=== PATIENT | female | born 1935 | race Caucasian/White ===

== ENCOUNTER 2016-05-27 18:17 | Emergency (ER) | payer MEDICARE, OTHER, MEDICAID ==
[~2016-05-27] VITALS: Ht 157.5 cm; Wt 59.0 kg
[~2016-05-27 18:17] MED LIST: CALC500T GTB; FERS GTB; FOLI0.4T2 GTB; GLIP5TAB13 GTB; LANS30CA GTB; LEVO500T72 GTB; MULT-761 GTB; MUPI22OI2 TOP; NOVO3I SC; UDREG GTB
[2016-05-27 18:37] VITALS: Ht 157.5 cm; Wt 59.0 kg
[2016-05-27] MEDS ORDERED: DIATR MEGLU/DIATRIZOATE SODIUM 120 ML BTL ONE (19:04)
--- NOTE | 2016-05-27 20:10 | RADRPT ---
PROCEDURE: XR Abdomen. CLINICAL INDICATION: Gastrostomy tube position. TECHNIQUE: AP supine abdomen x-ray. The image was obtained following injection of 30 ml of Gastrog rafin into the gastrostomy tube. COMPARISON: CT scan of the abdomen and pelvis dated 08/10/2014. FINDINGS: There is a gastrostomy tube in the stomach. Contrast is present in the gastrostomy tube, stomach, a nd distal esophagus. There is gastroesophageal reflux. Multiple surgical clips are present in the upper abdomen. The stomach is probably small related to prior surgery. There are no abnormal calcifications overlying the urinary tracts. There are degenerative changes of the spine. IMPRESSION: 1. Gastrostomy tube in the stomach. 2. Prior upper abdomen surgery. 3. Gastroesophageal reflux. RPTAT: QQ .Parvez Santana MD, Date Time Electronically viewed and signed by .Parvez Santana MD, on 05/27/2016 20:10 .R/
[2016-05-27] MEDS ORDERED: DOCU-159 GTB (20:44)
[2016-05-27] MEDS ORDERED: FLEETPED PR (20:45)
[2016-05-27] MEDS ORDERED: DULR PR (20:45)
[2016-05-27] MEDS ORDERED: LEVO5TAB10 GTB (20:47)
[2016-05-27] MEDS ORDERED: PANT40TA3 GTB (20:48)
[2016-05-27] MEDS ORDERED: MAGN400O4 GTB (20:48)
[2016-05-27] MEDS ORDERED: SODI1TAB2 GTB (20:49)
[2016-05-27] MEDS ORDERED: ACET325T33 GTB (20:51)
[2016-05-27] MEDS ORDERED: TYL500 GTB (20:51)
[2016-05-27] MEDS ORDERED: CRAN3875 GTB (20:53)
[2016-05-27 21:06] VITALS: BP 146/66; PULSE 72; RESP 18
--- NOTE | 2016-05-27 21:26 | ERD ---
ER Documentation Chief Complaint Date/Time DATE: 05/27/16 TIME: 21:24 Chief Complaint sent by SNF for Gtube replacement, needs 30F HPI Patient is a 81-year-old female with diabetes and hypertension who presents with a G-tube malfunction. The patient was brought in by ambulance. She came from [facility]. Please note the history and physical exam is limited secondary to the patient's mental status. She had a 30 Vietnamese G-tube which was not functioning. Upon review of old medical records this is the patient's third visit to the ER since 2013. Dr. Jennings is her primary doctor. ROS All systems reviewed and are negative except as per history of present illness. Medications Home Meds Active Scripts Metoclopramide* (Reglan*) 10 Mg/10 Ml Soln, 5 MG GTB Q8 Y for pushpa, #0 ML Prov:CIELO AMBROSIO [employer] MECH[employer]IC 08/13/14 Reported Medications Cran/Vitc/Mannose/Inulin/Brom (Uti-Stat Liquid) 3,875 Mg/30 Ml Liquid, 30 ML GTB BID 05/27/16 Acetaminophen* (Tylenol*) 500 Mg Tab, 1000 MG GTB Q4H Y for PAIN LEVEL 4-6/10, TAB 05/27/16 Acetaminophen* (Tylenol*) 325 Mg Tablet, 650 MG GTB Q4H Y for MILD PAIN LEVEL 1- 3, TAB 05/27/16 Sodium Chloride* (Sodium Chloride*) 1 Gm Tablet, 1 GM GTB DAILY, TAB 05/27/16 Pantoprazole* (Protonix*) 40 Mg Tablet.dr, 40 MG GTB DAILY, TAB 05/27/16 Magnesium Hydroxide* (Milk Of Magnesia*) 400 Mg/5 Ml Oral.susp, 30 ML GTB DAILY Y for PRN, ML 05/27/16 Levocetirizine Dihydrochloride (Xyzal) 5 Mg Tablet, 5 MG GTB 5PM, TAB 05/27/16 Sod Phosphate/Sod Biphosphate* (Fleet* Enema Pediatric) 66.6 Ml Soln, 66.6 ML MO Q2D Y for CONSTIPATION, ENEMA 05/27/16 Bisacodyl* (Bisacodyl*) 10 Mg Supp, 10 MG MO Q24H Y for PRN, SUPP 05/27/16 Docusate Sodium* (Docusate Sodium*) 100 Mg Capsule, 100 MG GTB QHS, #30 CAP 05/27/16 Glipizide* (Glipizide*) 5 Mg Tablet, 5 MG GTB AC BREAKFAST, TAB 08/10/14 Folic Acid* (Folic Acid*) 0.4 Mg Tablet, 0.4 MG GTB DAILY, TAB 08/10/14 Calcium Carbonate (Calcium 500) 1 Tab Tablet, 1 TAB GTB DAILY 09/04/13 Multivitamin (MULTI VITAMIN DAILY) 1 Each Tablet, 5 ML GTB DAILY 09/04/13 Discontinued Reported Medications Ferrous Sulfate* (Ferrous Sulfate*) 60 Mg/Ml Liq, 7.5 ML GTB DAILY, ML 08/31/14 Levofloxacin* (Levaquin*) 500 Mg Tablet, 500 MG GTB DAILY, TAB 08/31/14 Lansoprazole* (Lansoprazole*) 30 Mg Capsule.dr, 30 MG GTB Q12, CAP 08/31/14 Mupirocin* (Bactroban*) 2% -22 Gram Oint...g., 1 APPLIC TOP BID for 7 Days, TUB SITE OF APPLICATION: 08/31/14 Insulin Aspart* (Novolog Insulin Pen*) 100 Unit/Ml Soln, 0 SC .SLIDING SCALE AC , EA 08/10/14 Allergies Allergies: Coded Allergies: Penicillins (Verified Allergy, Severe, 05/27/16) PMhx/Soc History of Surgery: Yes (gtube placement) Anesthesia Reaction: No Hx Neurological Disorder: No Hx Respiratory Disorders: No Hx Cardiac Disorders: Yes (htn) Hx Psychiatric Problems: Yes (depression ) Hx Miscellaneous Medical Probl: No Hx Alcohol Use: No Hx Substance Use: No Hx Tobacco Use: No Smoking Status: Unknown if ever smoked FmHx Family History: diabetes Physical Exam Vitals Vital Signs Date Time Temp Pulse Resp B/P Pulse Ox O2 Delivery O2 Flow Rate FiO2 05/27/16 21:06 72 18 146/66 97 Room Air 05/27/16 18:37 98.3 80 18 192/82 97 Physical Exam Const: No acute distress Head: Atraumatic Eyes: Normal Conjunctiva ENT: Normal External Ears, Nose and Mouth. Neck: Full range of motion..~ No meningismus. Resp: Clear to auscultation bilaterally Cardio: Regular rate and rhythm, no murmurs Abd: Nonfunctioning G-tube in place Skin: No petechiae or rashes Back: No midline or flank tenderness Ext: No cyanosis, or edema Neur: Awake Results 24 hrs Current Medications Medications (Trade) Dose Ordered Sig/Pushap Route PRN Reason Start Time Stop Time Status Last Admin Dose Admin Diatrizoate Meglum/ Diatrizoate Sod (Gastrografin 66-10 Solution) 120 ml STK-MED ONCE .ROUTE 05/27/16 19:04 05/27/16 19:05 DC 05/27/16 20:15 Procedures/MDM G-tube Insertion by me: Sterile technique, local prep and lubrication, time out performed. Location: Epigastrum Device: 20 Vietnamese G-tube Technique: Amina pressure with twisting motion. Balloon inflation Results: Gastric contents expressed. Compl: none X-ray Abdomen 1V Interpreted by me: Free Air: None Bowel Gas: Nonspecific Contrast: Intraluminal Patient is a 81-year-old female who presents for G-tube replacement. She has a 30 Vietnamese G-tube. We called central supply as well as the operating room and they do not have a 30 Vietnamese G-tube size. The largest they have is a 20 Vietnamese G-tube. Even though this is not ideal I will place a 20 Vietnamese G-tube so the patient can receive feedings. I was able to secure the G-tube with the balloon to the wall of the abdomen and a dressing was applied. The patient tolerated the entire procedure. The patient will be transferred by ambulance back to the nursing facility. Departure Diagnosis: Primary Impression: Encounter for gastrojejunal (GJ) tube placement Condition: Fair Patient Instructions: Caring for Your Gastrostomy Tube (G-Tube) Additional Instructions: Call your primary care doctor TOMORROW for an appointment during the next 1 WEEK.Tell the executive secretary social welfare that you were referred from this facility.See the doctor sooner or return here if your condition worsens before your appointment time. LAKESHA BLANTON MD May 27, 2016 21:26
== END 2016-05-27 21:13 | disposition home or self-care (01) ==
LOC: E/R 18:17
DX: Z43.1 Encounter for attention to gastrostomy (principal); I10 Essential (primary) hypertension; E11.9 Type 2 diabetes mellitus without complications; Z79.4 Long term (current) use of insulin; Z79.84 Long term (current) use of oral hypoglycemic drugs
CPT/HCPCS: 74000

== ENCOUNTER 2017-08-21 21:55 | Emergency (ER) | END 2017-08-22 01:00 | disposition home or self-care (01) ==

== ENCOUNTER 2018-06-03 08:10 | Inpatient (IN) | payer MEDICARE, OTHER ==
[~2018-06-03] VITALS: Ht 165.1 cm; Wt 45.9 kg
[~2018-06-03 08:10] MED LIST changes: +ACET325T33 GTB; +BISA10SU75 PR; +CRAN3875 GTB; +DOCU-159 GTB; -FERS GTB; +FLEETPED PR; -LANS30CA GTB; -LEVO500T72 GTB; +LEVO5TAB28 GTB; +MAGN400O19 GTB; -MUPI22OI2 TOP; -NOVO3I SC; +PANT40TA3 GTB; +SODI1TAB2 GTB; +TYL500 GTB
[2018-06-03] MEDS ORDERED: PANTOPRAZOLE 40 MG INJ IV STA (08:13)
[2018-06-03] MEDS ORDERED: DOCU50LI23 GTB (08:50)
[2018-06-03] MEDS ORDERED: ACETAMINOPHEN 325 MG TAB PO PRN ×2 (10:00→12:00)
[2018-06-03] MEDS ORDERED: ONDANSETRON 4 MG INJ IV PRN ×2 (10:00→12:00)
--- NOTE | 2018-06-03 10:00 | ERD ---
ER Documentation Chief Complaint Chief Complaint SENT FROM [facility] FOR EVAL OF RB. HPI Patient is an 83-year-old female who presents for rectal bleed. Please note the history and physical exam is limited secondary to the patient's mental status. The patient has had a rectal bleed for 2-3 days. The blood has been dark red from the rectum. The patient came from [facility]. She has not on blood thinning medications. Upon review of old medical records this is the patient's sixth visit to the ER since 2013. The patient's primary doctor is Dr. Ashleigh Heard. She has seen Dr. Hagen while admitted in the past. ROS All systems reviewed and are negative except as per history of present illness. Medications Home Meds Reported Medications Docusate Sodium* (Docusate Sodium* Liq) 50 Mg/5 Ml Liquid, 100 MG GTB DAILY, ML 06/03/18 Cran/Vitc/Mannose/Inulin/Brom (Uti-Stat Liquid) 3,875 Mg/30 Ml Liquid, 30 ML GTB BID 05/27/16 Acetaminophen* (Tylenol*) 500 Mg Tab, 1000 MG GTB Q4H PRN for PAIN LEVEL 4-6/10, TAB 05/27/16 Acetaminophen* (Tylenol*) 325 Mg Tablet, 650 MG GTB Q4H PRN for MILD PAIN LEVEL 1-3, TAB 05/27/16 Pantoprazole* (Protonix*) 40 Mg Tablet.dr, 40 MG GTB DAILY, TAB 05/27/16 Glipizide* (Glipizide*) 5 Mg Tablet, 5 MG GTB AC BREAKFAST, TAB 08/10/14 Folic Acid* (Folic Acid*) 0.4 Mg Tablet, 0.4 MG GTB DAILY, TAB 08/10/14 Multivitamin (MULTI VITAMIN DAILY) 1 Each Tablet, 5 ML GTB DAILY 09/04/13 Discontinued Reported Medications Sodium Chloride* (Sodium Chloride*) 1 Gm Tablet, 1 GM GTB DAILY, TAB 05/27/16 Magnesium Hydroxide* (Milk Of Magnesia*) 400 Mg/5 Ml Oral.susp, 30 ML GTB DAILY PRN for PRN, ML 05/27/16 Levocetirizine Dihydrochloride (Xyzal) 5 Mg Tablet, 5 MG GTB 5PM, TAB 05/27/16 Sod Phosphate/Sod Biphosphate* (Fleet* Enema Pediatric) 66.6 Ml Soln, 66.6 ML CA Q2D PRN for CONSTIPATION, ENEMA 05/27/16 Bisacodyl* (Bisacodyl*) 10 Mg Supp, 10 MG CA Q24H PRN for PRN, SUPP 05/27/16 Docusate Sodium* (Docusate Sodium*) 100 Mg Capsule, 100 MG GTB QHS, #30 CAP 05/27/16 Calcium Carbonate (Calcium 500) 1 Tab Tablet, 1 TAB GTB DAILY 09/04/13 Discontinued Scripts Metoclopramide* (Reglan*) 10 Mg/10 Ml Soln, 5 MG GTB Q8 PRN for pushpa, #0 ML Prov:CIELO AMBROSIO [employer]IST 08/13/14 Allergies Allergies: Coded Allergies: Penicillins (Verified Allergy, Severe, 06/03/18) PMhx/Soc History of Surgery: Yes (gtube placement) Anesthesia Reaction: No Hx Neurological Disorder: No Hx Respiratory Disorders: No Hx Cardiac Disorders: Yes (htn) Hx Psychiatric Problems: Yes (depression ) Hx Miscellaneous Medical Probl: No (anemia , gastro-intestinal hemmorage , dm 2, diverticulosis) Hx Alcohol Use: No Hx Substance Use: No Hx Tobacco Use: No Smoking Status: Never smoker FmHx Unable to obtain Physical Exam Vitals Vital Signs Date Temp Pulse Resp B/P (MAP) Pulse Ox O2 O2 Flow FiO2 Time Delivery Rate 06/03/18 63 17 118/46 100 Room Air 09:09 (70) 06/03/18 98.2 70 17 135/80 99 08:14 (98) Physical Exam Const: No acute distress Head: Atraumatic Eyes: Normal Conjunctiva ENT: Normal External Ears, Nose and Mouth. Neck: Full range of motion. No meningismus. Resp: Clear to auscultation bilaterally Cardio: Regular rate and rhythm, no murmurs Abd: Soft, non tender, non distended. Normal bowel sounds Skin: Pale skin Back: No midline or flank tenderness Ext: No cyanosis, or edema Neur: Awake but confused at baseline Result Diagram: 06/03/18 0830 06/03/18 0830 Results 24 hrs Laboratory Tests Test 06/03/18 08:30 White Blood Count 5.5 10^3/ul Red Blood Count 2.76 10^6/ul Hemoglobin 8.7 g/dl Hematocrit 26.1 % Mean Corpuscular Volume 94.6 fl Mean Corpuscular Hemoglobin 31.5 pg Mean Corpuscular Hemoglobin Concent 33.3 g/dl Red Cell Distribution Width 11.6 % Platelet Count 285 10^3/UL Mean Platelet Volume 9.1 fl Immature Granulocytes % 0.400 % Neutrophils % 70.3 % Lymphocytes % 15.7 % Monocytes % 8.4 % Eosinophils % 4.7 % Basophils % 0.5 % Nucleated Red Blood Cells % 0.0 /100WBC Immature Granulocytes # 0.020 10^3/ul Neutrophils # 3.9 10^3/ul Lymphocytes # 0.9 10^3/ul Monocytes # 0.5 10^3/ul Eosinophils # 0.3 10^3/ul Basophils # 0.0 10^3/ul Nucleated Red Blood Cells # 0.0 10^3/ul Prothrombin Time 12.3 Sec Prothrombin Time Ratio 1.0 INR International Normalized Ratio 0.90 Activated Partial Thromboplast Time 33.5 Sec Sodium Level 130 mmol/L Potassium Level 5.1 mmol/L Chloride Level 95 mmol/L Carbon Dioxide Level 29 mmol/L Anion Gap 6 Blood Urea Nitrogen 31 mg/dl Creatinine 0.70 mg/dl Est Glomerular Filtrat Rate mL/min mL/min Glucose Level 123 mg/dl Calcium Level 9.2 mg/dl Total Bilirubin 0.1 mg/dl Direct Bilirubin 0.00 mg/dl Indirect Bilirubin 0.1 mg/dl Aspartate Amino Transf (AST/SGOT) 23 IU/L Alanine Aminotransferase (ALT/SGPT) 20 IU/L Alkaline Phosphatase 149 IU/L Troponin I < 0.012 ng/ml Total Protein 6.4 g/dl Albumin 3.5 g/dl Globulin 2.90 g/dl Albumin/Globulin Ratio 1.20 Current Medications Medications Dose Sig/Pushpa Start Time Status Last (Trade) Ordered Route PRN Stop Time Admin Dose Reason Admin 40 mg ONCE STAT 06/03/18 DC 06/03/18 Pantoprazole IV 08:13 08:37 (Protonix 06/03/18 08:14 Iv) Ondansetron 4 mg BRIDGE ORDER 06/03/18 HCl (Zofran PRN IV 10:00 Inj) NAUSEA/VOMITI 06/04/18 09:59 NG 650 mg ER BRIDGE 06/03/18 Acetaminophen PRN PO 10:00 (Tylenol .MILD PAIN 06/04/18 09:59 Tab) 1-3 OR TEMP Procedures/MDM EKG read by me: Rate/Rhythm: Regular rate and rhythm at a normal rate Intervals: Normal Impression: No evidence of ischemia or arrhythmia Patient is an 83-year-old female who presents with rectal bleeding. Hemoglobin was 8 and does not need transfusion at this time but if she drops further she may require transfusion. The patient was given Protonix empirically. Patient will need admission to the panel team to a medical surgical bed. The patient may need GI consultation for endoscopy versus colonoscopy versus both. The patient has not on blood thinning medicines at this time. Departure Diagnosis: Primary Impression: GI bleed GI bleed type/associated pathology: unspecified gastrointestinal hemorrhage type Qualified Codes: K92.2 - Gastrointestinal hemorrhage, unspecified Condition: LAKESHA Mendoza MD Jun 03, 2018 10:00
[2018-06-03] MEDS ORDERED: SOD CHLORIDE 0.9% 1,000 ML IV STA (10:19)
[2018-06-03] MEDS ORDERED: SOD CHLORIDE 0.45% 1,000 ML IV SCH (11:39)
[2018-06-03] MEDS ORDERED: LORAZEPAM 2 MG INJ IV PRN (12:00)
[2018-06-03] MEDS ORDERED: ALBUTEROL/IPRATROPIUM (NEB) 3 ML AMP HHN PRN (12:00)
[2018-06-03] MEDS ORDERED: hydrALAzine 20 MG INJ IV PRN (12:00)
[2018-06-03] MEDS ORDERED: morphine 2 MG INJ IV PRN (12:00)
[2018-06-03] MEDS ORDERED: DOCUSATE SODIUM 100 MG CAP PO PRN (12:00)
[2018-06-03] MEDS ORDERED: NACL 0.9% 3 ML SYG IV SCH (12:00)
[2018-06-03] MEDS ORDERED: NITROGLYCERIN (SL) 0.4 MG TAB SL PRN (12:00)
[2018-06-03] MEDS ORDERED: HYDROCODONE/APAP (5/325) TAB PO PRN (12:00)
[2018-06-03] MEDS ORDERED: MAGNESIUM HYDROXIDE 30ML CUP PO PRN (12:00)
[2018-06-03] MEDS ORDERED: SOD CHLORIDE 0.9% 500 ML IV ONE (12:30)
--- NOTE | 2018-06-03 12:35 | HP ---
Date/Time of Note Date/Time of Note DATE: 06/03/18 TIME: 12:27 Assessment/Plan VTE Prophylaxis SCD applied (from Nsg): Yes Pharmacological prophylaxis: NA/contraindicated Pharm contraindication: bleeding Lines/Catheters IV Catheter Type (from Nrsg): Saline Lock Assessment/Plan Hospital Course SUBJECTIVE: Lying in bed comfortably. Just had a bowel movement bloody. OBJECTIVE: Vital signs-see below PHYSICAL EXAM: Constitutional: Frail looking, elderly female, lying in bed comfortably. Psych: nl mood/affect, no complaints Head: atraumatic, normocephalic Eyes: nl conjunctiva, nl sclera ENMT: mucosa pink and moist, nl external ears & nose Neck: non-tender, supple Respiratory: clear to auscultation, normal air movement Cardiovascular: nl pulses, regular rate and rhythm Gastrointestinal: non-tender, soft, bowel sounds active in all 4 quadrants. Musculoskeletal/extremities: nl extremities to inspection, motor strength equal bilaterally, no focal deficit. Normal pulses,no cyanosis, no edema. Neurological: Forgetful/dementia. Alert to self and place. Nl speech, nl strength Skin: nl turgor ASSESSMENT/PLAN: 83-year-old female with a history of gastric cancer, status post PEG, gastritis, erosive esophagitis, dementia, was transferred from correction with rectal bleed. 1. Acute GI bleed, hematochezia -GI consult for EGD/colonoscopy evaluation -N.p.o. -IV fluids, empiric Protonix -Avoid NSAIDs, antiplatelets, anticoagulation 2. Acute on chronic anemia. Acute anemia secondary to GI bleed -Currently H&H stable. However, in the setting of hematochezia, I will transfuse 1 unit. -Monitor H&H closely. 3. Dehydration -IV fluids 4. Hyponatremia likely secondary to dehydration -Again, we will treat with IV fluids. -Monitor sodium level 5. History of gastric cancer, PEG placed. -Patient with very poor PEG care, ordered G-tube care/cleanse with normal saline/4 x 4 gauze/Bactroban. -G-tube site cultures. -We will have GI follow-up on this 2. 6. Osteoporosis -Supportive care, resume home medications -Continued PT evaluation 7. Dementia -Supportive care 8.DMII -We will give IV fluids in light of patient is being kept n.p.o. Insulin protocol, Lantus. Hold oral agents. -Follow-up A1c. DVT prophylaxis: SCDs, anticoagulation contraindicated secondary to bleeding PUD prophylaxis: Protonix CODE STATUS: Full code Diet: N.p.o. Rest of the management depend on hospital course. Approximately 60 m spent on this history and physical. Patient was seen in collaboration with Result Diagram: 06/03/18 1206 06/03/18 0830 Results 24hrs Laboratory Tests Test 06/03/18 08:30 06/03/18 12:06 White Blood Count 5.5 Red Blood Count 2.76 #L Hemoglobin 8.7 #L 8.3 L Hematocrit 26.1 #L 24.9 L Mean Corpuscular Volume 94.6 Mean Corpuscular Hemoglobin 31.5 Mean Corpuscular Hemoglobin Concent 33.3 Red Cell Distribution Width 11.6 Platelet Count 285 Mean Platelet Volume 9.1 # Immature Granulocytes % 0.400 Neutrophils % 70.3 Lymphocytes % 15.7 Monocytes % 8.4 Eosinophils % 4.7 Basophils % 0.5 Nucleated Red Blood Cells % 0.0 Immature Granulocytes # 0.020 Neutrophils # 3.9 Lymphocytes # 0.9 Monocytes # 0.5 Eosinophils # 0.3 Basophils # 0.0 Nucleated Red Blood Cells # 0.0 Prothrombin Time 12.3 Prothrombin Time Ratio 1.0 INR International Normalized Ratio 0.90 Activated Partial Thromboplast Time 33.5 Sodium Level 130 L Potassium Level 5.1 Chloride Level 95 L Carbon Dioxide Level 29 Anion Gap 6 Blood Urea Nitrogen 31 H Creatinine 0.70 Est Glomerular Filtrat Rate mL/min Glucose Level 123 Calcium Level 9.2 Total Bilirubin 0.1 L Direct Bilirubin 0.00 Indirect Bilirubin 0.1 Aspartate Amino Transf (AST/SGOT) 23 Alanine Aminotransferase (ALT/SGPT) 20 Alkaline Phosphatase 149 H Troponin I < 0.012 Total Protein 6.4 Albumin 3.5 Globulin 2.90 Albumin/Globulin Ratio 1.20 HPI/ROS Admit Date/Time Admit Date/Time Jun 03, 2018 at 09:39 Hx of Present Illness This is a 83-year-old female with a past medical history of gastric cancer, status post G-tube placed, osteoporosis, gastritis, erosive esophagitis, de mentia, , who was sent from a correction secondary to rectal bleed. Patient denied chest pain, palpitation, shortness of breath, nausea, vomiting, abdominal pain, loss of conscious, dizziness, hematochezia, hematemesis, dysuria, hematuria. Patient's last EGD evaluation in August 2014. No colonoscopy reports fine. In the emergency room, patient was noted with hemoglobin 8.7, hematocrit 26.1, sodium 130, chloride 95, BUN 34 1,Mildly elevated alkaline phosphatase 149.. Otherwise unremarkable. ROS 12 point review of system was assessed and is negative other than what is m entioned in the HPI. PMH/Family/Social Past Medical History See HPI Medications Current Medications IV Flush (NS 3 ml) 3 ml PER PROTOCOL IV ; Start 06/03/18 at 12:00 Ondansetron HCl (Zofran Inj) 4 mg Q6H PRN IV NAUSEA/VOMITING; Start 06/03/18 at 12:00 Acetaminophen (Tylenol Tab) 650 mg Q6H PRN PO .PAIN 1-3 OR TEMP; Start 06/03/18 at 12:00 Acetaminophen/ Hydrocodone Bitart ([place] (5/325)) 1 tab Q6H PRN PO .MOD PAIN 4- 6; Start 06/03/18 at 12:00 Morphine Sulfate (morphine) 2 mg Q4H PRN IV .SEVERE PAIN 7-10; Start 06/03/18 at 12:00 Docusate Sodium (Colace) 100 mg Q12H PRN PO .CONSTIPATION; Start 06/03/18 at 12:00 Magnesium Hydroxide (Milk Of Mag) 30 ml DAILY PRN PO .CONSTIPATION; Start 06/03/18 at 12:00 Pantoprazole (Protonix Iv) 40 mg BID@0600,1800 IV ; Start 06/03/18 at 18:00 Sodium Chloride 1,000 ml @ 75 mls/hr [id number] IV ; Start 06/03/18 at 11:39 Lorazepam (Ativan) 0.5 mg Q6H PRN IV ANXIETY; Start 06/03/18 at 12:00 Albuterol/ Ipratropium (Duoneb) 3 ml Q4H RESP THERAPY PRN HHN SHORTNESS OF BREATH; Start 06/03/18 at 12:00 Hydralazine HCl (Apresoline) 10 mg Q6H PRN IV ELEVATED BLOOD PRESSURE; Start 06/03/18 at 12:00 Nitroglycerin (Nitroglycerin (Sl Tab) 0.4 Mg) 1 tab Q5M PRN SL ANGINA; Start 06/03/18 at 12:00 Folic Acid (Folic Acid) 0.4 mg DAILY GTB ; Start 06/04/18 at 09:00 Multivitamins Therapeutic (Theragran) 1 tab DAILY GTB ; Start 06/04/18 at 09:00 Sodium Chloride 500 ml @ 500 mls/hr Q1H ONCE IV ; Start 06/03/18 at 12:30; Stop 06/03/18 at 13:29; Status UNV Mupirocin (Bactroban) 1 applic BID TOP ; Start 06/03/18 at 12:30; Status UNV Coded Allergies: Penicillins (Verified Allergy, Severe, 06/03/18) Family History Significant Family History: no pertinent family hx Social History Denied history of alcohol, smoking or illicit drug use per Smoking Status: Never smoker Exam/Review of Systems Vital Signs Vitals Vital Signs Date Temp Pulse Resp B/P (MAP) Pulse Ox O2 O2 Flow FiO2 Time Delivery Rate 06/03/18 68 17 143/77 100 Room Air 10:57 (99) 06/03/18 98.2 08:14 ALFREDO MENSAH NP Jun 03, 2018 12:35
[2018-06-03] MEDS: INSULIN ASPART [NOVOLOG] 3 ML PEN SC SCH ×3 (13:00→22:48)
[2018-06-03 13:28] VITALS: BP 147/69; PULSE 68; RESP 16
[2018-06-03] MEDS: DEXTROSE 5%-0.9% NACL 1,000 ML IV SCH (13:31)
--- NOTE | 2018-06-03 16:11 | CONS ---
Assessment/Plan Assessment/Plan Hospital Course (Demo Recall) Summary Assessment and Plan: Assessment: Normocytic anemia Melena/hematochezia Malfunctioning gastrostomy tube Hx of Gastric cancer s/p PEG placement (30 fr) Dementia Plan: Malfunctioning gastrostomy tube- therefore we are unable to prep for colonoscopy- given size of tube (30 vietnamese) we are not able to exchange without leakage We will plan for EGD and g-tube exchange tentatively tomorrow based on obtaining consent - with plan for colonoscopy in near future when able to prep I called the patient's sister Candace Hathaway [phone], left a message to call [facility] back. I also called [phone] without answer (busy tone) Continue PPI tx Keep NPO for now [facility] Pt seen in collaboration with Dr. Johnston/Xiao CC: CATERINA JOHNSTON ; Consultation Date/Type/Reason Admit Date/Time Jun 03, 2018 at 09:39 Date of Consultation: Jun 03, 2018 Type of Consult GI Reason for Consultation Anemia, rectal bleeding Date/Time of Note DATE: 06/03/18 TIME: 16:05 Hx of Present Illness This is an 83-year-old female with a history of dementia, therefore HPi is limited and information obtained from medical records. She also has a history of gastric cancer, status post PEG, gastritis, erosive esophagitis. Patient was transferred here for rectal bleeding. Labs revealed Labs this morning revealed a hemoglobin of 8.7, hematocrit 26.1 with normal insidious platelet count. INR is within normal limits at time evaluation patient is oriented only to name otherwise confused spoke with nursing staff who states they noted both melena and bright red blood per rectum. According to our records her last EGD was in 2014 there is no colonoscopy noted. Evaluation of PEG tube and appears PEG filling balloon is malfunctioning PEG tube was easily removed. Attempted to inflate the balloon without success. Currently PEG is in place to keep ostomy open. Able to prep patient for colonoscopy therefore we will move forward with the EGD with gastrostomy tube exchange tomorrow tentatively based on obtaining consent. Attempted to call patient's Sister Candace Hathaway multiple times on 2 different numbers without success. Further recommendations based on clinical course. Review of Systems: A 12 system, review was conducted and is negative except as noted in the HPI or here. Past Medical History Home Meds Reported Medications Docusate Sodium* (Docusate Sodium* Liq) 50 Mg/5 Ml Liquid, 100 MG GTB DAILY, ML 06/03/18 Cran/Vitc/Mannose/Inulin/Brom (Uti-Stat Liquid) 3,875 Mg/30 Ml Liquid, 30 ML GTB BID 05/27/16 Acetaminophen* (Tylenol*) 500 Mg Tab, 1000 MG GTB Q4H PRN for PAIN LEVEL 4-6/10, TAB 05/27/16 Acetaminophen* (Tylenol*) 325 Mg Tablet, 650 MG GTB Q4H PRN for MILD PAIN LEVEL 1-3, TAB 05/27/16 Pantoprazole* (Protonix*) 40 Mg Tablet.dr, 40 MG GTB DAILY, TAB 05/27/16 Glipizide* (Glipizide*) 5 Mg Tablet, 5 MG GTB AC BREAKFAST, TAB 08/10/14 Folic Acid* (Folic Acid*) 0.4 Mg Tablet, 0.4 MG GTB DAILY, TAB 08/10/14 Multivitamin (MULTI VITAMIN DAILY) 1 Each Tablet, 5 ML GTB DAILY 09/04/13 Discontinued Reported Medications Sodium Chloride* (Sodium Chloride*) 1 Gm Tablet, 1 GM GTB DAILY, TAB 05/27/16 Magnesium Hydroxide* (Milk Of Magnesia*) 400 Mg/5 Ml Oral.susp, 30 ML GTB DAILY PRN for PRN, ML 05/27/16 Levocetirizine Dihydrochloride (Xyzal) 5 Mg Tablet, 5 MG GTB 5PM, TAB 05/27/16 Sod Phosphate/Sod Biphosphate* (Fleet* Enema Pediatric) 66.6 Ml Soln, 66.6 ML [place] Q2D PRN for CONSTIPATION, ENEMA 05/27/16 Bisacodyl* (Bisacodyl*) 10 Mg Supp, 10 MG [place] Q24H PRN for PRN, SUPP 05/27/16 Docusate Sodium* (Docusate Sodium*) 100 Mg Capsule, 100 MG GTB QHS, #30 CAP 05/27/16 Calcium Carbonate (Calcium 500) 1 Tab Tablet, 1 TAB GTB DAILY 09/04/13 Discontinued Scripts Metoclopramide* (Reglan*) 10 Mg/10 Ml Soln, 5 MG GTB Q8 PRN for olayinka, #0 ML Prov:CIELO AMBROSIO [employer] ENGINEER 08/13/14 Medications Current Medications IV Flush (NS 3 ml) 3 ml PER PROTOCOL IV ; Start 06/03/18 at 12:00 Ondansetron HCl (Zofran Inj) 4 mg Q6H PRN IV NAUSEA/VOMITING; Start 06/03/18 at 12:00 Acetaminophen (Tylenol Tab) 650 mg Q6H PRN PO .PAIN 1-3 OR TEMP; Start 06/03/18 at 12:00 Acetaminophen/ Hydrocodone Bitart ([place] (5/325)) 1 tab Q6H PRN PO .MOD PAIN 4- 6; Start 06/03/18 at 12:00 Morphine Sulfate (morphine) 2 mg Q4H PRN IV .SEVERE PAIN 7-10; Start 06/03/18 at 12:00 Docusate Sodium (Colace) 100 mg Q12H PRN PO .CONSTIPATION; Start 06/03/18 at 12:00 Magnesium Hydroxide (Milk Of Mag) 30 ml DAILY PRN PO .CONSTIPATION; Start 06/03/18 at 12:00 Pantoprazole (Protonix Iv) 40 mg BID@0600,1800 IV ; Start 06/03/18 at 18:00 Lorazepam (Ativan) 0.5 mg Q6H PRN IV ANXIETY; Start 06/03/18 at 12:00 Albuterol/ Ipratropium (Duoneb) 3 ml Q4H RESP THERAPY PRN HHN SHORTNESS OF BREATH; Start 06/03/18 at 12:00 Nitroglycerin (Nitroglycerin (Sl Tab) 0.4 Mg) 1 tab Q5M PRN SL ANGINA; Start 06/03/18 at 12:00 Folic Acid (Folic Acid) 0.4 mg DAILY GTB ; Start 06/04/18 at 09:00 Multivitamins Therapeutic (Theragran) 1 tab DAILY GTB ; Start 06/04/18 at 09:00 Mupirocin (Bactroban) 1 applic BID TOP ; Start 06/03/18 at 13:30 Docusate Sodium (Colace Liquid Cup) 100 mg DAILY GTB ; Start 06/04/18 at 09:00 Diagnostic Test (Pha) (Accu-Chek) 1 ea 02 XX ; Start 06/04/18 at 02:00 Insulin Glargine (Lantus) 12 units DAILY@2000 SC ; Start 06/03/18 at 20:00 Insulin Aspart (Novolog Insulin Pen) NOVOLOG *MILD* ALGORI... Q4 SC ; Start 06/03/18 at 13:00 Dextrose/Sodium Chloride 1,000 ml @ 100 mls/hr Q10H IV Last administered on 06/03/18at 13:31; Admin Dose 100 MLS/HR; Start 06/03/18 at 13:00 Allergies: Coded Allergies: Penicillins (Verified Allergy, Severe, 06/03/18) Social History Smoking Status: Unknown if ever smoked Exam/Review of Systems Exam Vitals Vital Signs Date Temp Pulse Resp B/P (MAP) Pulse Ox O2 O2 Flow FiO2 Time Delivery Rate 06/03/18 98.3 68 16 147/69 100 Room Air 13:28 (95) Constitutional: alert, oriented (to name) Head: normocephalic, atraumatic Eyes: nl conjunctiva ENMT: nl external ears & nose Neck: supple Respiratory: clear to auscultation Cardiovascular: regular rate and rhythm Gastrointestinal: soft, bowel sounds, other (g-tube) Genitourinary - Female: nl adnexae Musculoskeletal: nl extremities to inspection Results Result Diagram: 06/03/18 1206 06/03/18 0830 Results 24hrs Laboratory Tests Test 06/03/18 08:30 06/03/18 12:06 06/03/18 13:26 White Blood Count 5.5 Red Blood Count 2.76 #L Hemoglobin 8.7 #L 8.3 L Hematocrit 26.1 #L 24.9 L Mean Corpuscular Volume 94.6 Mean Corpuscular Hemoglobin 31.5 Mean Corpuscular Hemoglobin Concent 33.3 Red Cell Distribution Width 11.6 Platelet Count 285 Mean Platelet Volume 9.1 # Immature Granulocytes % 0.400 Neutrophils % 70.3 Lymphocytes % 15.7 Monocytes % 8.4 Eosinophils % 4.7 Basophils % 0.5 Nucleated Red Blood Cells % 0.0 Immature Granulocytes # 0.020 Neutrophils # 3.9 Lymphocytes # 0.9 Monocytes # 0.5 Eosinophils # 0.3 Basophils # 0.0 Nucleated Red Blood Cells # 0.0 Prothrombin Time 12.3 12.9 Prothrombin Time Ratio 1.0 1.0 INR International Normalized Ratio 0.90 0.96 Activated Partial Thromboplast Time 33.5 34.7 Sodium Level 130 L Potassium Level 5.1 Chloride Level 95 L Carbon Dioxide Level 29 Anion Gap 6 Blood Urea Nitrogen 31 H Creatinine 0.70 Est Glomerular Filtrat Rate mL/min Glucose Level 123 Calcium Level 9.2 Total Bilirubin 0.1 L Direct Bilirubin 0.00 Indirect Bilirubin 0.1 Aspartate Amino Transf (AST/SGOT) 23 Alanine Aminotransferase (ALT/SGPT) 20 Alkaline Phosphatase 149 H Troponin I < 0.012 Total Protein 6.4 Albumin 3.5 Globulin 2.90 Albumin/Globulin Ratio 1.20 Free Thyroxine 1.16 Bedside Glucose 95 Medications Medication Current Medications IV Flush (NS 3 ml) 3 ml PER PROTOCOL IV ; Start 06/03/18 at 12:00 Ondansetron HCl (Zofran Inj) 4 mg Q6H PRN IV NAUSEA/VOMITING; Start 06/03/18 at 12:00 Acetaminophen (Tylenol Tab) 650 mg Q6H PRN PO .PAIN 1-3 OR TEMP; Start 06/03/18 at 12:00 Acetaminophen/ Hydrocodone Bitart ([place] (5/325)) 1 tab Q6H PRN PO .MOD PAIN 4- 6; Start 06/03/18 at 12:00 Morphine Sulfate (morphine) 2 mg Q4H PRN IV .SEVERE PAIN 7-10; Start 06/03/18 at 12:00 Docusate Sodium (Colace) 100 mg Q12H PRN PO .CONSTIPATION; Start 06/03/18 at 12:00 Magnesium Hydroxide (Milk Of Mag) 30 ml DAILY PRN PO .CONSTIPATION; Start 06/03/18 at 12:00 Pantoprazole (Protonix Iv) 40 mg BID@0600,1800 IV ; Start 06/03/18 at 18:00 Lorazepam (Ativan) 0.5 mg Q6H PRN IV ANXIETY; Start 06/03/18 at 12:00 Albuterol/ Ipratropium (Duoneb) 3 ml Q4H RESP THERAPY PRN HHN SHORTNESS OF BREATH; Start 06/03/18 at 12:00 Nitroglycerin (Nitroglycerin (Sl Tab) 0.4 Mg) 1 tab Q5M PRN SL ANGINA; Start 06/03/18 at 12:00 Folic Acid (Folic Acid) 0.4 mg DAILY GTB ; Start 06/04/18 at 09:00 Multivitamins Therapeutic (Theragran) 1 tab DAILY GTB ; Start 06/04/18 at 09:00 Mupirocin (Bactroban) 1 applic BID TOP ; Start 06/03/18 at 13:30 Docusate Sodium (Colace Liquid Cup) 100 mg DAILY GTB ; Start 06/04/18 at 09:00 Diagnostic Test (Pha) (Accu-Chek) 1 ea 02 XX ; Start 06/04/18 at 02:00 Insulin Glargine (Lantus) 12 units DAILY@2000 SC ; Start 06/03/18 at 20:00 Insulin Aspart (Novolog Insulin Pen) NOVOLOG *MILD* ALGORI... Q4 SC ; Start 06/03/18 at 13:00 Dextrose/Sodium Chloride 1,000 ml @ 100 mls/hr Q10H IV Last administered on 06/03/18at 13:31; Admin Dose 100 MLS/HR; Start 06/03/18 at 13:00 DORIS BAUMANN Jun 03, 2018 16:11
--- NOTE | 2018-06-03 16:55 | QN ---
Documentation Comment I spoke to patient's niece Tamra [phone]. discussed procedure of EGD/g- tube replacement. She verbalized understanding and is agreeable to procedure DORIS BAUMANN Jun 03, 2018 16:55
[2018-06-03] MEDS: MUPIROCIN 2% 22 GM OINT TOP SCH ×2 (17:20→22:49)
[2018-06-03] MEDS: PANTOPRAZOLE 40 MG INJ IV SCH (17:20)
--- NOTE | 2018-06-03 17:21 | PREAC ---
Date/Time of Note Date/Time of Note DATE: 06/03/18 TIME: 17:19 Anesthesia Eval and Record Evaluation Time Pre-Procedure Interview DATE: 06/03/18 TIME: 17:19 Age 83 Sex female NPO: 8 hrs Preoperative diagnosis GI bleed Planned procedure EGD Past Medical History Past Medical History: Includes Endo: Diabetes GI: Obesity, Other (Gastric cancer) Heme: Anemia Psych: Other (dementia) Surgery & Anesthesia Issues No known issue Meds Anticoagulation: No Beta Jsoep within 24 hr: No Reason Beta Josep not given: Pt. not on B-Josep Reported Medications Docusate Sodium* (Docusate Sodium* Liq) 50 Mg/5 Ml Liquid, 100 MG GTB DAILY, ML 06/03/18 Cran/Vitc/Mannose/Inulin/Brom (Uti-Stat Liquid) 3,875 Mg/30 Ml Liquid, 30 ML GTB BID 05/27/16 Acetaminophen* (Tylenol*) 500 Mg Tab, 1000 MG GTB Q4H PRN for PAIN LEVEL 4-6/10, TAB 05/27/16 Acetaminophen* (Tylenol*) 325 Mg Tablet, 650 MG GTB Q4H PRN for MILD PAIN LEVEL 1-3, TAB 05/27/16 Pantoprazole* (Protonix*) 40 Mg Tablet.dr, 40 MG GTB DAILY, TAB 05/27/16 Glipizide* (Glipizide*) 5 Mg Tablet, 5 MG GTB AC BREAKFAST, TAB 08/10/14 Folic Acid* (Folic Acid*) 0.4 Mg Tablet, 0.4 MG GTB DAILY, TAB 08/10/14 Multivitamin (MULTI VITAMIN DAILY) 1 Each Tablet, 5 ML GTB DAILY 09/04/13 Discontinued Reported Medications Sodium Chloride* (Sodium Chloride*) 1 Gm Tablet, 1 GM GTB DAILY, TAB 05/27/16 Magnesium Hydroxide* (Milk Of Magnesia*) 400 Mg/5 Ml Oral.susp, 30 ML GTB DAILY PRN for PRN, ML 05/27/16 Levocetirizine Dihydrochloride (Xyzal) 5 Mg Tablet, 5 MG GTB 5PM, TAB 05/27/16 Sod Phosphate/Sod Biphosphate* (Fleet* Enema Pediatric) 66.6 Ml Soln, 66.6 ML [place] Q2D PRN for CONSTIPATION, ENEMA 05/27/16 Bisacodyl* (Bisacodyl*) 10 Mg Supp, 10 MG GA Q24H PRN for PRN, SUPP 05/27/16 Docusate Sodium* (Docusate Sodium*) 100 Mg Capsule, 100 MG GTB QHS, #30 CAP 05/27/16 Calcium Carbonate (Calcium 500) 1 Tab Tablet, 1 TAB GTB DAILY 09/04/13 Discontinued Scripts Metoclopramide* (Reglan*) 10 Mg/10 Ml Soln, 5 MG GTB Q8 PRN for olayinka, #0 ML Prov:CIELO AMBROSIO PNEUMATIC HOIST OPERATOR 08/13/14 Current Medications IV Flush (NS 3 ml) 3 ml PER PROTOCOL IV ; Start 06/03/18 at 12:00 Ondansetron HCl (Zofran Inj) 4 mg Q6H PRN IV NAUSEA/VOMITING; Start 06/03/18 at 12:00 Acetaminophen (Tylenol Tab) 650 mg Q6H PRN PO .PAIN 1-3 OR TEMP; Start 06/03/18 at 12:00 Acetaminophen/ Hydrocodone Bitart ([place] (5/325)) 1 tab Q6H PRN PO .MOD PAIN 4- 6; Start 06/03/18 at 12:00 Morphine Sulfate (morphine) 2 mg Q4H PRN IV .SEVERE PAIN 7-10; Start 06/03/18 at 12:00 Docusate Sodium (Colace) 100 mg Q12H PRN PO .CONSTIPATION; Start 06/03/18 at 1 2:00 Magnesium Hydroxide (Milk Of Mag) 30 ml DAILY PRN PO .CONSTIPATION; Start 06/03/18 at 12:00 Pantoprazole (Protonix Iv) 40 mg BID@0600,1800 IV ; Start 06/03/18 at 18:00 Lorazepam (Ativan) 0.5 mg Q6H PRN IV ANXIETY; Start 06/03/18 at 12:00 Albuterol/ Ipratropium (Duoneb) 3 ml Q4H RESP THERAPY PRN HHN SHORTNESS OF BREATH; Start 06/03/18 at 12:00 Nitroglycerin (Nitroglycerin (Sl Tab) 0.4 Mg) 1 tab Q5M PRN SL ANGINA; Start 06/03/18 at 12:00 Folic Acid (Folic Acid) 0.4 mg DAILY GTB ; Start 06/04/18 at 09:00 Multivitamins Therapeutic (Theragran) 1 tab DAILY GTB ; Start 06/04/18 at 09:00 Mupirocin (Bactroban) 1 applic BID TOP ; Start 06/03/18 at 13:30 Docusate Sodium (Colace Liquid Cup) 100 mg DAILY GTB ; Start 06/04/18 at 09:00 Diagnostic Test (Pha) (Accu-Chek) 1 ea 02 XX ; Start 06/04/18 at 02:00 Insulin Glargine (Lantus) 12 units DAILY@2000 SC ; Start 06/03/18 at 20:00 Insulin Aspart (Novolog Insulin Pen) NOVOLOG *MILD* ALGORI... Q4 SC ; Start 06/03/18 at 13:00 Dextrose/Sodium Chloride 1,000 ml @ 100 mls/hr Q10H IV Last administered on 06/03/18at 13:31; Admin Dose 100 MLS/HR; Start 06/03/18 at 13:00 Meds reviewed: Yes Allergies Coded Allergies: Penicillins (Verified Allergy, Severe, 06/03/18) Allergies Reviewed: Yes Labs/Studies Labs Reviewed: Reviewed by anesthesiologist Result Diagram: 06/03/18 1206 06/03/18 0830 Laboratory Tests 06/03/18 08:30 06/03/18 12:06 Blood Bank Test 06/03/18 08:30 Antibody Screen NEGATIVE Blood Type O POSITIVE test: N/A Studies: ECG (SR) Pre-procedure Exam Last vitals Vital Signs Date Temp Pulse Resp B/P (MAP) Pulse Ox O2 O2 Flow FiO2 Time Delivery Rate 06/03/18 98.3 68 16 147/69 100 Room Air 13:28 (95) Airway: Adequate mouth opening Mallampati: Mallampati II Teeth: Normal Lung: Normal Heart: Normal ASA Physical Status ASA physical status: 2 Emergency: None Planned Anesthetic General/MAC: MAC Pre-operative Attestations Prior to commencing anesthesia and surgery, the patient was re-evaluated, there was verification of: *The patient's identity *The results of appropriate recent lab work and preoperative vital signs *The above evaluation not changing prior to induction *Anesthetic plan, risk benefits, alternative and complications discussed with patient/family; questions answered; patient/family understands, accepts and wishes to proceed. DOMINGO PAYNE Jun 03, 2018 17:21
[2018-06-03] MEDS: PEG/ELECTROLYTES 4L BTL NGT ONE (20:00)
[2018-06-03 20:11] VITALS: BP 153/59; PULSE 87; RESP 18
[2018-06-03] MEDS ORDERED: NON-FORMULARY/PATIENT OWN MED (Cran/Vitc/Mannose/Inulin/Brom (Uti-Stat Liquid) 30 ML) GTB SCH (21:00)
[2018-06-03] MEDS ORDERED: PEG/ELECTROLYTES 4L BTL NGT ONE (22:00)
[2018-06-03] MEDS: INSULIN GLARGINE [LANTus] (100 UNITS/ML) SYG SC SCH (22:48)
[2018-06-04] VITALS (13 sets, daily range): BP systolic 84–152; BP diastolic 47–89; PULSE 68–119; RESP 16–24
[2018-06-04] MEDS: PEG/ELECTROLYTES 4L BTL NGT ONE (00:47)
[2018-06-04] MEDS: DEXTROSE 5%-0.9% NACL 1,000 ML IV SCH ×3 (00:49→19:00)
[2018-06-04] MEDS: INSULIN ASPART [NOVOLOG] 3 ML PEN SC SCH ×6 (00:49→21:00)
[2018-06-04] MEDS: ACCU-CHEK XX SCH (01:25)
[2018-06-04] MEDS: PANTOPRAZOLE 40 MG INJ IV SCH ×2 (05:35→17:59)
[2018-06-04] MEDS ORDERED: LIDOCAINE 2% (SDV) 5 ML INJ ONE (07:00)
[2018-06-04] MEDS ORDERED: PROPOFOL 200 MG INJ ONE (07:00)
[2018-06-04] MEDS: DOCUSATE SODIUM 10 MG/ML (10ML CUP) GTB SCH (10:14)
[2018-06-04] MEDS: MULTIVITAMINS THERAPEUTIC TAB GTB SCH (10:15)
[2018-06-04] MEDS: FOLIC ACID 0.4 MG TAB GTB SCH (10:15)
[2018-06-04] MEDS: MUPIROCIN 2% 22 GM OINT TOP SCH ×2 (10:18→21:00)
[2018-06-04] MEDS ORDERED: SOD CHLORIDE 0.9% 250 ML IV* ONE (14:25)
--- NOTE | 2018-06-04 14:29 | PN ---
Date/Time of Note Date/Time of Note DATE: 06/04/18 TIME: 14:20 Assessment/Plan VTE Prophylaxis Risk score (from [facility])>0 risk: 6 SCD applied (from [facility]): No SCD contraindicated: patient refusal Pharmacological prophylaxis: NA/contraindicated Pharm contraindication: bleeding Lines/Catheters IV Catheter Type (from [facility]): Peripheral IV Assessment/Plan Hospital Course SUBJECTIVE: She continued to have hematochezia. Patient also with G-tube fell off yesterday. She is getting an EGD evaluation and a new replacement G-tube. OBJECTIVE: Vital signs-see below PHYSICAL EXAM: Constitutional: Frail looking, elderly female, lying in bed comfortably. Psych: nl mood/affect, no complaints Head: atraumatic, normocephalic Eyes: nl conjunctiva, nl sclera ENMT: mucosa pink and moist, nl external ears & nose Neck: non-tender, supple Respiratory: clear to auscultation, normal air movement Cardiovascular: nl pulses, regular rate and rhythm Gastrointestinal:G tube non-tender, soft, bowel sounds active in all 4 quadrants. Musculoskeletal/extremities: nl extremities to inspection, motor strength equal bilaterally, no focal deficit. Normal pulses,no cyanosis, no edema. Neurological: Forgetful/dementia. Alert to self and place. Nl speech, nl strength Skin: nl turgor ASSESSMENT/PLAN: 83-year-old female with a history of gastric cancer, status post PEG, gastritis, erosive esophagitis, dementia, was transferred from retirement with rectal bleed. 1. Acute GI bleed, hematochezia -She is getting EGD today. Unfortunately anoscopy can be done only later secondary to no G-tube access for colon prep. -Continue n.p.o. status, IV fluids and Protonix. -Avoid NSAIDs, antiplatelets, anticoagulation 2. Acute on chronic anemia. Acute anemia secondary to GI bleed -Transfuse 2 units PRBC today. -Monitor H&H closely. 3. Dehydration -Stable. -Continue IV fluids 4. Hyponatremia likely secondary to dehydration -Resolved with IV fluids. 5. Malfunctioning G-tube. -Yesterday G-tube fell off and plan is to put a new replacement tube. -G-tube site grew [place], will apply nystatin ointment. 6. History of gastric cancer 7. Osteoporosis -Supportive care, resume home medications -Continued PT evaluation 8. Dementia -Supportive care 9. Hyperglycemia, likely stress induced. -We will treat with insulin. DVT prophylaxis: SCDs, anticoagulation contraindicated secondary to bleeding PUD prophylaxis: Protonix CODE STATUS: Full code Diet: N.p.o. Disposition: Follow-up GI recommendations. Patient was seen in collaboration with Result Diagram: 06/04/1852506/04/18525 Results 24hrs Laboratory Tests Test 06/03/18 17:15 06/03/18 22:43 06/04/18 00:43 06/04/18 05:26 Bedside Glucose 142 194 167 White Blood Count 7.9 # Red Blood Count 2.29 L Hemoglobin 7.2 L Hematocrit 21.7 L Mean Corpuscular 94.8 Volume Mean Corpuscular 31.4 Hemoglobin Mean Corpuscular 33.2 Hemoglobin Concent Red Cell 11.7 Distribution Width Platelet Count 274 Mean Platelet Volume 9.6 Immature 0.300 Granulocytes % Neutrophils % 87.9 H Lymphocytes % 6.7 L Monocytes % 4.3 Eosinophils % 0.4 Basophils % 0.4 Nucleated Red Blood 0.0 Cells % Immature 0.020 Granulocytes # Neutrophils # 6.9 Lymphocytes # 0.5 L Monocytes # 0.3 Eosinophils # 0.0 Basophils # 0.0 Nucleated Red Blood 0.0 Cells # Sodium Level 136 Potassium Level 4.3 Chloride Level 109 # Carbon Dioxide Level 20 L Anion Gap 7 Blood Urea Nitrogen 16 # Creatinine 0.53 Est Glomerular Filtrat Rate mL/min Glucose Level 204 Hemoglobin A1c 5.6 Calcium Level 8.5 Phosphorus Level 3.0 Magnesium Level 1.7 Triglycerides Level 92 Cholesterol Level 97 L LDL Cholesterol, 33 Calculated HDL Cholesterol 46 Cholesterol/HDL 2.1 Ratio Thyroid Stimulating 1.470 Hormone (TSH) Test 06/04/18 05:33 06/04/18 05:50 06/04/18 10:09 06/04/18 12:37 Bedside Glucose 232 H 205 220 Stool Occult Blood POSITIVE Exam/Review of Systems Exam Vitals Vital Signs Date Temp Pulse Resp B/P (MAP) Pulse Ox O2 O2 Flow FiO2 Time Delivery Rate 06/04/18 97.9 115 18 135/65 96 Room Air 08:45 (88) Intake and Output 06/03/18 06/03/18 06/04/18 1515:00 23:00 07:00 IntakeIntake Total 500 ml 1400 ml BalanceBalance 500 ml 1400 ml Results Results 24hrs Laboratory Tests Test 06/03/18 17:15 06/03/18 22:43 06/04/18 00:43 06/04/18 05:26 Bedside Glucose 142 194 167 White Blood Count 7.9 # Red Blood Count 2.29 L Hemoglobin 7.2 L Hematocrit 21.7 L Mean Corpuscular 94.8 Volume Mean Corpuscular 31.4 Hemoglobin Mean Corpuscular 33.2 Hemoglobin Concent Red Cell 11.7 Distribution Width Platelet Count 274 Mean Platelet Volume 9.6 Immature 0.300 Granulocytes % Neutrophils % 87.9 H Lymphocytes % 6.7 L Monocytes % 4.3 Eosinophils % 0.4 Basophils % 0.4 Nucleated Red Blood 0.0 Cells % Immature 0.020 Granulocytes # Neutrophils # 6.9 Lymphocytes # 0.5 L Monocytes # 0.3 Eosinophils # 0.0 Basophils # 0.0 Nucleated Red Blood 0.0 Cells # Sodium Level 136 Potassium Level 4.3 Chloride Level 109 # Carbon Dioxide Level 20 L Anion Gap 7 Blood Urea Nitrogen 16 # Creatinine 0.53 Est Glomerular Filtrat Rate mL/min Glucose Level 204 Hemoglobin A1c 5.6 Calcium Level 8.5 Phosphorus Level 3.0 Magnesium Level 1.7 Triglycerides Level 92 Cholesterol Level 97 L LDL Cholesterol, 33 Calculated HDL Cholesterol 46 Cholesterol/HDL 2.1 Ratio Thyroid Stimulating 1.470 Hormone (TSH) Test 06/04/18 05:33 06/04/18 05:50 06/04/18 10:09 06/04/18 12:37 Bedside Glucose 232 H 205 220 Stool Occult Blood POSITIVE Medications Medication Current Medications IV Flush (NS 3 ml) 3 ml PER PROTOCOL IV ; Start 06/03/18 at 12:00 Ondansetron HCl (Zofran Inj) 4 mg Q6H PRN IV NAUSEA/VOMITING; Start 06/03/18 at 12:00 Acetaminophen (Tylenol Tab) 650 mg Q6H PRN PO .PAIN 1-3 OR TEMP; Start 06/03/18 at 12:00 Acetaminophen/ Hydrocodone Bitart ([place] (5/325)) 1 tab Q6H PRN PO .MOD PAIN 4- 6; Start 06/03/18 at 12:00 Morphine Sulfate (morphine) 2 mg Q4H PRN IV .SEVERE PAIN 7-10; Start 06/03/18 at 12:00 Docusate Sodium (Colace) 100 mg Q12H PRN PO .CONSTIPATION; Start 06/03/18 at 12:00 Magnesium Hydroxide (Milk Of Mag) 30 ml DAILY PRN PO .CONSTIPATION; Start 06/03/18 at 12:00 Pantoprazole (Protonix Iv) 40 mg BID@0600,1800 IV Last administered on 06/04/18at 05:35; Admin Dose 40 MG; Start 06/03/18 at 18:00 Lorazepam (Ativan) 0.5 mg Q6H PRN IV ANXIETY; Start 06/03/18 at 12:00 Albuterol/ Ipratropium (Duoneb) 3 ml Q4H RESP THERAPY PRN HHN SHORTNESS OF BREATH; Start 06/03/18 at 12:00 Nitroglycerin (Nitroglycerin (Sl Tab) 0.4 Mg) 1 tab Q5M PRN SL ANGINA; Start 06/03/18 at 12:00 Folic Acid (Folic Acid) 0.4 mg DAILY GTB ; Start 06/04/18 at 09:00 Multivitamins Therapeutic (Theragran) 1 tab DAILY GTB ; Start 06/04/18 at 09:00 Mupirocin (Bactroban) 1 applic BID TOP Last administered on 06/04/18at 10:18; Admin Dose 1 APPLIC; Start 06/03/18 at 13:30 Docusate Sodium (Colace Liquid Cup) 100 mg DAILY GTB ; Start 06/04/18 at 09:00 Diagnostic Test (Pha) (Accu-Chek) 1 ea 02 XX ; Start 06/04/18 at 02:00 Insulin Glargine (Lantus) 12 units DAILY@2000 SC Last administered on 06/03/18at 22:48; Admin Dose 12 UNITS; Start 06/03/18 at 20:00 Insulin Aspart (Novolog Insulin Pen) NOVOLOG *MILD* ALGORI... Q4 SC Last administered on 06/04/18at 12:59; Admin Dose 2 UNIT; Start 06/03/18 at 13:00 Dextrose/Sodium Chloride 1,000 ml @ 100 mls/hr Q10H IV Last administered on 06/04/18at 00:49; Admin Dose 100 MLS/HR; Start 06/03/18 at 13:00 ALFREDO MENSAH NPb 26, 2019 14:29
[2018-06-04] MEDS: NYSTATIN 30 GM POWDER BTL TOP SCH ×2 (15:30→22:08)
[2018-06-04] MEDS: NYSTATIN 15 GM CR TOP SCH (15:30)
--- NOTE | 2018-06-04 16:21 | HPN ---
Date/Time of Note Date/Time of Note DATE: 06/04/18 TIME: 16:21 Interval H&P Admission Note Pt. seen H&P reviewed: No system changes ROBERT DAMIAN MD Jun 04, 2018 16:21
--- NOTE | 2018-06-04 16:53 | PAC ---
Date/Time of Note Date/Time of Note DATE: 06/04/18 TIME: 16:52 Post-Anesthesia Notes Post-Anesthesia Note Last documented vital signs Vital Signs Date Temp Pulse Resp B/P (MAP) Pulse Ox O2 O2 Flow FiO2 Time Delivery Rate 06/04/18 97.6 92 18 121/58 99 Room Air 1653 (79) Activity: WNL Respiratory function: WNL Cardiovascular function: WNL Mental status: Baseline Pain reasonably controlled: Yes Hydration appropriate: Yes Nausea/Vomiting absent: Yes NATALIO KAYE Jun 04, 2018 16:53
[2018-06-04] MEDS ORDERED: hydrALAzine 20 MG INJ IV PRN (17:00)
[2018-06-04] MEDS ORDERED: FENTAnyl 50 MCG/ML VIAL IV PRN (17:00)
[2018-06-04] MEDS ORDERED: LABETALOL HCL 20MG INJ IV PRN (17:00)
[2018-06-04] MEDS ORDERED: ALBUTEROL 0.083% (NEB) 2.5 MG/3 ML AMP HHN PRN (17:00)
[2018-06-04] MEDS ORDERED: EPHEDrine SULFATE 50 MG/5 ML SYG IV PRN (17:00)
[2018-06-04] MEDS ORDERED: ONDANSETRON 4 MG INJ IV PRN (17:00)
--- NOTE | 2018-06-04 17:10 | OPPN ---
Date/Time of Note Date/Time of Note DATE: 06/04/18 TIME: 17:00 Proc Note GI Procedure Date 06/04/18 Indication: diagnostic, treatment Pre-procedure Diagnosis Anemia Post-procedure Diagnosis Impression: 1.5 cm proximal gastric polyp. Post polypectomy plus Endo Clip placement. Post placement of Yi 24-20 cc replacement gastrostomy tube. Otherwise normal EGD. Plan: PPI therapy. Deferred colonoscopy given the therapeutic procedure and the need for Endo Clip. Procedure Performed: Endoscopy, Other (EGD plus polypectomy plus gastrostomy tube replacement) Surgeon ROBERT DAMIAN MD see signature line Gold Nib Grinder none Anesthesia Type: MAC Anesthesiologist: NATALIO KAYE Tourniquet Time none EBL none Transfusion required none Biopsy 1: none Polyp 1: Gastric polyp Grafts/Implants none Tubes/Drains none Complication(s) none Procedure Description After informed consent, with the patient/relatives understanding the procedure, its indications, potential risks and complications, including but not limited to: Allergic reaction, bleeding, perforation or infection, and all after all per tinent questions were answered to the patient's satisfaction, patient/relative signed witnessed informed consent. Following this, premedication was administered slowly IV push under care of cardiovascular respiratory monitoring with pulse oximetry, and automatic blood pressure, and secured entrance monitor. Once to sedative effect was achieved the patient was placed in the left lateral decubitus, the panendoscope was introduced and advanced under visual control. Careful examination of the upper gastrointestinal tract, both on insertion as well as withdrawal of the instrument disclosed following findings: ESOPHAGUS: The mucosa of the entire esophagus was carefully examined and showed the following findings: The mucosa appears within normal limits. There is no evidence of esophagitis, varices, neoplasm or stricture. No hiatal hernia identified. STOMACH: Upon entrance to the stomach air was insufflated, the gastric galaviz distended normally. The mucosa of the fundus, body and antrum of the stomach was carefully examined both head-on and on retroflexion, and showed the following findings: There is a 1.5 cm semi-pedunculated polyp in the proximal stomach. Upon completion of the examination it was removed with polypectomy snare and an Endo Clip was applied to the base to prevent the possibility of bleeding. We identified an gastrostomy site. We were able to advance a 24 [id number] cc balloon replacement gastrostomy tube without difficulty.Otherwise the mucosa appears within normal limits with no abnormalities. There is no evidence of gastritis, ulcers or neoplasm. PYLORUS: The pylorus was carefully examined and showed the following findings: The pylorus appears patent and within normal limits, with no evidence of gastric outlet obstruction. DUODENUM: The duodenal mucosa was carefully examined in the duodenal bulb as well as the second portion of the duodenum and showed the following findings:The mucosa appears unremarkable with no evidence of duodenitis, ulcer or neoplasm. The patient tolerated the procedure well and was transferred out of the endoscopy suite awake, and in good condition to continue recovery under observation, feedings will start in the next 12-24 hours and the discharge in the care will be instituted. Copies To: CC: ROBERT DAMIAN MD ; ROBERT DAMIAN MD Jun 04, 2018 17:10
--- NOTE | 2018-06-04 17:11 | HPN ---
Date/Time of Note Date/Time of Note DATE: 06/04/18 TIME: 17:11 Interval H&P Admission Note Pt. seen H&P reviewed: No system changes ROBERT DAMIAN MD Jun 04, 2018 17:11
[2018-06-04] MEDS: INSULIN GLARGINE [LANTus] (100 UNITS/ML) SYG SC SCH (22:07)
[2018-06-05] MEDS: INSULIN ASPART [NOVOLOG] 3 ML PEN SC SCH ×3 (00:58→08:46)
[2018-06-05] MEDS: ACCU-CHEK XX SCH (00:59)
[2018-06-05 01:35] VITALS: BP 129/57; PULSE 72; RESP 20
[2018-06-05] MEDS: NYSTATIN 15 GM CR TOP SCH ×2 (01:56→08:47)
[2018-06-05] MEDS ORDERED: ACCU-CHEK XX SCH (02:00)
[2018-06-05 04:03] VITALS: BP 143/67; PULSE 60; RESP 16
[2018-06-05] MEDS: DEXTROSE 5%-0.9% NACL 1,000 ML IV SCH (04:12)
[2018-06-05] MEDS: PANTOPRAZOLE 40 MG INJ IV SCH ×2 (05:29→17:34)
[2018-06-05 08:00] VITALS: BP 151/67; PULSE 69; RESP 18
[2018-06-05] MEDS: FOLIC ACID 0.4 MG TAB GTB SCH (08:44)
[2018-06-05] MEDS: DOCUSATE SODIUM 10 MG/ML (10ML CUP) GTB SCH (08:44)
[2018-06-05] MEDS: MULTIVITAMINS THERAPEUTIC TAB GTB SCH (08:44)
[2018-06-05] MEDS: MUPIROCIN 2% 22 GM OINT TOP SCH (08:47)
[2018-06-05] MEDS: NYSTATIN 30 GM POWDER BTL TOP SCH ×2 (08:47→21:50)
--- NOTE | 2018-06-05 11:37 | PN ---
Date/Time of Note Date/Time of Note DATE: 06/05/18 TIME: 11:32 Assessment/Plan VTE Pro[place]axis [place] [facility] risk: 5 [place]CD [place] [facility] No SCD contraindicated: patient refusal Pharmacological prophylaxis: NA/contraindicated Pharm contraindication: bleeding Lines/Catheters IV [facility] [place] Assessment/Plan Hospital Course SUBJECTIVE: No further melena/hematochezia. G-tube continues to leak, getting 30 mL's per hour feeding. OBJECTIVE: Vital signs-see below PHYSICAL EXAM: Constitutional: Frail looking, elderly female, lying in bed comfortably. Psych: nl mood/affect, no complaints Head: atraumatic, normocephalic Eyes: nl conjunctiva, nl sclera ENMT: mucosa pink and moist, nl external ears & nose Neck: non-tender, supple Respiratory: clear to auscultation, normal air movement Cardiovascular: nl pulses, regular rate and rhythm Gastrointestinal:G tube non-tender, soft, bowel sounds active in all 4 quadra nts. Musculoskeletal/extremities: nl extremities to inspection, motor strength equal bilaterally, no focal deficit. Normal pulses,no cyanosis, no edema. Neurological: Forgetful/dementia. Alert to self and place. Nl speech, nl strength Skin: nl turgor ASSESSMENT/PLAN: 83-year-old female with a history of gastric cancer, status post PEG, gastritis, erosive esophagitis, dementia, was transferred from retirement with rectal bleed. 1. Acute GI bleed, hematochezia -Status post EGD:1.5 cm proximal gastric polyp. Post polypectomy plus Endo Clip placement. Deferred colonoscopy given therapeutic procedure and need for Endo Clip. -Continue Protonix -Avoid NSAIDs, antiplatelets, anticoagulation 2. Acute on chronic anemia. Acute anemia secondary to GI bleed -Transfuse 2 units PRBC today. -Monitor H&H closely. 3. Dehydration -Stable. -Continue G-tube feeding as tolerated. 4. Malfunctioning G-tube. -Status post replacement gastrostomy tube 06/04/2018=> having some leaking around the tube, will have GI look it up.. -G-tube site grew Federica albicans, will treat with clotrimazole cream twice daily. -Daily G-tube care as instructed. 6. History of gastric cancer 7. Osteoporosis -Supportive care, resume home medications -Continued PT evaluation 8. Dementia -Supportive care 9. Hyperglycemia, likely stress induced. -Now stable. Stable A1c. DVT prophylaxis: SCDs, anticoagulation contraindicated secondary to bleeding PUD prophylaxis: Protonix CODE STATUS: Full code Diet: N.p.o. Disposition: Patient continued to have leaking around G-tube, requiring GI reevaluation. Once G-tube is deemed fully functional and patient able to tolerate diet, she can be discharged back to snf facility. Patient was seen in collaboration with Result Diagram: 06/05/18 0643 06/05/18 0617 Results 24hrs Laboratory Tests Test 06/04/18 12:37 06/04/18 17:58 06/04/18 22:04 06/05/18 00:57 Bedside Glucose 220 135 183 153 Test 06/05/18 04:06 06/05/18 06:17 06/05/18 06:43 06/05/18 07:02 Bedside Glucose 132 Sodium Level 140 Potassium Level 3.9 Chloride Level 113 H Carbon Dioxide 23 Level Anion Gap 4 L Blood Urea 14 Nitrogen Creatinine 0.61 Est Glomerular Filtrat Rate mL/min Glucose Level 96 # Calcium Level 9.2 White Blood Count 7.7 Red Blood Count 3.68 #L Hemoglobin 11.4 #L Hematocrit 33.5 #L Mean Corpuscular 91.0 Volume Mean Corpuscular 31.0 Hemoglobin Mean Corpuscular 34.0 Hemoglobin Concen t Red Cell 13.3 Distribution Width Platelet Count 207 # Mean Platelet 9.4 Volume Immature 0.500 H Granulocytes % Neutrophils % 74.1 Lymphocytes % 14.3 L Monocytes % 9.6 Eosinophils % 0.8 Basophils % 0.7 Nucleated Red 0.0 Blood Cells % Immature 0.040 H Granulocytes # Neutrophils # 5.7 Lymphocytes # 1.1 Monocytes # 0.7 Eosinophils # 0.1 Basophils # 0.1 Nucleated Red 0.0 Blood Cells # Lab Scanned BLOOD TRANSFUSIO Report N Test 06/05/18 08:46 Bedside Glucose 70 Exam/Review of Systems Exam Vitals Vital Signs Date Temp Pulse Resp B/P (MAP) Pulse Ox O2 O2 Flow FiO2 Time Delivery Rate 06/05/18 98.5 69 18 151/67 100 Room Air 08:00 (95) 06/04/18 2.0 17:10 Intake and Output 06/04/18 06/04/18 06/05/18 1515:00 23:00 07:00 IntakeIntake Total 400 ml 791 ml BalanceBalance 400 ml 791 ml Results Results 24hrs Laboratory Tests Test 06/04/18 12:37 06/04/18 17:58 06/04/18 22:04 06/05/18 00:57 Bedside Glucose 220 135 183 153 Test 06/05/18 04:06 06/05/18 06:17 06/05/18 06:43 06/05/18 07:02 Bedside Glucose 132 Sodium Level 140 Potassium Level 3.9 Chloride Level 113 H Carbon Dioxide 23 Level Anion Gap 4 L Blood Urea 14 Nitrogen Creatinine 0.61 Est Glomerular Filtrat Rate mL/min Glucose Level 96 # Calcium Level 9.2 White Blood Count 7.7 Red Blood Count 3.68 #L Hemoglobin 11.4 #L Hematocrit 33.5 #L Mean Corpuscular 91.0 Volume Mean Corpuscular 31.0 Hemoglobin Mean Corpuscular 34.0 Hemoglobin Concen t Red Cell 13.3 Distribution Width Platelet Count 207 # Mean Platelet 9.4 Volume Immature 0.500 H Granulocytes % Neutrophils % 74.1 Lymphocytes % 14.3 L Monocytes % 9.6 Eosinophils % 0.8 Basophils % 0.7 Nucleated Red 0.0 Blood Cells % Immature 0.040 H Granulocytes # Neutrophils # 5.7 Lymphocytes # 1.1 Monocytes # 0.7 Eosinophils # 0.1 Basophils # 0.1 Nucleated Red 0.0 Blood Cells # Lab Scanned BLOOD TRANSFUSIO Report N Test 06/05/18 08:46 Bedside Glucose 70 Medications Medication Current Medications IV Flush (NS 3 ml) 3 ml PER PROTOCOL IV ; Start 06/03/18 at 12:00 Ondansetron HCl (Zofran Inj) 4 mg Q6H PRN IV NAUSEA/VOMITING; Start 06/03/18 at 12:00 Acetaminophen (Tylenol Tab) 650 mg Q6H PRN PO .PAIN 1-3 OR TEMP; Start 06/03/18 at 12:00 Acetaminophen/ Hydrocodone Bitart (Bow (5/325)) 1 tab Q6H PRN PO .MOD PAIN 4- 6; Start 06/03/18 at 12:00 Morphine Sulfate (morphine) 2 mg Q4H PRN IV .SEVERE PAIN 7-10; Start 06/03/18 at 12:00 Docusate Sodium (Colace) 100 mg Q12H PRN PO .CONSTIPATION; Start 06/03/18 at 12:00 Magnesium Hydroxide (Milk Of Mag) 30 ml DAILY PRN PO .CONSTIPATION; Start 06/03/18 at 12:00 Pantoprazole (Protonix Iv) 40 mg BID@0600,1800 IV Last administered on 06/05/18 05:29; Admin Dose 40 MG; Start 06/03/18 at 18:00 Lorazepam (Ativan) 0.5 mg Q6H PRN IV ANXIETY; Start 06/03/18 at 12:00 Albuterol/ Ipratropium (Duoneb) 3 ml Q4H RESP THERAPY PRN HHN SHORTNESS OF BREATH; Start 06/03/18 at 12:00 Nitroglycerin (Nitroglycerin (Sl Tab) 0.4 Mg) 1 tab Q5M PRN SL ANGINA; Start 06/03/18 at 12:00 Folic Acid (Folic Acid) 0.4 mg DAILY GTB Last administered on 06/05/18 08:44; Admin Dose 0.4 MG; Start 06/04/18 at 09:00 Multivitamins Therapeutic (Theragran) 1 tab DAILY GTB Last administered on 06/05/18 08:44; Admin Dose 1 TAB; Start 06/04/18 at 09:00 Mupirocin (Bactroban) 1 applic BID TOP Last administered on 06/05/18 08:47; Admin Dose 1 APPLIC; Start 06/03/18 at 13:30 Docusate Sodium (Colace Liquid Cup) 100 mg DAILY GTB Last administered on 06/05/18 08:44; Admin Dose 100 MG; Start 06/04/18 at 09:00 Diagnostic Test (Pha) (Accu-Chek) 1 ea 02 XX ; Start 06/04/18 at 02:00 Insulin Glargine (Lantus) 12 units DAILY@2000 SC Last administered on 06/04/18 22:07; Admin Dose 12 UNITS; Start 06/03/18 at 20:00 Dextrose/Sodium Chloride 1,000 ml @ 100 mls/hr Q10H IV Last administered on 06/05/18 04:12; Admin Dose 100 MLS/HR; Start 06/03/18 at 13:00 Nystatin (Nystatin Cr) 1 applic BID TOP Last administered on 06/05/18at 08:47; Admin Dose 1 APPLIC; Start 06/04/18 at 15:30 Nystatin (Nystatin Powder) 1 applic BID TOP Last administered on 06/05/18at 08:47; Admin Dose 1 APPLIC; Start 06/04/18 at 15:30 Insulin Aspart (Novolog Insulin Pen) NOVOLOG *MILD* ALGORI... Q4 SC ; Start 06/04/18 at 17:00 ALFREDO MENSAH NP Jun 05, 2018 11:37
[2018-06-05] MEDS: CLOTRIMAZOLE 1% 30 GM CR TOP SCH (12:51)
[2018-06-05 14:00] VITALS: BP 135/61; PULSE 69; RESP 17
--- NOTE | 2018-06-05 17:23 | PN ---
Date/Time of Note Date/Time of Note DATE: 06/05/18 TIME: 17:17 Assessment/Plan VTE Prophylaxis Risk score (from [facility])>0 risk: 5 SCD applied (from [facility]): No SCD contraindicated: other (scds) Pharmacological prophylaxis: other (scds) Lines/Catheters IV [facility] (from [facility] Mid Line Assessment/Plan Hospital Course Summary Assessment and Plan: Assessment: Normocytic anemia EGD 06/04/18 Impression: 1.5 cm proximal gastric polyp. Post polypectomy plus Endo Clip placement. Post placement of Syriac 24-20 cc replacement gastrostomy tube. Otherwise normal EGD. Melena/hematochezia Malfunctioning gastrostomy tube Hx of Gastric cancer s/p PEG placement (30 fr) Dementia Plan: PPI therapy. Deferred colonoscopy given the therapeutic procedure and the need for Endo Clip. Large amount of leakage from G-tube with comprised skin noted around ostomy- will hold TF x 24 hours If feeding continues to leak, we will consider removal of g-tube allow area to heal, will supplement with TPN vs NGT TF until new gastrostomy tube can be placed Pending wound nurse consult Pt seen in collaboration with Dr. Lopez/Xiao Subjective: Course reviewed with nursing staff Patient interviewed and examined All labs, imaging and other results reviewed The patient resting in bed appears comfortable No overt signs of GI bleed, HGB has improved and is currently stable I attempted to call patient victorina Barboza to discuss updates and new plan, no answer, a message was left for her to call back. Maintain close observation. Constitutional: alert, oriented (to name) Head: normocephalic, atraumatic Eyes: nl conjunctiva ENMT: nl external ears & nose Neck: supple Respiratory: clear to auscultation Cardiovascular: regular rate and rhythm Gastrointestinal: soft, bowel sounds, other (g-tube) Genitourinary - Female: nl adnexae Musculoskeletal: nl extremities to inspection Result Diagram: 06/05/18 0643 06/05/18 0617 Results 24hrs Laboratory Tests Test 06/04/18 17:58 06/04/18 22:04 06/05/18 00:57 06/05/18 04:06 Bedside Glucose 135 183 153 132 Test 06/05/18 06:17 06/05/18 06:43 06/05/18 07:02 06/05/18 08:46 Sodium Level 140 Potassium Level 3.9 Chloride Level 113 H Carbon Dioxide 23 Level Anion Gap 4 L Blood Urea 14 Nitrogen Creatinine 0.61 Est Glomerular Filtrat Rate mL/min Glucose Level 96 # Calcium Level 9.2 White Blood Count 7.7 Red Blood Count 3.68 #L Hemoglobin 11.4 #L Hematocrit 33.5 #L Mean Corpuscular 91.0 Volume Mean Corpuscular 31.0 Hemoglobin Mean Corpuscular 34.0 Hemoglobin Concen t Red Cell 13.3 Distribution Width Platelet Count 207 # Mean Platelet 9.4 Volume Immature 0.500 H Granulocytes % Neutrophils % 74.1 Lymphocytes % 14.3 L Monocytes % 9.6 Eosinophils % 0.8 Basophils % 0.7 Nucleated Red 0.0 Blood Cells % Immature 0.040 H Granulocytes # Neutrophils # 5.7 Lymphocytes # 1.1 Monocytes # 0.7 Eosinophils # 0.1 Basophils # 0.1 Nucleated Red 0.0 Blood Cells # Lab Scanned BLOOD TRANSFUSIO Report N Bedside Glucose 70 Exam/Review of Systems Exam Vitals Vital Signs Date Temp Pulse Resp B/P (MAP) Pulse Ox O2 O2 Flow FiO2 Time Delivery Rate 06/05/18 98.2 69 17 135/61 96 Room Air 14:00 (85) 06/04/18 2.0 17:10 Intake and Output 06/04/18 06/04/18 06/05/18 1515:00 23:00 07:00 IntakeIntake Total 400 ml 791 ml BalanceBalance 400 ml 791 ml Results Results 24hrs Laboratory Tests Test 06/04/18 17:58 06/04/18 22:04 06/05/18 00:57 06/05/18 04:06 Bedside Glucose 135 183 153 132 Test 06/05/18 06:17 06/05/18 06:43 06/05/18 07:02 06/05/18 08:46 Sodium Level 140 Potassium Level 3.9 Chloride Level 113 H Carbon Dioxide 23 Level Anion Gap 4 L Blood Urea 14 Nitrogen Creatinine 0.61 Est Glomerular Filtrat Rate mL/min Glucose Level 96 # Calcium Level 9.2 White Blood Count 7.7 Red Blood Count 3.68 #L Hemoglobin 11.4 #L Hematocrit 33.5 #L Mean Corpuscular 91.0 Volume Mean Corpuscular 31.0 Hemoglobin Mean Corpuscular 34.0 Hemoglobin Concen t Red Cell 13.3 Distribution Width Platelet Count 207 # Mean Platelet 9.4 Volume Immature 0.500 H Granulocytes % Neutrophils % 74.1 Lymphocytes % 14.3 L Monocytes % 9.6 Eosinophils % 0.8 Basophils % 0.7 Nucleated Red 0.0 Blood Cells % Immature 0.040 H Granulocytes # Neutrophils # 5.7 Lymphocytes # 1.1 Monocytes # 0.7 Eosinophils # 0.1 Basophils # 0.1 Nucleated Red 0.0 Blood Cells # Lab Scanned BLOOD TRANSFUSIO Report N Bedside Glucose 70 Medications Medication Current Medications IV Flush (NS 3 ml) 3 ml PER PROTOCOL IV ; Start 06/03/18 at 12:00 Ondansetron HCl (Zofran Inj) 4 mg Q6H PRN IV NAUSEA/VOMITING; Start 06/03/18 at 12:00 Acetaminophen (Tylenol Tab) 650 mg Q6H PRN PO .PAIN 1-3 OR TEMP; Start 06/03/18 at 12:00 Acetaminophen/ Hydrocodone Bitart (Brea (5/325)) 1 tab Q6H PRN PO .MOD PAIN 4- 6; Start 06/03/18 at 12:00 Morphine Sulfate (morphine) 2 mg Q4H PRN IV .SEVERE PAIN 7-10; Start 06/03/18 at 12:00 Docusate Sodium (Colace) 100 mg Q12H PRN PO .CONSTIPATION; Start 06/03/18 at 12:00 Magnesium Hydroxide (Milk Of Mag) 30 ml DAILY PRN PO .CONSTIPATION; Start 06/03/18 at 12:00 Pantoprazole (Protonix Iv) 40 mg BID@0600,1800 IV Last administered on 06/05/18at 05:29; Admin Dose 40 MG; Start 06/03/18 at 18:00 Lorazepam (Ativan) 0.5 mg Q6H PRN IV ANXIETY; Start 06/03/18 at 12:00 Albuterol/ Ipratropium (Duoneb) 3 ml Q4H RESP THERAPY PRN HHN SHORTNESS OF BREATH; Start 06/03/18 at 12:00 Nitroglycerin (Nitroglycerin (Sl Tab) 0.4 Mg) 1 tab Q5M PRN SL ANGINA; Start 06/03/18 at 12:00 Folic Acid (Folic Acid) 0.4 mg DAILY GTB Last administered on 06/05/18 08:44; Admin Dose 0.4 MG; Start 06/04/18 at 09:00 Multivitamins Therapeutic (Theragran) 1 tab DAILY GTB Last administered on 06/05/18 08:44; Admin Dose 1 TAB; Start 06/04/18 at 09:00 Docusate Sodium (Colace Liquid Cup) 100 mg DAILY GTB Last administered on 06/05/18 08:44; Admin Dose 100 MG; Start 06/04/18 at 09:00 Nystatin (Nystatin Powder) 1 applic BID TOP Last administered on 06/05/18 08:47; Admin Dose 1 APPLIC; Start 06/04/18 at 15:30 Clotrimazole (Lotrimin Cr) 1 applic BID TOP Last administered on 06/05/18 12:51; Admin Dose 1 APPLIC; Start 06/05/18 at 12:00 DORIS BAUMANN Jun 05, 2018 17:23
[2018-06-05 20:00] VITALS: BP 150/64; PULSE 73; RESP 18
[2018-06-05] MEDS ORDERED: DEXTROSE 5%-0.45% NACL 1,000 ML IV SCH (20:00)
[2018-06-06] MEDS: CLOTRIMAZOLE 1% 30 GM CR TOP SCH ×3 (00:45→20:23)
[2018-06-06 01:30] VITALS: BP 185/73; PULSE 74; RESP 19
[2018-06-06 02:27] VITALS: BP 162/76; PULSE 70
[2018-06-06 02:42] VITALS: BP 141/62; PULSE 72
[2018-06-06] MEDS: PANTOPRAZOLE 40 MG INJ IV SCH ×2 (05:34→17:56)
[2018-06-06 08:00] VITALS: BP 150/68; PULSE 78; RESP 18
[2018-06-06] MEDS: MULTIVITAMINS THERAPEUTIC TAB GTB SCH (09:16)
[2018-06-06] MEDS: FOLIC ACID 0.4 MG TAB GTB SCH (09:16)
[2018-06-06] MEDS: DOCUSATE SODIUM 10 MG/ML (10ML CUP) GTB SCH (09:16)
[2018-06-06] MEDS: NYSTATIN 30 GM POWDER BTL TOP SCH ×2 (09:16→20:24)
[2018-06-06] MEDS ORDERED: FLUCONAZOLE 400 MG/NS (PMX) 200 ML IVPB ONE (09:30)
--- NOTE | 2018-06-06 12:44 | PN ---
Date/Time of Note Date/Time of Note DATE: 06/06/18 TIME: 12:32 Assessment/Plan VTE Prophylaxis Risk score (from Ns)>0 risk: 5 [place] [facility] [place] contraindicated: patient refusal Pharmacological prophylaxis: NA/contraindicated Pharm contraindication: bleeding Lines/Catheters IV Catheter Type (from [facility]): Mid Line Assessment/Plan Hospital Course SUBJECTIVE: G-tube continues to leak, with redness around site, unable to resume tube feeding. OBJECTIVE: Vital signs-see below PHYSICAL EXAM: Constitutional: Frail looking, elderly female, lying in bed comfortably. Psych: nl mood/affect, no complaints Head: atraumatic, normocephalic Eyes: nl conjunctiva, nl sclera ENMT: mucosa pink and moist, nl external ears & nose Neck: non-tender, supple Respiratory: clear to auscultation, normal air movement Cardiovascular: nl pulses, regular rate and rhythm Gastrointestinal:G tube site red/leaking/tender. soft, bowel sounds active in all 4 quadrants. Musculoskeletal/extremities: nl extremities to inspection, motor strength equal bilaterally, no focal deficit. Normal pulses,no cyanosis, no edema. Neurological: Forgetful/dementia. Alert to self and place. Nl speech, nl strength Skin: nl turgor ASSESSMENT/PLAN: 83-year-old female with a history of gastric cancer, status post PEG, gastritis, erosive esophagitis, dementia, was transferred from senior care with rectal bleed, also found to have leaking/infected/malfxn G-tube with localized infection around site. 1. Acute GI bleed, hematochezia -Resolved -Status post EGD:1.5 cm proximal gastric polyp. Post polypectomy plus Endo Clip placement. -Deferred colonoscopy given therapeutic procedure and need for Endo Clip. -Continue Protonix -Avoid NSAIDs, antiplatelets, anticoagulation 2. Infected G-tube/malfunctioning tube. G-tube site grew [place] albicans/GNR. -GI recommended removal of G-tube, NG tube decompression, and peripheral TPN until G-tube site is completely healed prior inserting a new tube -start IV Fluconazole, cont. local clotrimazole on Gtube area. -Continue G-tube site care per WC recs -F/u Blood cx. 3. Acute on chronic anemia. Acute anemia secondary to GI bleed -Now stable. Monitor 4. Dehydration -Needs to start peripheral TPN until G-tube is fixed. 5. History of gastric cancer 6. Osteoporosis -Supportive care, resume home medications -Continued PT evaluation 7. Dementia -Supportive care DVT prophylaxis: SCDs, anticoagulation contraindicated secondary to bleeding PUD prophylaxis: Protonix CODE STATUS: Full code Diet: N.p.o. Disposition: Patient continued to have leaking around G-tube, requiring GI reevaluation. Recommended removal of G-tube, NG-tube decompression, start peripheral TPN until G-tube site is completely healed prior to putting a new one. Patient was seen in collaboration with Result Diagram: 06/06/18 0759 06/06/18 0759 Results 24hrs Laboratory Tests Test 06/06/18 07:59 White Blood Count 7.8 Red Blood Count 3.93 L Hemoglobin 12.2 Hematocrit 35.3 L Mean Corpuscular Volume 89.8 Mean Corpuscular Hemoglobin 31.0 Mean Corpuscular Hemoglobin Concent 34.6 Red Cell Distribution Width 12.9 Platelet Count 224 Mean Platelet Volume 9.4 Immature Granulocytes % 0.400 Neutrophils % 81.7 H Lymphocytes % 9.5 L Monocytes % 7.4 Eosinophils % 0.6 Basophils % 0.4 Nucleated Red Blood Cells % 0.0 Immature Granulocytes # 0.030 Neutrophils # 6.4 Lymphocytes # 0.7 L Monocytes # 0.6 Eosinophils # 0.1 Basophils # 0.0 Nucleated Red Blood Cells # 0.0 Sodium Level 139 Potassium Level 3.5 Chloride Level 104 Carbon Dioxide Level 26 Anion Gap 9 # Blood Urea Nitrogen 10 Creatinine 0.62 Est Glomerular Filtrat Rate mL/min Glucose Level 81 Calcium Level 9.0 Exam/Review of Systems Exam Vitals Vital Signs Date Temp Pulse Resp B/P (MAP) Pulse Ox O2 O2 Flow FiO2 Time Delivery Rate 06/06/18 98.0 78 18 150/68 99 08:00 (95) 06/05/18 Room Air 14:00 06/04/18 2.0 17:10 Intake and Output 06/05/18 06/05/18 06/06/18 1515:00 23:00 07:00 IntakeIntake Total 600 ml 358 ml BalanceBalance 600 ml 358 ml Results Results 24hrs Laboratory Tests Test 06/06/18 07:59 White Blood Count 7.8 Red Blood Count 3.93 L Hemoglobin 12.2 Hematocrit 35.3 L Mean Corpuscular Volume 89.8 Mean Corpuscular Hemoglobin 31.0 Mean Corpuscular Hemoglobin Concent 34.6 Red Cell Distribution Width 12.9 Platelet Count 224 Mean Platelet Volume 9.4 Immature Granulocytes % 0.400 Neutrophils % 81.7 H Lymphocytes % 9.5 L Monocytes % 7.4 Eosinophils % 0.6 Basophils % 0.4 Nucleated Red Blood Cells % 0.0 Immature Granulocytes # 0.030 Neutrophils # 6.4 Lymphocytes # 0.7 L Monocytes # 0.6 Eosinophils # 0.1 Basophils # 0.0 Nucleated Red Blood Cells # 0.0 Sodium Level 139 Potassium Level 3.5 Chloride Level 104 Carbon Dioxide Level 26 Anion Gap 9 # Blood Urea Nitrogen 10 Creatinine 0.62 Est Glomerular Filtrat Rate mL/min Glucose Level 81 Calcium Level 9.0 Medications Medication Current Medications IV Flush (NS 3 ml) 3 ml PER PROTOCOL IV ; Start 06/03/18 at 12:00 Ondansetron HCl (Zofran Inj) 4 mg Q6H PRN IV NAUSEA/VOMITING Last administered on 06/06/18at 09:36; Admin Dose 4 MG; Start 06/03/18 at 12:00 Acetaminophen (Tylenol Tab) 650 mg Q6H PRN PO .PAIN 1-3 OR TEMP; Start 06/03/18 at 12:00 Acetaminophen/ Hydrocodone Bitart ([place] (5/325)) 1 tab Q6H PRN PO .MOD PAIN 4- 6; Start 06/03/18 at 12:00 Morphine Sulfate (morphine) 2 mg Q4H PRN IV .SEVERE PAIN 7-10; Start 06/03/18 at 12:00 Docusate Sodium (Colace) 100 mg Q12H PRN PO .CONSTIPATION; Start 06/03/18 at 12:00 Magnesium Hydroxide (Milk Of Mag) 30 ml DAILY PRN PO .CONSTIPATION; Start 06/03/18 at 12:00 Pantoprazole (Protonix Iv) 40 mg BID@0600,1800 IV Last administered on 06/06/18at 05:34; Admin Dose 40 MG; Start 06/03/18 at 18:00 Lorazepam (Ativan) 0.5 mg Q6H PRN IV ANXIETY; Start 06/03/18 at 12:00 Albuterol/ Ipratropium (Duoneb) 3 ml Q4H RESP THERAPY PRN HHN SHORTNESS OF BREATH; Start 06/03/18 at 12:00 Nitroglycerin (Nitroglycerin (Sl Tab) 0.4 Mg) 1 tab Q5M PRN SL ANGINA; Start 06/03/18 at 12:00 Folic Acid (Folic Acid) 0.4 mg DAILY GTB Last administered on 06/06/18 09:16; Admin Dose 0.4 MG; Start 06/04/18 at 09:00 Multivitamins Therapeutic (Theragran) 1 tab DAILY GTB Last administered on 06/06/18 09:16; Admin Dose 1 TAB; Start 06/04/18 at 09:00 Docusate Sodium (Colace Liquid Cup) 100 mg DAILY GTB Last administered on 06/06/18 09:16; Admin Dose 100 MG; Start 06/04/18 at 09:00 Nystatin (Nystatin Powder) 1 applic BID TOP Last administered on 06/06/18 09:16; Admin Dose 1 APPLIC; Start 06/04/18 at 15:30 Clotrimazole (Lotrimin Cr) 1 applic BID TOP Last administered on 06/06/18 09:16; Admin Dose 1 APPLIC; Start 06/05/18 at 12:00 Dextrose/Sodium Chloride 1,000 ml @ 50 mls/hr Q20H IV Last administered on 06/05/18at 21:38; Admin Dose 50 MLS/HR; Start 06/05/18 at 20:00 Fluconazole/ Sodium Chloride 50 ml @ 50 mls/hr Q24H IVPB ; Start 06/07/18 at 09:00 ALFREDO MENSAH NP Jun 06, 2018 12:44
--- NOTE | 2018-06-06 12:45 | PN ---
Date/Time of Note Date/Time of Note DATE: 06/06/18 TIME: 12:30 Assessment/Plan VTE Prophylaxis Risk score (from Ns)>0 risk: 5 SCD applied (from [facility] [place]): No SCD contraindicated: other (scds) Pharmacological prophylaxis: other (scds) Lines/Catheters [facility]ter Type (from [facility]): Mid Line Assessment/Plan Hospital Course Summary Assessment and Plan: Assessment: Normocytic anemia EGD 06/04/18 Impression: 1.5 cm proximal gastric polyp. Post polypectomy plus Endo Clip placement. Post placement of Indonesian 24-20 cc replacement gastrostomy tube. Otherwise normal EGD. Melena/hematochezia Malfunctioning gastrostomy tube Hx of Gastric cancer s/p PEG placement (30 fr) Dementia Plan: Deferred colonoscopy given the therapeutic procedure and the need for Endo Clip. Ostomy site grew [place]- plan to remove g-tube, start PPN given midline- allow area to heal and replace G-tube after ostomy site has healed Continue PPI BID to reduce acid, start Reglan for prokinetic effects, and insert NGT for decompression to allow optimal healing of ostomy site f/u with wound nurse consult- recommendations Pt seen in collaboration with Dr. Lopez/Xiao Subjective: Course reviewed with nursing staff Patient interviewed and examined All labs, imaging and other results reviewed The patient resting in bed appears comfortable I called the patient's niece Tamra to discussed update, no answer, I left a message to call the floor back Pt has been started on IV anti-fungal. Constitutional: alert, oriented (to name) Head: normocephalic, atraumatic Eyes: nl conjunctiva ENMT: nl external ears & nose Neck: supple Respiratory: clear to auscultation Cardiovascular: regular rate and rhythm Gastrointestinal: soft, bowel sounds, other (g-tube) Genitourinary - Female: nl adnexae Musculoskeletal: nl extremities to inspection Result Diagram: 06/06/18 0759 06/06/18 0759 Results 24hrs Laboratory Tests Test 06/06/18 07:59 White Blood Count 7.8 Red Blood Count 3.93 L Hemoglobin 12.2 Hematocrit 35.3 L Mean Corpuscular Volume 89.8 Mean Corpuscular Hemoglobin 31.0 Mean Corpuscular Hemoglobin Concent 34.6 Red Cell Distribution Width 12.9 Platelet Count 224 Mean Platelet Volume 9.4 Immature Granulocytes % 0.400 Neutrophils % 81.7 H Lymphocytes % 9.5 L Monocytes % 7.4 Eosinophils % 0.6 Basophils % 0.4 Nucleated Red Blood Cells % 0.0 Immature Granulocytes # 0.030 Neutrophils # 6.4 Lymphocytes # 0.7 L Monocytes # 0.6 Eosinophils # 0.1 Basophils # 0.0 Nucleated Red Blood Cells # 0.0 Sodium Level 139 Potassium Level 3.5 Chloride Level 104 Carbon Dioxide Level 26 Anion Gap 9 # Blood Urea Nitrogen 10 Creatinine 0.62 Est Glomerular Filtrat Rate mL/min Glucose Level 81 Calcium Level 9.0 Exam/Review of Systems Exam Vitals Vital Signs Date Temp Pulse Resp B/P (MAP) Pulse Ox O2 O2 Flow FiO2 Time Delivery Rate 06/06/18 98.0 78 18 150/68 99 08:00 (95) 06/05/18 Room Air 14:00 06/04/18 2.0 17:10 Intake and Output 06/05/18 06/05/18 06/06/18 1414:59 22:59 06:59 IntakeIntake Total 600 ml 358 ml BalanceBalance 600 ml 358 ml Results Results 24hrs Laboratory Tests Test 06/06/18 07:59 White Blood Count 7.8 Red Blood Count 3.93 L Hemoglobin 12.2 Hematocrit 35.3 L Mean Corpuscular Volume 89.8 Mean Corpuscular Hemoglobin 31.0 Mean Corpuscular Hemoglobin Concent 34.6 Red Cell Distribution Width 12.9 Platelet Count 224 Mean Platelet Volume 9.4 Immature Granulocytes % 0.400 Neutrophils % 81.7 H Lymphocytes % 9.5 L Monocytes % 7.4 Eosinophils % 0.6 Basophils % 0.4 Nucleated Red Blood Cells % 0.0 Immature Granulocytes # 0.030 Neutrophils # 6.4 Lymphocytes # 0.7 L Monocytes # 0.6 Eosinophils # 0.1 Basophils # 0.0 Nucleated Red Blood Cells # 0.0 Sodium Level 139 Potassium Level 3.5 Chloride Level 104 Carbon Dioxide Level 26 Anion Gap 9 # Blood Urea Nitrogen 10 Creatinine 0.62 Est Glomerular Filtrat Rate mL/min Glucose Level 81 Calcium Level 9.0 Medications Medication Current Medications IV Flush (NS 3 ml) 3 ml PER PROTOCOL IV ; Start 06/03/18 at 12:00 Ondansetron HCl (Zofran Inj) 4 mg Q6H PRN IV NAUSEA/VOMITING Last administered on 06/06/18 09:36; Admin Dose 4 MG; Start 06/03/18 at 12:00 Acetaminophen (Tylenol Tab) 650 mg Q6H PRN PO .PAIN 1-3 OR TEMP; Start 06/03/18 at 12:00 Acetaminophen/ Hydrocodone Bitart ([place] (5/325)) 1 tab Q6H PRN PO .MOD PAIN 4- 6; Start 06/03/18 at 12:00 Morphine Sulfate (morphine) 2 mg Q4H PRN IV .SEVERE PAIN 7-10; Start 06/03/18 at 12:00 Docusate Sodium (Colace) 100 mg Q12H PRN PO .CONSTIPATION; Start 06/03/18 at 12:00 Magnesium Hydroxide (Milk Of Mag) 30 ml DAILY PRN PO .CONSTIPATION; Start 06/03/18 at 12:00 Pantoprazole (Protonix Iv) 40 mg BID@0600,1800 IV Last administered on 9at 05:34; Admin Dose 40 MG; Start 06/03/18 at 18:00 Lorazepam (Ativan) 0.5 mg Q6H PRN IV ANXIETY; Start 06/03/18 at 12:00 Albuterol/ Ipratropium (Duoneb) 3 ml Q4H RESP THERAPY PRN HHN SHORTNESS OF BREATH; Start 06/03/18 at 12:00 Nitroglycerin (Nitroglycerin (Sl Tab) 0.4 Mg) 1 tab Q5M PRN SL ANGINA; Start 06/03/18 at 12:00 Folic Acid (Folic Acid) 0.4 mg DAILY GTB Last administered on 06/06/18 09:16; Admin Dose 0.4 MG; Start 06/04/18 at 09:00 Multivitamins Therapeutic (Theragran) 1 tab DAILY GTB Last administered on 06/06/18 09:16; Admin Dose 1 TAB; Start 06/04/18 at 09:00 Docusate Sodium (Colace Liquid Cup) 100 mg DAILY GTB Last administered on 06/06/18 09:16; Admin Dose 100 MG; Start 06/04/18 at 09:00 Nystatin (Nystatin Powder) 1 applic BID TOP Last administered on 06/06/18 09: 16; Admin Dose 1 APPLIC; Start 2/26/19 at 15:30 Clotrimazole (Lotrimin Cr) 1 applic BID TOP Last administered on 06/06/18at 09:16; Admin Dose 1 APPLIC; Start 06/05/18 at 12:00 Dextrose/Sodium Chloride 1,000 ml @ 50 mls/hr Q20H IV Last administered on 06/05/18at 21:38; Admin Dose 50 MLS/HR; Start 06/05/18 at 20:00 Fluconazole/ Sodium Chloride 50 ml @ 50 mls/hr Q24H IVPB ; Start 06/07/18 at 09:00 DORIS BAUMANN Jun 06, 2018 12:43
[2018-06-06] MEDS ORDERED: GLUCAGON 1 MG INJ IM PRN (13:00)
[2018-06-06] MEDS ORDERED: DEXTROSE 50% 50 ML SYRINGE IV PRN ×2 (13:00)
[2018-06-06] MEDS ORDERED: GLUCOSE GEL 15 GRAM TUBE BUCCAL PRN (13:00)
[2018-06-06] MEDS ORDERED: GLUCOSE GEL 15 GRAM TUBE PO PRN ×2 (13:00)
[2018-06-06] MEDS: INSULIN ASPART [NOVOLOG] 3 ML PEN SC SCH ×3 (13:30→20:22)
[2018-06-06 14:00] VITALS: BP 145/67; PULSE 77; RESP 18
[2018-06-06] MEDS: METOCLOPRAMIDE 10 MG INJ IV SCH (17:56)
[2018-06-06] MEDS ORDERED: DEXTROSE 10% 1,000 ML IV SCH (18:00)
[2018-06-06 19:43] VITALS: BP 115/54; PULSE 70; RESP 18
[2018-06-07] MEDS: INSULIN ASPART [NOVOLOG] 3 ML PEN SC SCH ×6 (01:00→21:08)
[2018-06-07] MEDS: METOCLOPRAMIDE 10 MG INJ IV SCH ×4 (01:49→18:21)
[2018-06-07] MEDS: ACCU-CHEK XX SCH ×5 (01:50→21:00)
[2018-06-07 02:00] VITALS: BP 133/63; PULSE 78; RESP 18
[2018-06-07] MEDS: PANTOPRAZOLE 40 MG INJ IV SCH ×2 (05:41→18:21)
[2018-06-07 07:40] VITALS: BP 127/61; PULSE 71; RESP 17
[2018-06-07] MEDS: CLOTRIMAZOLE 1% 30 GM CR TOP SCH ×2 (08:37→21:06)
[2018-06-07] MEDS: MULTIVITAMINS THERAPEUTIC TAB GTB SCH (08:38)
[2018-06-07] MEDS: FOLIC ACID 0.4 MG TAB GTB SCH (08:38)
[2018-06-07] MEDS: DOCUSATE SODIUM 10 MG/ML (10ML CUP) GTB SCH (08:38)
--- NOTE | 2018-06-07 08:43 | PN ---
Date/Time of Note Date/Time of Note DATE: 06/07/18 TIME: 08:37 Assessment/Plan VTE Prophylaxis Risk score (from Ns)>0 risk: 9 SCD applied (from [facility] [place]): Yes Pharmacological prophylaxis: NA/contraindicated Pharm contraindication: bleeding Lines/Catheters [facility] (from [facility] Mid Line Urinary Cath still in place: No Assessment/Plan Hospital Course SUBJECTIVE: unsuccessful NGtube attempt. pt pulled out midline today. OBJECTIVE: Vital signs-see below PHYSICAL EXAM: Constitutional: Frail looking, elderly female, lying in bed comfortably. Psych: nl mood/affect, no complaints Head: atraumatic, normocephalic Eyes: nl conjunctiva, nl sclera ENMT: mucosa pink and moist, nl external ears & nose Neck: non-tender, supple Respiratory: clear to auscultation, normal air movement Cardiovascular: nl pulses, regular rate and rhythm Gastrointestinal:G tube site red/leaking/tender. soft, bowel sounds active in all 4 quadrants. Musculoskeletal/extremities: nl extremities to inspection, motor strength equal bilaterally, no focal deficit. Normal pulses,no cyanosis, no edema. Neurological: Forgetful/dementia. Alert to self and place. Nl speech, nl str ength Skin: nl turgor ASSESSMENT/PLAN: 83-year-old female with a history of gastric cancer, status post PEG, gastritis, erosive esophagitis, dementia, was transferred from detention with rectal bleed, also found to have leaking/infected/malfxn G-tube with localized infection around site. 1. Acute GI bleed, hematochezia -Resolved -Status post EGD:1.5 cm proximal gastric polyp. Post polypectomy plus Endo Clip placement. -Deferred colonoscopy given therapeutic procedure and need for Endo Clip. -Continue Protonix -Avoid NSAIDs, antiplatelets, anticoagulation 2. Infected G-tube/malfunctioning tube. G-tube site grew [place] albicans/GNR. -GI on board=>s/p removal of Gtube 06/06. Plan is TPN until Gtube site and bacteremia resolves and then new Gtube placement. -cont.local Gt site care and azole therapy 3.Bacteremia, BC growing gram posx2 sets -Start vanco and await final CS. -ID consult 4. Acute on chronic anemia. Acute anemia secondary to GI bleed -Now stable. Monitor 5. Dehydration -cont.syst hydration. plan is to start TPN today after picc placed 6. History of gastric cancer 7. Osteoporosis -Supportive care, resume home medications -Continued PT evaluation 8. Dementia -Supportive care DVT prophylaxis: SCDs, anticoagulation contraindicated secondary to bleeding PUD prophylaxis: Protonix CODE STATUS: Full code Diet: N.p.o. Disposition: picc line. start TPN. Cont. abx and ID eval. cont.Gt care .once bacteremia resolves and Gtube site infection clears, pt need a new Gtube placement. Patient was seen in collaboration with Result Diagram: 06/[id number] Results 24hrs Laboratory Tests Test 06/06/18 15:11 06/06/18 20:22 06/07/18 01:48 06/07/18 04:21 Sodium Level 136 137 Potassium Level 3.3 L 3.0 L Chloride Level 105 104 Carbon Dioxide Level 27 26 Anion Gap 4 L 7 Blood Urea Nitrogen 10 10 Creatinine 0.64 0.76 Est Glomerular Filtrat Rate mL/min Glucose Level 89 139 # Calcium Level 8.6 8.6 Phosphorus Level 3.6 3.5 Magnesium Level 1.7 1.7 Total Bilirubin 1.0 Direct Bilirubin 0.00 Indirect Bilirubin 1.0 Aspartate Amino 28 Transf (AST/SGOT) Alanine 14 Aminotransferase (AL T/SGPT) Alkaline Phosphatase 77 Total Protein 5.7 L Albumin 3.0 L Globulin 2.70 Albumin/Globulin 1.11 Ratio Prealbumin 14.4 L Triglycerides Level 77 Bedside Glucose 126 134 White Blood Count 5.9 # Red Blood Count 3.45 L Hemoglobin 10.7 L Hematocrit 31.3 L Mean Corpuscular 90.7 Volume Mean Corpuscular 31.0 Hemoglobin Mean Corpuscular 34.2 Hemoglobin Concent Red Cell 12.7 Distribution Width Platelet Count 223 Mean Platelet Volume 9.4 Immature 0.500 H Granulocytes % Neutrophils % 70.6 Lymphocytes % 14.1 L Monocytes % 10.4 Eosinophils % 4.1 Basophils % 0.3 Nucleated Red Blood 0.0 Cells % Immature 0.030 Granulocytes # Neutrophils # 4.1 Lymphocytes # 0.8 Monocytes # 0.6 Eosinophils # 0.2 Basophils # 0.0 Nucleated Red Blood 0.0 Cells # Test 06/07/18 05:40 06/07/18 07:28 Bedside Glucose 138 Lab Scanned Report REFERENCE LAB Exam/Review of Systems Exam Vitals Vital Signs Date Temp Pulse Resp B/P (MAP) Pulse Ox O2 O2 Flow FiO2 Time Delivery Rate 06/07/18 98.5 71 17 127/61 98 07:40 (83) 06/05/18 Room Air 14:00 06/04/18 2.0 17:10 Intake and Output 06/06/18 06/06/18 06/07/18 1515:00 23:00 07:00 IntakeIntake Total 200 ml 642 ml 500 ml OutputOutput Total 100 ml BalanceBalance 200 ml 542 ml 500 ml Results Results 24hrs Laboratory Tests Test 06/06/18 15:11 06/06/18 20:22 06/07/18 01:48 06/07/18 04:21 Sodium Level 136 137 Potassium Level 3.3 L 3.0 L Chloride Level 105 104 Carbon Dioxide Level 27 26 Anion Gap 4 L 7 Blood Urea Nitrogen 10 10 Creatinine 0.64 0.76 Est Glomerular Filtrat Rate mL/min Glucose Level 89 139 # Calcium Level 8.6 8.6 Phosphorus Level 3.6 3.5 Magnesium Level 1.7 1.7 Total Bilirubin 1.0 Direct Bilirubin 0.00 Indirect Bilirubin 1.0 Aspartate Amino 28 Transf (AST/SGOT) Alanine 14 Aminotransferase (AL T/SGPT) Alkaline Phosphatase 77 Total Protein 5.7 L Albumin 3.0 L Globulin 2.70 Albumin/Globulin 1.11 Ratio Prealbumin 14.4 L Triglycerides Level 77 Bedside Glucose 126 134 White Blood Count 5.9 # Red Blood Count 3.45 L Hemoglobin 10.7 L Hematocrit 31.3 L Mean Corpuscular 90.7 Volume Mean Corpuscular 31.0 Hemoglobin Mean Corpuscular 34.2 Hemoglobin Concent Red Cell 12.7 Distribution Width Platelet Count 223 Mean Platelet Volume 9.4 Immature 0.500 H Granulocytes % Neutrophils % 70.6 Lymphocytes % 14.1 L Monocytes % 10.4 Eosinophils % 4.1 Basophils % 0.3 Nucleated Red Blood 0.0 Cells % Immature 0.030 Granulocytes # Neutrophils # 4.1 Lymphocytes # 0.8 Monocytes # 0.6 Eosinophils # 0.2 Basophils # 0.0 Nucleated Red Blood 0.0 Cells # Test 06/07/18 05:40 06/07/18 07:28 Bedside Glucose 138 Lab Scanned Report REFERENCE LAB Medications Medication Current Medications IV Flush (NS 3 ml) 3 ml PER PROTOCOL IV ; Start 06/03/18 at 12:00 Ondansetron HCl (Zofran Inj) 4 mg Q6H PRN IV NAUSEA/VOMITING Last administered on 06/06/18at 09:36; Admin Dose 4 MG; Start 06/03/18 at 12:00 Acetaminophen (Tylenol Tab) 650 mg Q6H PRN PO .PAIN 1-3 OR TEMP; Start 06/03/18 at 12:00 Acetaminophen/ Hydrocodone Bitart ([place] (5/325)) 1 tab Q6H PRN PO .MOD PAIN 4- 6; Start 06/03/18 at 12:00 Morphine Sulfate (morphine) 2 mg Q4H PRN IV .SEVERE PAIN 7-10; Start 06/03/18 at 12:00 Docusate Sodium (Colace) 100 mg Q12H PRN PO .CONSTIPATION; Start 06/03/18 at 12:00 Magnesium Hydroxide (Milk Of Mag) 30 ml DAILY PRN PO .CONSTIPATION; Start 06/03/18 at 12:00 Pantoprazole (Protonix Iv) 40 mg BID@0600,1800 IV Last administered on 06/07/18at 05:41; Admin Dose 40 MG; Start 06/03/18 at 18:00 Lorazepam (Ativan) 0.5 mg Q6H PRN IV ANXIETY; Start 06/03/18 at 12:00 Albuterol/ Ipratropium (Duoneb) 3 ml Q4H RESP THERAPY PRN HHN SHORTNESS OF BREATH; Start 06/03/18 at 12:00 Nitroglycerin (Nitroglycerin (Sl Tab) 0.4 Mg) 1 tab Q5M PRN SL ANGINA; Start 06/03/18 at 12:00 Folic Acid (Folic Acid) 0.4 mg DAILY GTB Last administered on 06/06/18 09:16; Admin Dose 0.4 MG; Start 06/04/18 at 09:00 Multivitamins Therapeutic (Theragran) 1 tab DAILY GTB Last administered on 06/06/18 09:16; Admin Dose 1 TAB; Start 06/04/18 at 09:00 Docusate Sodium (Colace Liquid Cup) 100 mg DAILY GTB Last administered on 06/06/18 09:16; Admin Dose 100 MG; Start 06/04/18 at 09:00 Nystatin (Nystatin Powder) 1 applic BID TOP Last administered on 06/06/18at 20:24; Admin Dose 1 APPLIC; Start 06/04/18 at 15:30 Clotrimazole (Lotrimin Cr) 1 applic BID TOP Last administered on 06/06/18at 20:23; Admin Dose 1 APPLIC; Start 06/05/18 at 12:00 Fluconazole/ Sodium Chloride 50 ml @ 50 mls/hr Q24H IVPB ; Start 06/07/18 at 09:00 Diagnostic Test (Pha) (Accu-Chek) 1 ea Q4 XX ; Start 06/07/18 at 12:00 Total Parenteral Nutrition 1,000 ml @ 0 mls/hr Q0M IV ; Start 06/06/18 at 12:33; Status UNV Metoclopramide HCl (Reglan) 10 mg Q6 IV Last administered on 06/07/18at 05:41; Admin Dose 10 MG; Start 06/06/18 at 18:00 Diagnostic Test (Pha) (Accu-Chek) 1 ea 02 XX ; Start 06/07/18 at 02:00 Insulin Aspart (Novolog Insulin Pen) NOVOLOG *MILD* ALGORI... Q4 SC ; Start 06/06/18 at 13:30 Miscellaneous Information 1 ea NOTE XX ; Start 06/06/18 at 13:00 Glucose (Glutose) 15 gm Q15M PRN PO DECREASED GLUCOSE; Start 06/06/18 at 13:00 Glucose (Glutose) 22.5 gm Q15M PRN PO DECREASED GLUCOSE; Start 06/06/18 at 13:00 Dextrose (D50w Syringe) 25 ml Q15M PRN IV DECREASED GLUCOSE; Start 06/06/18 at 13:00 Dextrose (D50w Syringe) 50 ml Q15M PRN IV DECREASED GLUCOSE; Start 06/06/18 at 13:00 Glucagon (Glucagen) 1 mg Q15M PRN IM DECREASED GLUCOSE; Start 06/06/18 at 13:00 Glucose (Glutose) 15 gm Q15M PRN BUCCAL DECREASED GLUCOSE; Start 06/06/18 at 13:00 Dextrose 1,000 ml @ 50 mls/hr Q20H IV Last administered on 06/06/18at 17:56; Admin Dose 50 MLS/HR; Start 06/06/18 at 18:00 ALFREDO MENSAH NP Jun 07, 2018 08:43
[2018-06-07] MEDS ORDERED: VANCOMYCIN IV PER PHARMACY XX SCH (09:00)
[2018-06-07] MEDS ORDERED: LIDOCAINE 1% (MPF) 5 ML VIAL SC ONE (09:00)
[2018-06-07] MEDS ORDERED: FLUCONAZOLE 100 MG/50 ML (PMX) 50 ML IVPB SCH (09:00)
[2018-06-07] MEDS: NYSTATIN 30 GM POWDER BTL TOP SCH ×2 (10:11→21:07)
[2018-06-07] MEDS ORDERED: VANCOMYCIN HCL 1.5 GM in SOD CHLORIDE 0.9% 250 ML IVPB SCH (10:30)
--- NOTE | 2018-06-07 11:07 | CONS ---
Assessment/Plan Assessment/Plan Hospital Course (Demo Recall) 1) GPC in blood cx, both sets continue with vanco will repeat blood cx tomorrow via picc line that is being placed right now the source is likely the g-tube site 2) infected g-tube site doubt the yeast is significant, to d/c diflucan but continue with topical lotrimin GNR is also likely not to be significant at this time just continue with IV vanco pt is NPO and TPN is planned till pt can get a new g-tube site 3) hx of gastric CA 4) gi bleed this has improved, upper endo showed gastric polyp lower endo is pending 5) DM sugars are not too bad and have improved 6) dementia Consultation Date/Type/Reason Admit Date/Time Jun 03, 2018 at 09:39 Date of Consultation: Jun 07, 2018 Type of Consult ID Date/Time of Note DATE: 06/07/18 TIME: 10:56 Hx of Present Illness pt comes in on 06/03 due to rectal bleeding and probable infection around the g- tube She denies F, C, NS no N, V no SOB, cough blood cx done on 06/06 are growing GPC in both sets and she was started on vanco this a.m. Her g-tube has been removed Past Medical History HTN, DM, gastric CA, dementia Home Meds Reported Medications Docusate Sodium* (Docusate Sodium* Liq) 50 Mg/5 Ml Liquid, 100 MG GTB DAILY, ML 06/03/18 Cran/Vitc/Mannose/Inulin/Brom (Uti-Stat Liquid) 3,875 Mg/30 Ml Liquid, 30 ML GTB BID 05/27/16 Acetaminophen* (Tylenol*) 500 Mg Tab, 1000 MG GTB Q4H PRN for PAIN LEVEL 4-6/10, TAB 05/27/16 Acetaminophen* (Tylenol*) 325 Mg Tablet, 650 MG GTB Q4H PRN for MILD PAIN LEVEL 1-3, TAB 05/27/16 Pantoprazole* (Protonix*) 40 Mg Tablet.dr, 40 MG GTB DAILY, TAB 05/27/16 Glipizide* (Glipizide*) 5 Mg Tablet, 5 MG GTB AC BREAKFAST, TAB 08/10/14 Folic Acid* (Folic Acid*) 0.4 Mg Tablet, 0.4 MG GTB DAILY, TAB 08/10/14 Multivitamin (MULTI VITAMIN DAILY) 1 Each Tablet, 5 ML GTB DAILY 09/04/13 Discontinued Reported Medications Sodium Chloride* (Sodium Chloride*) 1 Gm Tablet, 1 GM GTB DAILY, TAB 05/27/16 Magnesium Hydroxide* (Milk Of Magnesia*) 400 Mg/5 Ml Oral.susp, 30 ML GTB DAILY PRN for PRN, ML 05/27/16 Levocetirizine Dihydrochloride (Xyzal) 5 Mg Tablet, 5 MG GTB 5PM, TAB 05/27/16 Sod Phosphate/Sod Biphosphate* (Fleet* Enema Pediatric) 66.6 Ml Soln, 66.6 ML [place] Q2D PRN for CONSTIPATION, ENEMA 05/27/16 Bisacodyl* (Bisacodyl*) 10 Mg Supp, 10 MG OK Q24H PRN for PRN, SUPP 05/27/16 Docusate Sodium* (Docusate Sodium*) 100 Mg Capsule, 100 MG GTB QHS, #30 CAP 05/27/16 Calcium Carbonate (Calcium 500) 1 Tab Tablet, 1 TAB GTB DAILY 09/04/13 Discontinued Scripts Metoclopramide* (Reglan*) 10 Mg/10 Ml Soln, 5 MG GTB Q8 PRN for olayinka, #0 ML Prov:CIELO AMBROSIO [employer] 08/13/14 Medications Current Medications IV Flush (NS 3 ml) 3 ml PER PROTOCOL IV ; Start 06/03/18 at 12:00 Ondansetron HCl (Zofran Inj) 4 mg Q6H PRN IV NAUSEA/VOMITING Last administered on 06/06/18at 09:36; Admin Dose 4 MG; Start 06/03/18 at 12:00 Acetaminophen (Tylenol Tab) 650 mg Q6H PRN PO .PAIN 1-3 OR TEMP; Start 06/03/18 at 12:00 Acetaminophen/ Hydrocodone Bitart ([place] (5/325)) 1 tab Q6H PRN PO .MOD PAIN 4- 6; Start 06/03/18 at 12:00 Morphine Sulfate (morphine) 2 mg Q4H PRN IV .SEVERE PAIN 7-10; Start 06/03/18 at 12:00 Docusate Sodium (Colace) 100 mg Q12H PRN PO .CONSTIPATION; Start 06/03/18 at 12:00 Magnesium Hydroxide (Milk Of Mag) 30 ml DAILY PRN PO .CONSTIPATION; Start 06/03/18 at 12:00 Pantoprazole (Protonix Iv) 40 mg BID@0600,1800 IV Last administered on 06/07/18at 05:41; Admin Dose 40 MG; Start 06/03/18 at 18:00 Lorazepam (Ativan) 0.5 mg Q6H PRN IV ANXIETY; Start 06/03/18 at 12:00 Albuterol/ Ipratropium (Duoneb) 3 ml Q4H RESP THERAPY PRN HHN SHORTNESS OF BREATH; Start 06/03/18 at 12:00 Nitroglycerin (Nitroglycerin (Sl Tab) 0.4 Mg) 1 tab Q5M PRN SL ANGINA; Start 06/03/18 at 12:00 Folic Acid (Folic Acid) 0.4 mg DAILY GTB Last administered on 06/06/18 09:16; Admin Dose 0.4 MG; Start 06/04/18 at 09:00 Multivitamins Therapeutic (Theragran) 1 tab DAILY GTB Last administered on 06/06/18at 09:16; Admin Dose 1 TAB; Start 06/04/18 at 09:00 Docusate Sodium (Colace Liquid Cup) 100 mg DAILY GTB Last administered on 06/06/18 09:16; Admin Dose 100 MG; Start 06/04/18 at 09:00 Nystatin (Nystatin Powder) 1 applic BID TOP Last administered on 06/07/18at 10:11; Admin Dose 1 APPLIC; Start 06/04/18 at 15:30 Clotrimazole (Lotrimin Cr) 1 applic BID TOP Last administered on 06/06/18at 20:23; Admin Dose 1 APPLIC; Start 06/05/18 at 12:00 Fluconazole/ Sodium Chloride 50 ml @ 50 mls/hr Q24H IVPB Last administered on 06/07/18at 09:06; Admin Dose 50 MLS/HR; Start 06/07/18 at 09:00 Diagnostic Test (Pha) (Accu-Chek) 1 ea Q4 XX ; Start 06/07/18 at 11:00 Total Parenteral Nutrition 1,000 ml @ 50 mls/hr Q20H IV ; Start 06/07/18 at 11:00 Metoclopramide HCl (Reglan) 10 mg Q6 IV Last administered on 06/07/18at 05:41; Admin Dose 10 MG; Start 06/06/18 at 18:00 Diagnostic Test (Pha) (Accu-Chek) 1 ea 02 XX ; Start 06/07/18 at 02:00 Insulin Aspart (Novolog Insulin Pen) NOVOLOG *MILD* ALGORI... Q4 SC Last administered on 06/07/18at 09:05; Admin Dose 1 UNIT; Start 06/06/18 at 13:30 Miscellaneous Information 1 ea NOTE XX ; Start 06/06/18 at 13:00 Glucose (Glutose) 15 gm Q15M PRN PO DECREASED GLUCOSE; Start 06/06/18 at 13:00 Glucose (Glutose) 22.5 gm Q15M PRN PO DECREASED GLUCOSE; Start 06/06/18 at 13:00 Dextrose (D50w Syringe) 25 ml Q15M PRN IV DECREASED GLUCOSE; Start 06/06/18 at 13:00 Dextrose (D50w Syringe) 50 ml Q15M PRN IV DECREASED GLUCOSE; Start 06/06/18 at 13:00 Glucagon (Glucagen) 1 mg Q15M PRN IM DECREASED GLUCOSE; Start 06/06/18 at 13:00 Glucose (Glutose) 15 gm Q15M PRN BUCCAL DECREASED GLUCOSE; Start 06/06/18 at 13:00 Dextrose 1,000 ml @ 50 mls/hr Q20H IV Last administered on 06/06/18at 17:56; Admin Dose 50 MLS/HR; Start 06/06/18 at 18:00; Stop 06/07/18 at 10:59 Vancomycin HCl (Vanco Iv Per Pharmacy) VANCOMYCIN PER PHARMACY PER PROTOCOL XX ; Start 06/07/18 at 09:00 Vancomycin HCl 1.5 gm/Sodium Chloride 250 ml @ 83.333 mls/ hr 1030 IVPB Last administered on 06/07/18at 10:33; Admin Dose 83.333 MLS/HR; Start 06/07/18 at 10:30; Stop 06/07/18 at 19:00 Vancomycin HCl 250 ml @ 125 mls/hr Q24H IVPB ; Start 06/08/18 at 10:00 Miscellaneous Information (* Miscellaneous Pharmacy Order) TODAY PT IS GETTING PICC LI... ONCE XX ; Start 06/07/18 at 10:30 Allergies: Coded Allergies: Penicillins (Verified Allergy, Severe, 06/03/18) Past Surgical History PEG Social History Smoking Status: Unknown if ever smoked Exam/Review of Systems Exam Vitals Vital Signs Date Temp Pulse Resp B/P (MAP) Pulse Ox O2 O2 Flow FiO2 Time Delivery Rate 06/07/18 98.5 71 17 127/61 98 07:40 (83) 06/05/18 Room Air 14:00 06/04/18 2.0 17:10 Intake and Output 06/06/18 06/06/18 06/07/18 1414:59 22:59 06:59 IntakeIntake Total 200 ml 642 ml 500 ml OutputOutput Total 100 ml BalanceBalance 200 ml 542 ml 500 ml Exam cooperative, able to answer questions Constitutional: alert Head: normocephalic Eyes: nl sclera ENMT: mucosa pink and moist Respiratory: clear to auscultation Cardiovascular: regular rate and rhythm Gastrointestinal: soft, non-tender, other (g-tube site has ostomy bag with yellow-brown liquid drainage, but minimal surrounding redness) Extremities: other (no swelling) Results Result Diagram: 06/07/18 0421 06/07/18 0421 Results 24hrs Laboratory Tests Test 06/06/18 15:11 06/06/18 20:22 06/07/18 01:48 06/07/18 04:21 Sodium Level 136 137 Potassium Level 3.3 L 3.0 L Chloride Level 105 104 Carbon Dioxide Level 27 26 Anion Gap 4 L 7 Blood Urea Nitrogen 10 10 Creatinine 0.64 0.76 Est Glomerular Filtrat Rate mL/min Glucose Level 89 139 # Calcium Level 8.6 8.6 Phosphorus Level 3.6 3.5 Magnesium Level 1.7 1.7 Total Bilirubin 1.0 Direct Bilirubin 0.00 Indirect Bilirubin 1.0 Aspartate Amino 28 Transf (AST/SGOT) Alanine 14 Aminotransferase (AL T/SGPT) Alkaline Phosphatase 77 Total Protein 5.7 L Albumin 3.0 L Globulin 2.70 Albumin/Globulin 1.11 Ratio Prealbumin 14.4 L Triglycerides Level 77 Bedside Glucose 126 134 White Blood Count 5.9 # Red Blood Count 3.45 L Hemoglobin 10.7 L Hematocrit 31.3 L Mean Corpuscular 90.7 Volume Mean Corpuscular 31.0 Hemoglobin Mean Corpuscular 34.2 Hemoglobin Concent Red Cell 12.7 Distribution Width Platelet Count 223 Mean Platelet Volume 9.4 Immature 0.500 H Granulocytes % Neutrophils % 70.6 Lymphocytes % 14.1 L Monocytes % 10.4 Eosinophils % 4.1 Basophils % 0.3 Nucleated Red Blood 0.0 Cells % Immature 0.030 Granulocytes # Neutrophils # 4.1 Lymphocytes # 0.8 Monocytes # 0.6 Eosinophils # 0.2 Basophils # 0.0 Nucleated Red Blood 0.0 Cells # Test 06/07/18 05:40 06/07/18 07:28 06/07/18 09:02 Bedside Glucose 138 146 Lab Scanned Report REFERENCE LAB Medications Medication Current Medications IV Flush (NS 3 ml) 3 ml PER PROTOCOL IV ; Start 06/03/18 at 12:00 Ondansetron HCl (Zofran Inj) 4 mg Q6H PRN IV NAUSEA/VOMITING Last administered on 06/06/18at 09:36; Admin Dose 4 MG; Start 06/03/18 at 12:00 Acetaminophen (Tylenol Tab) 650 mg Q6H PRN PO .PAIN 1-3 OR TEMP; Start 06/03/18 at 12:00 Acetaminophen/ Hydrocodone Bitart ([place] (5/325)) 1 tab Q6H PRN PO .MOD PAIN 4- 6; Start 06/03/18 at 12:00 Morphine Sulfate (morphine) 2 mg Q4H PRN IV .SEVERE PAIN 7-10; Start 06/03/18 at 12:00 Docusate Sodium (Colace) 100 mg Q12H PRN PO .CONSTIPATION; Start 06/03/18 at 12:00 Magnesium Hydroxide (Milk Of Mag) 30 ml DAILY PRN PO .CONSTIPATION; Start 06/03/18 at 12:00 Pantoprazole (Protonix Iv) 40 mg BID@0600,1800 IV Last administered on 06/07/18at 05:41; Admin Dose 40 MG; Start 06/03/18 at 18:00 Lorazepam (Ativan) 0.5 mg Q6H PRN IV ANXIETY; Start 06/03/18 at 12:00 Albuterol/ Ipratropium (Duoneb) 3 ml Q4H RESP THERAPY PRN HHN SHORTNESS OF BREATH; Start 06/03/18 at 12:00 Nitroglycerin (Nitroglycerin (Sl Tab) 0.4 Mg) 1 tab Q5M PRN SL ANGINA; Start 06/03/18 at 12:00 Folic Acid (Folic Acid) 0.4 mg DAILY GTB Last administered on 06/06/18 09:16; Admin Dose 0.4 MG; Start 06/04/18 at 09:00 Multivitamins Therapeutic (Theragran) 1 tab DAILY GTB Last administered on 06/06/18 09:16; Admin Dose 1 TAB; Start 06/04/18 at 09:00 Docusate Sodium (Colace Liquid Cup) 100 mg DAILY GTB Last administered on 06/06/18 09:16; Admin Dose 100 MG; Start 06/04/18 at 09:00 Nystatin (Nystatin Powder) 1 applic BID TOP Last administered on 06/07/18 10:11; Admin Dose 1 APPLIC; Start 06/04/18 at 15:30 Clotrimazole (Lotrimin Cr) 1 applic BID TOP Last administered on 06/06/18 20:23; Admin Dose 1 APPLIC; Start 06/05/18 at 12:00 Fluconazole/ Sodium Chloride 50 ml @ 50 mls/hr Q24H IVPB Last administered on 06/07/18 09:06; Admin Dose 50 MLS/HR; Start 06/07/18 at 09:00 Diagnostic Test (Pha) (Accu-Chek) 1 ea Q4 XX ; Start 06/07/18 at 11:00 Total Parenteral Nutrition 1,000 ml @ 50 mls/hr Q20H IV ; Start 06/07/18 at 11:00 Metoclopramide HCl (Reglan) 10 mg Q6 IV Last administered on 06/07/18at 05:41; Admin Dose 10 MG; Start 06/06/18 at 18:00 Diagnostic Test (Pha) (Accu-Chek) 1 ea 02 XX ; Start 06/07/18 at 02:00 Insulin Aspart (Novolog Insulin Pen) NOVOLOG *MILD* ALGORI... Q4 SC Last administered on 06/07/18 09:05; Admin Dose 1 UNIT; Start 06/06/18 at 13:30 Miscellaneous Information 1 ea NOTE XX ; Start 06/06/18 at 13:00 Glucose (Glutose) 15 gm Q15M PRN PO DECREASED GLUCOSE; Start 06/06/18 at 13:00 Glucose (Glutose) 22.5 gm Q15M PRN PO DECREASED GLUCOSE; Start 06/06/18 at 13:00 Dextrose (D50w Syringe) 25 ml Q15M PRN IV DECREASED GLUCOSE; Start 06/06/18 at 13:00 Dextrose (D50w Syringe) 50 ml Q15M PRN IV DECREASED GLUCOSE; Start 06/06/18 at 13:00 Glucagon (Glucagen) 1 mg Q15M PRN IM DECREASED GLUCOSE; Start 06/06/18 at 13:00 Glucose (Glutose) 15 gm Q15M PRN BUCCAL DECREASED GLUCOSE; Start 06/06/18 at 13:00 Dextrose 1,000 ml @ 50 mls/hr Q20H IV Last administered on 06/06/18at 17:56; Admin Dose 50 MLS/HR; Start 06/06/18 at 18:00; Stop 06/07/18 at 10:59 Vancomycin HCl (Vanco Iv Per Pharmacy) VANCOMYCIN PER PHARMACY PER PROTOCOL XX ; Start 06/07/18 at 09:00 Vancomycin HCl 1.5 gm/Sodium Chloride 250 ml @ 83.333 mls/ hr 1030 IVPB Last administered on 06/07/18at 10:33; Admin Dose 83.333 MLS/HR; Start 06/07/18 at 10:30; Stop 06/07/18 at 19:00 Vancomycin HCl 250 ml @ 125 mls/hr Q24H IVPB ; Start 06/08/18 at 10:00 Miscellaneous Information (* Miscellaneous Pharmacy Order) TODAY PT IS GETTING PICC LI... ONCE XX ; Start 06/07/18 at 10:30 JOSE NORWOOD MD Jun 07, 2018 11:06
[2018-06-07] MEDS ORDERED: BISACODYL 10 MG SUPP PR PRN (11:30)
[2018-06-07] MEDS: TPN 1,000 ML IV SCH (12:09)
[2018-06-07 13:30] VITALS: BP 146/62; PULSE 65; RESP 17
[2018-06-07] MEDS: POTASSIUM CHLORIDE 100 ML IVPB SCH ×2 (16:41→18:21)
[2018-06-07 19:45] VITALS: BP 140/63; PULSE 66; RESP 16
[2018-06-08] MEDS: METOCLOPRAMIDE 10 MG INJ IV SCH ×4 (00:47→17:15)
[2018-06-08] MEDS: INSULIN ASPART [NOVOLOG] 3 ML PEN SC SCH ×6 (00:53→20:33)
[2018-06-08 01:38] VITALS: BP 142/63; PULSE 75; RESP 16
[2018-06-08] MEDS: ACCU-CHEK XX SCH ×7 (02:00→20:33)
[2018-06-08] MEDS: PANTOPRAZOLE 40 MG INJ IV SCH ×2 (05:32→17:15)
[2018-06-08] MEDS: TPN 1,000 ML IV SCH (06:49)
[2018-06-08 07:26] VITALS: BP 154/70; PULSE 74; RESP 16
--- NOTE | 2018-06-08 08:13 | CONS ---
Assessment/Plan Assessment/Plan Hospital Course (Demo Recall) 1) GPC in blood cx, both sets (staph species) continue with vanco will repeat blood cx tomorrow via picc line that is being placed right now the source is likely the g-tube site 3/ - blood cx grew staph species, likely staph aureus continue with vanco repeat blood cx via PICC line 2) infected g-tube site doubt the yeast is significant, to d/c diflucan but continue with topical lotrimin GNR is also likely not to be significant at this time just continue with IV vanco pt is NPO and TPN is planned till pt can get a new g-tube site 3/2 - stable, site still has drainage, yellow/brown in color e.coli is likely in urine also, start gentamicin 3) hx of gastric CA 4) gi bleed this has improved, upper endo showed gastric polyp lower endo is pending 5) DM sugars are not too bad and have improved 6) dementia 7) pyuria / urine cx has GNR (likely e.coli) no symptoms but to add gent to regimen Consultation Date/Type/Reason Admit Date/Time Jun 03, 2018 at 09:39 Initial Consult Date 06/07/18 Type of Consult ID Date/Time of Note DATE: 06/08/18 TIME: 08:05 24 HR Interval Summary Free Text/Dictation pt denies dysuria, N, V, D no SOB pt can't recall allergy to pcn nor if she ever took keflex Exam/Review of Systems Exam Vitals Vital Signs Date Temp Pulse Resp B/P (MAP) Pulse Ox O2 O2 Flow FiO2 Time Delivery Rate 06/08/18 98.4 74 16 154/70 100 Room Air 07:26 (98) 06/04/18 2.0 17:10 Intake and Output 06/07/18 06/07/18 06/08/18 1515:00 23:00 07:00 IntakeIntake Total 550 ml 450 ml 750 ml OutputOutput Total 200 ml BalanceBalance 550 ml 250 ml 750 ml Constitutional: alert Eyes: nl sclera ENMT: mucosa pink and moist Respiratory: clear to auscultation Cardiovascular: regular rate and rhythm Gastrointestinal: soft, non-tender Results Result Diagram: 06/08/1848 06/08/18 0648 Results 24hrs Laboratory Tests Test 06/07/18 09:02 06/07/18 09:47 06/07/18 12:02 06/07/18 16:36 Bedside Glucose 146 123 160 Urine Color YELLOW Urine Clarity CLOUDY A Urine pH 5.0 Urine Specific [place] 1.011 Urine Ketones NEGATIVE Urine Nitrite NEGATIVE Urine Bilirubin NEGATIVE Urine Urobilinogen NEGATIVE Urine Leukocyte Esterase 3+ H Urine Microscopic RBC 13 H Urine Microscopic WBC > 182 H Urine Squamous FEW Epithelial Cells Urine Bacteria MANY A Urine Hemoglobin NEGATIVE Urine Glucose NEGATIVE Urine Total Protein 2+ H Test 06/07/18 20:50 06/08/18 00:42 06/08/18 05:30 06/08/18 06:48 Bedside Glucose 182 164 169 White Blood Count 6.3 Red Blood Count 2.95 L Hemoglobin 9.1 L Hematocrit 27.1 L Mean Corpuscular Volume 91.9 Mean Corpuscular 30.8 Hemoglobin Mean Corpuscular 33.6 Hemoglobin Concent Red Cell Distribution 13.0 Width Platelet Count 190 Mean Platelet Volume 9.6 Immature Granulocytes % 0.500 H Neutrophils % 74.1 Lymphocytes % 11.5 L Monocytes % 9.8 Eosinophils % 3.6 Basophils % 0.5 Nucleated Red Blood 0.0 Cells % Immature Granulocytes # 0.030 Neutrophils # 4.7 Lymphocytes # 0.7 L Monocytes # 0.6 Eosinophils # 0.2 Basophils # 0.0 Nucleated Red Blood 0.0 Cells # Sodium Level 139 Potassium Level 3.7 Chloride Level 112 H Carbon Dioxide Level 21 Anion Gap 6 Blood Urea Nitrogen 20 Creatinine 0.75 Est Glomerular Filtrat Rate mL/min Glucose Level 150 Calcium Level 7.6 L Phosphorus Level 2.4 #L Magnesium Level 1.6 L Medications Medication Current Medications IV Flush (NS 3 ml) 3 ml PER PROTOCOL IV ; Start 06/03/18 at 12:00 Ondansetron HCl (Zofran Inj) 4 mg Q6H PRN IV NAUSEA/VOMITING Last administered on 06/06/18at 09:36; Admin Dose 4 MG; Start 06/03/18 at 12:00 Acetaminophen (Tylenol Tab) 650 mg Q6H PRN PO .PAIN 1-3 OR TEMP; Start 06/03/18 at 12:00 Acetaminophen/ Hydrocodone Bitart ([place] (5/325)) 1 tab Q6H PRN PO .MOD PAIN 4- 6; Start 06/03/18 at 12:00 Morphine Sulfate (morphine) 2 mg Q4H PRN IV .SEVERE PAIN 7-10; Start 06/03/18 at 12:00 Docusate Sodium (Colace) 100 mg Q12H PRN PO .CONSTIPATION; Start 06/03/18 at 12:00 Magnesium Hydroxide (Milk Of Mag) 30 ml DAILY PRN PO .CONSTIPATION; Start 06/03/18 at 12:00 Pantoprazole (Protonix Iv) 40 mg BID@0600,1800 IV Last administered on 06/08/18 05:32; Admin Dose 40 MG; Start 06/03/18 at 18:00 Lorazepam (Ativan) 0.5 mg Q6H PRN IV ANXIETY; Start 06/03/18 at 12:00 Albuterol/ Ipratropium (Duoneb) 3 ml Q4H RESP THERAPY PRN HHN SHORTNESS OF BREATH; Start 06/03/18 at 12:00 Nitroglycerin (Nitroglycerin (Sl Tab) 0.4 Mg) 1 tab Q5M PRN SL ANGINA; Start 06/03/18 at 12:00 Folic Acid (Folic Acid) 0.4 mg DAILY GTB Last administered on 06/06/18 09:16; Admin Dose 0.4 MG; Start 06/04/18 at 09:00 Multivitamins Therapeutic (Theragran) 1 tab DAILY GTB Last administered on 06/06/18 09:16; Admin Dose 1 TAB; Start 06/04/18 at 09:00 Docusate Sodium (Colace Liquid Cup) 100 mg DAILY GTB Last administered on 06/06/18 09:16; Admin Dose 100 MG; Start 06/04/18 at 09:00 Nystatin (Nystatin Powder) 1 applic BID TOP Last administered on 06/07/18 21:07; Admin Dose 1 APPLIC; Start 06/04/18 at 15:30 Clotrimazole (Lotrimin Cr) 1 applic BID TOP Last administered on 06/07/18 21:06; Admin Dose 1 APPLIC; Start 06/05/18 at 12:00 Diagnostic Test (Pha) (Accu-Chek) 1 ea Q4 XX Last administered on 06/07/18 16:36; Admin Dose 1 EA; Start 06/07/18 at 11:00 Total Parenteral Nutrition 1,000 ml @ 50 mls/hr Q20H IV Last administered on 06/08/18at 06:49; Admin Dose 50 MLS/HR; Start 06/07/18 at 11:00 Metoclopramide HCl (Reglan) 10 mg Q6 IV Last administered on 06/08/18at 05:32; Admin Dose 10 MG; Start 06/06/18 at 18:00 Diagnostic Test (Pha) (Accu-Chek) 1 ea 02 XX ; Start 06/07/18 at 02:00 Insulin Aspart (Novolog Insulin Pen) NOVOLOG *MILD* ALGORI... Q4 SC Last administered on 06/08/18at 05:32; Admin Dose 1 UNIT; Start 06/06/18 at 13:30 Miscellaneous Information 1 ea NOTE XX ; Start 06/06/18 at 13:00 Glucose (Glutose) 15 gm Q15M PRN PO DECREASED GLUCOSE; Start 06/06/18 at 13:00 Glucose (Glutose) 22.5 gm Q15M PRN PO DECREASED GLUCOSE; Start 06/06/18 at 13:00 Dextrose (D50w Syringe) 25 ml Q15M PRN IV DECREASED GLUCOSE; Start 06/06/18 at 13:00 Dextrose (D50w Syringe) 50 ml Q15M PRN IV DECREASED GLUCOSE; Start 06/06/18 at 13:00 Glucagon (Glucagen) 1 mg Q15M PRN IM DECREASED GLUCOSE; Start 06/06/18 at 13:00 Glucose (Glutose) 15 gm Q15M PRN BUCCAL DECREASED GLUCOSE; Start 06/06/18 at 13:00 Vancomycin HCl (Vanco Iv Per Pharmacy) VANCOMYCIN PER PHARMACY PER PROTOCOL XX ; Start 06/07/18 at 09:00 Vancomycin HCl 250 ml @ 125 mls/hr Q24H IVPB ; Start 06/08/18 at 10:00 Miscellaneous Information (* Miscellaneous Pharmacy Order) TODAY PT IS GETTING PICC LI... ONCE XX ; Start 06/07/18 at 10:30 Bisacodyl (Dulcolax Supp) 10 mg DAILY PRN [place] CONSTIPATION; Start 06/07/18 at 11:30 IV Flush (NS 10 ml) 10 ml PRN PRN IV IV PROTOCOL; Start 06/07/18 at 14:00 JOSE NORWOOD MD Jun 08, 2018 08:13
[2018-06-08] MEDS ORDERED: GENTAMICIN IV PER PHARMACY XX SCH (08:30)
[2018-06-08] MEDS: MULTIVITAMINS THERAPEUTIC TAB GTB SCH (09:00)
[2018-06-08] MEDS: DOCUSATE SODIUM 10 MG/ML (10ML CUP) GTB SCH (09:00)
[2018-06-08] MEDS: FOLIC ACID 0.4 MG TAB GTB SCH (09:00)
[2018-06-08] MEDS: CLOTRIMAZOLE 1% 30 GM CR TOP SCH ×2 (09:03→20:28)
[2018-06-08] MEDS: NYSTATIN 30 GM POWDER BTL TOP SCH ×2 (09:08→20:28)
[2018-06-08] MEDS: VANCOMYCIN 1 GM 250 ML IVPB SCH (09:33)
[2018-06-08] MEDS ORDERED: GENTAMICIN 160 MG in SOD CHLORIDE 0.9% 100 ML IVPB SCH (10:00)
--- NOTE | 2018-06-08 10:16 | PN ---
Date/Time of Note Date/Time of Note DATE: 06/08/18 TIME: 10:12 Assessment/Plan VTE Prophylaxis Risk score (from Nsg)>0 risk: 5 SCD applied (from Nsg): Yes Pharmacological prophylaxis: other (scds) Lines/Catheters IV Catheter Type (from Nrsg): PICC Line Central line still needed: Yes (tpn) Urinary Cath still in place: No Assessment/Plan Hospital Course Summary Assessment and Plan: Assessment: Normocytic anemia EGD 06/04/18 Impression: 1.5 cm proximal gastric polyp. Post polypectomy plus Endo Clip placement. Post placement of [place] 24-20 cc replacement gastrostomy tube. Otherwise normal EGD. Melena/hematochezia Malfunctioning gastrostomy tube Hx of Gastric cancer s/p PEG placement (30 fr) Dementia Bacteremia -Blood cultures x2 growing gram-positive cocci - Plan: ABX per ID Continue TPN- f/u with wound nurse consult- recommendations Continue PPI for acid reduction to allow faster healing of ostomy site Reglan for prokinetic effects allowing faster emptying and again to healing os ostomy site. Deferred colonoscopy given the therapeutic procedure and the need for Endo Clip. Pt seen in collaboration with Dr. Lopez/Xiao Subjective: Course reviewed with nursing staff Patient interviewed and examined All labs, imaging and other results reviewed Patient pulled out midline status post PICC placement with TPN Infectious disease has been consulted for bacteremia. Hemoglobin currently stable however slightly trending down. No overt signs of GI bleed Ostomy site with moderate output to be expected appears to be healing very slowly follow-up with wound nurse recommendations. Constitutional: alert, oriented (to name) Head: normocephalic, atraumatic Eyes: nl conjunctiva ENMT: nl external ears & nose Neck: supple Respiratory: clear to auscultation Cardiovascular: regular rate and rhythm Gastrointestinal: soft, bowel sounds, other (g-tube) Genitourinary - Female: nl adnexae Musculoskeletal: nl extremities to inspection Result Diagram: 06/08/18 0648 06/08/18 0648 Results 24hrs Laboratory Tests Test 06/07/18 12:02 06/07/18 16:36 06/07/18 20:50 06/08/18 00:42 Bedside Glucose 123 160 182 164 Test 06/08/18 05:30 06/08/18 06:48 06/08/18 09:02 Bedside Glucose 169 176 White Blood Count 6.3 Red Blood Count 2.95 L Hemoglobin 9.1 L Hematocrit 27.1 L Mean Corpuscular Volume 91.9 Mean Corpuscular 30.8 Hemoglobin Mean Corpuscular 33.6 Hemoglobin Concent Red Cell Distribution 13.0 Width Platelet Count 190 Mean Platelet Volume 9.6 Immature Granulocytes % 0.500 H Neutrophils % 74.1 Lymphocytes % 11.5 L Monocytes % 9.8 Eosinophils % 3.6 Basophils % 0.5 Nucleated Red Blood 0.0 Cells % Immature Granulocytes # 0.030 Neutrophils # 4.7 Lymphocytes # 0.7 L Monocytes # 0.6 Eosinophils # 0.2 Basophils # 0.0 Nucleated Red Blood 0.0 Cells # Sodium Level 139 Potassium Level 3.7 Chloride Level 112 H Carbon Dioxide Level 21 Anion Gap 6 Blood Urea Nitrogen 20 Creatinine 0.75 Est Glomerular Filtrat Rate mL/min Glucose Level 150 Calcium Level 7.6 L Phosphorus Level 2.4 #L Magnesium Level 1.6 L Exam/Review of Systems Exam Vitals Vital Signs Date Temp Pulse Resp B/P (MAP) Pulse Ox O2 O2 Flow FiO2 Time Delivery Rate 06/08/18 98.4 74 16 154/70 100 Room Air 07:26 (98) 06/04/18 2.0 17:10 Intake and Output 06/07/18 06/07/18 06/08/18 1515:00 23:00 07:00 IntakeIntake Total 550 ml 450 ml 750 ml OutputOutput Total 200 ml BalanceBalance 550 ml 250 ml 750 ml Results Results 24hrs Laboratory Tests Test 06/07/18 12:02 06/07/18 16:36 06/07/18 20:50 06/08/18 00:42 Bedside Glucose 123 160 182 164 Test 06/08/18 05:30 06/08/18 06:48 06/08/18 09:02 Bedside Glucose 169 176 White Blood Count 6.3 Red Blood Count 2.95 L Hemoglobin 9.1 L Hematocrit 27.1 L Mean Corpuscular Volume 91.9 Mean Corpuscular 30.8 Hemoglobin Mean Corpuscular 33.6 Hemoglobin Concent Red Cell Distribution 13.0 Width Platelet Count 190 Mean Platelet Volume 9.6 Immature Granulocytes % 0.500 H Neutrophils % 74.1 Lymphocytes % 11.5 L Monocytes % 9.8 Eosinophils % 3.6 Basophils % 0.5 Nucleated Red Blood 0.0 Cells % Immature Granulocytes # 0.030 Neutrophils # 4.7 Lymphocytes # 0.7 L Monocytes # 0.6 Eosinophils # 0.2 Basophils # 0.0 Nucleated Red Blood 0.0 Cells # Sodium Level 139 Potassium Level 3.7 Chloride Level 112 H Carbon Dioxide Level 21 Anion Gap 6 Blood Urea Nitrogen 20 Creatinine 0.75 Est Glomerular Filtrat Rate mL/min Glucose Level 150 Calcium Level 7.6 L Phosphorus Level 2.4 #L Magnesium Level 1.6 L Medications Medication Current Medications IV Flush (NS 3 ml) 3 ml PER PROTOCOL IV ; Start 06/03/18 at 12:00 Ondansetron HCl (Zofran Inj) 4 mg Q6H PRN IV NAUSEA/VOMITING Last administered on 06/06/18at 09:36; Admin Dose 4 MG; Start 06/03/18 at 12:00 Acetaminophen (Tylenol Tab) 650 mg Q6H PRN PO .PAIN 1-3 OR TEMP; Start 06/03/18 at 12:00 Acetaminophen/ Hydrocodone Bitart ([place] (5/325)) 1 tab Q6H PRN PO .MOD PAIN 4- 6; Start 06/03/18 at 12:00 Morphine Sulfate (morphine) 2 mg Q4H PRN IV .SEVERE PAIN 7-10; Start 06/03/18 at 12:00 Docusate Sodium (Colace) 100 mg Q12H PRN PO .CONSTIPATION; Start 06/03/18 at 12:00 Magnesium Hydroxide (Milk Of Mag) 30 ml DAILY PRN PO .CONSTIPATION; Start 06/03/18 at 12:00 Pantoprazole (Protonix Iv) 40 mg BID@0600,1800 IV Last administered on 06/08/18at 05:32; Admin Dose 40 MG; Start 06/03/18 at 18:00 Lorazepam (Ativan) 0.5 mg Q6H PRN IV ANXIETY; Start 06/03/18 at 12:00 Albuterol/ Ipratropium (Duoneb) 3 ml Q4H RESP THERAPY PRN HHN SHORTNESS OF BREATH; Start 06/03/18 at 12:00 Nitroglycerin (Nitroglycerin (Sl Tab) 0.4 Mg) 1 tab Q5M PRN SL ANGINA; Start 06/03/18 at 12:00 Folic Acid (Folic Acid) 0.4 mg DAILY GTB Last administered on 06/06/18 09:16; Admin Dose 0.4 MG; Start 06/04/18 at 09:00 Multivitamins Therapeutic (Theragran) 1 tab DAILY GTB Last administered on 06/06/18 09:16; Admin Dose 1 TAB; Start 06/04/18 at 09:00 Docusate Sodium (Colace Liquid Cup) 100 mg DAILY GTB Last administered on 06/06/18 09:16; Admin Dose 100 MG; Start 06/04/18 at 09:00 Nystatin (Nystatin Powder) 1 applic BID TOP Last administered on 06/08/18 09:08; Admin Dose 1 APPLIC; Start 06/04/18 at 15:30 Clotrimazole (Lotrimin Cr) 1 applic BID TOP Last administered on 06/08/18 09:03; Admin Dose 1 APPLIC; Start 06/05/18 at 12:00 Diagnostic Test (Pha) (Accu-Chek) 1 ea Q4 XX Last administered on 06/07/18at 16:36; Admin Dose 1 EA; Start 06/07/18 at 11:00 Total Parenteral Nutrition 1,000 ml @ 50 mls/hr Q20H IV Last administered on 06/08/18 06:49; Admin Dose 50 MLS/HR; Start 06/07/18 at 11:00 Metoclopramide HCl (Reglan) 10 mg Q6 IV Last administered on 06/08/18 05:32; Admin Dose 10 MG; Start 06/06/18 at 18:00 Diagnostic Test (Pha) (Accu-Chek) 1 ea 02 XX ; Start 06/07/18 at 02:00 Insulin Aspart (Novolog Insulin Pen) NOVOLOG *MILD* ALGORI... Q4 SC Last administered on 06/08/18 09:06; Admin Dose 1 UNIT; Start 06/06/18 at 13:30 Miscellaneous Information 1 ea NOTE XX ; Start 06/06/18 at 13:00 Glucose (Glutose) 15 gm Q15M PRN PO DECREASED GLUCOSE; Start 06/06/18 at 13:00 Glucose (Glutose) 22.5 gm Q15M PRN PO DECREASED GLUCOSE; Start 06/06/18 at 13:00 Dextrose (D50w Syringe) 25 ml Q15M PRN IV DECREASED GLUCOSE; Start 06/06/18 at 13:00 Dextrose (D50w Syringe) 50 ml Q15M PRN IV DECREASED GLUCOSE; Start 06/06/18 at 13:00 Glucagon (Glucagen) 1 mg Q15M PRN IM DECREASED GLUCOSE; Start 06/06/18 at 13:00 Glucose (Glutose) 15 gm Q15M PRN BUCCAL DECREASED GLUCOSE; Start 06/06/18 at 13:00 Vancomycin HCl (Vanco Iv Per Pharmacy) VANCOMYCIN PER PHARMACY PER PROTOCOL XX ; Start 06/07/18 at 09:00 Vancomycin HCl 250 ml @ 125 mls/hr Q24H IVPB Last administered on 06/08/18at 09:33; Admin Dose 125 MLS/HR; Start 06/08/18 at 10:00 Miscellaneous Information (* Miscellaneous Pharmacy Order) TODAY PT IS GETTING PICC LI... ONCE XX ; Start 06/07/18 at 10:30 Bisacodyl (Dulcolax Supp) 10 mg DAILY PRN [place] CONSTIPATION; Start 06/07/18 at 11:30 IV Flush (NS 10 ml) 10 ml PRN PRN IV IV PROTOCOL; Start 06/07/18 at 14:00 Gentamicin Sulfate (Gentamicin Iv Per Pharmacy) GENTAMICIN PER PHARMACY NOTE XX ; Start 06/08/18 at 08:30 Gentamicin Sulfate 160 mg/ Sodium Chloride 104 ml @ 104 mls/hr Q24H IVPB ; Start 06/08/18 at 10:00 DORIS BAUMANN Jun 08, 2018 10:16
[2018-06-08] MEDS ORDERED: MAGNESIUM SULFATE 2 GM/50 ML 50 ML IVPB ONE (12:00)
--- NOTE | 2018-06-08 12:08 | PN ---
Date/Time of Note Date/Time of Note DATE: 06/08/18 TIME: 12:08 Objective Vitals Vital Signs Date Temp Pulse Resp B/P (MAP) Pulse Ox O2 O2 Flow FiO2 Time Delivery Rate 06/08/18 98.4 74 16 154/70 100 Room Air 07:26 (98) 06/04/18 2.0 17:10 Intake and Output 06/07/18 06/07/18 06/08/18 1515:00 23:00 07:00 IntakeIntake Total 550 ml 450 ml 750 ml OutputOutput Total 200 ml BalanceBalance 550 ml 250 ml 750 ml Results Result Diagram: 06/08/18 0648 06/08/18 0648 Medications Medications Current Medications IV Flush (NS 3 ml) 3 ml PER PROTOCOL IV ; Start 06/03/18 at 12:00 Ondansetron HCl (Zofran Inj) 4 mg Q6H PRN IV NAUSEA/VOMITING Last administered on 06/06/18at 09:36; Admin Dose 4 MG; Start 06/03/18 at 12:00 Acetaminophen (Tylenol Tab) 650 mg Q6H PRN PO .PAIN 1-3 OR TEMP; Start 06/03/18 at 12:00 Acetaminophen/ Hydrocodone Bitart ([place] (5/325)) 1 tab Q6H PRN PO .MOD PAIN 4- 6; Start 06/03/18 at 12:00 Morphine Sulfate (morphine) 2 mg Q4H PRN IV .SEVERE PAIN 7-10; Start 06/03/18 at 12:00 Docusate Sodium (Colace) 100 mg Q12H PRN PO .CONSTIPATION; Start 06/03/18 at 12:00 Magnesium Hydroxide (Milk Of Mag) 30 ml DAILY PRN PO .CONSTIPATION; Start 06/03/18 at 12:00 Pantoprazole (Protonix Iv) 40 mg BID@0600,1800 IV Last administered on 06/08/18at 05:32; Admin Dose 40 MG; Start 06/03/18 at 18:00 Lorazepam (Ativan) 0.5 mg Q6H PRN IV ANXIETY; Start 06/03/18 at 12:00 Albuterol/ Ipratropium (Duoneb) 3 ml Q4H RESP THERAPY PRN HHN SHORTNESS OF BREATH; Start 06/03/18 at 12:00 Nitroglycerin (Nitroglycerin (Sl Tab) 0.4 Mg) 1 tab Q5M PRN SL ANGINA; Start 06/03/18 at 12:00 Folic Acid (Folic Acid) 0.4 mg DAILY GTB Last administered on 06/06/18 09:16; Admin Dose 0.4 MG; Start 06/04/18 at 09:00 Multivitamins Therapeutic (Theragran) 1 tab DAILY GTB Last administered on 06/06/18 09:16; Admin Dose 1 TAB; Start 06/04/18 at 09:00 Docusate Sodium (Colace Liquid Cup) 100 mg DAILY GTB Last administered on 06/06/18 09:16; Admin Dose 100 MG; Start 06/04/18 at 09:00 Nystatin (Nystatin Powder) 1 applic BID TOP Last administered on 06/08/18 09:08; Admin Dose 1 APPLIC; Start 06/04/18 at 15:30 Clotrimazole (Lotrimin Cr) 1 applic BID TOP Last administered on 06/08/18 09:03; Admin Dose 1 APPLIC; Start 06/05/18 at 12:00 Diagnostic Test (Pha) (Accu-Chek) 1 ea Q4 XX Last administered on 06/07/18 16:36; Admin Dose 1 EA; Start 06/07/18 at 11:00 Total Parenteral Nutrition 1,000 ml @ 50 mls/hr Q20H IV Last administered on 06/08/18 06:49; Admin Dose 50 MLS/HR; Start 06/07/18 at 11:00 Metoclopramide HCl (Reglan) 10 mg Q6 IV Last administered on 06/08/18 05:32; Admin Dose 10 MG; Start 06/06/18 at 18:00 Diagnostic Test (Pha) (Accu-Chek) 1 ea 02 XX ; Start 06/07/18 at 02:00 Insulin Aspart (Novolog Insulin Pen) NOVOLOG *MILD* ALGORI... Q4 SC Last administered on 06/08/18 09:06; Admin Dose 1 UNIT; Start 06/06/18 at 13:30 Miscellaneous Information 1 ea NOTE XX ; Start 06/06/18 at 13:00 Glucose (Glutose) 15 gm Q15M PRN PO DECREASED GLUCOSE; Start 06/06/18 at 13:00 Glucose (Glutose) 22.5 gm Q15M PRN PO DECREASED GLUCOSE; Start 06/06/18 at 13:00 Dextrose (D50w Syringe) 25 ml Q15M PRN IV DECREASED GLUCOSE; Start 06/06/18 at 13:00 Dextrose (D50w Syringe) 50 ml Q15M PRN IV DECREASED GLUCOSE; Start 06/06/18 at 13:00 Glucagon (Glucagen) 1 mg Q15M PRN IM DECREASED GLUCOSE; Start 06/06/18 at 13:00 Glucose (Glutose) 15 gm Q15M PRN BUCCAL DECREASED GLUCOSE; Start 06/06/18 at 13:00 Vancomycin HCl (Vanco Iv Per Pharmacy) VANCOMYCIN PER PHARMACY PER PROTOCOL XX ; Start 06/07/18 at 09:00 Vancomycin HCl 250 ml @ 125 mls/hr Q24H IVPB Last administered on 06/08/18at 09:33; Admin Dose 125 MLS/HR; Start 06/08/18 at 10:00 Miscellaneous Information (* Miscellaneous Pharmacy Order) TODAY PT IS GETTING PICC LI... ONCE XX ; Start 06/07/18 at 10:30 Bisacodyl (Dulcolax Supp) 10 mg DAILY PRN [place] CONSTIPATION; Start 06/07/18 at 11:30 IV Flush (NS 10 ml) 10 ml PRN PRN IV IV PROTOCOL; Start 06/07/18 at 14:00 Gentamicin Sulfate (Gentamicin Iv Per Pharmacy) GENTAMICIN PER PHARMACY NOTE XX ; Start 06/08/18 at 08:30 Gentamicin Sulfate 160 mg/ Sodium Chloride 104 ml @ 104 mls/hr Q24H IVPB ; Start 06/08/18 at 10:00; Stop 06/08/18 at 19:00 Gentamicin Sulfate 160 mg/ Sodium Chloride 104 ml @ 104 mls/hr Q24H IVPB ; S tart 06/09/18 at 09:00 Magnesium Sulfate 50 ml @ 25 mls/hr ONCE ONCE IVPB ; Start 06/08/18 at 12:00; Stop 06/08/18 at 13:59 Potassium Phosphate 15 mm/ Sodium Chloride 255 ml @ 63.75 mls/ hr ONCE ONCE I VPB ; Start 06/08/18 at 13:00; Stop 06/08/18 at 16:59 VTE Prophylaxis Risk score (from Ns)>0 risk: 5 SCD applied (from Ns): Yes Lines/Catheters IV Catheter Type: Maya in Place: No Assessment/Plan Hospital Course Subjective No acute overnight events Objective Physical exam General: Patient is laying in bed and answers questions appropriately Mentation: Patient is alert but not fully oriented Head: Normocephalic atraumatic Eyes: EOMI, pupils reactive to light Neck: Supple, nontender, midline Respiratory: Clear to auscultation bilaterally Cardiovascular: regular rate, no obvious murmurs Gastrointestinal: non-tender to palpation, bowel sounds heard. Neurological: Moves all extremities spontaneously Skin: No new skin lesions, colostomy bag present ASSESSMENT/PLAN: 83-year-old female with a history of gastric cancer, status post PEG, gastritis, erosive esophagitis, dementia, was transferred from [facility] with rectal bleed, also found to have leaking/infected/malfxn G-tube with localized infection around site. 1. Acute GI bleed, hematochezia -Resolved -Status post EGD:1.5 cm proximal gastric polyp. Post polypectomy plus Endo Clip placement. -Deferred colonoscopy given therapeutic procedure and need for Endo Clip. -Continue Protonix -Avoid NSAIDs, antiplatelets, anticoagulation 2. Infected G-tube/malfunctioning tube. G-tube site grew [place] albicans/GNR. -GI on board=>s/p removal of Gtube 06/06. Plan is TPN until Gtube site and bacteremia resolves and then new Gtube placement. -cont.local Gt site care and azole therapy 3.Bacteremia, BC growing gram posx2 sets -Start vanco/gent -ID recs appreciated 4. Acute on chronic anemia. Acute anemia secondary to GI bleed -Now stable. Monitor 5. Dehydration -cont.syst hydration. TPN now. 6. History of gastric cancer 7. Osteoporosis -Supportive care, resume home medications -Continued PT evaluation 8. Dementia -Supportive care DVT prophylaxis: SCDs, anticoagulation contraindicated secondary to bleeding PUD prophylaxis: Protonix CODE STATUS: Full code Diet: N.p.o. TPN Disposition: cont TPN. Cont. abx and ID eval. cont.Gt care .once bacteremia resolves and Gtube site infection clears, pt needs new Gtube placement. ISAIAS GÓMEZ Jun 08, 2018 12:08
[2018-06-08] MEDS ORDERED: POTASSIUM PHOSPHATE 15 MM in SOD CHLORIDE 0.9% 250 ML IVPB ONE (13:00)
[2018-06-08 13:56] VITALS: BP 142/65; PULSE 60; RESP 16
[2018-06-08] MEDS ORDERED: GENTAMICIN TROUGH & PEAK XX ONE (16:00)
[2018-06-08 20:13] VITALS: BP 144/60; PULSE 61; RESP 16
[2018-06-09] MEDS: METOCLOPRAMIDE 10 MG INJ IV SCH ×5 (00:45→23:24)
[2018-06-09] MEDS: INSULIN ASPART [NOVOLOG] 3 ML PEN SC SCH ×6 (00:46→21:34)
[2018-06-09] MEDS: ACCU-CHEK XX SCH ×7 (00:52→21:41)
[2018-06-09 01:52] VITALS: BP 146/65; PULSE 66; RESP 16
[2018-06-09] MEDS: TPN 1,000 ML IV SCH ×2 (02:07→23:22)
[2018-06-09] MEDS: PANTOPRAZOLE 40 MG INJ IV SCH ×2 (05:16→18:14)
--- NOTE | 2018-06-09 08:08 | CONS ---
Assessment/Plan Assessment/Plan Hospital Course (Demo Recall) 1) GPC in blood cx, both sets (staph species) continue with vanco will repeat blood cx tomorrow via picc line that is being placed right now the source is likely the g-tube site 06/08 - blood cx grew staph species, likely staph aureus continue with vanco repeat blood cx via PICC line 06/09 - pt has both sets of blood cx growing two different kinds of CoNS, not s .aureus pt will only need one week of IV vanco repeat blood cx are NGTD 2) infected g-tube site doubt the yeast is significant, to d/c diflucan but continue with topical lotrimin GNR is also likely not to be significant at this time just continue with IV vanco pt is NPO and TPN is planned till pt can get a new g-tube site / - stable, site still has drainage, yellow/brown in color e.coli is likely in urine also, start gentamicin 06/09 - no antonio cellulitis seen, but still has drainage 3) hx of gastric CA 4) gi bleed this has improved, upper endo showed gastric polyp lower endo is pending 5) DM sugars are not too bad and have improved 6) dementia 7) pyuria 06/08 urine cx has GNR (likely e.coli) no symptoms but to add gent to regimen 06/09 - e.coli in urine is sensitive to amkicain anticipate only 3-5 day course of it change gent to amikacin since sensi's to gent are not finalized Consultation Date/Type/Reason Admit Date/Time Jun 03, 2018 at 09:39 Initial Consult Date 06/07/18 Type of Consult ID Date/Time of Note DATE: 06/09/18 TIME: 07:55 24 HR Interval Summary Free Text/Dictation pt denies N, V, D, abd pain Exam/Review of Systems Exam Vitals Vital Signs Date Temp Pulse Resp B/P (MAP) Pulse Ox O2 O2 Flow FiO2 Time Delivery Rate 06/09/18 98.1 66 16 146/65 97 01:52 (92) 06/08/18 Room Air 13:56 Intake and Output 06/08/18 06/08/18 06/09/18 1515:00 23:00 07:00 IntakeIntake Total 354 ml 305 ml 1000 ml BalanceBalance 354 ml 305 ml 1000 ml Constitutional: alert Eyes: nl sclera Respiratory: clear to auscultation Cardiovascular: regular rate and rhythm Gastrointestinal: soft, non-tender, other (prior g-tube site still has some drainage but no redness) Results Result Diagram: 06/08/18 0648 06/08/18 0648 Results 24hrs Laboratory Tests Test 06/08/18 09:02 06/08/18 12:16 06/08/18 17:14 06/08/18 20:30 Bedside Glucose 176 189 165 180 Test 06/09/18 00:41 06/09/18 05:16 Bedside Glucose 147 156 Medications Medication Current Medications IV Flush (NS 3 ml) 3 ml PER PROTOCOL IV ; Start 06/03/18 at 12:00 Ondansetron HCl (Zofran Inj) 4 mg Q6H PRN IV NAUSEA/VOMITING Last administered on 06/06/18at 09:36; Admin Dose 4 MG; Start 06/03/18 at 12:00 Acetaminophen (Tylenol Tab) 650 mg Q6H PRN PO .PAIN 1-3 OR TEMP; Start 06/03/18 at 12:00 Acetaminophen/ Hydrocodone Bitart ([place] (5/325)) 1 tab Q6H PRN PO .MOD PAIN 4- 6; Start 06/03/18 at 12:00 Morphine Sulfate (morphine) 2 mg Q4H PRN IV .SEVERE PAIN 7-10; Start 06/03/18 at 12:00 Docusate Sodium (Colace) 100 mg Q12H PRN PO .CONSTIPATION; Start 06/03/18 at 12:00 Magnesium Hydroxide (Milk Of Mag) 30 ml DAILY PRN PO .CONSTIPATION; Start 06/03/18 at 12:00 Pantoprazole (Protonix Iv) 40 mg BID@0600,1800 IV Last administered on 06/09/18at 05:16; Admin Dose 40 MG; Start 06/03/18 at 18:00 Lorazepam (Ativan) 0.5 mg Q6H PRN IV ANXIETY; Start 06/03/18 at 12:00 Albuterol/ Ipratropium (Duoneb) 3 ml Q4H RESP THERAPY PRN HHN SHORTNESS OF BREATH; Start 06/03/18 at 12:00 Nitroglycerin (Nitroglycerin (Sl Tab) 0.4 Mg) 1 tab Q5M PRN SL ANGINA; Start 06/03/18 at 12:00 Folic Acid (Folic Acid) 0.4 mg DAILY GTB Last administered on 06/06/18 09:16; Admin Dose 0.4 MG; Start 06/04/18 at 09:00 Multivitamins Therapeutic (Theragran) 1 tab DAILY GTB Last administered on 06/06/18 09:16; Admin Dose 1 TAB; Start 06/04/18 at 09:00 Docusate Sodium (Colace Liquid Cup) 100 mg DAILY GTB Last administered on 06/06/18 09:16; Admin Dose 100 MG; Start 06/04/18 at 09:00 Nystatin (Nystatin Powder) 1 applic BID TOP Last administered on 06/08/18 20:28; Admin Dose 1 APPLIC; Start 06/04/18 at 15:30 Clotrimazole (Lotrimin Cr) 1 applic BID TOP Last administered on 06/08/18 20:28; Admin Dose 1 APPLIC; Start 06/05/18 at 12:00 Diagnostic Test (Pha) (Accu-Chek) 1 ea Q4 XX Last administered on 06/07/18 16:36; Admin Dose 1 EA; Start 06/07/18 at 11:00 Total Parenteral Nutrition 1,000 ml @ 50 mls/hr Q20H IV Last administered on 06/09/18 02:07; Admin Dose 50 MLS/HR; Start 06/07/18 at 11:00 Metoclopramide HCl (Reglan) 10 mg Q6 IV Last administered on 06/09/18 05:16; Admin Dose 10 MG; Start 06/06/18 at 18:00 Diagnostic Test (Pha) (Accu-Chek) 1 ea 02 XX ; Start 06/07/18 at 02:00 Insulin Aspart (Novolog Insulin Pen) NOVOLOG *MILD* ALGORI... Q4 SC Last administered on 06/09/18 05:24; Admin Dose 1 UNIT; Start 06/06/18 at 13:30 Miscellaneous Information 1 ea NOTE XX ; Start 06/06/18 at 13:00 Glucose (Glutose) 15 gm Q15M PRN PO DECREASED GLUCOSE; Start 06/06/18 at 13:00 Glucose (Glutose) 22.5 gm Q15M PRN PO DECREASED GLUCOSE; Start 06/06/18 at 13:00 Dextrose (D50w Syringe) 25 ml Q15M PRN IV DECREASED GLUCOSE; Start 06/06/18 at 13:00 Dextrose (D50w Syringe) 50 ml Q15M PRN IV DECREASED GLUCOSE; Start 06/06/18 at 13:00 Glucagon (Glucagen) 1 mg Q15M PRN IM DECREASED GLUCOSE; Start 06/06/18 at 13:00 Glucose (Glutose) 15 gm Q15M PRN BUCCAL DECREASED GLUCOSE; Start 06/06/18 at 13:00 Vancomycin HCl (Vanco Iv Per Pharmacy) VANCOMYCIN PER PHARMACY PER PROTOCOL XX ; Start 06/07/18 at 09:00 Vancomycin HCl 250 ml @ 125 mls/hr Q24H IVPB Last administered on 06/08/18at 09:33; Admin Dose 125 MLS/HR; Start 06/08/18 at 10:00 Miscellaneous Information (* Miscellaneous Pharmacy Order) TODAY PT IS GETTING PICC LI... ONCE XX ; Start 06/07/18 at 10:30 Bisacodyl (Dulcolax Supp) 10 mg DAILY PRN [place] CONSTIPATION; Start 06/07/18 at 11:30 IV Flush (NS 10 ml) 10 ml PRN PRN IV IV PROTOCOL; Start 06/07/18 at 14:00 Gentamicin Sulfate (Gentamicin Iv Per Pharmacy) GENTAMICIN PER PHARMACY NOTE XX ; Start 06/08/18 at 08:30 Gentamicin Sulfate 160 mg/ Sodium Chloride 104 ml @ 104 mls/hr Q24H IVPB ; Start 06/09/18 at 12:00 Miscellaneous Information (*Rx Drug Level Order Reminder*) GENTAMICIN TROUGH 06/09 AT 1... ONCE XX ; Start 06/09/18 at 11:00; Stop 06/09/18 at 13:31 JOSE NROWOOD MD Jun 09, 2018 08:05
[2018-06-09] MEDS: FOLIC ACID 0.4 MG TAB GTB SCH (08:12)
[2018-06-09] MEDS: MULTIVITAMINS THERAPEUTIC TAB GTB SCH (08:12)
[2018-06-09] MEDS: DOCUSATE SODIUM 10 MG/ML (10ML CUP) GTB SCH (08:12)
[2018-06-09] MEDS: CLOTRIMAZOLE 1% 30 GM CR TOP SCH ×2 (08:13→21:41)
[2018-06-09] MEDS: NYSTATIN 30 GM POWDER BTL TOP SCH ×2 (08:13→21:41)
[2018-06-09 08:15] VITALS: BP 144/65; PULSE 97; RESP 16
[2018-06-09] MEDS ORDERED: AMIKACIN IV PER PHARMACY XX SCH (08:30)
[2018-06-09] MEDS ORDERED: GENTAMICIN 160 MG in SOD CHLORIDE 0.9% 100 ML IVPB SCH ×2 (09:00→12:00)
[2018-06-09] MEDS: ALTEPLASE (CATHFLO) 2 MG INJ CATHETER PRN (10:58)
[2018-06-09] MEDS ORDERED: AMIKACIN 1,000 MG in SOD CHLORIDE 0.9% 100 ML IVPB SCH ×4 (11:00)
[2018-06-09] MEDS ORDERED: GENTAMICIN TROUGH & PEAK XX SCH (11:00)
[2018-06-09] MEDS: VANCOMYCIN 1 GM 250 ML IVPB SCH (11:29)
--- NOTE | 2018-06-09 12:59 | PN ---
Date/Time of Note Date/Time of Note DATE: 06/09/18 TIME: 12:57 Assessment/Plan VTE Prophylaxis Risk score (from Ns)>0 risk: 4 SCD applied (from Ns): Yes Pharmacological prophylaxis: other (scds) Lines/Catheters IV Catheter Type (from [facility]): Peripheral IV Urinary Cath still in place: No Assessment/Plan Hospital Course Summary Assessment and Plan: Assessment: Normocytic anemia EGD 06/04/18 Impression: 1.5 cm proximal gastric polyp. Post polypectomy plus Endo Clip placement. Post placement of Japanese 24-20 cc replacement gastrostomy tube. Otherwise normal EGD. Melena/hematochezia Malfunctioning gastrostomy tube Hx of Gastric cancer s/p PEG placement (30 fr) Dementia Bacteremia -Blood cultures x2 growing gram-positive cocci - Plan: ABX per ID Continue TPN- f/u with wound nurse consult- recommendations Continue PPI for acid reduction to allow faster healing of ostomy site Reglan for prokinetic effects allowing faster emptying and again to healing os ostomy site. Deferred colonoscopy given the therapeutic procedure and the need for Endo Clip. No new recommendations today Pt seen in collaboration with Dr. Lopez/Xiao Subjective: Course reviewed with nursing staff Patient interviewed and examined All labs, imaging and other results reviewed Ostomy site is healing well, less out-put noted. X2 lumens of PICC line clogged- s/p cathflow- to unclot one lumen No over night events, HGB stable, no over signs of GI bleed. Continue close observation Constitutional: alert, oriented (to name) Head: normocephalic, atraumatic Eyes: nl conjunctiva ENMT: nl external ears & nose Neck: supple Respiratory: clear to auscultation Cardiovascular: regular rate and rhythm Gastrointestinal: soft, bowel sounds, other (g-tube) Genitourinary - Female: nl adnexae Musculoskeletal: nl extremities to inspection Result Diagram: 06/09/1825 06/09/18 0925 Results 24hrs Laboratory Tests Test 06/08/18 17:14 06/08/18 20:30 06/09/18 00:41 06/09/18 05:16 Bedside Glucose 165 180 147 156 Test 06/09/18 08:08 06/09/18 09:25 06/09/18 12:42 Bedside Glucose 166 115 White Blood Count 6.8 Red Blood Count 3.24 L Hemoglobin 10.0 L Hematocrit 29.6 L Mean Corpuscular Volume 91.4 Mean Corpuscular 30.9 Hemoglobin Mean Corpuscular 33.8 Hemoglobin Concent Red Cell Distribution 12.8 Width Platelet Count 205 Mean Platelet Volume 9.5 Immature Granulocytes % 0.100 Neutrophils % 75.6 Lymphocytes % 10.3 L Monocytes % 8.1 Eosinophils % 5.6 Basophils % 0.3 Nucleated Red Blood 0.0 Cells % Immature Granulocytes # 0.010 Neutrophils # 5.1 Lymphocytes # 0.7 L Monocytes # 0.6 Eosinophils # 0.4 Basophils # 0.0 Nucleated Red Blood 0.0 Cells # Sodium Level 137 Potassium Level 4.1 Chloride Level 109 Carbon Dioxide Level 21 Anion Gap 7 Blood Urea Nitrogen 26 H Creatinine 0.86 Est Glomerular Filtrat Rate mL/min Glucose Level 139 Calcium Level 8.5 Phosphorus Level 3.1 Magnesium Level 2.0 Exam/Review of Systems Exam Vitals Vital Signs Date Temp Pulse Resp B/P (MAP) Pulse Ox O2 O2 Flow FiO2 Time Delivery Rate 06/09/18 98.7 97 16 144/65 96 Room Air 08:15 (91) Intake and Output 06/08/18 06/08/18 06/09/18 1414:59 22:59 06:59 IntakeIntake Total 354 ml 305 ml 1000 ml BalanceBalance 354 ml 305 ml 1000 ml Results Results 24hrs Laboratory Tests Test 06/08/18 17:14 06/08/18 20:30 06/09/18 00:41 06/09/18 05:16 Bedside Glucose 165 180 147 156 Test 06/09/18 08:08 06/09/18 09:25 06/09/18 12:42 Bedside Glucose 166 115 White Blood Count 6.8 Red Blood Count 3.24 L Hemoglobin 10.0 L Hematocrit 29.6 L Mean Corpuscular Volume 91.4 Mean Corpuscular 30.9 Hemoglobin Mean Corpuscular 33.8 Hemoglobin Concent Red Cell Distribution 12.8 Width Platelet Count 205 Mean Platelet Volume 9.5 Immature Granulocytes % 0.100 Neutrophils % 75.6 Lymphocytes % 10.3 L Monocytes % 8.1 Eosinophils % 5.6 Basophils % 0.3 Nucleated Red Blood 0.0 Cells % Immature Granulocytes # 0.010 Neutrophils # 5.1 Lymphocytes # 0.7 L Monocytes # 0.6 Eosinophils # 0.4 Basophils # 0.0 Nucleated Red Blood 0.0 Cells # Sodium Level 137 Potassium Level 4.1 Chloride Level 109 Carbon Dioxide Level 21 Anion Gap 7 Blood Urea Nitrogen 26 H Creatinine 0.86 Est Glomerular Filtrat Rate mL/min Glucose Level 139 Calcium Level 8.5 Phosphorus Level 3.1 Magnesium Level 2.0 Medications Medication Current Medications IV Flush (NS 3 ml) 3 ml PER PROTOCOL IV ; Start 06/03/18 at 12:00 Ondansetron HCl (Zofran Inj) 4 mg Q6H PRN IV NAUSEA/VOMITING Last administered on 06/06/18at 09:36; Admin Dose 4 MG; Start 06/03/18 at 12:00 Acetaminophen (Tylenol Tab) 650 mg Q6H PRN PO .PAIN 1-3 OR TEMP; Start 06/03/18 at 12:00 Acetaminophen/ Hydrocodone Bitart ([place] (5/325)) 1 tab Q6H PRN PO .MOD PAIN 4- 6; Start 06/03/18 at 12:00 Morphine Sulfate (morphine) 2 mg Q4H PRN IV .SEVERE PAIN 7-10; Start 06/03/18 at 12:00 Docusate Sodium (Colace) 100 mg Q12H PRN PO .CONSTIPATION; Start 06/03/18 at 12:00 Magnesium Hydroxide (Milk Of Mag) 30 ml DAILY PRN PO .CONSTIPATION; Start 06/03/18 at 12:00 Pantoprazole (Protonix Iv) 40 mg BID@0600,1800 IV Last administered on 06/09/18at 05:16; Admin Dose 40 MG; Start 06/03/18 at 18:00 Lorazepam (Ativan) 0.5 mg Q6H PRN IV ANXIETY; Start 06/03/18 at 12:00 Albuterol/ Ipratropium (Duoneb) 3 ml Q4H RESP THERAPY PRN HHN SHORTNESS OF BREATH; Start 06/03/18 at 12:00 Nitroglycerin (Nitroglycerin (Sl Tab) 0.4 Mg) 1 tab Q5M PRN SL ANGINA; Start 06/03/18 at 12:00 Folic Acid (Folic Acid) 0.4 mg DAILY GTB Last administered on 06/06/18at 09:16; Admin Dose 0.4 MG; Start 06/04/18 at 09:00 Multivitamins Therapeutic (Theragran) 1 tab DAILY GTB Last administered on 06/06/18 09:16; Admin Dose 1 TAB; Start 06/04/18 at 09:00 Docusate Sodium (Colace Liquid Cup) 100 mg DAILY GTB Last administered on 06/06/18 09:16; Admin Dose 100 MG; Start 06/04/18 at 09:00 Nystatin (Nystatin Powder) 1 applic BID TOP Last administered on 06/09/18 08:13; Admin Dose 1 APPLIC; Start 06/04/18 at 15:30 Clotrimazole (Lotrimin Cr) 1 applic BID TOP Last administered on 06/09/18 08:13; Admin Dose 1 APPLIC; Start 06/05/18 at 12:00 Diagnostic Test (Pha) (Accu-Chek) 1 ea Q4 XX Last administered on 06/07/18 16:36; Admin Dose 1 EA; Start 06/07/18 at 11:00 Total Parenteral Nutrition 1,000 ml @ 50 mls/hr Q20H IV Last administered on 06/09/18 02:07; Admin Dose 50 MLS/HR; Start 06/07/18 at 11:00 Metoclopramide HCl (Reglan) 10 mg Q6 IV Last administered on 06/09/18 12:43; Admin Dose 10 MG; Start 06/06/18 at 18:00 Diagnostic Test (Pha) (Accu-Chek) 1 ea 02 XX ; Start 06/07/18 at 02:00 Insulin Aspart (Novolog Insulin Pen) NOVOLOG *MILD* ALGORI... Q4 SC Last administered on 06/09/18 08:10; Admin Dose 1 UNIT; Start 06/06/18 at 13:30 Miscellaneous Information 1 ea NOTE XX ; Start 06/06/18 at 13:00 Glucose (Glutose) 15 gm Q15M PRN PO DECREASED GLUCOSE; Start 06/06/18 at 13:00 Glucose (Glutose) 22.5 gm Q15M PRN PO DECREASED GLUCOSE; Start 06/06/18 at 13:00 Dextrose (D50w Syringe) 25 ml Q15M PRN IV DECREASED GLUCOSE; Start 06/06/18 at 13:00 Dextrose (D50w Syringe) 50 ml Q15M PRN IV DECREASED GLUCOSE; Start 06/06/18 at 13:00 Glucagon (Glucagen) 1 mg Q15M PRN IM DECREASED GLUCOSE; Start 06/06/18 at 13:00 Glucose (Glutose) 15 gm Q15M PRN BUCCAL DECREASED GLUCOSE; Start 06/06/18 at 13:00 Vancomycin HCl (Vanco Iv Per Pharmacy) VANCOMYCIN PER PHARMACY PER PROTOCOL XX ; Start 06/07/18 at 09:00 Vancomycin HCl 250 ml @ 125 mls/hr Q24H IVPB Last administered on 06/09/18at 11:29; Admin Dose 125 MLS/HR; Start 06/08/18 at 10:00 Miscellaneous Information (* Miscellaneous Pharmacy Order) TODAY PT IS GETTING PICC LI... ONCE XX ; Start 06/07/18 at 10:30 Bisacodyl (Dulcolax Supp) 10 mg DAILY PRN [place] CONSTIPATION; Start 06/07/18 at 11:30 IV Flush (NS 10 ml) 10 ml PRN PRN IV IV PROTOCOL; Start 06/07/18 at 14:00 Amikacin Sulfate (Amikacin Iv Per Pharmacy) AMIKACIN PER PHARMACY NOTE XX ; Start 06/09/18 at 08:30 Amikacin Sulfate 1000 mg/Sodium Chloride 104 ml @ 102 mls/hr Q36H IVPB ; Start 06/09/18 at 11:00 Miscellaneous Information (*Rx Drug Level Order Reminder*) VANCO TR 06/10 AT 0900 ONCE ONCE XX ; Start 06/10/18 at 09:00; Stop 06/10/18 at 09:01 Alteplase, Recombinant (Cathflo (Activase)) 4 mg MAY REPEAT X1 PRN CATHETER IF CATHETER REMAINS OCCULUDED Last administered on 06/09/18at 10:58; Admin Dose 4 MG; Start 06/09/18 at 10:30 DORIS BAUMANN Jun 09, 2018 12:59
--- NOTE | 2018-06-09 13:04 | PN ---
Date/Time of Note Date/Time of Note DATE: 06/09/18 TIME: 13:03 Objective Vitals Vital Signs Date Temp Pulse Resp B/P (MAP) Pulse Ox O2 O2 Flow FiO2 Time Delivery Rate 06/09/18 98.7 97 16 144/65 96 Room Air 08:15 (91) Intake and Output 06/08/18 06/08/18 06/09/18 1515:00 23:00 07:00 IntakeIntake Total 354 ml 305 ml 1000 ml BalanceBalance 354 ml 305 ml 1000 ml Results Result Diagram: 06/09/1892406/09/18924 Medications Medications Current Medications IV Flush (NS 3 ml) 3 ml PER PROTOCOL IV ; Start 06/03/18 at 12:00 Ondansetron HCl (Zofran Inj) 4 mg Q6H PRN IV NAUSEA/VOMITING Last administered on 06/06/18at 09:36; Admin Dose 4 MG; Start 06/03/18 at 12:00 Acetaminophen (Tylenol Tab) 650 mg Q6H PRN PO .PAIN 1-3 OR TEMP; Start 06/03/18 at 12:00 Acetaminophen/ Hydrocodone Bitart ([place] (5/325)) 1 tab Q6H PRN PO .MOD PAIN 4- 6; Start 06/03/18 at 12:00 Morphine Sulfate (morphine) 2 mg Q4H PRN IV .SEVERE PAIN 7-10; Start 06/03/18 at 12:00 Docusate Sodium (Colace) 100 mg Q12H PRN PO .CONSTIPATION; Start 06/03/18 at 12:00 Magnesium Hydroxide (Milk Of Mag) 30 ml DAILY PRN PO .CONSTIPATION; Start 06/03 at 12:00 Pantoprazole (Protonix Iv) 40 mg BID@0600,1800 IV Last administered on 06/09/18at 05:16; Admin Dose 40 MG; Start 06/03/18 at 18:00 Lorazepam (Ativan) 0.5 mg Q6H PRN IV ANXIETY; Start 06/03/18 at 12:00 Albuterol/ Ipratropium (Duoneb) 3 ml Q4H RESP THERAPY PRN HHN SHORTNESS OF BREATH; Start 06/03/18 at 12:00 Nitroglycerin (Nitroglycerin (Sl Tab) 0.4 Mg) 1 tab Q5M PRN SL ANGINA; Start 06/03/18 at 12:00 Folic Acid (Folic Acid) 0.4 mg DAILY GTB Last administered on 06/06/18 09:16; Admin Dose 0.4 MG; Start 06/04/18 at 09:00 Multivitamins Therapeutic (Theragran) 1 tab DAILY GTB Last administered on 06/06/18 09:16; Admin Dose 1 TAB; Start 06/04/18 at 09:00 Docusate Sodium (Colace Liquid Cup) 100 mg DAILY GTB Last administered on 06/06/18 09:16; Admin Dose 100 MG; Start 06/04/18 at 09:00 Nystatin (Nystatin Powder) 1 applic BID TOP Last administered on 06/09/18 08:13; Admin Dose 1 APPLIC; Start 06/04/18 at 15:30 Clotrimazole (Lotrimin Cr) 1 applic BID TOP Last administered on 06/09/18 08:13; Admin Dose 1 APPLIC; Start 06/05/18 at 12:00 Diagnostic Test (Pha) (Accu-Chek) 1 ea Q4 XX Last administered on 06/07/18 16:36; Admin Dose 1 EA; Start 06/07/18 at 11:00 Total Parenteral Nutrition 1,000 ml @ 50 mls/hr Q20H IV Last administered on 06/09/18 02:07; Admin Dose 50 MLS/HR; Start 06/07/18 at 11:00 Metoclopramide HCl (Reglan) 10 mg Q6 IV Last administered on 06/09/18 12:43; Admin Dose 10 MG; Start 06/06/18 at 18:00 Diagnostic Test (Pha) (Accu-Chek) 1 ea 02 XX ; Start 06/07/18 at 02:00 Insulin Aspart (Novolog Insulin Pen) NOVOLOG *MILD* ALGORI... Q4 SC Last administered on 06/09/18 08:10; Admin Dose 1 UNIT; Start 06/06/18 at 13:30 Miscellaneous Information 1 ea NOTE XX ; Start 06/06/18 at 13:00 Glucose (Glutose) 15 gm Q15M PRN PO DECREASED GLUCOSE; Start 06/06/18 at 13:00 Glucose (Glutose) 22.5 gm Q15M PRN PO DECREASED GLUCOSE; Start 06/06/18 at 13:00 Dextrose (D50w Syringe) 25 ml Q15M PRN IV DECREASED GLUCOSE; Start 06/06/18 at 13:00 Dextrose (D50w Syringe) 50 ml Q15M PRN IV DECREASED GLUCOSE; Start 06/06/18 at 13:00 Glucagon (Glucagen) 1 mg Q15M PRN IM DECREASED GLUCOSE; Start 06/06/18 at 13:00 Glucose (Glutose) 15 gm Q15M PRN BUCCAL DECREASED GLUCOSE; Start 06/06/18 at 13:00 Vancomycin HCl (Vanco Iv Per Pharmacy) VANCOMYCIN PER PHARMACY PER PROTOCOL XX ; Start 06/07/18 at 09:00 Vancomycin HCl 250 ml @ 125 mls/hr Q24H IVPB Last administered on 06/09/18at 11:29; Admin Dose 125 MLS/HR; Start 06/08/18 at 10:00 Miscellaneous Information (* Miscellaneous Pharmacy Order) TODAY PT IS GETTING PICC LI... ONCE XX ; Start 06/07/18 at 10:30 Bisacodyl (Dulcolax Supp) 10 mg DAILY PRN [place] CONSTIPATION; Start 06/07/18 at 11:30 IV Flush (NS 10 ml) 10 ml PRN PRN IV IV PROTOCOL; Start 06/07/18 at 14:00 Amikacin Sulfate (Amikacin Iv Per Pharmacy) AMIKACIN PER PHARMACY NOTE XX ; Start 06/09/18 at 08:30 Amikacin Sulfate 1000 mg/Sodium Chloride 104 ml @ 102 mls/hr Q36H IVPB ; Start 06/09/18 at 11:00 Miscellaneous Information (*Rx Drug Level Order Reminder*) VANCO TR 3/ AT 0900 ONCE ONCE XX ; Start 06/10/18 at 09:00; Stop 06/10/18 at 09:01 Alteplase, Recombinant (Cathflo (Activase)) 4 mg MAY REPEAT X1 PRN CATHETER IF CATHETER REMAINS OCCULUDED Last administered on 06/09/18at 10:58; Admin Dose 4 MG; Start 06/09/18 at 10:30 VTE Prophylaxis Risk score (from Ns)>0 risk: 4 SCD applied (from Ns): Yes Lines/Catheters IV Catheter Type: Intraosseous Central line still needed: Yes Maya in Place: No Assessment/Plan Hospital Course Subjective No acute overnight events, PICC line clogged, got the okay from GI to use Cathflo Objective Physical exam General: Patient is laying in bed and answers questions appropriately Mentation: Patient is alert but not fully oriented Head: Normocephalic atraumatic Eyes: EOMI, pupils reactive to light Neck: Supple, nontender, midline Respiratory: Clear to auscultation bilaterally Cardiovascular: regular rate, no obvious murmurs Gastrointestinal: non-tender to palpation, bowel sounds heard. Neurological: Moves all extremities spontaneously Skin: No new skin lesions, colostomy bag present ASSESSMENT/PLAN: 83-year-old female with a history of gastric cancer, status post PEG, gastritis, erosive esophagitis, dementia, [facility], also found to have leaking/infected/malfxn G-tube with localized infection around site. 1. Acute GI bleed, hematochezia -Resolved -Status post EGD:1.5 cm proximal gastric polyp. Post polypectomy plus Endo Clip placement. -Deferred colonoscopy given therapeutic procedure and need for Endo Clip. -Continue Protonix -Avoid NSAIDs, antiplatelets, anticoagulation - 2. Infected G-tube/malfunctioning tube. G-tube site grew [place] albicans/GNR. -GI on board=>s/p removal of Gtube 06/06. Plan is TPN until Gtube site and bacteremia resolves and then new Gtube placement. -cont.local Gt site care and azole therapy 3.Bacteremia, BC growing gram posx2 sets -Start vanco/gent -ID recs appreciated 4. Acute on chronic anemia. Acute anemia secondary to GI bleed -Now stable. Monitor 5. Dehydration -cont.syst hydration. TPN now. 6. History of gastric cancer 7. Osteoporosis -Supportive care, resume home medications -Continued PT evaluation 8. Dementia -Supportive care DVT prophylaxis: SCDs, anticoagulation contraindicated secondary to bleeding PUD prophylaxis: Protonix CODE STATUS: Full code Diet: N.p.o. TPN Disposition: cont TPN. Cont. abx and ID eval. cont.Gt care .once bacteremia resolves and Gtube site infection clears, pt needs new Gtube placement. PICC line was clogged, GI okayed one-time use of cath flow to [facility] [place]. ISAIAS GÓMEZ Jun 09, 2018 13:04
[2018-06-09 14:49] VITALS: BP 169/70; PULSE 66; RESP 18
[2018-06-09 19:26] VITALS: BP 151/65; PULSE 61; RESP 16
[2018-06-10] MEDS: INSULIN ASPART [NOVOLOG] 3 ML PEN SC SCH ×6 (01:17→22:18)
[2018-06-10] MEDS: ACCU-CHEK XX SCH ×7 (01:19→21:00)
[2018-06-10 02:15] VITALS: BP 142/65; PULSE 63; RESP 16
[2018-06-10] MEDS: METOCLOPRAMIDE 10 MG INJ IV SCH ×3 (05:05→17:47)
[2018-06-10] MEDS: PANTOPRAZOLE 40 MG INJ IV SCH ×2 (05:05→17:47)
[2018-06-10 07:33] VITALS: BP 167/73; PULSE 91; RESP 17
--- NOTE | 2018-06-10 07:51 | CONS ---
Assessment/Plan Assessment/Plan Hospital Course (Demo Recall) 1) GPC in blood cx, both sets (CoNS) continue with vanco will repeat blood cx tomorrow via picc line that is being placed right now the source is likely the g-tube site 3/ - blood cx grew staph species, likely staph aureus continue with vanco repeat blood cx via PICC line 06/09 - pt has both sets of blood cx growing two different kinds of CoNS, not s.aureus pt will only need one week of IV vanco 06/10 - continue IV vanco thru a.m. of 06/13/18 get repeat blood cx via picc line 2) infected g-tube site doubt the yeast is significant, to d/c diflucan but continue with topical lotrimin GNR is also likely not to be significant at this time just continue with IV vanco pt is NPO and TPN is planned till pt can get a new g-tube site 3/ - stable, site still has drainage, yellow/brown in color e.coli is likely in urine also, start gentamicin 06/09 - no antonio cellulitis seen, but still has drainage 06/10 - redness around g-tube site likely due to acid content of continue gastric drainage 3) hx of gastric CA 4) gi bleed this has improved, upper endo showed gastric polyp lower endo is pending 5) DM sugars are not too bad and have improved 6) dementia 7) pyuria 3/2 urine cx has GNR (likely e.coli) no symptoms but to add gent to regimen 06/09 - e.coli in urine is sensitive to amikacin anticipate only 3-5 day course of it change gent to amikacin since sensi's to gent are not finalized 06/10 - e.coli is sensitive to gent and amikacin continue with amikacin thru a.m. of 06/12 Consultation Date/Type/Reason Admit Date/Time Jun 03, 2018 at 09:39 Initial Consult Date 06/07/18 Type of Consult ID Date/Time of Note DATE: 06/10/18 TIME: 07:43 24 HR Interval Summary Free Text/Dictation no change Exam/Review of Systems Exam Vitals Vital Signs Date Temp Pulse Resp B/P (MAP) Pulse Ox O2 O2 Flow FiO2 Time Delivery Rate 06/10/18 97.9 91 17 167/73 100 07:33 (104) 06/09/18 Room Air 14:49 Intake and Output 06/09/18 06/09/18 06/10/18 1414:59 22:59 06:59 IntakeIntake Total 250 ml 854 ml 550 ml BalanceBalance 250 ml 854 ml 550 ml Constitutional: alert Respiratory: clear to auscultation Cardiovascular: regular rate and rhythm Gastrointestinal: soft Results Result Diagram: 06/10/18 0659 06/09/18 0925 Results 24hrs Laboratory Tests Test 06/09/18 08:08 06/09/18 09:25 06/09/18 12:42 06/09/18 17:18 Bedside Glucose 166 115 175 White Blood Count 6.8 Red Blood Count 3.24 L Hemoglobin 10.0 L Hematocrit 29.6 L Mean Corpuscular Volume 91.4 Mean Corpuscular 30.9 Hemoglobin Mean Corpuscular 33.8 Hemoglobin Concent Red Cell Distribution 12.8 Width Platelet Count 205 Mean Platelet Volume 9.5 Immature Granulocytes % 0.100 Neutrophils % 75.6 Lymphocytes % 10.3 L Monocytes % 8.1 Eosinophils % 5.6 Basophils % 0.3 Nucleated Red Blood 0.0 Cells % Immature Granulocytes # 0.010 Neutrophils # 5.1 Lymphocytes # 0.7 L Monocytes # 0.6 Eosinophils # 0.4 Basophils # 0.0 Nucleated Red Blood 0.0 Cells # Sodium Level 137 Potassium Level 4.1 Chloride Level 109 Carbon Dioxide Level 21 Anion Gap 7 Blood Urea Nitrogen 26 H Creatinine 0.86 Est Glomerular Filtrat Rate mL/min Glucose Level 139 Calcium Level 8.5 Phosphorus Level 3.1 Magnesium Level 2.0 Test 06/09/18 21:28 06/10/18 01:12 06/10/18 05:00 06/10/18 06:59 Bedside Glucose 151 143 148 White Blood Count 6.0 Red Blood Count 3.02 L Hemoglobin 9.4 L Hematocrit 28.1 L Mean Corpuscular Volume 93.0 Mean Corpuscular 31.1 Hemoglobin Mean Corpuscular 33.5 Hemoglobin Concent Red Cell Distribution 12.8 Width Platelet Count 201 Mean Platelet Volume 9.6 Immature Granulocytes % 0.500 H Neutrophils % 70.0 Lymphocytes % 11.8 L Monocytes % 9.1 Eosinophils % 8.1 H Basophils % 0.5 Nucleated Red Blood 0.0 Cells % Immature Granulocytes # 0.030 Neutrophils # 4.2 Lymphocytes # 0.7 L Monocytes # 0.6 Eosinophils # 0.5 Basophils # 0.0 Nucleated Red Blood 0.0 Cells # Medications Medication Current Medications IV Flush (NS 3 ml) 3 ml PER PROTOCOL IV ; Start 06/03/18 at 12:00 Ondansetron HCl (Zofran Inj) 4 mg Q6H PRN IV NAUSEA/VOMITING Last administered on 06/06/18at 09:36; Admin Dose 4 MG; Start 06/03/18 at 12:00 Acetaminophen (Tylenol Tab) 650 mg Q6H PRN PO .PAIN 1-3 OR TEMP; Start 06/03/18 at 12:00 Acetaminophen/ Hydrocodone Bitart ([place] (5/325)) 1 tab Q6H PRN PO .MOD PAIN 4- 6; Start 06/03/18 at 12:00 Morphine Sulfate (morphine) 2 mg Q4H PRN IV .SEVERE PAIN 7-10; Start 06/03/18 at 12:00 Docusate Sodium (Colace) 100 mg Q12H PRN PO .CONSTIPATION; Start 06/03/18 at 12:00 Magnesium Hydroxide (Milk Of Mag) 30 ml DAILY PRN PO .CONSTIPATION; Start 06/03/18 at 12:00 Pantoprazole (Protonix Iv) 40 mg BID@0600,1800 IV Last administered on 06/10/18at 05:05; Admin Dose 40 MG; Start 06/03/18 at 18:00 Lorazepam (Ativan) 0.5 mg Q6H PRN IV ANXIETY; Start 06/03/18 at 12:00 Albuterol/ Ipratropium (Duoneb) 3 ml Q4H RESP THERAPY PRN HHN SHORTNESS OF BREATH; Start 06/03/18 at 12:00 Nitroglycerin (Nitroglycerin (Sl Tab) 0.4 Mg) 1 tab Q5M PRN SL ANGINA; Start 06/03/18 at 12:00 Folic Acid (Folic Acid) 0.4 mg DAILY GTB Last administered on 06/06/18at 09:16; Admin Dose 0.4 MG; Start 06/04/18 at 09:00 Multivitamins Therapeutic (Theragran) 1 tab DAILY GTB Last administered on 06/06/18at 09:16; Admin Dose 1 TAB; Start 06/04/18 at 09:00 Docusate Sodium (Colace Liquid Cup) 100 mg DAILY GTB Last administered on 06/06/18at 09:16; Admin Dose 100 MG; Start 06/04/18 at 09:00 Nystatin (Nystatin Powder) 1 applic BID TOP Last administered on 06/09/18at 21:41; Admin Dose 1 APPLIC; Start 06/04/18 at 15:30 Clotrimazole (Lotrimin Cr) 1 applic BID TOP Last administered on 06/09/18 21:41; Admin Dose 1 APPLIC; Start 06/05/18 at 12:00 Diagnostic Test (Pha) (Accu-Chek) 1 ea Q4 XX Last administered on 06/10/18 05:08; Admin Dose 1 EA; Start 06/07/18 at 11:00 Total Parenteral Nutrition 1,000 ml @ 50 mls/hr Q20H IV Last administered on 06/09/18 23:22; Admin Dose 50 MLS/HR; Start 06/07/18 at 11:00 Metoclopramide HCl (Reglan) 10 mg Q6 IV Last administered on 06/10/18at 05:05; Admin Dose 10 MG; Start 06/06/18 at 18:00 Diagnostic Test (Pha) (Accu-Chek) 1 ea 02 XX Last administered on 06/10/18at 01:20; Admin Dose 1 EA; Start 06/07/18 at 02:00 Insulin Aspart (Novolog Insulin Pen) NOVOLOG *MILD* ALGORI... Q4 SC Last administered on 06/10/18 05:03; Admin Dose 1 UNIT; Start 06/06/18 at 13:30 Miscellaneous Information 1 ea NOTE XX ; Start 06/06/18 at 13:00 Glucose (Glutose) 15 gm Q15M PRN PO DECREASED GLUCOSE; Start 06/06/18 at 13:00 Glucose (Glutose) 22.5 gm Q15M PRN PO DECREASED GLUCOSE; Start 06/06/18 at 13:00 Dextrose (D50w Syringe) 25 ml Q15M PRN IV DECREASED GLUCOSE; Start 06/06/18 at 13:00 Dextrose (D50w Syringe) 50 ml Q15M PRN IV DECREASED GLUCOSE; Start 06/06/18 at 13:00 Glucagon (Glucagen) 1 mg Q15M PRN IM DECREASED GLUCOSE; Start 06/06/18 at 13:00 Glucose (Glutose) 15 gm Q15M PRN BUCCAL DECREASED GLUCOSE; Start 06/06/18 at 13:00 Vancomycin HCl (Vanco Iv Per Pharmacy) VANCOMYCIN PER PHARMACY PER PROTOCOL XX ; Start 06/07/18 at 09:00 Vancomycin HCl 250 ml @ 125 mls/hr Q24H IVPB Last administered on 06/09/18at 11:29; Admin Dose 125 MLS/HR; Start 06/08/18 at 10:00 Miscellaneous Information (* Miscellaneous Pharmacy Order) TODAY PT IS GETTING PICC LI... ONCE XX ; Start 06/07/18 at 10:30 Bisacodyl (Dulcolax Supp) 10 mg DAILY PRN [place] CONSTIPATION; Start 06/07/18 at 11:30 IV Flush (NS 10 ml) 10 ml PRN PRN IV IV PROTOCOL; Start 06/07/18 at 14:00 Amikacin Sulfate (Amikacin Iv Per Pharmacy) AMIKACIN PER PHARMACY NOTE XX ; Start 06/09/18 at 08:30 Miscellaneous Information (*Rx Drug Level Order Reminder*) VANCO TR 3/ 4 AT 0900 ONCE ONCE XX ; Start 06/10/18 at 09:00; Stop 06/10/18 at 09:01 Alteplase, Recombinant (Cathflo (Activase)) 4 mg MAY REPEAT X1 PRN CATHETER IF CATHETER REMAINS OCCULUDED Last administered on 06/09/18at 10:58; Admin Dose 4 MG; Start 06/09/18 at 10:30 Amikacin Sulfate 1000 mg/Sodium Chloride 104 ml @ 102 mls/hr Q36H IVPB ; Start 06/11/18 at 02:00 JOSE NORWOOD MD Jun 10, 2018 07:51
[2018-06-10] MEDS: FOLIC ACID 0.4 MG TAB GTB SCH (09:00)
[2018-06-10] MEDS: DOCUSATE SODIUM 10 MG/ML (10ML CUP) GTB SCH (09:00)
[2018-06-10] MEDS: MULTIVITAMINS THERAPEUTIC TAB GTB SCH (09:00)
[2018-06-10 09:10] VITALS: BP 153/54; PULSE 68
--- NOTE | 2018-06-10 09:16 | PN ---
Date/Time of Note Date/Time of Note DATE: 06/10/18 TIME: 09:11 Assessment/Plan VTE Prophylaxis Risk score (from Ns)>0 risk: 9 SCD applied (from Ns): Yes Pharmacological prophylaxis: NA/contraindicated Pharm contraindication: bleeding Lines/Catheters IV Catheter Type (from Nrsg): PICC Line Central line still needed: Yes Urinary Cath still in place: No Assessment/Plan Hospital Course SUBJECTIVE:no fevers, g tube site still continues to collect drainage in the bag.no site pain. OBJECTIVE: Vital signs-see below PHYSICAL EXAM: Constitutional: Frail looking, elderly female, lying in bed comfortably. Psych: nl mood/affect, no complaints Head: atraumatic, normocephalic Eyes: nl conjunctiva, nl sclera ENMT: mucosa pink and moist, nl external ears & nose Neck: non-tender, supple Respiratory: clear to auscultation, normal air movement Cardiovascular: nl pulses, regular rate and rhythm Gastrointestinal:G tube site red. Draining brownish yellow in the collecting bag. soft, bowel sounds active in all 4 quadrants. Musculoskeletal/extremities: nl extremities to inspection, motor strength equal bilaterally, no focal deficit. Normal pulses,no cyanosis, no edema. Neurological: Forgetful/dementia. Alert to self and place. Nl speech, nl strength Skin: nl turgor ASSESSMENT/PLAN: 83-year-old female with a history of gastric cancer, status post PEG, gastritis, erosive esophagitis, dementia, was transferred from snf with rectal bleed, also found to have bacteremia with leaking/infected/malfxn G-tube requiring G-tube removal... 1. Acute GI bleed, hematochezia -Resolved -Status post EGD:1.5 cm proximal gastric polyp. Post polypectomy plus Endo Clip placement. -Deferred colonoscopy given therapeutic procedure and need for Endo Clip. -Continue iv Protonix -Avoid NSAIDs, antiplatelets, anticoagulation 2. Infected G-tube/malfunctioning tube. G-tube site grew [place] albicans/Ecoli/Yeast. -GI on board=>s/p removal of Gtube 06/06. Plan is TPN until Gtube site and bacteremia resolves and then new Gtube placement. -cont.local Gt site care and azole therapy 3. Coagulase-negative staph bacteremia, x2 sets. -Likely source G-tube. -Antibiotic management per ID. Currently on vancomycin. -Follow-up repeat cultures. 4. E. coli UTI -Continue antimicrobials per ID recommendations. 5. Acute on chronic anemia. Acute anemia secondary to GI bleed -Now stable. Monitor 6. History of gastric cancer 7. Osteoporosis -Supportive care, resume home medications -Continued PT evaluation 8. Dementia -Supportive care DVT prophylaxis: SCDs, anticoagulation contraindicated secondary to bleeding PUD prophylaxis: Protonix CODE STATUS: Full code Diet: TPN Disposition: cont.Gt care, antimicrobials and follow-up repeat cultures.once bacteremia resolves and Gtube site infection clears, pt need a new Gtube place ment. For now we will continue patient on TPN for nutrition purpose. Patient was seen in collaboration with Result Diagram: 06/10/1859 06/10/18 0659 Results 24hrs Laboratory Tests Test 06/09/18 09:25 06/09/18 12:42 06/09/18 17:18 06/09/18 21:28 White Blood Count 6.8 Red Blood Count 3.24 L Hemoglobin 10.0 L Hematocrit 29.6 L Mean Corpuscular Volume 91.4 Mean Corpuscular 30.9 Hemoglobin Mean Corpuscular 33.8 Hemoglobin Concent Red Cell Distribution 12.8 Width Platelet Count 205 Mean Platelet Volume 9.5 Immature Granulocytes % 0.100 Neutrophils % 75.6 Lymphocytes % 10.3 L Monocytes % 8.1 Eosinophils % 5.6 Basophils % 0.3 Nucleated Red Blood 0.0 Cells % Immature Granulocytes # 0.010 Neutrophils # 5.1 Lymphocytes # 0.7 L Monocytes # 0.6 Eosinophils # 0.4 Basophils # 0.0 Nucleated Red Blood 0.0 Cells # Sodium Level 137 Potassium Level 4.1 Chloride Level 109 Carbon Dioxide Level 21 Anion Gap 7 Blood Urea Nitrogen 26 H Creatinine 0.86 Est Glomerular Filtrat Rate mL/min Glucose Level 139 Calcium Level 8.5 Phosphorus Level 3.1 Magnesium Level 2.0 Bedside Glucose 115 175 151 Test 06/10/18 01:12 06/10/18 05:00 06/10/18 06:59 06/10/18 08:17 Bedside Glucose 143 148 White Blood Count 6.0 Red Blood Count 3.02 L Hemoglobin 9.4 L Hematocrit 28.1 L Mean Corpuscular Volume 93.0 Mean Corpuscular 31.1 Hemoglobin Mean Corpuscular 33.5 Hemoglobin Concent Red Cell Distribution 12.8 Width Platelet Count 201 Mean Platelet Volume 9.6 Immature Granulocytes % 0.500 H Neutrophils % 70.0 Lymphocytes % 11.8 L Monocytes % 9.1 Eosinophils % 8.1 H Basophils % 0.5 Nucleated Red Blood 0.0 Cells % Immature Granulocytes # 0.030 Neutrophils # 4.2 Lymphocytes # 0.7 L Monocytes # 0.6 Eosinophils # 0.5 Basophils # 0.0 Nucleated Red Blood 0.0 Cells # Sodium Level 137 Potassium Level 3.9 Chloride Level 111 H Carbon Dioxide Level 21 Anion Gap 5 Blood Urea Nitrogen 25 H Creatinine 0.74 Est Glomerular Filtrat Rate mL/min Glucose Level 144 Calcium Level 8.4 Phosphorus Level 3.0 Magnesium Level 2.0 Vancomycin Level Trough 16.1 Exam/Review of Systems Exam Vitals Vital Signs Date Temp Pulse Resp B/P (MAP) Pulse Ox O2 O2 Flow FiO2 Time Delivery Rate 06/10/18 97.9 91 17 167/73 100 07:33 (104) 06/09/18 Room Air 14:49 Intake and Output 06/09/18 06/09/18 06/10/18 1515:00 23:00 07:00 IntakeIntake Total 250 ml 854 ml 550 ml BalanceBalance 250 ml 854 ml 550 ml Results Results 24hrs Laboratory Tests Test 06/09/18 09:25 06/09/18 12:42 06/09/18 17:18 06/09/18 21:28 White Blood Count 6.8 Red Blood Count 3.24 L Hemoglobin 10.0 L Hematocrit 29.6 L Mean Corpuscular Volume 91.4 Mean Corpuscular 30.9 Hemoglobin Mean Corpuscular 33.8 Hemoglobin Concent Red Cell Distribution 12.8 Width Platelet Count 205 Mean Platelet Volume 9.5 Immature Granulocytes % 0.100 Neutrophils % 75.6 Lymphocytes % 10.3 L Monocytes % 8.1 Eosinophils % 5.6 Basophils % 0.3 Nucleated Red Blood 0.0 Cells % Immature Granulocytes # 0.010 Neutrophils # 5.1 Lymphocytes # 0.7 L Monocytes # 0.6 Eosinophils # 0.4 Basophils # 0.0 Nucleated Red Blood 0.0 Cells # Sodium Level 137 Potassium Level 4.1 Chloride Level 109 Carbon Dioxide Level 21 Anion Gap 7 Blood Urea Nitrogen 26 H Creatinine 0.86 Est Glomerular Filtrat Rate mL/min Glucose Level 139 Calcium Level 8.5 Phosphorus Level 3.1 Magnesium Level 2.0 Bedside Glucose 115 175 151 Test 06/10/18 01:12 06/10/18 05:00 06/10/18 06:59 06/10/18 08:17 Bedside Glucose 143 148 White Blood Count 6.0 Red Blood Count 3.02 L Hemoglobin 9.4 L Hematocrit 28.1 L Mean Corpuscular Volume 93.0 Mean Corpuscular 31.1 Hemoglobin Mean Corpuscular 33.5 Hemoglobin Concent Red Cell Distribution 12.8 Width Platelet Count 201 Mean Platelet Volume 9.6 Immature Granulocytes % 0.500 H Neutrophils % 70.0 Lymphocytes % 11.8 L Monocytes % 9.1 Eosinophils % 8.1 H Basophils % 0.5 Nucleated Red Blood 0.0 Cells % Immature Granulocytes # 0.030 Neutrophils # 4.2 Lymphocytes # 0.7 L Monocytes # 0.6 Eosinophils # 0.5 Basophils # 0.0 Nucleated Red Blood 0.0 Cells # Sodium Level 137 Potassium Level 3.9 Chloride Level 111 H Carbon Dioxide Level 21 Anion Gap 5 Blood Urea Nitrogen 25 H Creatinine 0.74 Est Glomerular Filtrat Rate mL/min Glucose Level 144 Calcium Level 8.4 Phosphorus Level 3.0 Magnesium Level 2.0 Vancomycin Level Trough 16.1 Medications Medication Current Medications IV Flush (NS 3 ml) 3 ml PER PROTOCOL IV ; Start 06/03/18 at 12:00 Ondansetron HCl (Zofran Inj) 4 mg Q6H PRN IV NAUSEA/VOMITING Last administered on 06/06/18at 09:36; Admin Dose 4 MG; Start 06/03/18 at 12:00 Acetaminophen (Tylenol Tab) 650 mg Q6H PRN PO .PAIN 1-3 OR TEMP; Start 06/03/18 at 12:00 Acetaminophen/ Hydrocodone Bitart ([place] (5/325)) 1 tab Q6H PRN PO .MOD PAIN 4- 6; Start 06/03/18 at 12:00 Morphine Sulfate (morphine) 2 mg Q4H PRN IV .SEVERE PAIN 7-10; Start 06/03/18 at 12:00 Docusate Sodium (Colace) 100 mg Q12H PRN PO .CONSTIPATION; Start 06/03/18 at 12:00 Magnesium Hydroxide (Milk Of Mag) 30 ml DAILY PRN PO .CONSTIPATION; Start 06/03/18 at 12:00 Pantoprazole (Protonix Iv) 40 mg BID@0600,1800 IV Last administered on 06/10/18 05:05; Admin Dose 40 MG; Start 06/03/18 at 18:00 Lorazepam (Ativan) 0.5 mg Q6H PRN IV ANXIETY; Start 06/03/18 at 12:00 Albuterol/ Ipratropium (Duoneb) 3 ml Q4H RESP THERAPY PRN HHN SHORTNESS OF BREATH; Start 06/03/18 at 12:00 Nitroglycerin (Nitroglycerin (Sl Tab) 0.4 Mg) 1 tab Q5M PRN SL ANGINA; Start 06/03/18 at 12:00 Folic Acid (Folic Acid) 0.4 mg DAILY GTB Last administered on 06/06/18 09:16; Admin Dose 0.4 MG; Start 06/04/18 at 09:00 Multivitamins Therapeutic (Theragran) 1 tab DAILY GTB Last administered on 06/06/18 09:16; Admin Dose 1 TAB; Start 06/04/18 at 09:00 Docusate Sodium (Colace Liquid Cup) 100 mg DAILY GTB Last administered on 06/06/18 09:16; Admin Dose 100 MG; Start 06/04/18 at 09:00 Nystatin (Nystatin Powder) 1 applic BID TOP Last administered on 06/09/18 21:41; Admin Dose 1 APPLIC; Start 06/04/18 at 15:30 Clotrimazole (Lotrimin Cr) 1 applic BID TOP Last administered on 06/09/18 21:41; Admin Dose 1 APPLIC; Start 06/05/18 at 12:00 Diagnostic Test (Pha) (Accu-Chek) 1 ea Q4 XX Last administered on 06/10/18 05:08; Admin Dose 1 EA; Start 06/07/18 at 11:00 Total Parenteral Nutrition 1,000 ml @ 50 mls/hr Q20H IV Last administered on 06/09/18 23:22; Admin Dose 50 MLS/HR; Start 06/07/18 at 11:00 Metoclopramide HCl (Reglan) 10 mg Q6 IV Last administered on 06/10/18 05:05; Admin Dose 10 MG; Start 06/06/18 at 18:00 Diagnostic Test (Pha) (Accu-Chek) 1 ea 02 XX Last administered on 06/10/18at 01:20; Admin Dose 1 EA; Start 06/07/18 at 02:00 Insulin Aspart (Novolog Insulin Pen) NOVOLOG *MILD* ALGORI... Q4 SC Last administered on 06/10/18at 05:03; Admin Dose 1 UNIT; Start 06/06/18 at 13:30 Miscellaneous Information 1 ea NOTE XX ; Start 06/06/18 at 13:00 Glucose (Glutose) 15 gm Q15M PRN PO DECREASED GLUCOSE; Start 06/06/18 at 13:00 Glucose (Glutose) 22.5 gm Q15M PRN PO DECREASED GLUCOSE; Start 06/06/18 at 13:00 Dextrose (D50w Syringe) 25 ml Q15M PRN IV DECREASED GLUCOSE; Start 06/06/18 at 13:00 Dextrose (D50w Syringe) 50 ml Q15M PRN IV DECREASED GLUCOSE; Start 06/06/18 at 13:00 Glucagon (Glucagen) 1 mg Q15M PRN IM DECREASED GLUCOSE; Start 06/06/18 at 13:00 Glucose (Glutose) 15 gm Q15M PRN BUCCAL DECREASED GLUCOSE; Start 06/06/18 at 13:00 Vancomycin HCl (Vanco Iv Per Pharmacy) VANCOMYCIN PER PHARMACY PER PROTOCOL XX ; Start 06/07/18 at 09:00 Vancomycin HCl 250 ml @ 125 mls/hr Q24H IVPB Last administered on 06/09/18at 11:29; Admin Dose 125 MLS/HR; Start 06/08/18 at 10:00 Miscellaneous Information (* Miscellaneous Pharmacy Order) TODAY PT IS GETTING PICC LI... ONCE XX ; Start 06/07/18 at 10:30 Bisacodyl (Dulcolax Supp) 10 mg DAILY PRN [place] CONSTIPATION; Start 06/07/18 at 11:30 IV Flush (NS 10 ml) 10 ml PRN PRN IV IV PROTOCOL; Start 06/07/18 at 14:00 Amikacin Sulfate (Amikacin Iv Per Pharmacy) AMIKACIN PER PHARMACY NOTE XX ; Start 06/09/18 at 08:30 Alteplase, Recombinant (Cathflo (Activase)) 4 mg MAY REPEAT X1 PRN CATHETER IF CATHETER REMAINS OCCULUDED Last administered on 06/09/18at 10:58; Admin Dose 4 MG; Start 06/09/18 at 10:30 Amikacin Sulfate 1000 mg/Sodium Chloride 104 ml @ 102 mls/hr Q36H IVPB ; Start 06/11/18 at 02:00 ALFREDO MENSAH NP Jun 10, 2018 09:16
[2018-06-10] MEDS: CLOTRIMAZOLE 1% 30 GM CR TOP SCH ×2 (09:20→22:19)
[2018-06-10] MEDS: NYSTATIN 30 GM POWDER BTL TOP SCH ×2 (09:20→22:19)
[2018-06-10] MEDS ORDERED: hydrALAzine 20 MG INJ IV PRN (09:30)
[2018-06-10] MEDS: VANCOMYCIN 1 GM 250 ML IVPB SCH (11:56)
--- NOTE | 2018-06-10 13:35 | PN ---
Date/Time of Note Date/Time of Note DATE: 06/10/18 TIME: 13:33 Assessment/Plan VTE Prophylaxis Risk score (from [facility])>0 risk: 9 SCD applied (from [facility]): Yes Pharmacological prophylaxis: other (scds) Lines/Catheters IV Catheter Type (from [facility]): Peripheral IV Urinary Cath still in place: No Assessment/Plan Hospital Course Summary Assessment and Plan: Assessment: Normocytic anemia EGD 06/04/18 Impression: 1.5 cm proximal gastric polyp. Post polypectomy plus Endo Clip placement. Post placement of [place] 24-20 cc replacement gastrostomy tube. Otherwise normal EGD. Melena/hematochezia Malfunctioning gastrostomy tube/infected site Hx of Gastric cancer s/p PEG placement (30 fr) Dementia Bacteremia -Blood cultures x2 growing gram-positive cocci - Plan: ABX per ID Continue TPN- f/u with wound nurse consult- recommendations Continue PPI for acid reduction to allow faster healing of ostomy site Reglan for prokinetic effects allowing faster emptying and again to healing os ostomy site. Deferred colonoscopy given the therapeutic procedure and the need for Endo Clip. Pt seen in collaboration with Dr. Lopez/Xiao Subjective: Course reviewed with nursing staff Patient interviewed and examined All labs, imaging and other results reviewed Ostomy slowly healing, no over night events Continue current regimen, plan for new PEG placement after previous ostomy site has closed and bacteremia resolves. Constitutional: alert, oriented (to name) Head: normocephalic, atraumatic Eyes: nl conjunctiva ENMT: nl external ears & nose Neck: supple Respiratory: clear to auscultation Cardiovascular: regular rate and rhythm Gastrointestinal: soft, bowel sounds, ostomy site healing well Musculoskeletal: nl extremities to inspection Result Diagram: 06/10/18 0659 06/10/18 0659 Results 24hrs Laboratory Tests Test 06/09/18 17:18 06/09/18 21:28 06/10/18 01:12 06/10/18 02:04 Bedside Glucose 175 151 143 Random Amikacin Level Test 06/10/18 05:00 06/10/18 06:59 06/10/18 08:17 06/10/18 09:14 Bedside Glucose 148 156 White Blood Count 6.0 Red Blood Count 3.02 L Hemoglobin 9.4 L Hematocrit 28.1 L Mean Corpuscular 93.0 Volume Mean Corpuscular 31.1 Hemoglobin Mean Corpuscular 33.5 Hemoglobin Concent Red Cell Distribution 12.8 Width Platelet Count 201 Mean Platelet Volume 9.6 Immature Granulocytes 0.500 H % Neutrophils % 70.0 Lymphocytes % 11.8 L Monocytes % 9.1 Eosinophils % 8.1 H Basophils % 0.5 Nucleated Red Blood 0.0 Cells % Immature Granulocytes 0.030 # Neutrophils # 4.2 Lymphocytes # 0.7 L Monocytes # 0.6 Eosinophils # 0.5 Basophils # 0.0 Nucleated Red Blood 0.0 Cells # Sodium Level 137 Potassium Level 3.9 Chloride Level 111 H Carbon Dioxide Level 21 Anion Gap 5 Blood Urea Nitrogen 25 H Creatinine 0.74 Est Glomerular Filtrat Rate mL/min Glucose Level 144 Calcium Level 8.4 Phosphorus Level 3.0 Magnesium Level 2.0 Vancomycin Level 16.1 Trough Test 06/10/18 11:46 06/10/18 12:35 Lab Scanned Report REFERENCE LAB Bedside Glucose 150 Exam/Review of Systems Exam Vitals Vital Signs Date Temp Pulse Resp B/P (MAP) Pulse Ox O2 O2 Flow FiO2 Time Delivery Rate 06/10/18 68 153/54 09:10 (87) 06/10/18 97.9 17 100 07:33 06/09/18 Room Air 14:49 Intake and Output 06/09/18 06/09/18 06/10/18 1515:00 23:00 07:00 IntakeIntake Total 250 ml 854 ml 550 ml BalanceBalance 250 ml 854 ml 550 ml Results Results 24hrs Laboratory Tests Test 06/09/18 17:18 06/09/18 21:28 06/10/18 01:12 06/10/18 02:04 Bedside Glucose 175 151 143 Random Amikacin Level Test 06/10/18 05:00 06/10/18 06:59 06/10/18 08:17 06/10/18 09:14 Bedside Glucose 148 156 White Blood Count 6.0 Red Blood Count 3.02 L Hemoglobin 9.4 L Hematocrit 28.1 L Mean Corpuscular 93.0 Volume Mean Corpuscular 31.1 Hemoglobin Mean Corpuscular 33.5 Hemoglobin Concent Red Cell Distribution 12.8 Width Platelet Count 201 Mean Platelet Volume 9.6 Immature Granulocytes 0.500 H % Neutrophils % 70.0 Lymphocytes % 11.8 L Monocytes % 9.1 Eosinophils % 8.1 H Basophils % 0.5 Nucleated Red Blood 0.0 Cells % Immature Granulocytes 0.030 # Neutrophils # 4.2 Lymphocytes # 0.7 L Monocytes # 0.6 Eosinophils # 0.5 Basophils # 0.0 Nucleated Red Blood 0.0 Cells # Sodium Level 137 Potassium Level 3.9 Chloride Level 111 H Carbon Dioxide Level 21 Anion Gap 5 Blood Urea Nitrogen 25 H Creatinine 0.74 Est Glomerular Filtrat Rate mL/min Glucose Level 144 Calcium Level 8.4 Phosphorus Level 3.0 Magnesium Level 2.0 Vancomycin Level 16.1 Trough Test 06/10/18 11:46 06/10/18 12:35 Lab Scanned Report REFERENCE LAB Bedside Glucose 150 Medications Medication Current Medications IV Flush (NS 3 ml) 3 ml PER PROTOCOL IV ; Start 06/03/18 at 12:00 Ondansetron HCl (Zofran Inj) 4 mg Q6H PRN IV NAUSEA/VOMITING Last administered on 06/06/18at 09:36; Admin Dose 4 MG; Start 06/03/18 at 12:00 Acetaminophen (Tylenol Tab) 650 mg Q6H PRN PO .PAIN 1-3 OR TEMP; Start 06/03/18 at 12:00 Acetaminophen/ Hydrocodone Bitart ([place] (5/325)) 1 tab Q6H PRN PO .MOD PAIN 4- 6; Start 06/03/18 at 12:00 Morphine Sulfate (morphine) 2 mg Q4H PRN IV .SEVERE PAIN 7-10; Start 06/03/18 at 12:00 Docusate Sodium (Colace) 100 mg Q12H PRN PO .CONSTIPATION; Start 06/03/18 at 12:00 Magnesium Hydroxide (Milk Of Mag) 30 ml DAILY PRN PO .CONSTIPATION; Start 06/03/18 at 12:00 Pantoprazole (Protonix Iv) 40 mg BID@0600,1800 IV Last administered on 06/10/18at 05:05; Admin Dose 40 MG; Start 06/03/18 at 18:00 Lorazepam (Ativan) 0.5 mg Q6H PRN IV ANXIETY; Start 06/03/18 at 12:00 Albuterol/ Ipratropium (Duoneb) 3 ml Q4H RESP THERAPY PRN HHN SHORTNESS OF BREATH; Start 06/03/18 at 12:00 Nitroglycerin (Nitroglycerin (Sl Tab) 0.4 Mg) 1 tab Q5M PRN SL ANGINA; Start 06/03/18 at 12:00 Folic Acid (Folic Acid) 0.4 mg DAILY GTB Last administered on 06/06/18 09:16; Admin Dose 0.4 MG; Start 06/04/18 at 09:00 Multivitamins Therapeutic (Theragran) 1 tab DAILY GTB Last administered on 06/06/18 09:16; Admin Dose 1 TAB; Start 06/04/18 at 09:00 Docusate Sodium (Colace Liquid Cup) 100 mg DAILY GTB Last administered on 06/06/18 09:16; Admin Dose 100 MG; Start 06/04/18 at 09:00 Nystatin (Nystatin Powder) 1 applic BID TOP Last administered on 06/10/18 09:20; Admin Dose 1 APPLIC; Start 06/04/18 at 15:30 Clotrimazole (Lotrimin Cr) 1 applic BID TOP Last administered on 06/10/18 09:20; Admin Dose 1 APPLIC; Start 06/05/18 at 12:00 Diagnostic Test (Pha) (Accu-Chek) 1 ea Q4 XX Last administered on 06/10/18 09:21; Admin Dose 1 EA; Start 06/07/18 at 11:00 Total Parenteral Nutrition 1,000 ml @ 60 mls/hr [id number] IV Last administered on 06/09/18 23:22; Admin Dose 50 MLS/HR; Start 06/07/18 at 11:00 Metoclopramide HCl (Reglan) 10 mg Q6 IV Last administered on 06/10/18 12:29; Admin Dose 10 MG; Start 06/06/18 at 18:00 Diagnostic Test (Pha) (Accu-Chek) 1 ea 02 XX Last administered on 06/10/18 01:20; Admin Dose 1 EA; Start 06/07/18 at 02:00 Insulin Aspart (Novolog Insulin Pen) NOVOLOG *MILD* ALGORI... Q4 SC Last administered on 06/10/18 12:37; Admin Dose 1 UNIT; Start 06/06/18 at 13:30 Miscellaneous Information 1 ea NOTE XX ; Start 06/06/18 at 13:00 Glucose (Glutose) 15 gm Q15M PRN PO DECREASED GLUCOSE; Start 06/06/18 at 13:00 Glucose (Glutose) 22.5 gm Q15M PRN PO DECREASED GLUCOSE; Start 06/06/18 at 13:00 Dextrose (D50w Syringe) 25 ml Q15M PRN IV DECREASED GLUCOSE; Start 06/06/18 at 13:00 Dextrose (D50w Syringe) 50 ml Q15M PRN IV DECREASED GLUCOSE; Start 06/06/18 at 13:00 Glucagon (Glucagen) 1 mg Q15M PRN IM DECREASED GLUCOSE; Start 06/06/18 at 13:00 Glucose (Glutose) 15 gm Q15M PRN BUCCAL DECREASED GLUCOSE; Start 06/06/18 at 13:00 Vancomycin HCl (Vanco Iv Per Pharmacy) VANCOMYCIN PER PHARMACY PER PROTOCOL XX ; Start 06/07/18 at 09:00 Vancomycin HCl 250 ml @ 125 mls/hr Q24H IVPB Last administered on 06/10/18at 11:56; Admin Dose 125 MLS/HR; Start 06/08/18 at 10:00 Miscellaneous Information (* Miscellaneous Pharmacy Order) TODAY PT IS GETTING PICC LI... ONCE XX ; Start 06/07/18 at 10:30 Bisacodyl (Dulcolax Supp) 10 mg DAILY PRN [place] CONSTIPATION; Start 06/07/18 at 11:30 IV Flush (NS 10 ml) 10 ml PRN PRN IV IV PROTOCOL; Start 06/07/18 at 14:00 Amikacin Sulfate (Amikacin Iv Per Pharmacy) AMIKACIN PER PHARMACY NOTE XX ; Start 06/09/18 at 08:30 Alteplase, Recombinant (Cathflo (Activase)) 4 mg MAY REPEAT X1 PRN CATHETER IF CATHETER REMAINS OCCULUDED Last administered on 06/09/18at 10:58; Admin Dose 4 MG; Start 06/09/18 at 10:30 Amikacin Sulfate 1000 mg/Sodium Chloride 104 ml @ 102 mls/hr Q36H IVPB ; Start 06/11/18 at 02:00 Hydralazine HCl (Apresoline) 5 mg Q6H PRN IV sbp>160; Start 06/10/18 at 09:30 DORIS BAUMANN Jun 10, 2018 13:35
[2018-06-10 14:40] VITALS: BP 134/63; PULSE 65; RESP 16
[2018-06-10] MEDS: TPN 1,000 ML IV SCH (18:17)
[2018-06-10 19:36] VITALS: BP 154/66; PULSE 60; RESP 18
[2018-06-11] MEDS: INSULIN ASPART [NOVOLOG] 3 ML PEN SC SCH ×6 (00:56→20:53)
[2018-06-11] MEDS: METOCLOPRAMIDE 10 MG INJ IV SCH ×5 (00:57→23:52)
[2018-06-11] MEDS: ACCU-CHEK XX SCH ×7 (00:57→20:56)
[2018-06-11 01:59] VITALS: BP 150/67; PULSE 65; RESP 18
[2018-06-11] MEDS ORDERED: AMIKACIN 1,000 MG in SOD CHLORIDE 0.9% 100 ML IVPB SCH (02:00)
[2018-06-11] MEDS: PANTOPRAZOLE 40 MG INJ IV SCH ×2 (05:08→17:29)
--- NOTE | 2018-06-11 07:54 | CONS ---
Assessment/Plan Assessment/Plan Hospital Course (Demo Recall) 1) GPC in blood cx, both sets (CoNS) continue with vanco will repeat blood cx tomorrow via picc line that is being placed right now the source is likely the g-tube site / - blood cx grew staph species, likely staph aureus continue with vanco repeat blood cx via PICC line 06/09 - pt has both sets of blood cx growing two different kinds of CoNS, not s.aureus pt will only need one week of IV vanco 06/10 - continue IV vanco thru a.m. of 06/13/18 get repeat blood cx via picc line 2) infected g-tube site doubt the yeast is significant, to d/c diflucan but continue with topical lotrimin GNR is also likely not to be significant at this time just continue with IV vanco pt is NPO and TPN is planned till pt can get a new g-tube site 3/ - stable, site still has drainage, yellow/brown in color e.coli is likely in urine also, start gentamicin 06/09 - no antonio cellulitis seen, but still has drainage / - redness around g-tube site likely due to acid content of continue gastric drainage 06/11 - on amikacin/vanco and topical lotrimin but most of macerated skin is likely from gastric acid rather than infection 3) hx of gastric CA 4) gi bleed this has improved, upper endo showed gastric polyp lower endo is pending 5) DM sugars are not too bad and have improved 6) dementia 7) pyuria 3/2 urine cx has GNR (likely e.coli) no symptoms but to add gent to regimen 06/09 - e.coli in urine is sensitive to amikacin anticipate only 3-5 day course of it change gent to amikacin since sensi's to gent are not finalized 06/10 - e.coli is sensitive to gent and amikacin continue with amikacin thru a.m. of 06/12 Consultation Date/Type/Reason Admit Date/Time Jun 03, 2018 at 09:39 Initial Consult Date 06/07/18 Type of Consult ID Date/Time of Note DATE: 06/11/18 TIME: 07:52 24 HR Interval Summary Free Text/Dictation no new problems no stools still has drainage from prior g-tube site Exam/Review of Systems Exam Vitals Vital Signs Date Temp Pulse Resp B/P (MAP) Pulse Ox O2 O2 Flow FiO2 Time Delivery Rate 06/11/18 99.1 65 18 150/67 97 01:59 (94) 06/10/18 Room Air 14:40 Intake and Output 06/10/18 06/10/18 06/11/18 1515:00 23:00 07:00 IntakeIntake Total 250 ml 700 ml 764 ml OutputOutput Total 50 ml BalanceBalance 200 ml 700 ml 764 ml Results Result Diagram: 06/11/18 0516 06/10/18 0659 Results 24hrs Laboratory Tests Test 06/10/18 08:17 06/10/18 09:14 06/10/18 11:46 06/10/18 12:35 Vancomycin Level 16.1 Trough Bedside Glucose 156 150 Lab Scanned Report REFERENCE LAB Test 06/10/18 17:44 06/10/18 22:09 06/11/18 00:56 06/11/18 05:08 Bedside Glucose 150 152 134 167 Test 06/11/18 05:16 White Blood Count 6.1 Red Blood Count 3.16 L Hemoglobin 9.7 L Hematocrit 28.6 L Mean Corpuscular 90.5 Volume Mean Corpuscular 30.7 Hemoglobin Mean Corpuscular 33.9 Hemoglobin Concent Red Cell Distribution 12.7 Width Platelet Count 235 Mean Platelet Volume 9.9 Immature Granulocytes 0.300 % Neutrophils % 65.6 Lymphocytes % 14.8 L Monocytes % 9.1 Eosinophils % 9.7 H Basophils % 0.5 Nucleated Red Blood 0.0 Cells % Immature Granulocytes 0.020 # Neutrophils # 4.0 Lymphocytes # 0.9 Monocytes # 0.6 Eosinophils # 0.6 H Basophils # 0.0 Nucleated Red Blood 0.0 Cells # Phosphorus Level 3.3 Medications Medication Current Medications IV Flush (NS 3 ml) 3 ml PER PROTOCOL IV ; Start 06/03/18 at 12:00 Ondansetron HCl (Zofran Inj) 4 mg Q6H PRN IV NAUSEA/VOMITING Last administered on 06/06/18at 09:36; Admin Dose 4 MG; Start 06/03/18 at 12:00 Acetaminophen (Tylenol Tab) 650 mg Q6H PRN PO .PAIN 1-3 OR TEMP; Start 06/03/18 at 12:00 Acetaminophen/ Hydrocodone Bitart ([place] (5/325)) 1 tab Q6H PRN PO .MOD PAIN 4- 6; Start 06/03/18 at 12:00 Morphine Sulfate (morphine) 2 mg Q4H PRN IV .SEVERE PAIN 7-10; Start 06/03/18 at 12:00 Docusate Sodium (Colace) 100 mg Q12H PRN PO .CONSTIPATION; Start 06/03/18 at 12:00 Magnesium Hydroxide (Milk Of Mag) 30 ml DAILY PRN PO .CONSTIPATION; Start 06/03/18 at 12:00 Pantoprazole (Protonix Iv) 40 mg BID@0600,1800 IV Last administered on 06/11/18at 05:08; Admin Dose 40 MG; Start 06/03/18 at 18:00 Lorazepam (Ativan) 0.5 mg Q6H PRN IV ANXIETY; Start 06/03/18 at 12:00 Albuterol/ Ipratropium (Duoneb) 3 ml Q4H RESP THERAPY PRN HHN SHORTNESS OF BREATH; Start 06/03/18 at 12:00 Nitroglycerin (Nitroglycerin (Sl Tab) 0.4 Mg) 1 tab Q5M PRN SL ANGINA; Start 06/03/18 at 12:00 Folic Acid (Folic Acid) 0.4 mg DAILY GTB Last administered on 06/06/18 09:16; Admin Dose 0.4 MG; Start 06/04/18 at 09:00 Multivitamins Therapeutic (Theragran) 1 tab DAILY GTB Last administered on 06/06/18 09:16; Admin Dose 1 TAB; Start 06/04/18 at 09:00 Docusate Sodium (Colace Liquid Cup) 100 mg DAILY GTB Last administered on 06/06/18 09:16; Admin Dose 100 MG; Start 06/04/18 at 09:00 Nystatin (Nystatin Powder) 1 applic BID TOP Last administered on 06/10/18 22:19; Admin Dose 1 APPLIC; Start 06/04/18 at 15:30 Clotrimazole (Lotrimin Cr) 1 applic BID TOP Last administered on 06/10/18 22:19; Admin Dose 1 APPLIC; Start 06/05/18 at 12:00 Diagnostic Test (Pha) (Accu-Chek) 1 ea Q4 XX Last administered on 06/10/18at 09:21; Admin Dose 1 EA; Start 06/07/18 at 11:00 Total Parenteral Nutrition 1,000 ml @ 60 mls/hr [id number] IV Last administered on 06/10/18at 18:17; Admin Dose 60 MLS/HR; Start 06/07/18 at 11:00 Metoclopramide HCl (Reglan) 10 mg Q6 IV Last administered on 06/11/18at 05:08; Admin Dose 10 MG; Start 06/06/18 at 18:00 Diagnostic Test (Pha) (Accu-Chek) 1 ea 02 XX Last administered on 06/10/18at 01:20; Admin Dose 1 EA; Start 06/07/18 at 02:00 Insulin Aspart (Novolog Insulin Pen) NOVOLOG *MILD* [place]... Q4 SC Last administered on 06/11/18at 05:11; Admin Dose 1 UNIT; Start 06/06/18 at 13:30 Miscellaneous Information 1 ea NOTE XX ; Start 06/06/18 at 13:00 Glucose (Glutose) 15 gm Q15M PRN PO DECREASED GLUCOSE; Start 06/06/18 at 13:00 Glucose (Glutose) 22.5 gm Q15M PRN PO DECREASED GLUCOSE; Start 06/06/18 at 13:00 Dextrose (D50w Syringe) 25 ml Q15M PRN IV DECREASED GLUCOSE; Start 06/06/18 at 13:00 Dextrose (D50w Syringe) 50 ml Q15M PRN IV DECREASED GLUCOSE; Start 06/06/18 at 13:00 Glucagon (Glucagen) 1 mg Q15M PRN IM DECREASED GLUCOSE; Start 06/06/18 at 13:00 Glucose (Glutose) 15 gm Q15M PRN BUCCAL DECREASED GLUCOSE; Start 06/06/18 at 13:00 Vancomycin HCl (Vanco Iv Per Pharmacy) VANCOMYCIN PER PHARMACY PER PROTOCOL XX ; Start 06/07/18 at 09:00 Vancomycin HCl 250 ml @ 125 mls/hr Q24H IVPB Last administered on 06/10/18at 11:56; Admin Dose 125 MLS/HR; Start 06/08/18 at 10:00 Miscellaneous Information (* Miscellaneous Pharmacy Order) TODAY PT IS GETTING PICC LI... ONCE XX ; Start 06/07/18 at 10:30 Bisacodyl (Dulcolax Supp) 10 mg DAILY PRN [place] CONSTIPATION; Start 06/07/18 at 11:30 IV Flush (NS 10 ml) 10 ml PRN PRN IV IV PROTOCOL; Start 06/07/18 at 14:00 Amikacin Sulfate (Amikacin Iv Per Pharmacy) AMIKACIN PER PHARMACY NOTE XX ; Start 06/09/18 at 08:30 Alteplase, Recombinant (Cathflo (Activase)) 4 mg MAY REPEAT X1 PRN CATHETER IF CATHETER REMAINS OCCULUDED Last administered on 06/09/18at 10:58; Admin Dose 4 MG; Start 06/09/18 at 10:30 Amikacin Sulfate 1000 mg/Sodium Chloride 104 ml @ 102 mls/hr Q36H IVPB Last administered on 06/11/18at 02:10; Admin Dose 102 MLS/HR; Start 06/11/18 at 02:00 Hydralazine HCl (Apresoline) 5 mg Q6H PRN IV sbp>160; Start 06/10/18 at 09:30 JOSE NORWOOD MD Jun 11, 2018 07:54
[2018-06-11 08:00] VITALS: BP 156/69; PULSE 61; RESP 18
[2018-06-11] MEDS: FOLIC ACID 0.4 MG TAB GTB SCH (08:31)
[2018-06-11] MEDS: MULTIVITAMINS THERAPEUTIC TAB GTB SCH (08:31)
[2018-06-11] MEDS: DOCUSATE SODIUM 10 MG/ML (10ML CUP) GTB SCH (08:31)
[2018-06-11] MEDS: NYSTATIN 30 GM POWDER BTL TOP SCH ×2 (08:33→20:55)
[2018-06-11] MEDS: CLOTRIMAZOLE 1% 30 GM CR TOP SCH ×2 (08:33→20:55)
--- NOTE | 2018-06-11 09:51 | PN ---
Date/Time of Note Date/Time of Note DATE: 06/11/18 TIME: 09:41 Assessment/Plan VTE Prophylaxis Risk score (from Ns)>0 risk: 10 SCD applied (from Ns): Yes Pharmacological prophylaxis: other (scds) Lines/Catheters IV Catheter Type (from [facility]): Peripheral IV Central line still needed: Yes (TPN) Urinary Cath still in place: No Assessment/Plan Hospital Course Summary Assessment and Plan: Assessment: Normocytic anemia EGD 06/04/18 Impression: 1.5 cm proximal gastric polyp. Post polypectomy plus Endo Clip placement. Post placement of [place] 24-20 cc replacement gastrostomy tube. Otherwise normal EGD. Melena/hematochezia Malfunctioning gastrostomy tube/infected site Hx of Gastric cancer s/p PEG placement (30 fr) Dementia Bacteremia -Blood cultures x2 growing gram-positive cocci UTI- with E.coli - Plan: Apply barrier cream to opening of ostomy- to protect skin from gastric drainage ABX per ID Continue TPN- f/u with wound nurse consult- recommendations Continue PPI/Reglan to promote ostomy healing Deferred colonoscopy given the therapeutic procedure and the need for Endo Clip. Pt seen in collaboration with Dr. Lopez/Xiao Subjective: Course reviewed with nursing staff Patient interviewed and examined All labs, imaging and other results reviewed No over night events, discussed with nurse to apply barrier cream to open of ostomy site No c/o n/v or abd pain. Hgb stable, no overt signs of GI bleed. PHYSICAL EXAMINATION: GENERAL: Alert & confused SKIN: No lesions, no stigmata chronic liver disease, no evidence of bleeding d iathesis HEAD: Normocephalic, atraumatic, no tenderness. EYES: Pupils equal reactive to light and accommodation, full extraocular movements, sclera clear, non-icteric, no discharge. EARS/NOSE AND THROAT: Ears normal, nose normal, oropharynx normal, oral membranes well hydrated without lesions. NECK: Supple, no masses CARDIOVASCULAR: Heart: Regular rate and rhythm RESPIRATORY: Lungs clear to auscultation GASTROINTESTINAL AND LIVER: Abdomen: Soft, non tenderness, non-distended, osotmy site slowly healing, redness likely 2/2 to gastric drainage no rebound tenderness, normoactive bowel sounds. Rectal: Deferred. Result Diagram: 06/11/1851506/11/18515 Results 24hrs Laboratory Tests Test 06/10/18 11:46 06/10/18 12:35 06/10/18 17:44 06/10/18 22:09 Lab Scanned Report REFERENCE LAB Bedside Glucose 150 150 152 Test 06/11/18 00:56 06/11/18 05:08 06/11/18 05:16 06/11/18 08:37 Bedside Glucose 134 167 139 White Blood Count 6.1 Red Blood Count 3.16 L Hemoglobin 9.7 L Hematocrit 28.6 L Mean Corpuscular 90.5 Volume Mean Corpuscular 30.7 Hemoglobin Mean Corpuscular 33.9 Hemoglobin Concent Red Cell Distribution 12.7 Width Platelet Count 235 Mean Platelet Volume 9.9 Immature Granulocytes 0.300 % Neutrophils % 65.6 Lymphocytes % 14.8 L Monocytes % 9.1 Eosinophils % 9.7 H Basophils % 0.5 Nucleated Red Blood 0.0 Cells % Immature Granulocytes 0.020 # Neutrophils # 4.0 Lymphocytes # 0.9 Monocytes # 0.6 Eosinophils # 0.6 H Basophils # 0.0 Nucleated Red Blood 0.0 Cells # Sodium Level 137 Potassium Level 3.7 Chloride Level 112 H Carbon Dioxide Level 19 L Anion Gap 6 Blood Urea Nitrogen 27 H Creatinine 0.78 Est Glomerular Filtrat Rate mL/min Glucose Level 154 Calcium Level 8.6 Phosphorus Level 3.3 Magnesium Level 1.8 Total Bilirubin 0.3 Direct Bilirubin 0.00 Indirect Bilirubin 0.3 Aspartate Amino 19 Transf (AST/SGOT) Alanine 14 Aminotransferase (ALT /SGPT) Alkaline Phosphatase 67 Total Protein 5.3 L Albumin 2.7 L Globulin 2.60 Albumin/Globulin 1.03 Ratio Exam/Review of Systems Exam Vitals Vital Signs Date Temp Pulse Resp B/P (MAP) Pulse Ox O2 O2 Flow FiO2 Time Delivery Rate 06/11/18 98.1 61 18 156/69 99 08:00 (98) 06/10/18 Room Air 14:40 Intake and Output 06/10/18 06/10/18 06/11/18 1515:00 23:00 07:00 IntakeIntake Total 250 ml 700 ml 764 ml OutputOutput Total 50 ml BalanceBalance 200 ml 700 ml 764 ml Results Results 24hrs Laboratory Tests Test 06/10/18 11:46 06/10/18 12:35 06/10/18 17:44 06/10/18 22:09 Lab Scanned Report REFERENCE LAB Bedside Glucose 150 150 152 Test 06/11/18 00:56 06/11/18 05:08 06/11/18 05:16 06/11/18 08:37 Bedside Glucose 134 167 139 White Blood Count 6.1 Red Blood Count 3.16 L Hemoglobin 9.7 L Hematocrit 28.6 L Mean Corpuscular 90.5 Volume Mean Corpuscular 30.7 Hemoglobin Mean Corpuscular 33.9 Hemoglobin Concent Red Cell Distribution 12.7 Width Platelet Count 235 Mean Platelet Volume 9.9 Immature Granulocytes 0.300 % Neutrophils % 65.6 Lymphocytes % 14.8 L Monocytes % 9.1 Eosinophils % 9.7 H Basophils % 0.5 Nucleated Red Blood 0.0 Cells % Immature Granulocytes 0.020 # Neutrophils # 4.0 Lymphocytes # 0.9 Monocytes # 0.6 Eosinophils # 0.6 H Basophils # 0.0 Nucleated Red Blood 0.0 Cells # Sodium Level 137 Potassium Level 3.7 Chloride Level 112 H Carbon Dioxide Level 19 L Anion Gap 6 Blood Urea Nitrogen 27 H Creatinine 0.78 Est Glomerular Filtrat Rate mL/min Glucose Level 154 Calcium Level 8.6 Phosphorus Level 3.3 Magnesium Level 1.8 Total Bilirubin 0.3 Direct Bilirubin 0.00 Indirect Bilirubin 0.3 Aspartate Amino 19 Transf (AST/SGOT) Alanine 14 Aminotransferase (ALT /SGPT) Alkaline Phosphatase 67 Total Protein 5.3 L Albumin 2.7 L Globulin 2.60 Albumin/Globulin 1.03 Ratio Medications Medication Current Medications IV Flush (NS 3 ml) 3 ml PER PROTOCOL IV ; Start 06/03/18 at 12:00 Ondansetron HCl (Zofran Inj) 4 mg Q6H PRN IV NAUSEA/VOMITING Last administered on 06/06/18at 09:36; Admin Dose 4 MG; Start 06/03/18 at 12:00 Acetaminophen (Tylenol Tab) 650 mg Q6H PRN PO .PAIN 1-3 OR TEMP; Start 06/03/18 at 12:00 Acetaminophen/ Hydrocodone Bitart ([place] (5/325)) 1 tab Q6H PRN PO .MOD PAIN 4- 6; Start 06/03/18 at 12:00 Morphine Sulfate (morphine) 2 mg Q4H PRN IV .SEVERE PAIN 7-10; Start 06/03/18 at 12:00 Docusate Sodium (Colace) 100 mg Q12H PRN PO .CONSTIPATION; Start 06/03/18 at 12:00 Magnesium Hydroxide (Milk Of Mag) 30 ml DAILY PRN PO .CONSTIPATION; Start 06/03/18 at 12:00 Pantoprazole (Protonix Iv) 40 mg BID@0600,1800 IV Last administered on 06/11/18 05:08; Admin Dose 40 MG; Start 06/03/18 at 18:00 Lorazepam (Ativan) 0.5 mg Q6H PRN IV ANXIETY; Start 06/03/18 at 12:00 Albuterol/ Ipratropium (Duoneb) 3 ml Q4H RESP THERAPY PRN HHN SHORTNESS OF BREATH; Start 06/03/18 at 12:00 Nitroglycerin (Nitroglycerin (Sl Tab) 0.4 Mg) 1 tab Q5M PRN SL ANGINA; Start 06/03/18 at 12:00 Folic Acid (Folic Acid) 0.4 mg DAILY GTB Last administered on 06/06/18 09:16; Admin Dose 0.4 MG; Start 06/04/18 at 09:00 Multivitamins Therapeutic (Theragran) 1 tab DAILY GTB Last administered on 06/06/18 09:16; Admin Dose 1 TAB; Start 06/04/18 at 09:00 Docusate Sodium (Colace Liquid Cup) 100 mg DAILY GTB Last administered on 06/06/18 09:16; Admin Dose 100 MG; Start 06/04/18 at 09:00 Nystatin (Nystatin Powder) 1 applic BID TOP Last administered on 06/11/18 08:33; Admin Dose 1 APPLIC; Start 06/04/18 at 15:30 Clotrimazole (Lotrimin Cr) 1 applic BID TOP Last administered on 06/11/18 08:33; Admin Dose 1 APPLIC; Start 06/05/18 at 12:00 Diagnostic Test (Pha) (Accu-Chek) 1 ea Q4 XX Last administered on 06/10/18 09:21; Admin Dose 1 EA; Start 06/07/18 at 11:00 Total Parenteral Nutrition 1,000 ml @ 60 mls/hr [id number] IV Last administered on 06/10/18 18:17; Admin Dose 60 MLS/HR; Start 06/07/18 at 11:00 Metoclopramide HCl (Reglan) 10 mg Q6 IV Last administered on 06/11/18at 05:08; Admin Dose 10 MG; Start 06/06/18 at 18:00 Diagnostic Test (Pha) (Accu-Chek) 1 ea 02 XX Last administered on 06/10/18at 01:20; Admin Dose 1 EA; Start 06/07/18 at 02:00 Insulin Aspart (Novolog Insulin Pen) NOVOLOG *MILD* ALGORI... Q4 SC Last administered on 06/11/18at 05:11; Admin Dose 1 UNIT; Start 06/06/18 at 13:30 Miscellaneous Information 1 ea NOTE XX ; Start 06/06/18 at 13:00 Glucose (Glutose) 15 gm Q15M PRN PO DECREASED GLUCOSE; Start 06/06/18 at 13:00 Glucose (Glutose) 22.5 gm Q15M PRN PO DECREASED GLUCOSE; Start 06/06/18 at 13:00 Dextrose (D50w Syringe) 25 ml Q15M PRN IV DECREASED GLUCOSE; Start 06/06/18 at 13:00 Dextrose (D50w Syringe) 50 ml Q15M PRN IV DECREASED GLUCOSE; Start 06/06/18 at 13:00 Glucagon (Glucagen) 1 mg Q15M PRN IM DECREASED GLUCOSE; Start 06/06/18 at 13:00 Glucose (Glutose) 15 gm Q15M PRN BUCCAL DECREASED GLUCOSE; Start 06/06/18 at 13:00 Vancomycin HCl (Vanco Iv Per Pharmacy) VANCOMYCIN PER PHARMACY PER PROTOCOL XX ; Start 06/07/18 at 09:00 Vancomycin HCl 250 ml @ 125 mls/hr Q24H IVPB Last administered on 06/10/18at 11:56; Admin Dose 125 MLS/HR; Start 06/08/18 at 10:00 Miscellaneous Information (* Miscellaneous Pharmacy Order) TODAY PT IS GETTING PICC LI... ONCE XX ; Start 06/07/18 at 10:30 Bisacodyl (Dulcolax Supp) 10 mg DAILY PRN [place] CONSTIPATION; Start 06/07/18 at 11:30 IV Flush (NS 10 ml) 10 ml PRN PRN IV IV PROTOCOL; Start 06/07/18 at 14:00 Amikacin Sulfate (Amikacin Iv Per Pharmacy) AMIKACIN PER PHARMACY NOTE XX ; Start 06/09/18 at 08:30 Alteplase, Recombinant (Cathflo (Activase)) 4 mg MAY REPEAT X1 PRN CATHETER IF CATHETER REMAINS OCCULUDED Last administered on 06/09/18at 10:58; Admin Dose 4 MG; Start 06/09/18 at 10:30 Amikacin Sulfate 1000 mg/Sodium Chloride 104 ml @ 102 mls/hr Q36H IVPB Last administered on 06/11/18at 02:10; Admin Dose 102 MLS/HR; Start 06/11/18 at 02:00 Hydralazine HCl (Apresoline) 5 mg Q6H PRN IV sbp>160; Start 06/10/18 at 09:30 DORIS BAUMANN Jun 11, 2018 09:51
[2018-06-11] MEDS ORDERED: AMIKACIN 1,000 MG in SOD CHLORIDE 0.9% 250 ML IVPB SCH (09:56)
[2018-06-11] MEDS: TPN 1,000 ML IV SCH (10:48)
[2018-06-11] MEDS: VANCOMYCIN 1 GM 250 ML IVPB SCH (10:48)
[2018-06-11] MEDS ORDERED: MAGNESIUM SULFATE 1 GM/D5W 100 ML IVPB ONE (11:00)
[2018-06-11] MEDS ORDERED: POTASSIUM CHLORIDE 50 ML IVPB ONE (12:00)
[2018-06-11 14:00] VITALS: BP 166/99; PULSE 68; RESP 18
--- NOTE | 2018-06-11 15:00 | PN ---
Date/Time of Note Date/Time of Note DATE: 06/11/18 TIME: 14:59 Assessment/Plan VTE Prophylaxis Risk score (from Ns)>0 risk: 6 SCD applied (from Ns): Yes Pharmacological prophylaxis: NA/contraindicated Pharm contraindication: bleeding Lines/Catheters IV Catheter Type (from Nrsg): PICC Line Central line still needed: Yes Urinary Cath still in place: No Assessment/Plan Hospital Course SUBJECTIVE:no acute distress.. OBJECTIVE: Vital signs-see below PHYSICAL EXAM: Constitutional: Frail looking, elderly female, lying in bed comfortably. Psych: nl mood/affect, no complaints Head: atraumatic, normocephalic Eyes: nl conjunctiva, nl sclera ENMT: mucosa pink and moist, nl external ears & nose Neck: non-tender, supple Respiratory: clear to auscultation, normal air movement Cardiovascular: nl pulses, regular rate and rhythm Gastrointestinal:G tube site red. Draining brownish yellow in the collecting bag. soft, bowel sounds active in all 4 quadrants. Musculoskeletal/extremities: nl extremities to inspection, motor strength equal bilaterally, no focal deficit. Normal pulses,no cyanosis, no edema. Neurological: Forgetful/dementia. Alert to self and place. Nl speech, nl strength Skin: nl turgor ASSESSMENT/PLAN: 83-year-old female with a history of gastric cancer, status post PEG, gastritis, erosive esophagitis, dementia, was transferred from [facility] with rectal bleed, also found to have bacteremia with leaking/inf ected/malfxn G-tube requiring G-tube removal... 1. Acute GI bleed, hematochezia -Resolved -Status post EGD:1.5 cm proximal gastric polyp. Post polypectomy plus Endo Clip placement. -Deferred colonoscopy given therapeutic procedure and need for Endo Clip. -Continue iv Protonix -Avoid NSAIDs, antiplatelets, anticoagulation 2. Infected G-tube/malfunctioning tube. G-tube site grew [place] albica ns/Ecoli/Yeast. -GI on board=>s/p removal of Gtube 06/06. Plan is TPN until Gtube site and bacteremia resolves and then new Gtube placement. -cont.local Gt site care 3. Coagulase-negative staph bacteremia, x2 sets. -Likely source G-tube. -Antibiotic management per ID. Currently on vancomycin. -repeat cultures NGTD ~24 hrs 4. E. coli UTI -Continue antimicrobials per ID recommendations. 5. Acute on chronic anemia. Acute anemia secondary to GI bleed -Now stable. Monitor 6. History of gastric cancer 7. Osteoporosis -Supportive care, resume home medications -Continued PT evaluation 8. Dementia -Supportive care DVT prophylaxis: SCDs, anticoagulation contraindicated secondary to bleeding PUD prophylaxis: Protonix CODE STATUS: Full code Diet: TPN Disposition: cont.Gt care, antimicrobials and follow-up repeat cultures.once bacteremia resolves and Gtube site infection clears, pt need a new Gtube placement. For now we will continue patient on TPN for nutrition purpose. Patient was seen in collaboration with Result Diagram: 06/11/18 0516 06/11/18 0516 Results 24hrs Laboratory Tests Test 06/10/18 17:44 06/10/18 22:09 06/11/18 00:56 06/11/18 05:08 Bedside Glucose 150 152 134 167 Test 06/11/18 05:16 06/11/18 08:37 06/11/18 12:48 White Blood Count 6.1 Red Blood Count 3.16 L Hemoglobin 9.7 L Hematocrit 28.6 L Mean Corpuscular Volume 90.5 Mean Corpuscular 30.7 Hemoglobin Mean Corpuscular 33.9 Hemoglobin Concent Red Cell Distribution 12.7 Width Platelet Count 235 Mean Platelet Volume 9.9 Immature Granulocytes % 0.300 Neutrophils % 65.6 Lymphocytes % 14.8 L Monocytes % 9.1 Eosinophils % 9.7 H Basophils % 0.5 Nucleated Red Blood 0.0 Cells % Immature Granulocytes # 0.020 Neutrophils # 4.0 Lymphocytes # 0.9 Monocytes # 0.6 Eosinophils # 0.6 H Basophils # 0.0 Nucleated Red Blood 0.0 Cells # Sodium Level 137 Potassium Level 3.7 Chloride Level 112 H Carbon Dioxide Level 19 L Anion Gap 6 Blood Urea Nitrogen 27 H Creatinine 0.78 Est Glomerular Filtrat Rate mL/min Glucose Level 154 Calcium Level 8.6 Phosphorus Level 3.3 Magnesium Level 1.8 Total Bilirubin 0.3 Direct Bilirubin 0.00 Indirect Bilirubin 0.3 Aspartate Amino 19 Transf (AST/SGOT) Alanine 14 Aminotransferase (ALT/SG PT) Alkaline Phosphatase 67 Total Protein 5.3 L Albumin 2.7 L Globulin 2.60 Albumin/Globulin Ratio 1.03 Bedside Glucose 139 112 Exam/Review of Systems Exam Vitals Vital Signs Date Temp Pulse Resp B/P (MAP) Pulse Ox O2 O2 Flow FiO2 Time Delivery Rate 06/11/18 98.1 61 18 156/69 99 08:00 (98) 06/10/18 Room Air 14:40 Intake and Output 06/10/18 06/10/18 06/11/18 1515:00 23:00 07:00 IntakeIntake Total 250 ml 700 ml 764 ml OutputOutput Total 50 ml BalanceBalance 200 ml 700 ml 764 ml Results Results 24hrs Laboratory Tests Test 06/10/18 17:44 06/10/18 22:09 06/11/18 00:56 06/11/18 05:08 Bedside Glucose 150 152 134 167 Test 06/11/18 05:16 06/11/18 08:37 06/11/18 12:48 White Blood Count 6.1 Red Blood Count 3.16 L Hemoglobin 9.7 L Hematocrit 28.6 L Mean Corpuscular Volume 90.5 Mean Corpuscular 30.7 Hemoglobin Mean Corpuscular 33.9 Hemoglobin Concent Red Cell Distribution 12.7 Width Platelet Count 235 Mean Platelet Volume 9.9 Immature Granulocytes % 0.300 Neutrophils % 65.6 Lymphocytes % 14.8 L Monocytes % 9.1 Eosinophils % 9.7 H Basophils % 0.5 Nucleated Red Blood 0.0 Cells % Immature Granulocytes # 0.020 Neutrophils # 4.0 Lymphocytes # 0.9 Monocytes # 0.6 Eosinophils # 0.6 H Basophils # 0.0 Nucleated Red Blood 0.0 Cells # Sodium Level 137 Potassium Level 3.7 Chloride Level 112 H Carbon Dioxide Level 19 L Anion Gap 6 Blood Urea Nitrogen 27 H Creatinine 0.78 Est Glomerular Filtrat Rate mL/min Glucose Level 154 Calcium Level 8.6 Phosphorus Level 3.3 Magnesium Level 1.8 Total Bilirubin 0.3 Direct Bilirubin 0.00 Indirect Bilirubin 0.3 Aspartate Amino 19 Transf (AST/SGOT) Alanine 14 Aminotransferase (ALT/SG PT) Alkaline Phosphatase 67 Total Protein 5.3 L Albumin 2.7 L Globulin 2.60 Albumin/Globulin Ratio 1.03 Bedside Glucose 139 112 Medications Medication Current Medications IV Flush (NS 3 ml) 3 ml PER PROTOCOL IV ; Start 06/03/18 at 12:00 Ondansetron HCl (Zofran Inj) 4 mg Q6H PRN IV NAUSEA/VOMITING Last administered on 06/06/18 09:36; Admin Dose 4 MG; Start 06/03/18 at 12:00 Acetaminophen (Tylenol Tab) 650 mg Q6H PRN PO .PAIN 1-3 OR TEMP; Start 06/03/18 at 12:00 Acetaminophen/ Hydrocodone Bitart ([place] (5/325)) 1 tab Q6H PRN PO .MOD PAIN 4- 6; Start 06/03/18 at 12:00 Morphine Sulfate (morphine) 2 mg Q4H PRN IV .SEVERE PAIN 7-10; Start 06/03/18 at 12:00 Docusate Sodium (Colace) 100 mg Q12H PRN PO .CONSTIPATION; Start 06/03/18 at 12:00 Magnesium Hydroxide (Milk Of Mag) 30 ml DAILY PRN PO .CONSTIPATION; Start 06/03/18 at 12:00 Pantoprazole (Protonix Iv) 40 mg BID@0600,1800 IV Last administered on 06/11/18 05:08; Admin Dose 40 MG; Start 06/03/18 at 18:00 Lorazepam (Ativan) 0.5 mg Q6H PRN IV ANXIETY; Start 06/03/18 at 12:00 Albuterol/ Ipratropium (Duoneb) 3 ml Q4H RESP THERAPY PRN HHN SHORTNESS OF BREATH; Start 06/03/18 at 12:00 Nitroglycerin (Nitroglycerin (Sl Tab) 0.4 Mg) 1 tab Q5M PRN SL ANGINA; Start 06/03/18 at 12:00 Folic Acid (Folic Acid) 0.4 mg DAILY GTB Last administered on 06/06/18 09:16; Admin Dose 0.4 MG; Start 06/04/18 at 09:00 Multivitamins Therapeutic (Theragran) 1 tab DAILY GTB Last administered on 06/06/18 09:16; Admin Dose 1 TAB; Start 06/04/18 at 09:00 Docusate Sodium (Colace Liquid Cup) 100 mg DAILY GTB Last administered on 06/06/18 09:16; Admin Dose 100 MG; Start 06/04/18 at 09:00 Nystatin (Nystatin Powder) 1 applic BID TOP Last administered on 06/11/18 08:33; Admin Dose 1 APPLIC; Start 06/04/18 at 15:30 Clotrimazole (Lotrimin Cr) 1 applic BID TOP Last administered on 06/11/18at 08:33; Admin Dose 1 APPLIC; Start 06/05/18 at 12:00 Diagnostic Test (Pha) (Accu-Chek) 1 ea Q4 XX Last administered on 06/10/18at 09:21; Admin Dose 1 EA; Start 06/07/18 at 11:00 Total Parenteral Nutrition 1,000 ml @ 60 mls/hr [id number] IV Last administered on 06/11/18at 10:48; Admin Dose 60 MLS/HR; Start 06/07/18 at 11:00 Metoclopramide HCl (Reglan) 10 mg Q6 IV Last administered on 06/11/18at 12:49; Admin Dose 10 MG; Start 06/06/18 at 18:00 Diagnostic Test (Pha) (Accu-Chek) 1 ea 02 XX Last administered on 06/10/18at 01:20; Admin Dose 1 EA; Start 06/07/18 at 02:00 Insulin Aspart (Novolog Insulin Pen) NOVOLOG *MILD* ALGORI... Q4 SC Last administered on 06/11/18at 05:11; Admin Dose 1 UNIT; Start 06/06/18 at 13:30 Miscellaneous Information 1 ea NOTE XX ; Start 06/06/18 at 13:00 Glucose (Glutose) 15 gm Q15M PRN PO DECREASED GLUCOSE; Start 06/06/18 at 13:00 Glucose (Glutose) 22.5 gm Q15M PRN PO DECREASED GLUCOSE; Start 06/06/18 at 13:00 Dextrose (D50w Syringe) 25 ml Q15M PRN IV DECREASED GLUCOSE; Start 06/06/18 at 13:00 Dextrose (D50w Syringe) 50 ml Q15M PRN IV DECREASED GLUCOSE; Start 06/06/18 at 13:00 Glucagon (Glucagen) 1 mg Q15M PRN IM DECREASED GLUCOSE; Start 06/06/18 at 13:00 Glucose (Glutose) 15 gm Q15M PRN BUCCAL DECREASED GLUCOSE; Start 06/06/18 at 13:00 Vancomycin HCl (Vanco Iv Per Pharmacy) VANCOMYCIN PER PHARMACY PER PROTOCOL XX ; Start 06/07/18 at 09:00 Vancomycin HCl 250 ml @ 125 mls/hr Q24H IVPB Last administered on 06/11/18at 10:48; Admin Dose 125 MLS/HR; Start 06/08/18 at 10:00 Miscellaneous Information (* Miscellaneous Pharmacy Order) TODAY PT IS GETTING PICC LI... ONCE XX ; Start 06/07/18 at 10:30 Bisacodyl (Dulcolax Supp) 10 mg DAILY PRN [place] CONSTIPATION; Start 06/07/18 at 11:30 IV Flush (NS 10 ml) 10 ml PRN PRN IV IV PROTOCOL; Start 06/07/18 at 14:00 Amikacin Sulfate (Amikacin Iv Per Pharmacy) AMIKACIN PER PHARMACY NOTE XX ; Start 06/09/18 at 08:30 Alteplase, Recombinant (Cathflo (Activase)) 4 mg MAY REPEAT X1 PRN CATHETER IF CATHETER REMAINS OCCULUDED Last administered on 06/09/18at 10:58; Admin Dose 4 MG; Start 06/09/18 at 10:30 Hydralazine HCl (Apresoline) 5 mg Q6H PRN IV sbp>160 Last administered on 06/11/18at 14:08; Admin Dose 5 MG; Start 06/10/18 at 09:30 Amikacin Sulfate 1000 mg/Sodium Chloride 254 ml @ 254 mls/hr Q36H IVPB ; Start 06/12/18 at 14:00 ALFREDO MENSAH NP Jun 11, 2018 15:00
[2018-06-11 19:50] VITALS: BP 136/60; PULSE 71; RESP 20
[2018-06-12] MEDS: ACCU-CHEK XX SCH ×7 (01:00→21:06)
[2018-06-12] MEDS: INSULIN ASPART [NOVOLOG] 3 ML PEN SC SCH ×6 (01:09→20:58)
[2018-06-12 01:43] VITALS: BP 144/66; PULSE 56; RESP 18
[2018-06-12] MEDS: TPN 1,000 ML IV SCH ×2 (03:24→04:51)
[2018-06-12] MEDS: METOCLOPRAMIDE 10 MG INJ IV SCH ×3 (05:12→17:00)
[2018-06-12] MEDS: PANTOPRAZOLE 40 MG INJ IV SCH ×2 (05:14→17:00)
--- NOTE | 2018-06-12 07:35 | CONS ---
Assessment/Plan Assessment/Plan Hospital Course (Demo Recall) 1) GPC in blood cx, both sets (CoNS) continue with vanco will repeat blood cx tomorrow via picc line that is being placed right now the source is likely the g-tube site 06/08 - blood cx grew staph species, likely staph aureus continue with vanco repeat blood cx via PICC line 06/09 - pt has both sets of blood cx growing two different kinds of CoNS, not s.aureus pt will only need one week of IV vanco 06/10 - continue IV vanco thru a.m. of 06/13/18 get repeat blood cx via picc line 06/12 - repeat blood cx are NGTD continue IV vanco thru tomorrow a.m. 2) infected g-tube site doubt the yeast is significant, to d/c diflucan but continue with topical lotrimin GNR is also likely not to be significant at this time just continue with IV vanco pt is NPO and TPN is planned till pt can get a new g-tube site 06/08 - stable, site still has drainage, yellow/brown in color e.coli is likely in urine also, start gentamicin 06/09 - no antonio cellulitis seen, but still has drainage 06/10 - redness around g-tube site likely due to acid content of continue gastric drainage 06/11 - on amikacin/vanco and topical lotrimin but most of macerated skin is lik juanita from gastric acid rather than infection 06/12 - spoke to nurse regarding protective skin barrier around the g-tube site doubt she has cellulitis there amikacin is completed after today's dose drainage seems to be decreasing but nurses erratically record output 3) hx of gastric CA 4) gi bleed this has improved, upper endo showed gastric polyp lower endo is pending 5) DM sugars are not too bad and have improved 6) dementia 7) pyuria / urine cx has GNR (likely e.coli) no symptoms but to add gent to regimen 06/09 - e.coli in urine is sensitive to amikacin anticipate only 3-5 day course of it change gent to amikacin since sensi's to gent are not finalized 06/10 - e.coli is sensitive to gent and amikacin continue with amikacin thru a.m. of 06/12 06/12 - d/c amikacin after today's dose Consultation Date/Type/Reason Admit Date/Time Jun 03, 2018 at 09:39 Initial Consult Date 06/07/18 Type of Consult ID Date/Time of Note DATE: 06/12/18 TIME: 07:30 24 HR Interval Summary Free Text/Dictation spoke to nurse no new issues Exam/Review of Systems Exam Vitals Vital Signs Date Temp Pulse Resp B/P (MAP) Pulse Ox O2 O2 Flow FiO2 Time Delivery Rate 06/12/18 98.0 56 18 144/66 100 01:43 (92) 06/10/18 Room Air 14:40 Intake and Output 06/11/18 06/11/18 06/12/18 1414:59 22:59 06:59 IntakeIntake Total 690 ml 410 ml 640 ml BalanceBalance 690 ml 410 ml 640 ml Respiratory: clear to auscultation Cardiovascular: regular rate and rhythm Gastrointestinal: soft, non-tender, other (pic of prior g-tube site shows macerated skin, minimal redness) Results Result Diagram: 06/11/18 0516 06/11/18 0516 Results 24hrs Laboratory Tests Test 06/11/18 08:37 06/11/18 12:48 06/11/18 17:26 06/11/18 20:44 Bedside Glucose 139 112 149 142 Test 06/12/18 01:04 06/12/18 05:06 Bedside Glucose 164 134 Medications Medication Current Medications IV Flush (NS 3 ml) 3 ml PER PROTOCOL IV ; Start 06/03/18 at 12:00 Ondansetron HCl (Zofran Inj) 4 mg Q6H PRN IV NAUSEA/VOMITING Last administered on 06/06/18at 09:36; Admin Dose 4 MG; Start 06/03/18 at 12:00 Acetaminophen (Tylenol Tab) 650 mg Q6H PRN PO .PAIN 1-3 OR TEMP; Start 06/03/18 at 12:00 Acetaminophen/ Hydrocodone Bitart ([place] (5/325)) 1 tab Q6H PRN PO .MOD PAIN 4- 6; Start 06/03/18 at 12:00 Morphine Sulfate (morphine) 2 mg Q4H PRN IV .SEVERE PAIN 7-10; Start 06/03/18 at 12:00 Docusate Sodium (Colace) 100 mg Q12H PRN PO .CONSTIPATION; Start 06/03/18 at 12:00 Magnesium Hydroxide (Milk Of Mag) 30 ml DAILY PRN PO .CONSTIPATION; Start 06/03/18 at 12:00 Pantoprazole (Protonix Iv) 40 mg BID@0600,1800 IV Last administered on 06/12/18at 05:14; Admin Dose 40 MG; Start 06/03/18 at 18:00 Lorazepam (Ativan) 0.5 mg Q6H PRN IV ANXIETY; Start 06/03/18 at 12:00 Albuterol/ Ipratropium (Duoneb) 3 ml Q4H RESP THERAPY PRN HHN SHORTNESS OF BREATH; Start 06/03/18 at 12:00 Nitroglycerin (Nitroglycerin (Sl Tab) 0.4 Mg) 1 tab Q5M PRN SL ANGINA; Start 06/03/18 at 12:00 Folic Acid (Folic Acid) 0.4 mg DAILY GTB Last administered on 06/06/18 09:16; Admin Dose 0.4 MG; Start 06/04/18 at 09:00 Multivitamins Therapeutic (Theragran) 1 tab DAILY GTB Last administered on 06/06/18 09:16; Admin Dose 1 TAB; Start 06/04/18 at 09:00 Docusate Sodium (Colace Liquid Cup) 100 mg DAILY GTB Last administered on 06/06/18 09:16; Admin Dose 100 MG; Start 06/04/18 at 09:00 Nystatin (Nystatin Powder) 1 applic BID TOP Last administered on 06/11/18 20:55; Admin Dose 1 APPLIC; Start 06/04/18 at 15:30 Clotrimazole (Lotrimin Cr) 1 applic BID TOP Last administered on 06/11/18 20:55; Admin Dose 1 APPLIC; Start 06/05/18 at 12:00 Diagnostic Test (Pha) (Accu-Chek) 1 ea Q4 XX Last administered on 06/10/18 0 9:21; Admin Dose 1 EA; Start 06/07/18 at 11:00 Total Parenteral Nutrition 1,000 ml @ 60 mls/hr [id number] IV Last administered on 06/12/18 04:51; Admin Dose 60 MLS/HR; Start 06/07/18 at 11:00 Metoclopramide HCl (Reglan) 10 mg Q6 IV Last administered on 06/12/18at 05:12; Admin Dose 10 MG; Start 06/06/18 at 18:00 Diagnostic Test (Pha) (Accu-Chek) 1 ea 02 XX Last administered on 06/10/18at 01:20; Admin Dose 1 EA; Start 06/07/18 at 02:00 Insulin Aspart (Novolog Insulin Pen) NOVOLOG *MILD* ALGORI... Q4 SC Last administered on 06/12/18at 01:09; Admin Dose 1 UNIT; Start 06/06/18 at 13:30 Miscellaneous Information 1 ea NOTE XX ; Start 06/06/18 at 13:00 Glucose (Glutose) 15 gm Q15M PRN PO DECREASED GLUCOSE; Start 06/06/18 at 13:00 Glucose (Glutose) 22.5 gm Q15M PRN PO DECREASED GLUCOSE; Start 06/06/18 at 13:00 Dextrose (D50w Syringe) 25 ml Q15M PRN IV DECREASED GLUCOSE; Start 06/06/18 at 13:00 Dextrose (D50w Syringe) 50 ml Q15M PRN IV DECREASED GLUCOSE; Start 06/06/18 at 13:00 Glucagon (Glucagen) 1 mg Q15M PRN IM DECREASED GLUCOSE; Start 06/06/18 at 13:00 Glucose (Glutose) 15 gm Q15M PRN BUCCAL DECREASED GLUCOSE; Start 06/06/18 at 13:00 Vancomycin HCl (Vanco Iv Per Pharmacy) VANCOMYCIN PER PHARMACY PER PROTOCOL XX ; Start 06/07/18 at 09:00 Vancomycin HCl 250 ml @ 125 mls/hr Q24H IVPB Last administered on 06/11/18at 10:48; Admin Dose 125 MLS/HR; Start 06/08/18 at 10:00 Miscellaneous Information (* Miscellaneous Pharmacy Order) TODAY PT IS GETTING PICC LI... ONCE XX ; Start 06/07/18 at 10:30 Bisacodyl (Dulcolax Supp) 10 mg DAILY PRN [place] CONSTIPATION; Start 06/07/18 at 11:30 IV Flush (NS 10 ml) 10 ml PRN PRN IV IV PROTOCOL; Start 06/07/18 at 14:00 Amikacin Sulfate (Amikacin Iv Per Pharmacy) AMIKACIN PER PHARMACY NOTE XX ; Start 06/09/18 at 08:30 Alteplase, Recombinant (Cathflo (Activase)) 4 mg MAY REPEAT X1 PRN CATHETER IF CATHETER REMAINS OCCULUDED Last administered on 06/09/18at 10:58; Admin Dose 4 MG; Start 06/09/18 at 10:30 Hydralazine HCl (Apresoline) 5 mg Q6H PRN IV sbp>160 Last administered on 06/11/18at 14:08; Admin Dose 5 MG; Start 06/10/18 at 09:30 Amikacin Sulfate 1000 mg/Sodium Chloride 254 ml @ 254 mls/hr Q36H IVPB ; Start 06/12/18 at 14:00 JOSE NORWOOD MD Jun 12, 2018 07:35
[2018-06-12 07:36] VITALS: BP 141/50; PULSE 64; RESP 16
[2018-06-12] MEDS: DOCUSATE SODIUM 10 MG/ML (10ML CUP) GTB SCH (07:51)
[2018-06-12] MEDS: MULTIVITAMINS THERAPEUTIC TAB GTB SCH (07:52)
[2018-06-12] MEDS: FOLIC ACID 0.4 MG TAB GTB SCH (07:52)
[2018-06-12] MEDS: NYSTATIN 30 GM POWDER BTL TOP SCH ×2 (09:23→20:59)
[2018-06-12] MEDS: CLOTRIMAZOLE 1% 30 GM CR TOP SCH ×2 (09:23→20:58)
--- NOTE | 2018-06-12 10:20 | PN ---
Date/Time of Note Date/Time of Note DATE: 06/12/18 TIME: 10:03 Assessment/Plan VTE Prophylaxis Risk score (from Nsg)>0 risk: 3 SCD applied (from Ns): Yes Pharmacological prophylaxis: other (scds) Lines/Catheters IV Catheter Type (from Nrsg): Peripheral IV Central line still needed: Yes (tpn) Urinary Cath still in place: No Assessment/Plan Hospital Course Summary Assessment and Plan: Assessment: Normocytic anemia EGD 06/04/18 Impression: 1.5 cm proximal gastric polyp. Post polypectomy plus Endo Clip placement. Post placement of [place] 24-20 cc replacement gastrostomy tube. Otherwise normal EGD. Melena/hematochezia Malfunctioning gastrostomy tube/infected site Hx of Gastric cancer s/p PEG placement (30 fr) Dementia Bacteremia -Blood cultures x2 growing gram-positive cocci UTI- with E.coli - Plan: Osotmy site healing well, plan for new gastrostomy placement possible Sunday or Sunday, when previous site completely heals Apply barrier cream to opening of ostomy- to protect skin from gastric drainage Continue current regimen Pt seen in collaboration with Dr. Lopez/Xiao Subjective: Course reviewed with nursing staff Patient interviewed and examined All labs, imaging and other results reviewed Pt working with PT, overall improving, Currently no c/o abd pain, nausea or vomiting Will continue to follow, PHYSICAL EXAMINATION: GENERAL: Alert & confused SKIN: No lesions, no stigmata chronic liver disease, no evidence of bleeding diathesis HEAD: Normocephalic, atraumatic, no tenderness. EYES: Pupils equal reactive to light and accommodation, full extraocular movements, sclera clear, non-icteric, no discharge. EARS/NOSE AND THROAT: Ears normal, nose normal, oropharynx normal, oral membranes well hydrated without lesions. NECK: Supple, no masses CARDIOVASCULAR: Heart: Regular rate and rhythm RESPIRATORY: Lungs clear to auscultation GASTROINTESTINAL AND LIVER: Abdomen: Soft, non tenderness, non-distended, ostomy site slowly healing, redness likely 2/2 to gastric drainage- improved, no rebound tenderness, normoactive bowel sounds. Rectal: Deferred. Result Diagram: 06/12/18 0826 06/12/18 0826 Results 24hrs Laboratory Tests Test 06/11/18 12:48 06/11/18 17:26 06/11/18 20:44 06/12/18 01:04 Bedside Glucose 112 149 142 164 Test 06/12/18 05:06 06/12/18 08:26 06/12/18 09:15 Bedside Glucose 134 199 White Blood Count 6.9 Red Blood Count 3.30 L Hemoglobin 10.2 L Hematocrit 30.6 L Mean Corpuscular Volume 92.7 Mean Corpuscular 30.9 Hemoglobin Mean Corpuscular 33.3 Hemoglobin Concent Red Cell Distribution 12.8 Width Platelet Count 254 Mean Platelet Volume 10.0 Immature Granulocytes % 0.400 Neutrophils % 75.6 Lymphocytes % 8.4 L Monocytes % 9.1 Eosinophils % 6.1 Basophils % 0.4 Nucleated Red Blood 0.0 Cells % Immature Granulocytes # 0.030 Neutrophils # 5.3 Lymphocytes # 0.6 L Monocytes # 0.6 Eosinophils # 0.4 Basophils # 0.0 Nucleated Red Blood 0.0 Cells # Sodium Level 137 Potassium Level 3.8 Chloride Level 110 Carbon Dioxide Level 20 L Anion Gap 7 Blood Urea Nitrogen 30 H Creatinine 0.77 Est Glomerular Filtrat Rate mL/min Glucose Level 172 Calcium Level 8.9 Phosphorus Level 3.2 Magnesium Level 1.9 Exam/Review of Systems Exam Vitals Vital Signs Date Temp Pulse Resp B/P (MAP) Pulse Ox O2 O2 Flow FiO2 Time Delivery Rate 06/12/18 98.0 64 16 141/50 100 Room Air 07:36 (80) Intake and Output 06/11/18 06/11/18 06/12/18 1515:00 23:00 07:00 IntakeIntake Total 690 ml 410 ml 640 ml BalanceBalance 690 ml 410 ml 640 ml Results Results 24hrs Laboratory Tests Test 06/11/18 12:48 06/11/18 17:26 06/11/18 20:44 06/12/18 01:04 Bedside Glucose 112 149 142 164 Test 06/12/18 05:06 06/12/18 08:26 06/12/18 09:15 Bedside Glucose 134 199 White Blood Count 6.9 Red Blood Count 3.30 L Hemoglobin 10.2 L Hematocrit 30.6 L Mean Corpuscular Volume 92.7 Mean Corpuscular 30.9 Hemoglobin Mean Corpuscular 33.3 Hemoglobin Concent Red Cell Distribution 12.8 Width Platelet Count 254 Mean Platelet Volume 10.0 Immature Granulocytes % 0.400 Neutrophils % 75.6 Lymphocytes % 8.4 L Monocytes % 9.1 Eosinophils % 6.1 Basophils % 0.4 Nucleated Red Blood 0.0 Cells % Immature Granulocytes # 0.030 Neutrophils # 5.3 Lymphocytes # 0.6 L Monocytes # 0.6 Eosinophils # 0.4 Basophils # 0.0 Nucleated Red Blood 0.0 Cells # Sodium Level 137 Potassium Level 3.8 Chloride Level 110 Carbon Dioxide Level 20 L Anion Gap 7 Blood Urea Nitrogen 30 H Creatinine 0.77 Est Glomerular Filtrat Rate mL/min Glucose Level 172 Calcium Level 8.9 Phosphorus Level 3.2 Magnesium Level 1.9 Medications Medication Current Medications IV Flush (NS 3 ml) 3 ml PER PROTOCOL IV ; Start 06/03/18 at 12:00 Ondansetron HCl (Zofran Inj) 4 mg Q6H PRN IV NAUSEA/VOMITING Last administered on 06/06/18at 09:36; Admin Dose 4 MG; Start 06/03/18 at 12:00 Acetaminophen (Tylenol Tab) 650 mg Q6H PRN PO .PAIN 1-3 OR TEMP; Start 06/03/18 at 12:00 Acetaminophen/ Hydrocodone Bitart ([place] (5/325)) 1 tab Q6H PRN PO .MOD PAIN 4- 6; Start 06/03/18 at 12:00 Morphine Sulfate (morphine) 2 mg Q4H PRN IV .SEVERE PAIN 7-10; Start 06/03/18 at 12:00 Docusate Sodium (Colace) 100 mg Q12H PRN PO .CONSTIPATION; Start 06/03/18 at 12:00 Magnesium Hydroxide (Milk Of Mag) 30 ml DAILY PRN PO .CONSTIPATION; Start 06/03/18 at 12:00 Pantoprazole (Protonix Iv) 40 mg BID@0600,1800 IV Last administered on 06/12/18at 05:14; Admin Dose 40 MG; Start 06/03/18 at 18:00 Lorazepam (Ativan) 0.5 mg Q6H PRN IV ANXIETY; Start 06/03/18 at 12:00 Albuterol/ Ipratropium (Duoneb) 3 ml Q4H RESP THERAPY PRN HHN SHORTNESS OF BREATH; Start 06/03/18 at 12:00 Nitroglycerin (Nitroglycerin (Sl Tab) 0.4 Mg) 1 tab Q5M PRN SL ANGINA; Start 06/03/18 at 12:00 Folic Acid (Folic Acid) 0.4 mg DAILY GTB Last administered on 06/06/18 09:16; Admin Dose 0.4 MG; Start 06/04/18 at 09:00 Multivitamins Therapeutic (Theragran) 1 tab DAILY GTB Last administered on 06/06/18 09:16; Admin Dose 1 TAB; Start 06/04/18 at 09:00 Docusate Sodium (Colace Liquid Cup) 100 mg DAILY GTB Last administered on 06/06/18 09:16; Admin Dose 100 MG; Start 06/04/18 at 09:00 Nystatin (Nystatin Powder) 1 applic BID TOP Last administered on 06/12/18 09:23; Admin Dose 1 APPLIC; Start 06/04/18 at 15:30 Clotrimazole (Lotrimin Cr) 1 applic BID TOP Last administered on 06/12/18 09:23; Admin Dose 1 APPLIC; Start 06/05/18 at 12:00 Diagnostic Test (Pha) (Accu-Chek) 1 ea Q4 XX Last administered on 06/12/18 09:24; Admin Dose 1 EA; Start 06/07/18 at 11:00 Total Parenteral Nutrition 1,000 ml @ 60 mls/hr [id number] IV Last administered on 06/12/18 04:51; Admin Dose 60 MLS/HR; Start 06/07/18 at 11:00 Metoclopramide HCl (Reglan) 10 mg Q6 IV Last administered on 06/12/18 05:12; Admin Dose 10 MG; Start 06/06/18 at 18:00 Diagnostic Test (Pha) (Accu-Chek) 1 ea 02 XX Last administered on 06/10/18 01:20; Admin Dose 1 EA; Start 06/07/18 at 02:00 Insulin Aspart (Novolog Insulin Pen) NOVOLOG *MILD* ALGORI... Q4 SC Last administered on 06/12/18 09:21; Admin Dose 2 UNIT; Start 06/06/18 at 13:30 Miscellaneous Information 1 ea NOTE XX ; Start 06/06/18 at 13:00 Glucose (Glutose) 15 gm Q15M PRN PO DECREASED GLUCOSE; Start 06/06/18 at 13:00 Glucose (Glutose) 22.5 gm Q15M PRN PO DECREASED GLUCOSE; Start 06/06/18 at 13:00 Dextrose (D50w Syringe) 25 ml Q15M PRN IV DECREASED GLUCOSE; Start 06/06/18 at 13:00 Dextrose (D50w Syringe) 50 ml Q15M PRN IV DECREASED GLUCOSE; Start 06/06/18 at 13:00 Glucagon (Glucagen) 1 mg Q15M PRN IM DECREASED GLUCOSE; Start 06/06/18 at 13:00 Glucose (Glutose) 15 gm Q15M PRN BUCCAL DECREASED GLUCOSE; Start 06/06/18 at 13:00 Vancomycin HCl (Vanco Iv Per Pharmacy) VANCOMYCIN PER PHARMACY PER PROTOCOL XX ; Start 06/07/18 at 09:00 Vancomycin HCl 250 ml @ 125 mls/hr Q24H IVPB Last administered on 06/11/18at 10:48; Admin Dose 125 MLS/HR; Start 06/08/18 at 10:00 Miscellaneous Information (* Miscellaneous Pharmacy Order) TODAY PT IS GETTING PICC LI... ONCE XX ; Start 06/07/18 at 10:30 Bisacodyl (Dulcolax Supp) 10 mg DAILY PRN [place] CONSTIPATION; Start 06/07/18 at 11:30 IV Flush (NS 10 ml) 10 ml PRN PRN IV IV PROTOCOL; Start 06/07/18 at 14:00 Alteplase, Recombinant (Cathflo (Activase)) 4 mg MAY REPEAT X1 PRN CATHETER IF CATHETER REMAINS OCCULUDED Last administered on 06/09/18at 10:58; Admin Dose 4 MG; Start 06/09/18 at 10:30 Hydralazine HCl (Apresoline) 5 mg Q6H PRN IV sbp>160 Last administered on 06/11/18at 14:08; Admin Dose 5 MG; Start 06/10/18 at 09:30 Amikacin Sulfate 1000 mg/Sodium Chloride 254 ml @ 254 mls/hr Q36H IVPB ; Start 06/12/18 at 14:00; Stop 06/12/18 at 18:00 DORIS BAUMANN Jun 12, 2018 10:20
[2018-06-12] MEDS: VANCOMYCIN 1 GM 250 ML IVPB SCH (10:29)
[2018-06-12] MEDS ORDERED: AMIKACIN 1,000 MG in SOD CHLORIDE 0.9% 250 ML IVPB SCH (14:00)
--- NOTE | 2018-06-12 14:20 | PN ---
Date/Time of Note Date/Time of Note DATE: 06/12/18 TIME: 14:17 Assessment/Plan VTE Prophylaxis Risk score (from Ns)>0 risk: 3 SCD applied (from [facility] [place]): Yes Pharmacological prophylaxis: NA/contraindicated Pharm contraindication: bleeding Lines/Catheters IV Catheter Type (from [facility]): Peripheral IV Urinary Cath still in place: No Assessment/Plan Hospital Course SUBJECTIVE:no acute distress.. OBJECTIVE: Vital signs-see below PHYSICAL EXAM: Constitutional: Frail looking, elderly female, lying in bed comfortably. Psych: nl mood/affect, no complaints Head: atraumatic, normocephalic Eyes: nl conjunctiva, nl sclera ENMT: mucosa pink and moist, nl external ears & nose Neck: non-tender, supple Respiratory: clear to auscultation, normal air movement Cardiovascular: nl pulses, regular rate and rhythm Gastrointestinal:G tube site red. not much output-site looks significantly improved.... soft, bowel sounds active in all 4 quadrants. Musculoskeletal/extremities: nl extremities to inspection, motor strength equal bilaterally, no focal deficit. Normal pulses,no cyanosis, no edema. Neurological: Forgetful/dementia. Alert to self and place. Nl speech, nl strength Skin: nl turgor ASSESSMENT/PLAN: 83-year-old female with a history of gastric cancer, status post PEG, gastritis, erosive esophagitis, dementia, was transferred from group home with rectal bleed, also found to have bacteremia with leaking/infected/malfxn G-tube requiring G-tube removal... 1. Acute GI bleed, hematochezia -Resolved -Status post EGD:1.5 cm proximal gastric polyp. Post polypectomy plus Endo Clip placement. -Deferred colonoscopy given therapeutic procedure and need for Endo Clip. -Continue iv Protonix -Avoid NSAIDs, antiplatelets, anticoagulation 2. Infected G-tube/malfunctioning tube. G-tube site grew [place] albicans/Ecoli/Yeast. -GI on board=>s/p removal of Gtube 06/06. Plan is TPN until Gtube site and bacteremia resolves and then new Gtube placement. -cont.local Gt site care=> with improved site appearance. 3. Coagulase-negative staph bacteremia, x2 sets. -Likely source G-tube. -Antibiotic management per ID. Currently on vancomycin=> approaching course completion -repeat cultures NGTD 4. E. coli UTI -Treated appropriately. 5. Acute on chronic anemia. Acute anemia secondary to GI bleed -Now stable. Monitor 6. History of gastric cancer 7. Osteoporosis -Supportive care, resume home medications -Continued PT evaluation 8. Dementia -Supportive care DVT prophylaxis: SCDs, anticoagulation contraindicated secondary to bleeding PUD prophylaxis: Protonix CODE STATUS: Full code Diet: TPN Disposition: Overall, G-tube site looks better, healing nicely. GI recommends PEG placement likely on Sunday. Continue TPN until a new PEG is placed. Patient was seen in collaboration with Result Diagram: 06/12/18 0826 06/12/18 0826 Results 24hrs Laboratory Tests Test 06/11/18 17:26 06/11/18 20:44 06/12/18 01:04 06/12/18 05:06 Bedside Glucose 149 142 164 134 Test 06/12/18 08:26 06/12/18 09:15 06/12/18 12:32 White Blood Count 6.9 Red Blood Count 3.30 L Hemoglobin 10.2 L Hematocrit 30.6 L Mean Corpuscular Volume 92.7 Mean Corpuscular 30.9 Hemoglobin Mean Corpuscular 33.3 Hemoglobin Concent Red Cell Distribution 12.8 Width Platelet Count 254 Mean Platelet Volume 10.0 Immature Granulocytes % 0.400 Neutrophils % 75.6 Lymphocytes % 8.4 L Monocytes % 9.1 Eosinophils % 6.1 Basophils % 0.4 Nucleated Red Blood 0.0 Cells % Immature Granulocytes # 0.030 Neutrophils # 5.3 Lymphocytes # 0.6 L Monocytes # 0.6 Eosinophils # 0.4 Basophils # 0.0 Nucleated Red Blood 0.0 Cells # Sodium Level 137 Potassium Level 3.8 Chloride Level 110 Carbon Dioxide Level 20 L Anion Gap 7 Blood Urea Nitrogen 30 H Creatinine 0.77 Est Glomerular Filtrat Rate mL/min Glucose Level 172 Calcium Level 8.9 Phosphorus Level 3.2 Magnesium Level 1.9 Bedside Glucose 199 162 Exam/Review of Systems Exam Vitals Vital Signs Date Temp Pulse Resp B/P (MAP) Pulse Ox O2 O2 Flow FiO2 Time Delivery Rate 06/12/18 98.0 64 16 141/50 100 Room Air 07:36 (80) Intake and Output 06/11/18 06/11/18 06/12/18 1515:00 23:00 07:00 IntakeIntake Total 690 ml 410 ml 640 ml BalanceBalance 690 ml 410 ml 640 ml Results Results 24hrs Laboratory Tests Test 06/11/18 17:26 06/11/18 20:44 06/12/18 01:04 06/12/18 05:06 Bedside Glucose 149 142 164 134 Test 06/12/18 08:26 06/12/18 09:15 06/12/18 12:32 White Blood Count 6.9 Red Blood Count 3.30 L Hemoglobin 10.2 L Hematocrit 30.6 L Mean Corpuscular Volume 92.7 Mean Corpuscular 30.9 Hemoglobin Mean Corpuscular 33.3 Hemoglobin Concent Red Cell Distribution 12.8 Width Platelet Count 254 Mean Platelet Volume 10.0 Immature Granulocytes % 0.400 Neutrophils % 75.6 Lymphocytes % 8.4 L Monocytes % 9.1 Eosinophils % 6.1 Basophils % 0.4 Nucleated Red Blood 0.0 Cells % Immature Granulocytes # 0.030 Neutrophils # 5.3 Lymphocytes # 0.6 L Monocytes # 0.6 Eosinophils # 0.4 Basophils # 0.0 Nucleated Red Blood 0.0 Cells # Sodium Level 137 Potassium Level 3.8 Chloride Level 110 Carbon Dioxide Level 20 L Anion Gap 7 Blood Urea Nitrogen 30 H Creatinine 0.77 Est Glomerular Filtrat Rate mL/min Glucose Level 172 Calcium Level 8.9 Phosphorus Level 3.2 Magnesium Level 1.9 Bedside Glucose 199 162 Medications Medication Current Medications IV Flush (NS 3 ml) 3 ml PER PROTOCOL IV ; Start 06/03/18 at 12:00 Ondansetron HCl (Zofran Inj) 4 mg Q6H PRN IV NAUSEA/VOMITING Last administered on 06/06/18at 09:36; Admin Dose 4 MG; Start 06/03/18 at 12:00 Acetaminophen (Tylenol Tab) 650 mg Q6H PRN PO .PAIN 1-3 OR TEMP; Start 06/03/18 at 12:00 Acetaminophen/ Hydrocodone Bitart ([place] (5/325)) 1 tab Q6H PRN PO .MOD PAIN 4- 6; Start 06/03/18 at 12:00 Morphine Sulfate (morphine) 2 mg Q4H PRN IV .SEVERE PAIN 7-10; Start 06/03/18 at 12:00 Docusate Sodium (Colace) 100 mg Q12H PRN PO .CONSTIPATION; Start 06/03/18 at 12:00 Magnesium Hydroxide (Milk Of Mag) 30 ml DAILY PRN PO .CONSTIPATION; Start 06/03/18 at 12:00 Pantoprazole (Protonix Iv) 40 mg BID@0600,1800 IV Last administered on 06/12/18 05:14; Admin Dose 40 MG; Start 06/03/18 at 18:00 Lorazepam (Ativan) 0.5 mg Q6H PRN IV ANXIETY; Start 06/03/18 at 12:00 Albuterol/ Ipratropium (Duoneb) 3 ml Q4H RESP THERAPY PRN HHN SHORTNESS OF BREATH; Start 06/03/18 at 12:00 Nitroglycerin (Nitroglycerin (Sl Tab) 0.4 Mg) 1 tab Q5M PRN SL ANGINA; Start 06/03/18 at 12:00 Folic Acid (Folic Acid) 0.4 mg DAILY GTB Last administered on 06/06/18 09:16; Admin Dose 0.4 MG; Start 06/04/18 at 09:00 Multivitamins Therapeutic (Theragran) 1 tab DAILY GTB Last administered on 06/06/18 09:16; Admin Dose 1 TAB; Start 06/04/18 at 09:00 Docusate Sodium (Colace Liquid Cup) 100 mg DAILY GTB Last administered on 06/06/18 09:16; Admin Dose 100 MG; Start 06/04/18 at 09:00 Nystatin (Nystatin Powder) 1 applic BID TOP Last administered on 06/12/18 09:23; Admin Dose 1 APPLIC; Start 06/04/18 at 15:30 Clotrimazole (Lotrimin Cr) 1 applic BID TOP Last administered on 06/12/18 09:23; Admin Dose 1 APPLIC; Start 06/05/18 at 12:00 Diagnostic Test (Pha) (Accu-Chek) 1 ea Q4 XX Last administered on 06/12/18 12:31; Admin Dose 1 EA; Start 06/07/18 at 11:00 Total Parenteral Nutrition 1,000 ml @ 60 mls/hr [id number] IV Last administered on 06/12/18 04:51; Admin Dose 60 MLS/HR; Start 06/07/18 at 11:00 Metoclopramide HCl (Reglan) 10 mg Q6 IV Last administered on 06/12/18at 12:05; Admin Dose 10 MG; Start 06/06/18 at 18:00 Diagnostic Test (Pha) (Accu-Chek) 1 ea 02 XX Last administered on 06/10/18at 01:20; Admin Dose 1 EA; Start 06/07/18 at 02:00 Insulin Aspart (Novolog Insulin Pen) NOVOLOG *MILD* ALGORI... Q4 SC Last administered on 06/12/18at 12:35; Admin Dose 1 UNIT; Start 06/06/18 at 13:30 Miscellaneous Information 1 ea NOTE XX ; Start 06/06/18 at 13:00 Glucose (Glutose) 15 gm Q15M PRN PO DECREASED GLUCOSE; Start 06/06/18 at 13:00 Glucose (Glutose) 22.5 gm Q15M PRN PO DECREASED GLUCOSE; Start 06/06/18 at 13:00 Dextrose (D50w Syringe) 25 ml Q15M PRN IV DECREASED GLUCOSE; Start 06/06/18 at 13:00 Dextrose (D50w Syringe) 50 ml Q15M PRN IV DECREASED GLUCOSE; Start 06/06/18 at 13:00 Glucagon (Glucagen) 1 mg Q15M PRN IM DECREASED GLUCOSE; Start 06/06/18 at 13:00 Glucose (Glutose) 15 gm Q15M PRN BUCCAL DECREASED GLUCOSE; Start 06/06/18 at 13:00 Vancomycin HCl (Vanco Iv Per Pharmacy) VANCOMYCIN PER PHARMACY PER PROTOCOL XX ; Start 06/07/18 at 09:00 Vancomycin HCl 250 ml @ 125 mls/hr Q24H IVPB Last administered on 06/12/18at 1 0:29; Admin Dose 125 MLS/HR; Start 06/08/18 at 10:00 Miscellaneous Information (* Miscellaneous Pharmacy Order) TODAY PT IS GETTING PICC LI... ONCE XX ; Start 06/07/18 at 10:30 Bisacodyl (Dulcolax Supp) 10 mg DAILY PRN [place] CONSTIPATION; Start 06/07/18 at 11:30 IV Flush (NS 10 ml) 10 ml PRN PRN IV IV PROTOCOL; Start 06/07/18 at 14:00 Alteplase, Recombinant (Cathflo (Activase)) 4 mg MAY REPEAT X1 PRN CATHETER IF CATHETER REMAINS OCCULUDED Last administered on 06/09/18at 10:58; Admin Dose 4 MG; Start 06/09/18 at 10:30 Hydralazine HCl (Apresoline) 5 mg Q6H PRN IV sbp>160 Last administered on 06/11/18at 14:08; Admin Dose 5 MG; Start 06/10/18 at 09:30 Amikacin Sulfate 1000 mg/Sodium Chloride 254 ml @ 254 mls/hr Q36H IVPB Last administered on 06/12/18at 13:01; Admin Dose 254 MLS/HR; Start 06/12/18 at 14:00; Stop 06/12/18 at 18:00 Potassium Chloride 50 ml @ 50 mls/hr ONCE IVPB ; Start 06/12/18 at 15:00; Stop 06/12/18 at 15:59 Magnesium Sulfate/ Dextrose 100 ml @ 100 mls/hr ONCE IVPB ; Start 06/12/18 at 15 :00; Stop 06/12/18 at 15:59 ALFREDO MENSAH NP Jun 12, 2018 14:19
[2018-06-12 14:37] VITALS: BP 148/51; PULSE 66; RESP 16
[2018-06-12] MEDS ORDERED: MAGNESIUM SULFATE 1 GM/D5W 100 ML IVPB SCH (15:00)
[2018-06-12] MEDS ORDERED: POTASSIUM CHLORIDE 50 ML IVPB SCH (15:00)
[2018-06-12 20:00] VITALS: BP 163/66; PULSE 63; RESP 18
[2018-06-12] MEDS: ALTEPLASE (CATHFLO) 2 MG INJ CATHETER PRN (23:10)
[2018-06-13] MEDS: TPN 1,000 ML IV SCH ×2 (00:03→12:07)
[2018-06-13] MEDS: INSULIN ASPART [NOVOLOG] 3 ML PEN SC SCH ×6 (00:41→21:00)
[2018-06-13] MEDS: ACCU-CHEK XX SCH ×7 (00:41→21:04)
[2018-06-13] MEDS: METOCLOPRAMIDE 10 MG INJ IV SCH ×5 (00:42→23:54)
[2018-06-13 02:00] VITALS: BP 152/67; PULSE 90; RESP 19
[2018-06-13] MEDS: PANTOPRAZOLE 40 MG INJ IV SCH ×2 (05:01→18:12)
[2018-06-13 07:53] VITALS: BP 153/59; PULSE 70; RESP 17
[2018-06-13] MEDS: FOLIC ACID 0.4 MG TAB GTB SCH (08:45)
[2018-06-13] MEDS: DOCUSATE SODIUM 10 MG/ML (10ML CUP) GTB SCH (08:45)
[2018-06-13] MEDS: MULTIVITAMINS THERAPEUTIC TAB GTB SCH (08:45)
[2018-06-13] MEDS: CLOTRIMAZOLE 1% 30 GM CR TOP SCH ×2 (08:46→21:03)
[2018-06-13] MEDS: NYSTATIN 30 GM POWDER BTL TOP SCH ×2 (08:46→21:03)
[2018-06-13] MEDS: VANCOMYCIN 1 GM 250 ML IVPB SCH (08:49)
--- NOTE | 2018-06-13 12:13 | PN ---
Date/Time of Note Date/Time of Note DATE: 06/13/18 TIME: 12:11 Assessment/Plan VTE Prophylaxis Risk score (from Ns)>0 risk: 5 SCD applied (from Ns): Yes Pharmacological prophylaxis: NA/contraindicated Pharm contraindication: bleeding Lines/Catheters IV Catheter Type (from Nrsg): PICC Line Central line still needed: Yes Urinary Cath still in place: No Assessment/Plan Hospital Course SUBJECTIVE:no acute distress.. OBJECTIVE: Vital signs-see below PHYSICAL EXAM: Constitutional: Frail looking, elderly female, lying in bed comfortably. Psych: nl mood/affect, no complaints Head: atraumatic, normocephalic Eyes: nl conjunctiva, nl sclera ENMT: mucosa pink and moist, nl external ears & nose Neck: non-tender, supple Respiratory: clear to auscultation, normal air movement Cardiovascular: nl pulses, regular rate and rhythm Gastrointestinal:G tube site red. not much output-site looks significantly improved.... soft, bowel sounds active in all 4 quadrants. Musculoskeletal/extremities: nl extremities to inspection, motor strength equal bilaterally, no focal deficit. Normal pulses,no cyanosis, no edema. Neurological: Forgetful/dementia. Alert to self and place. Nl speech, nl strength Skin: nl turgor ASSESSMENT/PLAN: 83-year-old female with a history of gastric cancer, status post PEG, gastritis, erosive esophagitis, dementia, was transferred from half-way with rectal bleed, also found to have bacteremia with leaki ng/infected/malfxn G-tube requiring G-tube removal... 1. Acute GI bleed, hematochezia -Resolved -Status post EGD:1.5 cm proximal gastric polyp. Post polypectomy plus Endo Clip placement. -Deferred colonoscopy given therapeutic procedure and need for Endo Clip. -Continue iv Protonix -Avoid NSAIDs, antiplatelets, anticoagulation 2. Infected G-tube/malfunctioning tube. G-tube site grew [place] albicans/Ecoli/Yeast. -GI on board=>s/p removal of Gtube 06/06. -G-tube site healed and per GI recommendation, plan is a new PEG placement likely in a.m. -cont.local Gt site care 3. Coagulase-negative staph bacteremia, x2 sets. -Likely source G-tube. -Antibiotic management per ID. Currently on vancomycin=> approaching course completion -repeat cultures NGTD 4. E. coli UTI -Treated appropriately. 5. Acute on chronic anemia. Acute anemia secondary to GI bleed -Now stable. Monitor 6. History of gastric cancer 7. Osteoporosis -Supportive care, resume home medications -Continued PT evaluation 8. Dementia -Supportive care DVT prophylaxis: SCDs, anticoagulation contraindicated secondary to bleeding PUD prophylaxis: Protonix CODE STATUS: Full code Diet: TPN Disposition: Overall, G-tube site looks better, healing nicely. GI recommends PEG placement likely on Sunday. Continue TPN until a new PEG is placed. Patient was seen in collaboration with Result Diagram: 06/13/18 0606/13/18 06 Results 24hrs Laboratory Tests Test 06/12/18 12:32 06/12/18 16:44 06/12/18 20:55 06/13/18 00:40 Bedside Glucose 162 154 192 95 Test 06/13/18 04:56 06/13/18 06:01 06/13/18 08:45 06/13/18 12:06 Bedside Glucose 189 167 152 White Blood Count 6.4 Red Blood Count 3.11 L Hemoglobin 9.6 L Hematocrit 28.9 L Mean Corpuscular Volume 92.9 Mean Corpuscular 30.9 Hemoglobin Mean Corpuscular 33.2 Hemoglobin Concent Red Cell Distribution 12.9 Width Platelet Count 250 Mean Platelet Volume 10.2 Immature Granulocytes % 0.600 H Neutrophils % 74.7 Lymphocytes % 9.5 L Monocytes % 8.1 Eosinophils % 6.5 Basophils % 0.6 Nucleated Red Blood 0.0 Cells % Immature Granulocytes # 0.040 H Neutrophils # 4.8 Lymphocytes # 0.6 L Monocytes # 0.5 Eosinophils # 0.4 Basophils # 0.0 Nucleated Red Blood 0.0 Cells # Sodium Level 136 Potassium Level 3.6 Chloride Level 111 H Carbon Dioxide Level 19 L Anion Gap 6 Blood Urea Nitrogen 27 H Creatinine 0.77 Est Glomerular Filtrat Rate mL/min Glucose Level 167 Calcium Level 8.9 Phosphorus Level 2.9 Magnesium Level 1.8 Prealbumin 16.3 L Exam/Review of Systems Exam Vitals Vital Signs Date Temp Pulse Resp B/P (MAP) Pulse Ox O2 O2 Flow FiO2 Time Delivery Rate 06/13/18 97.9 70 17 153/59 99 Room Air 07:53 (90) Intake and Output 06/12/18 06/12/18 06/13/18 1515:00 23:00 07:00 IntakeIntake Total 250 ml 1064 ml 698 ml BalanceBalance 250 ml 1064 ml 698 ml Results Results 24hrs Laboratory Tests Test 06/12/18 12:32 06/12/18 16:44 06/12/18 20:55 06/13/18 00:40 Bedside Glucose 162 154 192 95 Test 06/13/18 04:56 06/13/18 06:01 06/13/18 08:45 06/13/18 12:06 Bedside Glucose 189 167 152 White Blood Count 6.4 Red Blood Count 3.11 L Hemoglobin 9.6 L Hematocrit 28.9 L Mean Corpuscular Volume 92.9 Mean Corpuscular 30.9 Hemoglobin Mean Corpuscular 33.2 Hemoglobin Concent Red Cell Distribution 12.9 Width Platelet Count 250 Mean Platelet Volume 10.2 Immature Granulocytes % 0.600 H Neutrophils % 74.7 Lymphocytes % 9.5 L Monocytes % 8.1 Eosinophils % 6.5 Basophils % 0.6 Nucleated Red Blood 0.0 Cells % Immature Granulocytes # 0.040 H Neutrophils # 4.8 Lymphocytes # 0.6 L Monocytes # 0.5 Eosinophils # 0.4 Basophils # 0.0 Nucleated Red Blood 0.0 Cells # Sodium Level 136 Potassium Level 3.6 Chloride Level 111 H Carbon Dioxide Level 19 L Anion Gap 6 Blood Urea Nitrogen 27 H Creatinine 0.77 Est Glomerular Filtrat Rate mL/min Glucose Level 167 Calcium Level 8.9 Phosphorus Level 2.9 Magnesium Level 1.8 Prealbumin 16.3 L Medications Medication Current Medications IV Flush (NS 3 ml) 3 ml PER PROTOCOL IV ; Start 06/03/18 at 12:00 Ondansetron HCl (Zofran Inj) 4 mg Q6H PRN IV NAUSEA/VOMITING Last administered on 06/06/18at 09:36; Admin Dose 4 MG; Start 06/03/18 at 12:00 Acetaminophen (Tylenol Tab) 650 mg Q6H PRN PO .PAIN 1-3 OR TEMP; Start 06/03/18 at 12:00 Acetaminophen/ Hydrocodone Bitart (Mobile (5/325)) 1 tab Q6H PRN PO .MOD PAIN 4- 6; Start 06/03/18 at 12:00 Morphine Sulfate (morphine) 2 mg Q4H PRN IV .SEVERE PAIN 7-10; Start 06/03/18 at 12:00 Docusate Sodium (Colace) 100 mg Q12H PRN PO .CONSTIPATION; Start 06/03/18 at 12:00 Magnesium Hydroxide (Milk Of Mag) 30 ml DAILY PRN PO .CONSTIPATION; Start 06/03/18 at 12:00 Pantoprazole (Protonix Iv) 40 mg BID@0600,1800 IV Last administered on 06/13/18 05:01; Admin Dose 40 MG; Start 06/03/18 at 18:00 Lorazepam (Ativan) 0.5 mg Q6H PRN IV ANXIETY; Start 06/03/18 at 12:00 Albuterol/ Ipratropium (Duoneb) 3 ml Q4H RESP THERAPY PRN HHN SHORTNESS OF BREATH; Start 06/03/18 at 12:00 Nitroglycerin (Nitroglycerin (Sl Tab) 0.4 Mg) 1 tab Q5M PRN SL ANGINA; Start 06/03/18 at 12:00 Folic Acid (Folic Acid) 0.4 mg DAILY GTB Last administered on 06/06/18 09:16; Admin Dose 0.4 MG; Start 06/04/18 at 09:00 Multivitamins Therapeutic (Theragran) 1 tab DAILY GTB Last administered on 06/06/18 09:16; Admin Dose 1 TAB; Start 06/04/18 at 09:00 Docusate Sodium (Colace Liquid Cup) 100 mg DAILY GTB Last administered on 06/06/18 09:16; Admin Dose 100 MG; Start 06/04/18 at 09:00 Nystatin (Nystatin Powder) 1 applic BID TOP Last administered on 06/13/18 08:46; Admin Dose 1 APPLIC; Start 06/04/18 at 15:30 Clotrimazole (Lotrimin Cr) 1 applic BID TOP Last administered on 06/13/18 08:46; Admin Dose 1 APPLIC; Start 06/05/18 at 12:00 Diagnostic Test (Pha) (Accu-Chek) 1 ea Q4 XX Last administered on 06/13/18 05:10; Admin Dose 1 EA; Start 06/07/18 at 11:00 Total Parenteral Nutrition 1,000 ml @ 60 mls/hr [id number] IV Last administered on 06/13/18at 00:03; Admin Dose 60 MLS/HR; Start 06/07/18 at 11:00 Metoclopramide HCl (Reglan) 10 mg Q6 IV Last administered on 06/13/18at 05:03; Admin Dose 10 MG; Start 06/06/18 at 18:00 Diagnostic Test (Pha) (Accu-Chek) 1 ea 02 XX Last administered on 06/10/18at 01:20; Admin Dose 1 EA; Start 06/07/18 at 02:00 Insulin Aspart (Novolog Insulin Pen) NOVOLOG *MILD* ALGORI... Q4 SC Last administered on 06/13/18at 08:48; Admin Dose 1 UNIT; Start 06/06/18 at 13:30 Miscellaneous Information 1 ea NOTE XX ; Start 06/06/18 at 13:00 Glucose (Glutose) 15 gm Q15M PRN PO DECREASED GLUCOSE; Start 06/06/18 at 13:00 Glucose (Glutose) 22.5 gm Q15M PRN PO DECREASED GLUCOSE; Start 06/06/18 at 13:00 Dextrose (D50w Syringe) 25 ml Q15M PRN IV DECREASED GLUCOSE; Start 06/06/18 at 13:00 Dextrose (D50w Syringe) 50 ml Q15M PRN IV DECREASED GLUCOSE; Start 06/06/18 at 13:00 Glucagon (Glucagen) 1 mg Q15M PRN IM DECREASED GLUCOSE; Start 06/06/18 at 13:00 Glucose (Glutose) 15 gm Q15M PRN BUCCAL DECREASED GLUCOSE; Start 06/06/18 at 13:00 Vancomycin HCl 250 ml @ 125 mls/hr Q24H IVPB Last administered on 06/13/18at 08:49; Admin Dose 125 MLS/HR; Start 06/08/18 at 10:00; Stop 06/13/18 at 20:00 Miscellaneous Information (* Miscellaneous Pharmacy Order) TODAY PT IS GETTING PICC LI... ONCE XX ; Start 06/07/18 at 10:30 Bisacodyl (Dulcolax Supp) 10 mg DAILY PRN [place] CONSTIPATION; Start 06/07/18 at 11:30 IV Flush (NS 10 ml) 10 ml PRN PRN IV IV PROTOCOL; Start 3/1/19 at 14:00 Alteplase, Recombinant (Cathflo (Activase)) 4 mg MAY REPEAT X1 PRN CATHETER IF CATHETER REMAINS OCCULUDED Last administered on 06/12/18at 23:10; Admin Dose 4 MG; Start 06/09/18 at 10:30 Hydralazine HCl (Apresoline) 5 mg Q6H PRN IV sbp>160 Last administered on 06/11/18at 14:08; Admin Dose 5 MG; Start 06/10/18 at 09:30 ALFREDO MENSAH NP Jun 13, 2018 12:13
--- NOTE | 2018-06-13 13:55 | PN ---
Date/Time of Note Date/Time of Note DATE: 06/13/18 TIME: 13:53 Assessment/Plan VTE Prophylaxis Risk score (from Ns)>0 risk: 5 SCD applied (from Ns): Yes Pharmacological prophylaxis: other (scds) Lines/Catheters IV Catheter Type (from Nrsg): PICC Line Central line still needed: Yes (tpn) Urinary Cath still in place: No Assessment/Plan Hospital Course Summary Assessment and Plan: Assessment: Normocytic anemia EGD 06/04/18 Impression: 1.5 cm proximal gastric polyp. Post polypectomy plus Endo Clip placement. Post placement of Lithuan[place] 24-20 cc replacement gastrostomy tube. Otherwise normal EGD. Melena/hematochezia Malfunctioning gastrostomy tube/infected site Hx of Gastric cancer s/p PEG placement (30 fr) Dementia Bacteremia -Blood cultures x2 growing gram-positive cocci UTI- with E.coli - Plan: Plan for PEG placement Sunday Apply barrier cream to opening of ostomy- to protect skin from gastric drainage Continue current regimen Pt seen in collaboration with Dr. Lopez/Xiao Subjective: Course reviewed with nursing staff Patient interviewed and examined All labs, imaging and other results reviewed No over night events, pt continues to have drainage from ostomy site Given leakage from old ostomy site we will proceed with with PEG Sunday PHYSICAL EXAMINATION: GENERAL: Alert & confused SKIN: No lesions, no stigmata chronic liver disease, no evidence of bleeding diathesis HEAD: Normocephalic, atraumatic, no tenderness. EYES: Pupils equal reactive to light and accommodation, full extraocular movements, sclera clear, non-icteric, no discharge. EARS/NOSE AND THROAT: Ears normal, nose normal, oropharynx normal, oral membr anes well hydrated without lesions. NECK: Supple, no masses CARDIOVASCULAR: Heart: Regular rate and rhythm RESPIRATORY: Lungs clear to auscultation GASTROINTESTINAL AND LIVER: Abdomen: Soft, non tenderness, non-distended, ostomy site slowly healing, redness likely 2/2 to gastric drainage- improved, no rebound tenderness, normoactive bowel sounds. Rectal: Deferred. Result Diagram: 06/13/18 0606/13/18 06 Results 24hrs Laboratory Tests Test 06/12/18 16:44 06/12/18 20:55 06/13/18 00:40 06/13/18 04:56 Bedside Glucose 154 192 95 189 Test 06/13/18 06:01 06/13/18 08:45 06/13/18 12:06 White Blood Count 6.4 Red Blood Count 3.11 L Hemoglobin 9.6 L Hematocrit 28.9 L Mean Corpuscular Volume 92.9 Mean Corpuscular 30.9 Hemoglobin Mean Corpuscular 33.2 Hemoglobin Concent Red Cell Distribution 12.9 Width Platelet Count 250 Mean Platelet Volume 10.2 Immature Granulocytes % 0.600 H Neutrophils % 74.7 Lymphocytes % 9.5 L Monocytes % 8.1 Eosinophils % 6.5 Basophils % 0.6 Nucleated Red Blood 0.0 Cells % Immature Granulocytes # 0.040 H Neutrophils # 4.8 Lymphocytes # 0.6 L Monocytes # 0.5 Eosinophils # 0.4 Basophils # 0.0 Nucleated Red Blood 0.0 Cells # Sodium Level 136 Potassium Level 3.6 Chloride Level 111 H Carbon Dioxide Level 19 L Anion Gap 6 Blood Urea Nitrogen 27 H Creatinine 0.77 Est Glomerular Filtrat Rate mL/min Glucose Level 167 Calcium Level 8.9 Phosphorus Level 2.9 Magnesium Level 1.8 Prealbumin 16.3 L Bedside Glucose 167 152 Exam/Review of Systems Exam Vitals Vital Signs Date Temp Pulse Resp B/P (MAP) Pulse Ox O2 O2 Flow FiO2 Time Delivery Rate 06/13/18 97.9 70 17 153/59 99 Room Air 07:53 (90) Intake and Output 06/12/18 06/12/18 06/13/18 1515:00 23:00 07:00 IntakeIntake Total 250 ml 1064 ml 698 ml BalanceBalance 250 ml 1064 ml 698 ml Results Results 24hrs Laboratory Tests Test 06/12/18 16:44 06/12/18 20:55 06/13/18 00:40 06/13/18 04:56 Bedside Glucose 154 192 95 189 Test 06/13/18 06:01 06/13/18 08:45 06/13/18 12:06 White Blood Count 6.4 Red Blood Count 3.11 L Hemoglobin 9.6 L Hematocrit 28.9 L Mean Corpuscular Volume 92.9 Mean Corpuscular 30.9 Hemoglobin Mean Corpuscular 33.2 Hemoglobin Concent Red Cell Distribution 12.9 Width Platelet Count 250 Mean Platelet Volume 10.2 Immature Granulocytes % 0.600 H Neutrophils % 74.7 Lymphocytes % 9.5 L Monocytes % 8.1 Eosinophils % 6.5 Basophils % 0.6 Nucleated Red Blood 0.0 Cells % Immature Granulocytes # 0.040 H Neutrophils # 4.8 Lymphocytes # 0.6 L Monocytes # 0.5 Eosinophils # 0.4 Basophils # 0.0 Nucleated Red Blood 0.0 Cells # Sodium Level 136 Potassium Level 3.6 Chloride Level 111 H Carbon Dioxide Level 19 L Anion Gap 6 Blood Urea Nitrogen 27 H Creatinine 0.77 Est Glomerular Filtrat Rate mL/min Glucose Level 167 Calcium Level 8.9 Phosphorus Level 2.9 Magnesium Level 1.8 Prealbumin 16.3 L Bedside Glucose 167 152 Medications Medication Current Medications IV Flush (NS 3 ml) 3 ml PER PROTOCOL IV ; Start 06/03/18 at 12:00 Ondansetron HCl (Zofran Inj) 4 mg Q6H PRN IV NAUSEA/VOMITING Last administered on 06/06/18at 09:36; Admin Dose 4 MG; Start 06/03/18 at 12:00 Acetaminophen (Tylenol Tab) 650 mg Q6H PRN PO .PAIN 1-3 OR TEMP; Start 06/03/18 at 12:00 Acetaminophen/ Hydrocodone Bitart (Gordon (5/325)) 1 tab Q6H PRN PO .MOD PAIN 4- 6; Start 06/03/18 at 12:00 Morphine Sulfate (morphine) 2 mg Q4H PRN IV .SEVERE PAIN 7-10; Start 06/03/18 at 12:00 Docusate Sodium (Colace) 100 mg Q12H PRN PO .CONSTIPATION; Start 06/03/18 at 12:00 Magnesium Hydroxide (Milk Of Mag) 30 ml DAILY PRN PO .CONSTIPATION; Start 06/03/18 at 12:00 Pantoprazole (Protonix Iv) 40 mg BID@0600,1800 IV Last administered on 06/13/18at 05:01; Admin Dose 40 MG; Start 06/03/18 at 18:00 Lorazepam (Ativan) 0.5 mg Q6H PRN IV ANXIETY; Start 06/03/18 at 12:00 Albuterol/ Ipratropium (Duoneb) 3 ml Q4H RESP THERAPY PRN HHN SHORTNESS OF BREATH; Start 06/03/18 at 12:00 Nitroglycerin (Nitroglycerin (Sl Tab) 0.4 Mg) 1 tab Q5M PRN SL ANGINA; Start 06/03/18 at 12:00 Folic Acid (Folic Acid) 0.4 mg DAILY GTB Last administered on 06/06/18 09:16; Admin Dose 0.4 MG; Start 06/04/18 at 09:00 Multivitamins Therapeutic (Theragran) 1 tab DAILY GTB Last administered on 06/06/18 09:16; Admin Dose 1 TAB; Start 06/04/18 at 09:00 Docusate Sodium (Colace Liquid Cup) 100 mg DAILY GTB Last administered on 06/06/18 09:16; Admin Dose 100 MG; Start 06/04/18 at 09:00 Nystatin (Nystatin Powder) 1 applic BID TOP Last administered on 06/13/18 08:46; Admin Dose 1 APPLIC; Start 06/04/18 at 15:30 Clotrimazole (Lotrimin Cr) 1 applic BID TOP Last administered on 06/13/18 08:46; Admin Dose 1 APPLIC; Start 06/05/18 at 12:00 Diagnostic Test (Pha) (Accu-Chek) 1 ea Q4 XX Last administered on 06/13/18 05:10; Admin Dose 1 EA; Start 06/07/18 at 11:00 Total Parenteral Nutrition 1,000 ml @ 60 mls/hr [id number] IV Last administered on 06/13/18 12:07; Admin Dose 60 MLS/HR; Start 06/07/18 at 11:00 Metoclopramide HCl (Reglan) 10 mg Q6 IV Last administered on 06/13/18 12:07; Admin Dose 10 MG; Start 06/06/18 at 18:00 Diagnostic Test (Pha) (Accu-Chek) 1 ea 02 XX Last administered on 06/10/18 01:20; Admin Dose 1 EA; Start 06/07/18 at 02:00 Insulin Aspart (Novolog Insulin Pen) NOVOLOG *MILD* ALGORI... Q4 SC Last administered on 06/13/18 12:11; Admin Dose 1 UNIT; Start 06/06/18 at 13:30 Miscellaneous Information 1 ea NOTE XX ; Start 06/06/18 at 13:00 Glucose (Glutose) 15 gm Q15M PRN PO DECREASED GLUCOSE; Start 06/06/18 at 13:00 Glucose (Glutose) 22.5 gm Q15M PRN PO DECREASED GLUCOSE; Start 06/06/18 at 13:00 Dextrose (D50w Syringe) 25 ml Q15M PRN IV DECREASED GLUCOSE; Start 06/06/18 at 13:00 Dextrose (D50w Syringe) 50 ml Q15M PRN IV DECREASED GLUCOSE; Start 06/06/18 at 13:00 Glucagon (Glucagen) 1 mg Q15M PRN IM DECREASED GLUCOSE; Start 06/06/18 at 13:00 Glucose (Glutose) 15 gm Q15M PRN BUCCAL DECREASED GLUCOSE; Start 06/06/18 at 13:00 Vancomycin HCl 250 ml @ 125 mls/hr Q24H IVPB Last administered on 06/13/18at 08:49; Admin Dose 125 MLS/HR; Start 06/08/18 at 10:00; Stop 06/13/18 at 20:00 Miscellaneous Information (* Miscellaneous Pharmacy Order) TODAY PT IS GETTING PICC LI... ONCE XX ; Start 06/07/18 at 10:30 Bisacodyl (Dulcolax Supp) 10 mg DAILY PRN [place] CONSTIPATION; Start 06/07/18 at 11:30 IV Flush (NS 10 ml) 10 ml PRN PRN IV IV PROTOCOL; Start 06/07/18 at 14:00 Alteplase, Recombinant (Cathflo (Activase)) 4 mg MAY REPEAT X1 PRN CATHETER IF CATHETER REMAINS OCCULUDED Last administered on 06/12/18at 23:10; Admin Dose 4 MG; Start 06/09/18 at 10:30 Hydralazine HCl (Apresoline) 5 mg Q6H PRN IV sbp>160 Last administered on 06/11/18at 14:08; Admin Dose 5 MG; Start 06/10/18 at 09:30 DORIS BAUMANN Jun 13, 2018 13:54
[2018-06-13 14:00] VITALS: BP 113/60; PULSE 72; RESP 17
[2018-06-13] MEDS: D5W-0.45 NACL + KCL 20 MEQ 1,000 ML IV SCH (19:42)
[2018-06-13 20:00] VITALS: BP 148/64; PULSE 82; RESP 19
[2018-06-14] MEDS: ACCU-CHEK XX SCH ×7 (01:00→20:25)
[2018-06-14] MEDS: INSULIN ASPART [NOVOLOG] 3 ML PEN SC SCH ×6 (01:00→20:18)
[2018-06-14 02:00] VITALS: BP 156/66; PULSE 70; RESP 17
[2018-06-14] MEDS: PANTOPRAZOLE 40 MG INJ IV SCH ×2 (05:05→17:04)
[2018-06-14] MEDS: METOCLOPRAMIDE 10 MG INJ IV SCH ×3 (05:06→17:04)
[2018-06-14 07:25] VITALS: BP 157/48; PULSE 72; RESP 18
[2018-06-14] MEDS: FOLIC ACID 0.4 MG TAB GTB SCH (07:36)
[2018-06-14] MEDS: DOCUSATE SODIUM 10 MG/ML (10ML CUP) GTB SCH (07:36)
[2018-06-14] MEDS: MULTIVITAMINS THERAPEUTIC TAB GTB SCH (07:37)
--- NOTE | 2018-06-14 07:47 | CONS ---
Assessment/Plan Assessment/Plan Hospital Course (Demo Recall) 1) GPC in blood cx, both sets (CoNS) continue with vanco will repeat blood cx tomorrow via picc line that is being placed right now the source is likely the g-tube site 06/08 - blood cx grew staph species, likely staph aureus continue with vanco repeat blood cx via PICC line 06/09 - pt has both sets of blood cx growing two different kinds of CoNS, not s.aureus pt will only need one week of IV vanco 06/10 - continue IV vanco thru a.m. of 06/13/18 get repeat blood cx via picc line 06/12 - repeat blood cx are NGTD continue IV vanco thru tomorrow a.m. 06/14 - g-tube site is not draining, almost closed off antibiotics now no fever and normal WBC, I will sign off on case 2) infected g-tube site doubt the yeast is significant, to d/c diflucan but continue with topical lotrimin GNR is also likely not to be significant at this time just continue with IV vanco pt is NPO and TPN is planned till pt can get a new g-tube site 06/08 - stable, site still has drainage, yellow/brown in color e.coli is likely in urine also, start gentamicin 06/09 - no antonio cellulitis seen, but still has drainage 06/10 - redness around g-tube site likely due to acid content of continue gastric drainage 06/11 - on amikacin/vanco and topical lotrimin but most of macerated skin is likely from gastric acid rather than infection 06/12 - spoke to nurse regarding protective skin barrier around the g-tube site doubt she has cellulitis there amikacin is completed after today's dose drainage seems to be decreasing but nurses erratically record output 06/14 - off antibiotics, drainage is non existent, I will sign off 3) hx of gastric CA 4) gi bleed this has improved, upper endo showed gastric polyp lower endo is pending 5) DM sugars are not too bad and have improved 6) dementia 7) pyuria 06/08 urine cx has GNR (likely e.coli) no symptoms but to add gent to regimen 06/09 - e.coli in urine is sensitive to amikacin anticipate only 3-5 day course of it change gent to amikacin since sensi's to gent are not finalized 06/10 - e.coli is sensitive to gent and amikacin continue with amikacin thru a.m. of 06/12 06/12 - d/c amikacin after today's dose Consultation Date/Type/Reason Admit Date/Time Jun 03, 2018 at 09:39 Initial Consult Date 06/07/18 Type of Consult ID Date/Time of Note DATE: 06/14/18 TIME: 07:44 24 HR Interval Summary Free Text/Dictation no new events Exam/Review of Systems Exam Vitals Vital Signs Date Temp Pulse Resp B/P (MAP) Pulse Ox O2 O2 Flow FiO2 Time Delivery Rate 06/14/18 97.1 72 18 157/48 100 07:25 (84) 06/13/18 Room Air 14:00 Intake and Output 06/13/18 06/13/18 06/14/18 1515:00 23:00 07:00 IntakeIntake Total 1250 ml 600 ml BalanceBalance 1250 ml 600 ml Exam pt opens eyes Head: normocephalic ENMT: mucosa pink and moist Respiratory: clear to auscultation Cardiovascular: regular rate and rhythm Gastrointestinal: soft, non-tender Results Result Diagram: 06/14/18 0629 06/13/18 0601 Results 24hrs Laboratory Tests Test 06/13/18 08:45 06/13/18 12:06 06/13/18 17:26 06/13/18 20:57 Bedside Glucose 167 152 106 123 Test 06/14/18 01:44 06/14/18 05:00 06/14/18 06:29 Bedside Glucose 115 131 White Blood Count 6.1 Red Blood Count 3.12 L Hemoglobin 9.7 L Hematocrit 28.7 L Mean Corpuscular Volume 92.0 Mean Corpuscular 31.1 Hemoglobin Mean Corpuscular 33.8 Hemoglobin Concent Red Cell Distribution 12.9 Width Platelet Count 261 Mean Platelet Volume 10.1 Immature Granulocytes % 0.500 H Neutrophils % 67.1 Lymphocytes % 10.6 L Monocytes % 11.7 H Eosinophils % 9.3 H Basophils % 0.8 Nucleated Red Blood 0.0 Cells % Immature Granulocytes # 0.030 Neutrophils # 4.1 Lymphocytes # 0.6 L Monocytes # 0.7 Eosinophils # 0.6 H Basophils # 0.1 Nucleated Red Blood 0.0 Cells # Phosphorus Level 3.7 Magnesium Level 1.7 Medications Medication Current Medications IV Flush (NS 3 ml) 3 ml PER PROTOCOL IV ; Start 06/03/18 at 12:00 Ondansetron HCl (Zofran Inj) 4 mg Q6H PRN IV NAUSEA/VOMITING Last administered on 06/06/18at 09:36; Admin Dose 4 MG; Start 06/03/18 at 12:00 Acetaminophen (Tylenol Tab) 650 mg Q6H PRN PO .PAIN 1-3 OR TEMP; Start 06/03/18 at 12:00 Acetaminophen/ Hydrocodone Bitart ([place] (5/325)) 1 tab Q6H PRN PO .MOD PAIN 4- 6; Start 06/03/18 at 12:00 Morphine Sulfate (morphine) 2 mg Q4H PRN IV .SEVERE PAIN 7-10; Start 06/03/18 at 12:00 Docusate Sodium (Colace) 100 mg Q12H PRN PO .CONSTIPATION; Start 06/03/18 at 12:00 Magnesium Hydroxide (Milk Of Mag) 30 ml DAILY PRN PO .CONSTIPATION; Start 06/03/18 at 12:00 Pantoprazole (Protonix Iv) 40 mg BID@0600,1800 IV Last administered on 06/14/18at 05:05; Admin Dose 40 MG; Start 06/03/18 at 18:00 Lorazepam (Ativan) 0.5 mg Q6H PRN IV ANXIETY; Start 06/03/18 at 12:00 Albuterol/ Ipratropium (Duoneb) 3 ml Q4H RESP THERAPY PRN HHN SHORTNESS OF BREATH; Start 06/03/18 at 12:00 Nitroglycerin (Nitroglycerin (Sl Tab) 0.4 Mg) 1 tab Q5M PRN SL ANGINA; Start 06/03/18 at 12:00 Folic Acid (Folic Acid) 0.4 mg DAILY GTB Last administered on 06/06/18at 09:16; Admin Dose 0.4 MG; Start 06/04/18 at 09:00 Multivitamins Therapeutic (Theragran) 1 tab DAILY GTB Last administered on 06/06/18at 09:16; Admin Dose 1 TAB; Start 06/04/18 at 09:00 Docusate Sodium (Colace Liquid Cup) 100 mg DAILY GTB Last administered on 06/06/18at 09:16; Admin Dose 100 MG; Start 06/04/18 at 09:00 Nystatin (Nystatin Powder) 1 applic BID TOP Last administered on 06/13/18at 21:03; Admin Dose 1 APPLIC; Start 06/04/18 at 15:30 Clotrimazole (Lotrimin Cr) 1 applic BID TOP Last administered on 06/13/18at 21:03; Admin Dose 1 APPLIC; Start 06/05/18 at 12:00 Diagnostic Test (Pha) (Accu-Chek) 1 ea Q4 XX Last administered on 06/14/18at 05:05; Admin Dose 1 EA; Start 06/07/18 at 11:00 Metoclopramide HCl (Reglan) 10 mg Q6 IV Last administered on 06/14/18 05:06; Admin Dose 10 MG; Start 06/06/18 at 18:00 Diagnostic Test (Pha) (Accu-Chek) 1 ea 02 XX Last administered on 06/14/18at 02:15; Admin Dose 1 EA; Start 06/07/18 at 02:00 Insulin Aspart (Novolog Insulin Pen) NOVOLOG *MILD* ALGORI... Q4 SC Last administered on 06/13/18at 12:11; Admin Dose 1 UNIT; Start 06/06/18 at 13:30 Miscellaneous Information 1 ea NOTE XX ; Start 06/06/18 at 13:00 Glucose (Glutose) 15 gm Q15M PRN PO DECREASED GLUCOSE; Start 06/06/18 at 13:00 Glucose (Glutose) 22.5 gm Q15M PRN PO DECREASED GLUCOSE; Start 06/06/18 at 13:00 Dextrose (D50w Syringe) 25 ml Q15M PRN IV DECREASED GLUCOSE; Start 06/06/18 at 13:00 Dextrose (D50w Syringe) 50 ml Q15M PRN IV DECREASED GLUCOSE; Start 06/06/18 at 13:00 Glucagon (Glucagen) 1 mg Q15M PRN IM DECREASED GLUCOSE; Start 06/06/18 at 13:00 Glucose (Glutose) 15 gm Q15M PRN BUCCAL DECREASED GLUCOSE; Start 06/06/18 at 13:00 Miscellaneous Information (* Miscellaneous Pharmacy Order) TODAY PT IS GETTING PICC LI... ONCE XX ; Start 06/07/18 at 10:30 Bisacodyl (Dulcolax Supp) 10 mg DAILY PRN ME CONSTIPATION; Start 06/07/18 at 11:30 IV Flush (NS 10 ml) 10 ml PRN PRN IV IV PROTOCOL; Start 06/07/18 at 14:00 Alteplase, Recombinant (Cathflo (Activase)) 4 mg MAY REPEAT X1 PRN CATHETER IF CATHETER REMAINS OCCULUDED Last administered on 06/12/18at 23:10; Admin Dose 4 MG; Start 06/09/18 at 10:30 Hydralazine HCl (Apresoline) 5 mg Q6H PRN IV sbp>160 Last administered on 06/11/18at 14:08; Admin Dose 5 MG; Start 06/10/18 at 09:30 Potassium Chloride/Dextrose/ Sod Cl 1,000 ml @ 60 mls/hr [id number] IV Last administered on 06/13/18at 19:42; Admin Dose 60 MLS/HR; Start 06/13/18 at 18:30 JOSE NORWOOD MD Jun 14, 2018 07:47
[2018-06-14] MEDS: CLOTRIMAZOLE 1% 30 GM CR TOP SCH ×2 (07:56→20:19)
[2018-06-14] MEDS: NYSTATIN 30 GM POWDER BTL TOP SCH ×2 (07:57→20:19)
[2018-06-14] MEDS: D5W-0.45 NACL + KCL 20 MEQ 1,000 ML IV SCH (10:45)
--- NOTE | 2018-06-14 12:16 | PN ---
Date/Time of Note Date/Time of Note DATE: 06/14/18 TIME: 12:14 Assessment/Plan VTE Prophylaxis Risk score (from Ns)>0 risk: 3 SCD applied (from Ns): Yes Pharmacological prophylaxis: NA/contraindicated Pharm contraindication: bleeding Lines/Catheters IV C[facility] Type (from [facility]): Peripheral IV Urinary Cath still in place: No Assessment/Plan Hospital Course SUBJECTIVE: Patient pulled out her PICC line yesterday. OBJECTIVE: Vital signs-see below PHYSICAL EXAM: Constitutional: Frail looking, elderly female, lying in bed comfortably. Psych: nl mood/affect, no complaints Head: atraumatic, normocephalic Eyes: nl conjunctiva, nl sclera ENMT: mucosa pink and moist, nl external ears & nose Neck: non-tender, supple Respiratory: clear to auscultation, normal air movement Cardiovascular: nl pulses, regular rate and rhythm Gastrointestinal:G tube site red. not much output-site looks significantly improved.... soft, bowel sounds active in all 4 quadrants. Musculoskeletal/extremities: nl extremities to inspection, motor strength equal bilaterally, no focal deficit. Normal pulses,no cyanosis, no edema. Neurological: Forgetful/dementia. Alert to self and place. Nl speech, nl strength Skin: nl turgor ASSESSMENT/PLAN: 83-year-old female with a history of gastric cancer, status post PEG, gastritis, erosive esophagitis, dementia, was transferred from shelter with rectal bleed, also found to have bacteremia with leaking/infected/malfxn G-tube requiring G-tube removal... 1. Acute GI bleed, hematochezia -Resolved -Status post EGD:1.5 cm proximal gastric polyp. Post polypectomy plus Endo Clip placement. -Deferred colonoscopy given therapeutic procedure and need for Endo Clip. -Continue iv Protonix -Avoid NSAIDs, antiplatelets, anticoagulation 2. Infected G-tube/malfunctioning tube. G-tube site grew [place] albicans/Ecoli/Yeast. -GI on board=>s/p removal of Gtube 06/06. -G-tube site healing appropriately/ s/p abx course- ID signed off=> tentatively scheduled for ne PEG placement on Sunday -cont.local Gt site care 3. Coagulase-negative staph bacteremia, x2 sets. -Likely source G-tube. -s/p abx -repeat cultures NGTD 4. E. coli UTI -Treated appropriately. 5. Acute on chronic anemia. Acute anemia secondary to GI bleed -Now stable. Monitor 6. History of gastric cancer 7. Osteoporosis -Supportive care, resume home medications -Continued PT evaluation 8. Dementia -Supportive care DVT prophylaxis: SCDs, anticoagulation contraindicated secondary to bleeding PUD prophylaxis: Protonix CODE STATUS: Full code Diet: TPN Disposition: Overall, G-tube site looks better, healing nicely. Plan is new PEG on Sunday. Continue G-tube site care. Patient was seen in collaboration with Result Diagram: 06/14/18 0629 06/14/18 0629 Results 24hrs Laboratory Tests Test 06/13/18 17:26 06/13/18 20:57 06/14/18 01:44 06/14/18 05:00 Bedside Glucose 106 123 115 131 Test 06/14/18 06:29 06/14/18 08:00 White Blood Count 6.1 Red Blood Count 3.12 L Hemoglobin 9.7 L Hematocrit 28.7 L Mean Corpuscular Volume 92.0 Mean Corpuscular 31.1 Hemoglobin Mean Corpuscular 33.8 Hemoglobin Concent Red Cell Distribution 12.9 Width Platelet Count 261 Mean Platelet Volume 10.1 Immature Granulocytes % 0.500 H Neutrophils % 67.1 Lymphocytes % 10.6 L Monocytes % 11.7 H Eosinophils % 9.3 H Basophils % 0.8 Nucleated Red Blood 0.0 Cells % Immature Granulocytes # 0.030 Neutrophils # 4.1 Lymphocytes # 0.6 L Monocytes # 0.7 Eosinophils # 0.6 H Basophils # 0.1 Nucleated Red Blood 0.0 Cells # Sodium Level 142 Potassium Level 3.7 Chloride Level 112 H Carbon Dioxide Level 21 Anion Gap 9 Blood Urea Nitrogen 20 Creatinine 0.95 Est Glomerular Filtrat Rate mL/min Glucose Level 128 Calcium Level 9.0 Phosphorus Level 3.7 Magnesium Level 1.7 Bedside Glucose 126 Exam/Review of Systems Exam Vitals Vital Signs Date Temp Pulse Resp B/P (MAP) Pulse Ox O2 O2 Flow FiO2 Time Delivery Rate 06/14/18 97.1 72 18 157/48 100 07:25 (84) 06/13/18 Room Air 14:00 Intake and Output 06/13/18 06/13/18 06/14/18 1515:00 23:00 07:00 IntakeIntake Total 1250 ml 600 ml BalanceBalance 1250 ml 600 ml Results Results 24hrs Laboratory Tests Test 06/13/18 17:26 06/13/18 20:57 06/14/18 01:44 06/14/18 05:00 Bedside Glucose 106 123 115 131 Test 06/14/18 06:29 06/14/18 08:00 White Blood Count 6.1 Red Blood Count 3.12 L Hemoglobin 9.7 L Hematocrit 28.7 L Mean Corpuscular Volume 92.0 Mean Corpuscular 31.1 Hemoglobin Mean Corpuscular 33.8 Hemoglobin Concent Red Cell Distribution 12.9 Width Platelet Count 261 Mean Platelet Volume 10.1 Immature Granulocytes % 0.500 H Neutrophils % 67.1 Lymphocytes % 10.6 L Monocytes % 11.7 H Eosinophils % 9.3 H Basophils % 0.8 Nucleated Red Blood 0.0 Cells % Immature Granulocytes # 0.030 Neutrophils # 4.1 Lymphocytes # 0.6 L Monocytes # 0.7 Eosinophils # 0.6 H Basophils # 0.1 Nucleated Red Blood 0.0 Cells # Sodium Level 142 Potassium Level 3.7 Chloride Level 112 H Carbon Dioxide Level 21 Anion Gap 9 Blood Urea Nitrogen 20 Creatinine 0.95 Est Glomerular Filtrat Rate mL/min Glucose Level 128 Calcium Level 9.0 Phosphorus Level 3.7 Magnesium Level 1.7 Bedside Glucose 126 Medications Medication Current Medications IV Flush (NS 3 ml) 3 ml PER PROTOCOL IV ; Start 06/03/18 at 12:00 Ondansetron HCl (Zofran Inj) 4 mg Q6H PRN IV NAUSEA/VOMITING Last administered on 06/06/18at 09:36; Admin Dose 4 MG; Start 06/03/18 at 12:00 Acetaminophen (Tylenol Tab) 650 mg Q6H PRN PO .PAIN 1-3 OR TEMP; Start 06/03/18 at 12:00 Acetaminophen/ Hydrocodone Bitart ([place] (5/325)) 1 tab Q6H PRN PO .MOD PAIN 4- 6; Start 06/03/18 at 12:00 Morphine Sulfate (morphine) 2 mg Q4H PRN IV .SEVERE PAIN 7-10; Start 06/03/18 at 12:00 Docusate Sodium (Colace) 100 mg Q12H PRN PO .CONSTIPATION; Start 06/03/18 at 12:00 Magnesium Hydroxide (Milk Of Mag) 30 ml DAILY PRN PO .CONSTIPATION; Start 06/03/18 at 12:00 Pantoprazole (Protonix Iv) 40 mg BID@0600,1800 IV Last administered on 06/14/18 05:05; Admin Dose 40 MG; Start 06/03/18 at 18:00 Lorazepam (Ativan) 0.5 mg Q6H PRN IV ANXIETY; Start 06/03/18 at 12:00 Albuterol/ Ipratropium (Duoneb) 3 ml Q4H RESP THERAPY PRN HHN SHORTNESS OF BREATH; Start 06/03/18 at 12:00 Nitroglycerin (Nitroglycerin (Sl Tab) 0.4 Mg) 1 tab Q5M PRN SL ANGINA; Start 06/03/18 at 12:00 Folic Acid (Folic Acid) 0.4 mg DAILY GTB Last administered on 06/06/18 09:16; Admin Dose 0.4 MG; Start 06/04/18 at 09:00 Multivitamins Therapeutic (Theragran) 1 tab DAILY GTB Last administered on 06/06/18 09:16; Admin Dose 1 TAB; Start 06/04/18 at 09:00 Docusate Sodium (Colace Liquid Cup) 100 mg DAILY GTB Last administered on 06/06/18 09:16; Admin Dose 100 MG; Start 06/04/18 at 09:00 Nystatin (Nystatin Powder) 1 applic BID TOP Last administered on 06/14/18 07:57; Admin Dose 1 APPLIC; Start 06/04/18 at 15:30 Clotrimazole (Lotrimin Cr) 1 applic BID TOP Last administered on 06/13/18 21:03; Admin Dose 1 APPLIC; Start 06/05/18 at 12:00 Diagnostic Test (Pha) (Accu-Chek) 1 ea Q4 XX Last administered on 06/14/18 08:01; Admin Dose 1 EA; Start 06/07/18 at 11:00 Metoclopramide HCl (Reglan) 10 mg Q6 IV Last administered on 06/14/18 11:03; Admin Dose 10 MG; Start 06/06/18 at 18:00 Diagnostic Test (Pha) (Accu-Chek) 1 ea 02 XX Last administered on 3/8/19at 02:15; Admin Dose 1 EA; Start 06/07/18 at 02:00 Insulin Aspart (Novolog Insulin Pen) NOVOLOG *MILD* ALGORI... Q4 SC Last administered on 06/13/18at 12:11; Admin Dose 1 UNIT; Start 06/06/18 at 13:30 Miscellaneous Information 1 ea NOTE XX ; Start 06/06/18 at 13:00 Glucose (Glutose) 15 gm Q15M PRN PO DECREASED GLUCOSE; Start 06/06/18 at 13:00 Glucose (Glutose) 22.5 gm Q15M PRN PO DECREASED GLUCOSE; Start 06/06/18 at 13:00 Dextrose (D50w Syringe) 25 ml Q15M PRN IV DECREASED GLUCOSE; Start 06/06/18 at 13:00 Dextrose (D50w Syringe) 50 ml Q15M PRN IV DECREASED GLUCOSE; Start 06/06/18 at 13:00 Glucagon (Glucagen) 1 mg Q15M PRN IM DECREASED GLUCOSE; Start 06/06/18 at 13:00 Glucose (Glutose) 15 gm Q15M PRN BUCCAL DECREASED GLUCOSE; Start 06/06/18 at 13:00 Miscellaneous Information (* Miscellaneous Pharmacy Order) TODAY PT IS GETTING PICC LI... ONCE XX ; Start 06/07/18 at 10:30 Bisacodyl (Dulcolax Supp) 10 mg DAILY PRN MD CONSTIPATION; Start 06/07/18 at 11:30 IV Flush (NS 10 ml) 10 ml PRN PRN IV IV PROTOCOL; Start 06/07/18 at 14:00 Alteplase, Recombinant (Cathflo (Activase)) 4 mg MAY REPEAT X1 PRN CATHETER IF CATHETER REMAINS OCCULUDED Last administered on 06/12/18at 23:10; Admin Dose 4 MG; Start 06/09/18 at 10:30 Hydralazine HCl (Apresoline) 5 mg Q6H PRN IV sbp>160 Last administered on 06/11/18at 14:08; Admin Dose 5 MG; Start 06/10/18 at 09:30 Potassium Chloride/Dextrose/ Sod Cl 1,000 ml @ 60 mls/hr [id number] IV Last administered on 06/14/18at 10:45; Admin Dose 60 MLS/HR; Start 3/7/19 at 18:30 ALFREDO MENSAH NP Jun 14, 2018 12:16
[2018-06-14 13:51] VITALS: BP 140/46; PULSE 73; RESP 17
--- NOTE | 2018-06-14 14:42 | PN ---
Date/Time of Note Date/Time of Note DATE: 06/14/18 TIME: 14:18 Assessment/Plan VTE [place]axis [place] [facility] [place]: 3 [place] applied [place] [facility] [place] Yes Pharmacological prophylaxis: NA/contraindicated Pharm contraindication: bleeding Lines/Catheters IV C[facility] Type (from [facility] Peripheral IV Urinary Cath still in place: No Assessment/Plan Assessment/Plan Assessment: Normocytic anemia EGD 06/04/18 Impression: 1.5 cm proximal gastric polyp. Post polypectomy plus Endo Clip placement. Post placement of Lao 24-20 cc replacement gastrostomy tube. Otherwise normal EGD. Melena/hematochezia Malfunctioning gastrostomy tube/infected site Hx of Gastric cancer s/p PEG placement (30 fr) Dementia Bacteremia -Blood cultures x2 growing gram-positive cocci UTI- with E.coli - Plan: Plan for PEG placement Sunday Ostomy covered with drainage bag Continue current regimen Pt seen in collaboration with Dr. Hagen Subjective: Course reviewed with nursing staff Patient interviewed and examined All labs, imaging and other results reviewed Pt is c/o feeling tired. Small amount of drainage from ostomy site. Plan for PEG on Sunday. Discussed procedure risks and benefits with the patient. She is agreeable to procedure. Left a message for the DPOA Tamra. Will try calling tomorrow. PHYSICAL EXAMINATION: GENERAL: Alert & confused SKIN: No lesions, no stigmata chronic liver disease, no evidence of bleeding diathesis HEAD: Normocephalic, atraumatic, no tenderness. EYES: Pupils equal reactive to light and accommodation, full extraocular m ovements, sclera clear, non-icteric, no discharge. EARS/NOSE AND THROAT: Ears normal, nose normal, oropharynx normal, oral membranes well hydrated without lesions. NECK: Supple, no masses CARDIOVASCULAR: Heart: Regular rate and rhythm RESPIRATORY: Lungs clear to auscultation GASTROINTESTINAL AND LIVER: Abdomen: Soft, non tenderness, non-distended, ostomy site slowly healing, ostomy covered with a drainage bag, no rebound tenderness, normoactive bowel sounds. Rectal: Deferred. Result Diagram: 06/14/18 0629 06/14/18 0629 Results 24hrs Laboratory Tests Test 06/13/18 17:26 06/13/18 20:57 06/14/18 01:44 06/14/18 05:00 Bedside Glucose 106 123 115 131 Test 06/14/18 06:29 06/14/18 08:00 06/14/18 12:24 White Blood Count 6.1 Red Blood Count 3.12 L Hemoglobin 9.7 L Hematocrit 28.7 L Mean Corpuscular Volume 92.0 Mean Corpuscular 31.1 Hemoglobin Mean Corpuscular 33.8 Hemoglobin Concent Red Cell Distribution 12.9 Width Platelet Count 261 Mean Platelet Volume 10.1 Immature Granulocytes % 0.500 H Neutrophils % 67.1 Lymphocytes % 10.6 L Monocytes % 11.7 H Eosinophils % 9.3 H Basophils % 0.8 Nucleated Red Blood 0.0 Cells % Immature Granulocytes # 0.030 Neutrophils # 4.1 Lymphocytes # 0.6 L Monocytes # 0.7 Eosinophils # 0.6 H Basophils # 0.1 Nucleated Red Blood 0.0 Cells # Sodium Level 142 Potassium Level 3.7 Chloride Level 112 H Carbon Dioxide Level 21 Anion Gap 9 Blood Urea Nitrogen 20 Creatinine 0.95 Est Glomerular Filtrat Rate mL/min Glucose Level 128 Calcium Level 9.0 Phosphorus Level 3.7 Magnesium Level 1.7 Bedside Glucose 126 133 CC: ROBERT HAGEN MD ; Exam/Review of Systems Exam Vitals Vital Signs Date Temp Pulse Resp B/P (MAP) Pulse Ox O2 O2 Flow FiO2 Time Delivery Rate 06/14/18 98.5 73 17 140/46 99 13:51 (77) 06/13/18 Room Air 14:00 Intake and Output 06/13/18 06/13/18 06/14/18 1414:59 22:59 06:59 IntakeIntake Total 1250 ml 600 ml BalanceBalance 1250 ml 600 ml Results Results 24hrs Laboratory Tests Test 06/13/18 17:26 06/13/18 20:57 06/14/18 01:44 06/14/18 05:00 Bedside Glucose 106 123 115 131 Test 06/14/18 06:29 06/14/18 08:00 06/14/18 12:24 White Blood Count 6.1 Red Blood Count 3.12 L Hemoglobin 9.7 L Hematocrit 28.7 L Mean Corpuscular Volume 92.0 Mean Corpuscular 31.1 Hemoglobin Mean Corpuscular 33.8 Hemoglobin Concent Red Cell Distribution 12.9 Width Platelet Count 261 Mean Platelet Volume 10.1 Immature Granulocytes % 0.500 H Neutrophils % 67.1 Lymphocytes % 10.6 L Monocytes % 11.7 H Eosinophils % 9.3 H Basophils % 0.8 Nucleated Red Blood 0.0 Cells % Immature Granulocytes # 0.030 Neutrophils # 4.1 Lymphocytes # 0.6 L Monocytes # 0.7 Eosinophils # 0.6 H Basophils # 0.1 Nucleated Red Blood 0.0 Cells # Sodium Level 142 Potassium Level 3.7 Chloride Level 112 H Carbon Dioxide Level 21 Anion Gap 9 Blood Urea Nitrogen 20 Creatinine 0.95 Est Glomerular Filtrat Rate mL/min Glucose Level 128 Calcium Level 9.0 Phosphorus Level 3.7 Magnesium Level 1.7 Bedside Glucose 126 133 Medications Medication Current Medications IV Flush (NS 3 ml) 3 ml PER PROTOCOL IV ; Start 06/03/18 at 12:00 Ondansetron HCl (Zofran Inj) 4 mg Q6H PRN IV NAUSEA/VOMITING Last administered on 06/06/18at 09:36; Admin Dose 4 MG; Start 06/03/18 at 12:00 Acetaminophen (Tylenol Tab) 650 mg Q6H PRN PO .PAIN 1-3 OR TEMP; Start 06/03/18 at 12:00 Acetaminophen/ Hydrocodone Bitart ([place] (5/325)) 1 tab Q6H PRN PO .MOD PAIN 4- 6; Start 06/03/18 at 12:00 Morphine Sulfate (morphine) 2 mg Q4H PRN IV .SEVERE PAIN 7-10; Start 06/03/18 at 12:00 Docusate Sodium (Colace) 100 mg Q12H PRN PO .CONSTIPATION; Start 06/03/18 at 12:00 Magnesium Hydroxide (Milk Of Mag) 30 ml DAILY PRN PO .CONSTIPATION; Start 06/03/18 at 12:00 Pantoprazole (Protonix Iv) 40 mg BID@0600,1800 IV Last administered on 06/14/18at 05:05; Admin Dose 40 MG; Start 06/03/18 at 18:00 Lorazepam (Ativan) 0.5 mg Q6H PRN IV ANXIETY; Start 06/03/18 at 12:00 Albuterol/ Ipratropium (Duoneb) 3 ml Q4H RESP THERAPY PRN HHN SHORTNESS OF BREATH; Start 06/03/18 at 12:00 Nitroglycerin (Nitroglycerin (Sl Tab) 0.4 Mg) 1 tab Q5M PRN SL ANGINA; Start 06/03/18 at 12:00 Folic Acid (Folic Acid) 0.4 mg DAILY GTB Last administered on 06/06/18 09:16; Admin Dose 0.4 MG; Start 06/04/18 at 09:00 Multivitamins Therapeutic (Theragran) 1 tab DAILY GTB Last administered on 06/06/18 09:16; Admin Dose 1 TAB; Start 06/04/18 at 09:00 Docusate Sodium (Colace Liquid Cup) 100 mg DAILY GTB Last administered on 06/06/18 09:16; Admin Dose 100 MG; Start 06/04/18 at 09:00 Nystatin (Nystatin Powder) 1 applic BID TOP Last administered on 06/14/18 07:57; Admin Dose 1 APPLIC; Start 06/04/18 at 15:30 Clotrimazole (Lotrimin Cr) 1 applic BID TOP Last administered on 06/13/18 21:03; Admin Dose 1 APPLIC; Start 06/05/18 at 12:00 Diagnostic Test (Pha) (Accu-Chek) 1 ea Q4 XX Last administered on 06/14/18 12:25; Admin Dose 1 EA; Start 06/07/18 at 11:00 Metoclopramide HCl (Reglan) 10 mg Q6 IV Last administered on 06/14/18 11:03; Admin Dose 10 MG; Start 06/06/18 at 18:00 Diagnostic Test (Pha) (Accu-Chek) 1 ea 02 XX Last administered on 06/14/18 02:15; Admin Dose 1 EA; Start 06/07/18 at 02:00 Insulin Aspart (Novolog Insulin Pen) NOVOLOG *MILD* ALGORI... Q4 SC Last administered on 06/13/18 12:11; Admin Dose 1 UNIT; Start 06/06/18 at 13:30 Miscellaneous Information 1 ea NOTE XX ; Start 06/06/18 at 13:00 Glucose (Glutose) 15 gm Q15M PRN PO DECREASED GLUCOSE; Start 06/06/18 at 13:00 Glucose (Glutose) 22.5 gm Q15M PRN PO DECREASED GLUCOSE; Start 06/06/18 at 13:00 Dextrose (D50w Syringe) 25 ml Q15M PRN IV DECREASED GLUCOSE; Start 06/06/18 at 13:00 Dextrose (D50w Syringe) 50 ml Q15M PRN IV DECREASED GLUCOSE; Start 06/06/18 at 13:00 Glucagon (Glucagen) 1 mg Q15M PRN IM DECREASED GLUCOSE; Start 06/06/18 at 13:00 Glucose (Glutose) 15 gm Q15M PRN BUCCAL DECREASED GLUCOSE; Start 06/06/18 at 13:00 Miscellaneous Information (* Miscellaneous Pharmacy Order) TODAY PT IS GETTING PICC LI... ONCE XX ; Start 06/07/18 at 10:30 Bisacodyl (Dulcolax Supp) 10 mg DAILY PRN [place] CONSTIPATION; Start 06/07/18 at 11:30 IV Flush (NS 10 ml) 10 ml PRN PRN IV IV PROTOCOL; Start 06/07/18 at 14:00 Alteplase, Recombinant (Cathflo (Activase)) 4 mg MAY REPEAT X1 PRN CATHETER IF CATHETER REMAINS OCCULUDED Last administered on 06/12/18at 23:10; Admin Dose 4 MG; Start 06/09/18 at 10:30 Hydralazine HCl (Apresoline) 5 mg Q6H PRN IV sbp>160 Last administered on 06/11/18at 14:08; Admin Dose 5 MG; Start 06/10/18 at 09:30 Potassium Chloride/Dextrose/ Sod Cl 1,000 ml @ 60 mls/hr [id number] IV Last administered on 06/14/18at 10:45; Admin Dose 60 MLS/HR; Start 06/13/18 at 18:30 NIYA RIZO NP Jun 14, 2018 14:40
[2018-06-14 20:40] VITALS: BP 121/49; PULSE 66; RESP 18
[2018-06-15] MEDS: METOCLOPRAMIDE 10 MG INJ IV SCH ×4 (00:05→17:01)
[2018-06-15] MEDS: ACCU-CHEK XX SCH ×7 (01:20→21:00)
[2018-06-15 02:40] VITALS: BP 156/71; PULSE 68; RESP 18
[2018-06-15] MEDS: D5W-0.45 NACL + KCL 20 MEQ 1,000 ML IV SCH ×2 (02:44→21:12)
[2018-06-15] MEDS: INSULIN ASPART [NOVOLOG] 3 ML PEN SC SCH ×6 (05:00→21:00)
[2018-06-15] MEDS: PANTOPRAZOLE 40 MG INJ IV SCH ×2 (05:12→17:02)
[2018-06-15] MEDS: DOCUSATE SODIUM 10 MG/ML (10ML CUP) GTB SCH (07:18)
[2018-06-15] MEDS: MULTIVITAMINS THERAPEUTIC TAB GTB SCH (07:18)
[2018-06-15] MEDS: FOLIC ACID 0.4 MG TAB GTB SCH (07:18)
[2018-06-15 08:00] VITALS: BP 165/75; PULSE 76; RESP 18
[2018-06-15] MEDS: CLOTRIMAZOLE 1% 30 GM CR TOP SCH ×2 (08:28→21:10)
[2018-06-15] MEDS: NYSTATIN 30 GM POWDER BTL TOP SCH ×2 (08:28→21:11)
[2018-06-15 14:00] VITALS: BP 140/62; PULSE 64; RESP 18
--- NOTE | 2018-06-15 15:47 | PN ---
Date/Time of Note Date/Time of Note DATE: 06/15/18 TIME: 15:42 Assessment/Plan VTE Prophylaxis Risk score (from [facility] [place]0 risk: 4 SCD applied (from [facility] [place]): Yes Pharmacological prophylaxis: NA/contraindicated Pharm contraindication: bleeding Lines/Catheters IV Catheter Type (from [place]): Peripheral IV Urinary Cath still in place: No Assessment/Plan Problems: (1) GI bleed Status: Acute Comment: This is resolved after removal of the gastric polyp and the Endo clipping. Feeding tube will have to be replaced which is pending for the early part of next week. Qualifiers: GI bleed type/associated pathology: unspecified gastrointestinal hemorrhage type Qualified Codes: K92.2 - Gastrointestinal hemorrhage, unspecified (2) E-coli UTI Status: Acute Comment: On appropriate antibiotics and doing well (3) History of gastric cancer Status: Acute Comment: Noted. (4) Hx of diabetes mellitus Status: Acute Comment: Adequate glycemic control Result Diagram: 06/14/18 0629 06/14/18 0629 Results 24hrs Laboratory Tests Test 06/14/18 17:02 06/14/18 20:18 06/14/18 23:59 06/15/18 05:11 Bedside Glucose 118 121 122 123 Test 06/15/18 08:25 06/15/18 12:09 Bedside Glucose 124 149 Subjective 24 Hr Interval Summary Free Text/Dictation Patient reports that she is feeling fair Constitutional: no complaints Respiratory: no complaints Cardiovascular: no complaints Gastrointestinal: no complaints Genitourinary: no complaints Exam/Review of Systems Exam Vitals Vital Signs Date Temp Pulse Resp B/P (MAP) Pulse Ox O2 O2 Flow FiO2 Time Delivery Rate 06/15/18 98.5 76 18 165/75 98 08:00 (105) 06/13/18 Room Air 14:00 Intake and Output 06/14/18 06/14/18 06/15/18 1515:00 23:00 07:00 IntakeIntake Total 400 ml 400 ml 698 ml BalanceBalance 400 ml 400 ml 698 ml Constitutional: alert, oriented Neck: supple, non-tender Respiratory: clear to auscultation, normal air movement Cardiovascular: regular rate and rhythm, nl pulses Gastrointestinal: soft, nl liver, spleen, other (G-tube site healing) Results Results 24hrs Laboratory Tests Test 06/14/18 17:02 06/14/18 20:18 06/14/18 23:59 06/15/18 05:11 Bedside Glucose 118 121 122 123 Test 06/15/18 08:25 06/15/18 12:09 Bedside Glucose 124 149 Medications Medication Current Medications IV Flush (NS 3 ml) 3 ml PER PROTOCOL IV ; Start 06/03/18 at 12:00 Ondansetron HCl (Zofran Inj) 4 mg Q6H PRN IV NAUSEA/VOMITING Last administered on 06/06/18at 09:36; Admin Dose 4 MG; Start 06/03/18 at 12:00 Acetaminophen (Tylenol Tab) 650 mg Q6H PRN PO .PAIN 1-3 OR TEMP; Start 06/03/18 at 12:00 Acetaminophen/ Hydrocodone Bitart ([place] (5/325)) 1 tab Q6H PRN PO .MOD PAIN 4- 6; Start 06/03/18 at 12:00 Morphine Sulfate (morphine) 2 mg Q4H PRN IV .SEVERE PAIN 7-10; Start 06/03/18 at 12:00 Docusate Sodium (Colace) 100 mg Q12H PRN PO .CONSTIPATION; Start 06/03/18 at 12:00 Magnesium Hydroxide (Milk Of Mag) 30 ml DAILY PRN PO .CONSTIPATION; Start 06/03/18 at 12:00 Pantoprazole (Protonix Iv) 40 mg BID@0600,1800 IV Last administered on 06/15/18at 05:12; Admin Dose 40 MG; Start 06/03/18 at 18:00 Lorazepam (Ativan) 0.5 mg Q6H PRN IV ANXIETY; Start 06/03/18 at 12:00 Albuterol/ Ipratropium (Duoneb) 3 ml Q4H RESP THERAPY PRN HHN SHORTNESS OF BREATH; Start 06/03/18 at 12:00 Nitroglycerin (Nitroglycerin (Sl Tab) 0.4 Mg) 1 tab Q5M PRN SL ANGINA; Start 06/03/18 at 12:00 Folic Acid (Folic Acid) 0.4 mg DAILY GTB Last administered on 06/06/18at 09:16; Admin Dose 0.4 MG; Start 06/04/18 at 09:00 Multivitamins Therapeutic (Theragran) 1 tab DAILY GTB Last administered on 2/28/19at 09:16; Admin Dose 1 TAB; Start 06/04/18 at 09:00 Docusate Sodium (Colace Liquid Cup) 100 mg DAILY GTB Last administered on 06/06/18 09:16; Admin Dose 100 MG; Start 06/04/18 at 09:00 Nystatin (Nystatin Powder) 1 applic BID TOP Last administered on 06/15/18 08:28; Admin Dose 1 APPLIC; Start 06/04/18 at 15:30 Clotrimazole (Lotrimin Cr) 1 applic BID TOP Last administered on 06/15/18 08:28; Admin Dose 1 APPLIC; Start 06/05/18 at 12:00 Diagnostic Test (Pha) (Accu-Chek) 1 ea Q4 XX Last administered on 06/15/18 12:19; Admin Dose 1 EA; Start 06/07/18 at 11:00 Metoclopramide HCl (Reglan) 10 mg Q6 IV Last administered on 06/15/18 12:04; Admin Dose 10 MG; Start 06/06/18 at 18:00 Diagnostic Test (Pha) (Accu-Chek) 1 ea 02 XX Last administered on 06/14/18 02:15; Admin Dose 1 EA; Start 06/07/18 at 02:00 Insulin Aspart (Novolog Insulin Pen) NOVOLOG *MILD* ALGORI... Q4 SC Last administered on 06/15/18 12:17; Admin Dose 1 UNIT; Start 06/06/18 at 13:30 Miscellaneous Information 1 ea NOTE XX ; Start 06/06/18 at 13:00 Glucose (Glutose) 15 gm Q15M PRN PO DECREASED GLUCOSE; Start 06/06/18 at 13:00 Glucose (Glutose) 22.5 gm Q15M PRN PO DECREASED GLUCOSE; Start 06/06/18 at 13:00 Dextrose (D50w Syringe) 25 ml Q15M PRN IV DECREASED GLUCOSE; Start 06/06/18 at 13:00 Dextrose (D50w Syringe) 50 ml Q15M PRN IV DECREASED GLUCOSE; Start 06/06/18 at 13:00 Glucagon (Glucagen) 1 mg Q15M PRN IM DECREASED GLUCOSE; Start 06/06/18 at 13:00 Glucose (Glutose) 15 gm Q15M PRN BUCCAL DECREASED GLUCOSE; Start 06/06/18 at 13:00 Miscellaneous Information (* Miscellaneous Pharmacy Order) TODAY PT IS GETTING PICC LI... ONCE XX ; Start 06/07/18 at 10:30 Bisacodyl (Dulcolax Supp) 10 mg DAILY PRN [place] CONSTIPATION; Start 06/07/18 at 11:30 IV Flush (NS 10 ml) 10 ml PRN PRN IV IV PROTOCOL; Start 06/07/18 at 14:00 Alteplase, Recombinant (Cathflo (Activase)) 4 mg MAY REPEAT X1 PRN CATHETER IF CATHETER REMAINS OCCULUDED Last administered on 06/12/18at 23:10; Admin Dose 4 MG; Start 06/09/18 at 10:30 Hydralazine HCl (Apresoline) 5 mg Q6H PRN IV sbp>160 Last administered on 06/11/18at 14:08; Admin Dose 5 MG; Start 06/10/18 at 09:30 Potassium Chloride/Dextrose/ Sod Cl 1,000 ml @ 60 mls/hr [id number] IV Last administered on 06/15/18at 02:44; Admin Dose 60 MLS/HR; Start 06/13/18 at 18:30 JACE ACEVEDO MD Jun 15, 2018 15:47
--- NOTE | 2018-06-15 16:55 | PN ---
Date/Time of Note Date/Time of Note DATE: 06/15/18 TIME: 16:51 Assessment/Plan VTE Prophylaxis Risk score (from [facility])>0 risk: 4 SCD applied (from [facility]): Yes Pharmacological prophylaxis: heparin Lines/Catheters IV [facility]ter Type (from [facility] Peripheral IV Urinary Cath still in place: No Assessment/Plan Assessment/Plan Assessment: Normocytic anemia EGD 06/04/18 Impression: 1.5 cm proximal gastric polyp. Post polypectomy plus Endo Clip placement. Post placement of [place] 24-20 cc replacement gastrostomy tube. Otherwise normal EGD. Melena/hematochezia - no evidence of bleeding Malfunctioning gastrostomy tube/infected site Hx of Gastric cancer s/p PEG placement (30 fr) Dementia Bacteremia -Blood cultures x2 growing gram-positive cocci UTI- with E.col Plan: Plan for PEG placement Sunday Ostomy covered with drainage bag Continue current regimen Pt seen in collaboration with Dr. Hagen Subjective: Course reviewed with nursing staff Patient interviewed and examined All labs, imaging and other results reviewed Pt appears comfortable. Denies abdominal pain, nausea or vomiting. Small amount of ongoing drainage from prior peg site. Plan for PEG on Sunday. Discussed procedure risks and benefits with the patient. She is agreeable to procedure. Left a message for the DPOA Tamra. Will try calling tomorrow. PHYSICAL EXAMINATION: GENERAL: Alert & confused SKIN: No lesions, no stigmata chronic liver disease, no evidence of bleeding diathesis HEAD: Normocephalic, atraumatic, no tenderness. EYES: Pupils equal reactive to light and accommodation, full extraocular movements, sclera clear, non-icteric, no discharge. EARS/NOSE AND THROAT: Ears normal, nose normal, oropharynx normal, oral membranes well hydrated without lesions. NECK: Supple, no masses CARDIOVASCULAR: Heart: Regular rate and rhythm RESPIRATORY: Lungs clear to auscultation GASTROINTESTINAL AND LIVER: Abdomen: Soft, non tenderness, non-distended, ostomy site slowly healing, ostomy covered with a drainage bag, no rebound tenderness, normoactive bowel sounds. Rectal: Deferred. Result Diagram: 06/14/18 0629 06/14/18 0629 Results 24hrs Laboratory Tests Test 06/14/18 17:02 06/14/18 20:18 06/14/18 23:59 06/15/18 05:11 Bedside Glucose 118 121 122 123 Test 06/15/18 08:25 06/15/18 12:09 Bedside Glucose 124 149 CC: ROBERT HAGEN MD ; Exam/Review of Systems Exam Vitals Vital Signs Date Temp Pulse Resp B/P (MAP) Pulse Ox O2 O2 Flow FiO2 Time Delivery Rate 06/15/18 98.5 76 18 165/75 98 08:00 (105) 06/13/18 Room Air 14:00 Intake and Output 06/14/18 06/14/18 06/15/18 1515:00 23:00 07:00 IntakeIntake Total 400 ml 400 ml 698 ml BalanceBalance 400 ml 400 ml 698 ml Results Results 24hrs Laboratory Tests Test 06/14/18 17:02 06/14/18 20:18 06/14/18 23:59 06/15/18 05:11 Bedside Glucose 118 121 122 123 Test 06/15/18 08:25 06/15/18 12:09 Bedside Glucose 124 149 Medications Medication Current Medications IV Flush (NS 3 ml) 3 ml PER PROTOCOL IV ; Start 06/03/18 at 12:00 Ondansetron HCl (Zofran Inj) 4 mg Q6H PRN IV NAUSEA/VOMITING Last administered on 06/06/18at 09:36; Admin Dose 4 MG; Start 06/03/18 at 12:00 Acetaminophen (Tylenol Tab) 650 mg Q6H PRN PO .PAIN 1-3 OR TEMP; Start 06/03/18 at 12:00 Acetaminophen/ Hydrocodone Bitart ([place] (5/325)) 1 tab Q6H PRN PO .MOD PAIN 4- 6; Start 06/03/18 at 12:00 Morphine Sulfate (morphine) 2 mg Q4H PRN IV .SEVERE PAIN 7-10; Start 06/03/18 at 12:00 Docusate Sodium (Colace) 100 mg Q12H PRN PO .CONSTIPATION; Start 06/03/18 at 12:00 Magnesium Hydroxide (Milk Of Mag) 30 ml DAILY PRN PO .CONSTIPATION; Start 06/03/18 at 12:00 Pantoprazole (Protonix Iv) 40 mg BID@0600,1800 IV Last administered on 06/15/18at 05:12; Admin Dose 40 MG; Start 06/03/18 at 18:00 Lorazepam (Ativan) 0.5 mg Q6H PRN IV ANXIETY; Start 06/03/18 at 12:00 Albuterol/ Ipratropium (Duoneb) 3 ml Q4H RESP THERAPY PRN HHN SHORTNESS OF BREATH; Start 06/03/18 at 12:00 Nitroglycerin (Nitroglycerin (Sl Tab) 0.4 Mg) 1 tab Q5M PRN SL ANGINA; Start 06/03/18 at 12:00 Folic Acid (Folic Acid) 0.4 mg DAILY GTB Last administered on 06/06/18 09:16; Admin Dose 0.4 MG; Start 06/04/18 at 09:00 Multivitamins Therapeutic (Theragran) 1 tab DAILY GTB Last administered on 06/06/18 09:16; Admin Dose 1 TAB; Start 06/04/18 at 09:00 Docusate Sodium (Colace Liquid Cup) 100 mg DAILY GTB Last administered on 06/06/18 09:16; Admin Dose 100 MG; Start 06/04/18 at 09:00 Nystatin (Nystatin Powder) 1 applic BID TOP Last administered on 06/15/18 08:28; Admin Dose 1 APPLIC; Start 06/04/18 at 15:30 Clotrimazole (Lotrimin Cr) 1 applic BID TOP Last administered on 06/15/18 0 8:28; Admin Dose 1 APPLIC; Start 06/05/18 at 12:00 Diagnostic Test (Pha) (Accu-Chek) 1 ea Q4 XX Last administered on 06/15/18 12:19; Admin Dose 1 EA; Start 06/07/18 at 11:00 Metoclopramide HCl (Reglan) 10 mg Q6 IV Last administered on 06/15/18 12:04; Admin Dose 10 MG; Start 06/06/18 at 18:00 Diagnostic Test (Pha) (Accu-Chek) 1 ea 02 XX Last administered on 06/14/18 02:15; Admin Dose 1 EA; Start 06/07/18 at 02:00 Insulin Aspart (Novolog Insulin Pen) NOVOLOG *MILD* ALGORI... Q4 SC Last administered on 06/15/18 12:17; Admin Dose 1 UNIT; Start 06/06/18 at 13:30 Miscellaneous Information 1 ea NOTE XX ; Start 06/06/18 at 13:00 Glucose (Glutose) 15 gm Q15M PRN PO DECREASED GLUCOSE; Start 06/06/18 at 13:00 Glucose (Glutose) 22.5 gm Q15M PRN PO DECREASED GLUCOSE; Start 06/06/18 at 13:00 Dextrose (D50w Syringe) 25 ml Q15M PRN IV DECREASED GLUCOSE; Start 06/06/18 at 13:00 Dextrose (D50w Syringe) 50 ml Q15M PRN IV DECREASED GLUCOSE; Start 06/06/18 at 13:00 Glucagon (Glucagen) 1 mg Q15M PRN IM DECREASED GLUCOSE; Start 06/06/18 at 13:00 Glucose (Glutose) 15 gm Q15M PRN BUCCAL DECREASED GLUCOSE; Start 06/06/18 at 13:00 Miscellaneous Information (* Miscellaneous Pharmacy Order) TODAY PT IS GETTING PICC LI... ONCE XX ; Start 06/07/18 at 10:30 Bisacodyl (Dulcolax Supp) 10 mg DAILY PRN [place] CONSTIPATION; Start 06/07/18 at 11:30 IV Flush (NS 10 ml) 10 ml PRN PRN IV IV PROTOCOL; Start 06/07/18 at 14:00 Alteplase, Recombinant (Cathflo (Activase)) 4 mg MAY REPEAT X1 PRN CATHETER IF CATHETER REMAINS OCCULUDED Last administered on 06/12/18at 23:10; Admin Dose 4 MG; Start 06/09/18 at 10:30 Hydralazine HCl (Apresoline) 5 mg Q6H PRN IV sbp>160 Last administered on 06/11/18at 14:08; Admin Dose 5 MG; Start 06/10/18 at 09:30 Potassium Chloride/Dextrose/ Sod Cl 1,000 ml @ 60 mls/hr [id number] IV Last a dministered on 06/15/18at 02:44; Admin Dose 60 MLS/HR; Start 06/13/18 at 18:30 ADITYA RIVER NP Jun 15, 2018 16:55
[2018-06-15 20:27] VITALS: BP 138/51; PULSE 67; RESP 18
[2018-06-16] MEDS: METOCLOPRAMIDE 10 MG INJ IV SCH ×4 (00:08→18:00)
[2018-06-16] MEDS: INSULIN ASPART [NOVOLOG] 3 ML PEN SC SCH ×6 (01:00→21:00)
[2018-06-16] MEDS: ACCU-CHEK XX SCH ×7 (01:00→21:00)
[2018-06-16 01:22] VITALS: BP 153/74; PULSE 58; RESP 18
[2018-06-16] MEDS: PANTOPRAZOLE 40 MG INJ IV SCH ×2 (05:52→18:00)
[2018-06-16 08:00] VITALS: BP 143/63; PULSE 58; RESP 18
[2018-06-16] MEDS: DOCUSATE SODIUM 10 MG/ML (10ML CUP) GTB SCH (08:09)
[2018-06-16] MEDS: FOLIC ACID 0.4 MG TAB GTB SCH (08:09)
[2018-06-16] MEDS: MULTIVITAMINS THERAPEUTIC TAB GTB SCH (08:09)
[2018-06-16] MEDS: CLOTRIMAZOLE 1% 30 GM CR TOP SCH ×2 (08:11→21:22)
[2018-06-16] MEDS: NYSTATIN 30 GM POWDER BTL TOP SCH ×2 (08:12→21:22)
[2018-06-16] MEDS: D5W-0.45 NACL + KCL 20 MEQ 1,000 ML IV SCH ×2 (13:10→15:21)
--- NOTE | 2018-06-16 13:26 | PN ---
Date/Time of Note Date/Time of Note DATE: 06/16/18 TIME: 13:24 Assessment/Plan VTE Prophylaxis [place] [facility] risk: 8 SCD applied ([place] [facility] Yes Pharmacological prophylaxis: heparin Lines/Catheters IV C[facility]ter Type (from [facility]): Peripheral IV Urinary Cath still in place: No Assessment/Plan Problems: (1) PEG tube malfunction Status: Acute Comment: Patient is to receive new PEG tube tomorrow (2) E-coli UTI Status: Acute Comment: Repeat urine culture to verify clearance unfortunately was not done. (3) History of gastric cancer Status: Acute Comment: Noted. (4) GI bleed Status: Acute Comment: Quiescent. Qualifiers: GI bleed type/associated pathology: unspecified gastrointestinal hemorrhage type Qualified Codes: K92.2 - Gastrointestinal hemorrhage, unspecified Result Diagram: 06/14/1862806/14/18628 Results 24hrs Laboratory Tests Test 06/15/18 17:06 06/15/18 21:09 06/16/18 01:28 06/16/18 05:53 Bedside Glucose 115 111 99 114 Test 06/16/18 08:15 06/16/18 12:20 Bedside Glucose 107 125 Subjective 24 Hr Interval Summary Free Text/Dictation Patient reports she is doing relatively well without new complaints. Awaiting feeding tube for tomorrow Constitutional: no complaints (Denies fevers chills or sweats) Respiratory: no complaints Cardiovascular: no complaints Genitourinary: no complaints Exam/Review of Systems Exam Vitals Vital Signs Date Temp Pulse Resp B/P (MAP) Pulse Ox O2 O2 Flow FiO2 Time Delivery Rate 06/16/18 97.8 58 18 143/63 99 08:00 (89) 06/13/18 Room Air 14:00 Intake and Output 06/15/18 06/15/18 06/16/18 1515:00 23:00 07:00 IntakeIntake Total 400 ml BalanceBalance 400 ml Constitutional: alert, oriented Neck: supple, non-tender Respiratory: clear to auscultation, normal air movement Cardiovascular: regular rate and rhythm, nl pulses Gastrointestinal: soft, nl liver, spleen, non-tender Results Results 24hrs Laboratory Tests Test 06/15/18 17:06 06/15/18 21:09 06/16/18 01:28 06/16/18 05:53 Bedside Glucose 115 111 99 114 Test 06/16/18 08:15 06/16/18 12:20 Bedside Glucose 107 125 Medications Medication Current Medications IV Flush (NS 3 ml) 3 ml PER PROTOCOL IV ; Start 06/03/18 at 12:00 Ondansetron HCl (Zofran Inj) 4 mg Q6H PRN IV NAUSEA/VOMITING Last administered on 06/06/18at 09:36; Admin Dose 4 MG; Start 06/03/18 at 12:00 Acetaminophen (Tylenol Tab) 650 mg Q6H PRN PO .PAIN 1-3 OR TEMP; Start 06/03/18 at 12:00 Acetaminophen/ Hydrocodone Bitart ([place] (5/325)) 1 tab Q6H PRN PO .MOD PAIN 4- 6; Start 06/03/18 at 12:00 Morphine Sulfate (morphine) 2 mg Q4H PRN IV .SEVERE PAIN 7-10; Start 06/03/18 at 12:00 Docusate Sodium (Colace) 100 mg Q12H PRN PO .CONSTIPATION; Start 06/03/18 at 12:00 Magnesium Hydroxide (Milk Of Mag) 30 ml DAILY PRN PO .CONSTIPATION; Start 06/03/18 at 12:00 Pantoprazole (Protonix Iv) 40 mg BID@0600,1800 IV Last administered on 06/16/18at 05:52; Admin Dose 40 MG; Start 06/03/18 at 18:00 Lorazepam (Ativan) 0.5 mg Q6H PRN IV ANXIETY; Start 06/03/18 at 12:00 Albuterol/ Ipratropium (Duoneb) 3 ml Q4H RESP THERAPY PRN HHN SHORTNESS OF BREATH; Start 06/03/18 at 12:00 Nitroglycerin (Nitroglycerin (Sl Tab) 0.4 Mg) 1 tab Q5M PRN SL ANGINA; Start 06/03/18 at 12:00 Folic Acid (Folic Acid) 0.4 mg DAILY GTB Last administered on 06/06/18at 09:16; Admin Dose 0.4 MG; Start 06/04/18 at 09:00 Multivitamins Therapeutic (Theragran) 1 tab DAILY GTB Last administered on 06/06/18at 09:16; Admin Dose 1 TAB; Start 06/04/18 at 09:00 Docusate Sodium (Colace Liquid Cup) 100 mg DAILY GTB Last administered on 06/06/18at 09:16; Admin Dose 100 MG; Start 06/04/18 at 09:00 Nystatin (Nystatin Powder) 1 applic BID TOP Last administered on 06/16/18at 08:12; Admin Dose 1 APPLIC; Start 06/04/18 at 15:30 Clotrimazole (Lotrimin Cr) 1 applic BID TOP Last administered on 06/16/18at 0 8:11; Admin Dose 1 APPLIC; Start 06/05/18 at 12:00 Diagnostic Test (Pha) (Accu-Chek) 1 ea Q4 XX Last administered on 06/15/18at 17:06; Admin Dose 1 EA; Start 06/07/18 at 11:00 Metoclopramide HCl (Reglan) 10 mg Q6 IV Last administered on 06/16/18at 12:20; Admin Dose 10 MG; Start 06/06/18 at 18:00 Diagnostic Test (Pha) (Accu-Chek) 1 ea 02 XX Last administered on 06/14/18at 02:15; Admin Dose 1 EA; Start 06/07/18 at 02:00 Insulin Aspart (Novolog Insulin Pen) NOVOLOG *MILD* ALGORI... Q4 SC Last administered on 06/15/18at 12:17; Admin Dose 1 UNIT; Start 06/06/18 at 13:30 Miscellaneous Information 1 ea NOTE XX ; Start 06/06/18 at 13:00 Glucose (Glutose) 15 gm Q15M PRN PO DECREASED GLUCOSE; Start 06/06/18 at 13:00 Glucose (Glutose) 22.5 gm Q15M PRN PO DECREASED GLUCOSE; Start 06/06/18 at 13:00 Dextrose (D50w Syringe) 25 ml Q15M PRN IV DECREASED GLUCOSE; Start 06/06/18 at 13:00 Dextrose (D50w Syringe) 50 ml Q15M PRN IV DECREASED GLUCOSE; Start 06/06/18 at 13:00 Glucagon (Glucagen) 1 mg Q15M PRN IM DECREASED GLUCOSE; Start 06/06/18 at 13:00 Glucose (Glutose) 15 gm Q15M PRN BUCCAL DECREASED GLUCOSE; Start 06/06/18 at 13:00 Miscellaneous Information (* Miscellaneous Pharmacy Order) TODAY PT IS GETTING PICC LI... ONCE XX ; Start 06/07/18 at 10:30 Bisacodyl (Dulcolax Supp) 10 mg DAILY PRN [place] CONSTIPATION; Start 06/07/18 at 11:30 IV Flush (NS 10 ml) 10 ml PRN PRN IV IV PROTOCOL; Start 06/07/18 at 14:00 Alteplase, Recombinant (Cathflo (Activase)) 4 mg MAY REPEAT X1 PRN CATHETER IF CATHETER REMAINS OCCULUDED Last administered on 06/12/18at 23:10; Admin Dose 4 MG; Start 06/09/18 at 10:30 Hydralazine HCl (Apresoline) 5 mg Q6H PRN IV sbp>160 Last administered on 06/11/18at 14:08; Admin Dose 5 MG; Start 06/10/18 at 09:30 Potassium Chloride/Dextrose/ Sod Cl 1,000 ml @ 60 mls/hr [id number] IV Last administered on 06/15/18at 21:12; Admin Dose 60 MLS/HR; Start 06/13/18 at 18:30 JACE ACEVEDO MD Jun 16, 2018 13:26
[2018-06-16 14:00] VITALS: BP 165/70; PULSE 60; RESP 18
--- NOTE | 2018-06-16 14:42 | PN ---
Date/Time of Note Date/Time of Note DATE: 06/16/18 TIME: 14:32 Assessment/Plan VTE Prophylaxis Risk score (from [facility])>0 risk: 8 SCD applied (from [facility]): Yes Pharmacological prophylaxis: heparin Lines/Catheters IV Catheter Type (from [facility]): Peripheral IV Urinary Cath still in place: No Assessment/Plan Assessment/Plan Assessment: Normocytic anemia EGD 06/04/18 Impression: 1.5 cm proximal gastric polyp. Post polypectomy plus Endo Clip placement. Post placement of [place] 24-20 cc replacement gastrostomy tube. Otherwise normal EGD. Melena/hematochezia - no evidence of bleeding Malfunctioning gastrostomy tube/infected site Hx of Gastric cancer s/p PEG placement (30 fr) Dementia Bacteremia -Blood cultures x2 growing gram-positive cocci UTI- with E.col Plan: Plan for PEG placement Sunday Check CBC and INR today Ostomy covered with drainage bag Continue current regimen Pt seen in collaboration with Dr. Hagen Subjective: Course reviewed with nursing staff Patient interviewed and examined All labs, imaging and other results reviewed Pt appears comfortable. Denies abdominal pain, nausea or vomiting. Small amount of ongoing drainage from prior peg site. Plan for PEG on Sunday. Discussed procedure risks and benefits with the patient. She is agreeable to procedure. Left a message for the DPOA Tamra, called again today and left voicemail. PHYSICAL EXAMINATION: GENERAL: Alert & confused, cooperative. SKIN: No lesions, no stigmata chronic liver disease, no evidence of bleeding diathesis HEAD: Normocephalic, atraumatic, no tenderness. EYES: Pupils equal reactive to light and accommodation, full extraocular movements, sclera clear, non-icteric, no discharge. EARS/NOSE AND THROAT: Ears normal, nose normal, oropharynx normal, oral membranes well hydrated without lesions. NECK: Supple, no masses CARDIOVASCULAR: Heart: Regular rate and rhythm RESPIRATORY: Lungs clear to auscultation GASTROINTESTINAL AND LIVER: Abdomen: Soft, non tenderness, non-distended, ostomy site slowly healing, ostomy covered with a drainage bag, no rebound tenderness, normoactive bowel sounds. Rectal: Deferred. Result Diagram: 06/14/18 0629 06/14/18 0629 Results 24hrs Laboratory Tests Test 06/15/18 17:06 06/15/18 21:09 06/16/18 01:28 06/16/18 05:53 Bedside Glucose 115 111 99 114 Test 06/16/18 08:15 06/16/18 12:20 Bedside Glucose 107 125 CC: ROBERT HAGEN MD ; Exam/Review of Systems Exam Vitals Vital Signs Date Temp Pulse Resp B/P (MAP) Pulse Ox O2 O2 Flow FiO2 Time Delivery Rate 06/16/18 97.8 58 18 143/63 99 08:00 (89) 06/13/18 Room Air 14:00 Intake and Output 06/15/18 06/15/18 06/16/18 1515:00 23:00 07:00 IntakeIntake Total 400 ml BalanceBalance 400 ml Results Results 24hrs Laboratory Tests Test 06/15/18 17:06 06/15/18 21:09 06/16/18 01:28 06/16/18 05:53 Bedside Glucose 115 111 99 114 Test 06/16/18 08:15 06/16/18 12:20 Bedside Glucose 107 125 Medications Medication Current Medications IV Flush (NS 3 ml) 3 ml PER PROTOCOL IV ; Start 06/03/18 at 12:00 Ondansetron HCl (Zofran Inj) 4 mg Q6H PRN IV NAUSEA/VOMITING Last administered on 06/06/18at 09:36; Admin Dose 4 MG; Start 06/03/18 at 12:00 Acetaminophen (Tylenol Tab) 650 mg Q6H PRN PO .PAIN 1-3 OR TEMP; Start 06/03/18 at 12:00 Acetaminophen/ Hydrocodone Bitart ([place] (5/325)) 1 tab Q6H PRN PO .MOD PAIN 4- 6; Start 06/03/18 at 12:00 Morphine Sulfate (morphine) 2 mg Q4H PRN IV .SEVERE PAIN 7-10; Start 06/03/18 at 12:00 Docusate Sodium (Colace) 100 mg Q12H PRN PO .CONSTIPATION; Start 06/03/18 at 12:00 Magnesium Hydroxide (Milk Of Mag) 30 ml DAILY PRN PO .CONSTIPATION; Start 06/03/18 at 12:00 Pantoprazole (Protonix Iv) 40 mg BID@0600,1800 IV Last administered on 06/16/18at 05:52; Admin Dose 40 MG; Start 06/03/18 at 18:00 Lorazepam (Ativan) 0.5 mg Q6H PRN IV ANXIETY; Start 06/03/18 at 12:00 Albuterol/ Ipratropium (Duoneb) 3 ml Q4H RESP THERAPY PRN HHN SHORTNESS OF BREATH; Start 06/03/18 at 12:00 Nitroglycerin (Nitroglycerin (Sl Tab) 0.4 Mg) 1 tab Q5M PRN SL ANGINA; Start 06/03/18 at 12:00 Folic Acid (Folic Acid) 0.4 mg DAILY GTB Last administered on 06/06/18 09:16; Admin Dose 0.4 MG; Start 06/04/18 at 09:00 Multivitamins Therapeutic (Theragran) 1 tab DAILY GTB Last administered on 06/06/18 09:16; Admin Dose 1 TAB; Start 06/04/18 at 09:00 Docusate Sodium (Colace Liquid Cup) 100 mg DAILY GTB Last administered on 06/06/18 09:16; Admin Dose 100 MG; Start 06/04/18 at 09:00 Nystatin (Nystatin Powder) 1 applic BID TOP Last administered on 06/16/18 08:12; Admin Dose 1 APPLIC; Start 06/04/18 at 15:30 Clotrimazole (Lotrimin Cr) 1 applic BID TOP Last administered on 06/16/18 08:11; Admin Dose 1 APPLIC; Start 06/05/18 at 12:00 Diagnostic Test (Pha) (Accu-Chek) 1 ea Q4 XX Last administered on 06/15/18 17:06; Admin Dose 1 EA; Start 06/07/18 at 11:00 Metoclopramide HCl (Reglan) 10 mg Q6 IV Last administered on 06/16/18 12:20; Admin Dose 10 MG; Start 06/06/18 at 18:00 Diagnostic Test (Pha) (Accu-Chek) 1 ea 02 XX Last administered on 06/14/18 02:15; Admin Dose 1 EA; Start 06/07/18 at 02:00 Insulin Aspart (Novolog Insulin Pen) NOVOLOG *MILD* ALGORI... Q4 SC Last administered on 06/15/18 12:17; Admin Dose 1 UNIT; Start 06/06/18 at 13:30 Miscellaneous Information 1 ea NOTE XX ; Start 06/06/18 at 13:00 Glucose (Glutose) 15 gm Q15M PRN PO DECREASED GLUCOSE; Start 06/06/18 at 13:00 Glucose (Glutose) 22.5 gm Q15M PRN PO DECREASED GLUCOSE; Start 06/06/18 at 13:00 Dextrose (D50w Syringe) 25 ml Q15M PRN IV DECREASED GLUCOSE; Start 06/06/18 at 13:00 Dextrose (D50w Syringe) 50 ml Q15M PRN IV DECREASED GLUCOSE; Start 06/06/18 at 13:00 Glucagon (Glucagen) 1 mg Q15M PRN IM DECREASED GLUCOSE; Start 06/06/18 at 13:00 Glucose (Glutose) 15 gm Q15M PRN BUCCAL DECREASED GLUCOSE; Start 06/06/18 at 13:00 Miscellaneous Information (* Miscellaneous Pharmacy Order) TODAY PT IS GETTING PICC LI... ONCE XX ; Start 06/07/18 at 10:30 Bisacodyl (Dulcolax Supp) 10 mg DAILY PRN [place] CONSTIPATION; Start 06/07/18 at 11:30 IV Flush (NS 10 ml) 10 ml PRN PRN IV IV PROTOCOL; Start 06/07/18 at 14:00 Alteplase, Recombinant (Cathflo (Activase)) 4 mg MAY REPEAT X1 PRN CATHETER IF CATHETER REMAINS OCCULUDED Last administered on 06/12/18at 23:10; Admin Dose 4 MG; Start 06/09/18 at 10:30 Hydralazine HCl (Apresoline) 5 mg Q6H PRN IV sbp>160 Last administered on 06/11/18at 14:08; Admin Dose 5 MG; Start 06/10/18 at 09:30 Potassium Chloride/Dextrose/ Sod Cl 1,000 ml @ 60 mls/hr [id number] IV Last administered on 06/15/18at 21:12; Admin Dose 60 MLS/HR; Start 06/13/18 at 18:30 Fosfomycin Tromethamine (Monurol) 3 gm ONCE ONCE PO ; Start 06/16/18 at 19:30; Stop 06/16/18 at 19:31 ADITYA RIVER NP Jun 16, 2018 14:42
[2018-06-16] MEDS ORDERED: LIDOCAINE 1% (MPF) 5 ML VIAL SC ONE (18:00)
[2018-06-16] MEDS ORDERED: FOSFOMYCIN 3 GM PACKET PO ONE (19:30)
[2018-06-16 19:48] VITALS: BP 155/53; PULSE 57; RESP 18
[2018-06-17] MEDS: INSULIN ASPART [NOVOLOG] 3 ML PEN SC SCH ×6 (00:31→20:12)
[2018-06-17] MEDS: ACCU-CHEK XX SCH ×7 (00:31→20:12)
[2018-06-17 02:00] VITALS: BP 120/45; PULSE 61; RESP 18
[2018-06-17 02:25] VITALS: BP 134/67; PULSE 69; RESP 18
[2018-06-17] MEDS: METOCLOPRAMIDE 10 MG INJ IV SCH ×4 (05:40→17:24)
[2018-06-17] MEDS: PANTOPRAZOLE 40 MG INJ IV SCH ×2 (05:40→17:24)
[2018-06-17] MEDS: D5W-0.45 NACL + KCL 20 MEQ 1,000 ML IV SCH ×2 (05:50→18:44)
[2018-06-17 08:26] VITALS: BP 140/47; PULSE 56; RESP 18
[2018-06-17] MEDS: FOLIC ACID 0.4 MG TAB GTB SCH (08:29)
[2018-06-17] MEDS: MULTIVITAMINS THERAPEUTIC TAB GTB SCH (08:29)
[2018-06-17] MEDS: DOCUSATE SODIUM 10 MG/ML (10ML CUP) GTB SCH (08:29)
[2018-06-17] MEDS: NYSTATIN 30 GM POWDER BTL TOP SCH ×2 (08:57→20:12)
[2018-06-17] MEDS: CLOTRIMAZOLE 1% 30 GM CR TOP SCH ×2 (08:57→20:13)
--- NOTE | 2018-06-17 13:18 | PN ---
Date/Time of Note Date/Time of Note DATE: 06/17/18 TIME: 13:17 Assessment/Plan VTE Prophylaxis [place] [facility] risk: 6 SCD applied [place] [facility] Yes Pharmacological prophylaxis: NA/contraindicated Pharm contraindication: bleeding, anticoag not tolerated Lines/Catheters [facility] Type (from [facility] Peripheral IV Urinary Cath still in place: No Assessment/Plan Hospital Course SUBJECTIVE: Patient is getting a new replacement PEG tube today. OBJECTIVE: Vital signs-see below PHYSICAL EXAM: Constitutional: Frail looking, elderly female, lying in bed comfortably. Psych: nl mood/affect, no complaints Head: atraumatic, normocephalic Eyes: nl conjunctiva, nl sclera ENMT: mucosa pink and moist, nl external ears & nose Neck: non-tender, supple Respiratory: clear to auscultation, normal air movement Cardiovascular: nl pulses, regular rate and rhythm Gastrointestinal:G tube site red. not much output-site looks significantly improved.... soft, bowel sounds active in all 4 quadrants. Musculoskeletal/extremities: nl extremities to inspection, motor strength equal bilaterally, no focal deficit. Normal pulses,no cyanosis, no edema. Neurological: Forgetful/dementia. Alert to self and place. Nl speech, nl strength Skin: nl turgor ASSESSMENT/PLAN: 83-year-old female with a history of gastric cancer, status post PEG, gastritis, erosive esophagitis, dementia, was transferred from residential with rectal bleed, also found to have bacteremia with leaking/infected/malfxn G-tube requiring G-tube removal... 1. Acute GI bleed, hematochezia -Resolved -Status post EGD:1.5 cm proximal gastric polyp. Post polypectomy plus Endo Clip placement. -Deferred colonoscopy given therapeutic procedure and need for Endo Clip. -Continue iv Protonix -Avoid NSAIDs, antiplatelets, anticoagulation 2. Malfunctioned PEG w/site infection. G-tube site grew [place] albicans/Ecoli/Yeast. -GI on board=>s/p removal of Gtube 06/06. -Plan is new PEG tube placement today. -cont.local Gt site care 3. Coagulase-negative staph bacteremia, x2 sets. -Likely source G-tube. -s/p abx -repeat cultures NGTD 4. E. coli UTI -Treated appropriately. 5. Acute on chronic anemia. Acute anemia secondary to GI bleed -Now stable. Monitor 6. History of gastric cancer 7. Osteoporosis -Supportive care, resume home medications -Continued PT evaluation 8. Dementia -Supportive care DVT prophylaxis: SCDs, anticoagulation contraindicated secondary to bleeding PUD prophylaxis: Protonix CODE STATUS: Full code Diet: TPN Disposition: Patient is getting a new PEG today. DC planning in a.m. if tolerates tube feeding back to residential. Patient was seen in collaboration with Result Diagram: 06/17/18 0730 06/17/18 0730 Results 24hrs Laboratory Tests Test 06/16/18 15:53 06/16/18 17:40 06/16/18 21:19 06/17/18 00:31 White Blood Count 6.4 Red Blood Count 3.24 L Hemoglobin 10.0 L Hematocrit 30.7 L Mean Corpuscular 94.8 Volume Mean Corpuscular 30.9 Hemoglobin Mean Corpuscular 32.6 Hemoglobin Concent Red Cell 13.0 Distribution Width Platelet Count 278 Mean Platelet Volume 10.1 Immature 0.500 H Granulocytes % Neutrophils % 76.2 Lymphocytes % 11.1 L Monocytes % 7.1 Eosinophils % 4.5 Basophils % 0.6 Nucleated Red Blood 0.0 Cells % Immature 0.030 Granulocytes # Neutrophils # 4.9 Lymphocytes # 0.7 L Monocytes # 0.5 Eosinophils # 0.3 Basophils # 0.0 Nucleated Red Blood 0.0 Cells # Prothrombin Time 14.5 Prothrombin Time 1.1 Ratio INR International 1.12 Normalized Ratio Bedside Glucose 120 100 82 Test 06/17/18 04:39 06/17/18 07:30 06/17/18 08:10 06/17/18 12:05 Bedside Glucose 106 113 125 White Blood Count 5.1 # Red Blood Count 3.12 L Hemoglobin 9.6 L Hematocrit 29.2 L Mean Corpuscular 93.6 Volume Mean Corpuscular 30.8 Hemoglobin Mean Corpuscular 32.9 Hemoglobin Concent Red Cell 12.9 Distribution Width Platelet Count 261 Mean Platelet Volume 10.3 Immature 0.200 Granulocytes % Neutrophils % 70.1 Lymphocytes % 13.1 L Monocytes % 9.0 Eosinophils % 6.6 Basophils % 1.0 Nucleated Red Blood 0.0 Cells % Immature 0.010 Granulocytes # Neutrophils # 3.6 Lymphocytes # 0.7 L Monocytes # 0.5 Eosinophils # 0.3 Basophils # 0.1 Nucleated Red Blood 0.0 Cells # Sodium Level 140 Potassium Level 3.7 Chloride Level 110 Carbon Dioxide Level 21 Anion Gap 9 Blood Urea Nitrogen 11 Creatinine 0.83 Est Glomerular Filtrat Rate mL/min Glucose Level 93 Calcium Level 9.1 Magnesium Level 1.6 L Exam/Review of Systems Exam Vitals Vital Signs Date Temp Pulse Resp B/P (MAP) Pulse Ox O2 O2 Flow FiO2 Time Delivery Rate 06/17/18 98.0 56 18 140/47 99 08:26 (78) 06/13/18 Room Air 14:00 Intake and Output 06/16/18 06/16/18 06/17/18 1515:00 23:00 07:00 IntakeIntake Total 1120 ml 110 ml BalanceBalance 1120 ml 110 ml Results Results 24hrs Laboratory Tests Test 06/16/18 15:53 06/16/18 17:40 06/16/18 21:19 06/17/18 00:31 White Blood Count 6.4 Red Blood Count 3.24 L Hemoglobin 10.0 L Hematocrit 30.7 L Mean Corpuscular 94.8 Volume Mean Corpuscular 30.9 Hemoglobin Mean Corpuscular 32.6 Hemoglobin Concent Red Cell 13.0 Distribution Width Platelet Count 278 Mean Platelet Volume 10.1 Immature 0.500 H Granulocytes % Neutrophils % 76.2 Lymphocytes % 11.1 L Monocytes % 7.1 Eosinophils % 4.5 Basophils % 0.6 Nucleated Red Blood 0.0 Cells % Immature 0.030 Granulocytes # Neutrophils # 4.9 Lymphocytes # 0.7 L Monocytes # 0.5 Eosinophils # 0.3 Basophils # 0.0 Nucleated Red Blood 0.0 Cells # Prothrombin Time 14.5 Prothrombin Time 1.1 Ratio INR International 1.12 Normalized Ratio Bedside Glucose 120 100 82 Test 06/17/18 04:39 06/17/18 07:30 06/17/18 08:10 06/17/18 12:05 Bedside Glucose 106 113 125 White Blood Count 5.1 # Red Blood Count 3.12 L Hemoglobin 9.6 L Hematocrit 29.2 L Mean Corpuscular 93.6 Volume Mean Corpuscular 30.8 Hemoglobin Mean Corpuscular 32.9 Hemoglobin Concent Red Cell 12.9 Distribution Width Platelet Count 261 Mean Platelet Volume 10.3 Immature 0.200 Granulocytes % Neutrophils % 70.1 Lymphocytes % 13.1 L Monocytes % 9.0 Eosinophils % 6.6 Basophils % 1.0 Nucleated Red Blood 0.0 Cells % Immature 0.010 Granulocytes # Neutrophils # 3.6 Lymphocytes # 0.7 L Monocytes # 0.5 Eosinophils # 0.3 Basophils # 0.1 Nucleated Red Blood 0.0 Cells # Sodium Level 140 Potassium Level 3.7 Chloride Level 110 Carbon Dioxide Level 21 Anion Gap 9 Blood Urea Nitrogen 11 Creatinine 0.83 Est Glomerular Filtrat Rate mL/min Glucose Level 93 Calcium Level 9.1 Magnesium Level 1.6 L Medications Medication Current Medications IV Flush (NS 3 ml) 3 ml PER PROTOCOL IV ; Start 06/03/18 at 12:00 Ondansetron HCl (Zofran Inj) 4 mg Q6H PRN IV NAUSEA/VOMITING Last administered on 06/06/18at 09:36; Admin Dose 4 MG; Start 06/03/18 at 12:00 Acetaminophen (Tylenol Tab) 650 mg Q6H PRN PO .PAIN 1-3 OR TEMP; Start 06/03/18 at 12:00 Acetaminophen/ Hydrocodone Bitart ([place] (5/325)) 1 tab Q6H PRN PO .MOD PAIN 4- 6; Start 06/03/18 at 12:00 Morphine Sulfate (morphine) 2 mg Q4H PRN IV .SEVERE PAIN 7-10; Start 06/03/18 at 12:00 Docusate Sodium (Colace) 100 mg Q12H PRN PO .CONSTIPATION; Start 06/03/18 at 12 :00 Magnesium Hydroxide (Milk Of Mag) 30 ml DAILY PRN PO .CONSTIPATION; Start 06/03/18 at 12:00 Pantoprazole (Protonix Iv) 40 mg BID@0600,1800 IV Last administered on 06/17/18at 05:40; Admin Dose 40 MG; Start 06/03/18 at 18:00 Lorazepam (Ativan) 0.5 mg Q6H PRN IV ANXIETY; Start 06/03/18 at 12:00 Albuterol/ Ipratropium (Duoneb) 3 ml Q4H RESP THERAPY PRN HHN SHORTNESS OF BREATH; Start 06/03/18 at 12:00 Nitroglycerin (Nitroglycerin (Sl Tab) 0.4 Mg) 1 tab Q5M PRN SL ANGINA; Start 06/03/18 at 12:00 Folic Acid (Folic Acid) 0.4 mg DAILY GTB Last administered on 06/06/18 09:16; Admin Dose 0.4 MG; Start 06/04/18 at 09:00 Multivitamins Therapeutic (Theragran) 1 tab DAILY GTB Last administered on 06/06/18 09:16; Admin Dose 1 TAB; Start 06/04/18 at 09:00 Docusate Sodium (Colace Liquid Cup) 100 mg DAILY GTB Last administered on 06/06/18 09:16; Admin Dose 100 MG; Start 06/04/18 at 09:00 Nystatin (Nystatin Powder) 1 applic BID TOP Last administered on 06/17/18 08:57; Admin Dose 1 APPLIC; Start 06/04/18 at 15:30 Clotrimazole (Lotrimin Cr) 1 applic BID TOP Last administered on 06/17/18 08:57; Admin Dose 1 APPLIC; Start 06/05/18 at 12:00 Diagnostic Test (Pha) (Accu-Chek) 1 ea Q4 XX Last administered on 06/17/18 12:01; Admin Dose 1 EA; Start 06/07/18 at 11:00 Metoclopramide HCl (Reglan) 10 mg Q6 IV Last administered on 06/17/18 12:01; Admin Dose 10 MG; Start 06/06/18 at 18:00 Diagnostic Test (Pha) (Accu-Chek) 1 ea 02 XX Last administered on 06/14/18 02:15; Admin Dose 1 EA; Start 06/07/18 at 02:00 Insulin Aspart (Novolog Insulin Pen) NOVOLOG *MILD* ALGORI... Q4 SC Last admini stered on 06/15/18 12:17; Admin Dose 1 UNIT; Start 06/06/18 at 13:30 Miscellaneous Information 1 ea NOTE XX ; Start 06/06/18 at 13:00 Glucose (Glutose) 15 gm Q15M PRN PO DECREASED GLUCOSE; Start 06/06/18 at 13:00 Glucose (Glutose) 22.5 gm Q15M PRN PO DECREASED GLUCOSE; Start 06/06/18 at 13:00 Dextrose (D50w Syringe) 25 ml Q15M PRN IV DECREASED GLUCOSE; Start 06/06/18 at 13:00 Dextrose (D50w Syringe) 50 ml Q15M PRN IV DECREASED GLUCOSE; Start 06/06/18 at 13:00 Glucagon (Glucagen) 1 mg Q15M PRN IM DECREASED GLUCOSE; Start 06/06/18 at 13:00 Glucose (Glutose) 15 gm Q15M PRN BUCCAL DECREASED GLUCOSE; Start 06/06/18 at 13:00 Miscellaneous Information (* Miscellaneous Pharmacy Order) TODAY PT IS GETTING PICC LI... ONCE XX ; Start 06/07/18 at 10:30 Bisacodyl (Dulcolax Supp) 10 mg DAILY PRN [place] CONSTIPATION; Start 06/07/18 at 11:30 IV Flush (NS 10 ml) 10 ml PRN PRN IV IV PROTOCOL; Start 06/07/18 at 14:00 Alteplase, Recombinant (Cathflo (Activase)) 4 mg MAY REPEAT X1 PRN CATHETER IF CATHETER REMAINS OCCULUDED Last administered on 06/12/18at 23:10; Admin Dose 4 MG; Start 06/09/18 at 10:30 Hydralazine HCl (Apresoline) 5 mg Q6H PRN IV sbp>160 Last administered on 06/11/18at 14:08; Admin Dose 5 MG; Start 06/10/18 at 09:30 Potassium Chloride/Dextrose/ Sod Cl 1,000 ml @ 60 mls/hr [id number] IV Last administered on 06/16/18at 15:21; Admin Dose 60 MLS/HR; Start 06/13/18 at 18:30 ALFREDO MENSAH NP Jun 17, 2018 13:18
[2018-06-17] MEDS ORDERED: MAGNESIUM SULFATE 2 GM/50 ML 50 ML IVPB ONE (13:30)
[2018-06-17 15:03] VITALS: BP 125/63; PULSE 62; RESP 18
[2018-06-17 16:20] VITALS: BP 166/74; PULSE 59; RESP 20
[2018-06-17 20:00] VITALS: BP 138/67; PULSE 65; RESP 18
[2018-06-18] VITALS (12 sets, daily range): BP systolic 109–180; BP diastolic 48–90; PULSE 56–89; RESP 14–22
[2018-06-18] MEDS: INSULIN ASPART [NOVOLOG] 3 ML PEN SC SCH ×6 (00:30→20:35)
[2018-06-18] MEDS: METOCLOPRAMIDE 10 MG INJ IV SCH ×4 (00:30→18:05)
[2018-06-18] MEDS: ACCU-CHEK XX SCH ×7 (00:31→20:34)
[2018-06-18] MEDS: PANTOPRAZOLE 40 MG INJ IV SCH ×2 (05:37→18:05)
[2018-06-18] MEDS: FOLIC ACID 0.4 MG TAB GTB SCH (09:00)
[2018-06-18] MEDS: CLOTRIMAZOLE 1% 30 GM CR TOP SCH ×2 (09:00→20:37)
[2018-06-18] MEDS: MULTIVITAMINS THERAPEUTIC TAB GTB SCH (09:00)
[2018-06-18] MEDS: DOCUSATE SODIUM 10 MG/ML (10ML CUP) GTB SCH (09:00)
[2018-06-18] MEDS: NYSTATIN 30 GM POWDER BTL TOP SCH ×2 (09:24→21:00)
--- NOTE | 2018-06-18 12:53 | PREAC ---
Date/Time of Note Date/Time of Note DATE: 06/18/18 TIME: 12:51 Anesthesia Eval and Record Evaluation Time Pre-Procedure Interview DATE: 06/18/18 TIME: 12:51 Age 83 Sex female NPO: 8 hrs Preoperative diagnosis DYSPHAGIA Planned procedure PEG TUBE PLACEMENT Past Medical History Past Medical History: Includes Endo: Diabetes Neuro: Other (DEMENTIA) Hepatic: Other (GI BLEED S/P ENDO CLIP) Heme: Anemia Infection(s): Other (INFECTION ON G-TUBE SITE ) Surgery & Anesthesia Issues No known issue Meds Anticoagulation: No Beta Josep within 24 hr: No Reason Beta Josep not given: Pt. not on B-Josep Reported Medications Docusate Sodium* (Docusate Sodium* Liq) 50 Mg/5 Ml Liquid, 100 MG GTB DAILY, ML 06/03/18 Cran/Vitc/Mannose/Inulin/Brom (Uti-Stat Liquid) 3,875 Mg/30 Ml Liquid, 30 ML GTB BID 05/27/16 Acetaminophen* (Tylenol*) 500 Mg Tab, 1000 MG GTB Q4H PRN for PAIN LEVEL 4-6/10, TAB 05/27/16 Acetaminophen* (Tylenol*) 325 Mg Tablet, 650 MG GTB Q4H PRN for MILD PAIN LEVEL 1-3, TAB 05/27/16 Pantoprazole* (Protonix*) 40 Mg Tablet.dr, 40 MG GTB DAILY, TAB 05/27/16 Glipizide* (Glipizide*) 5 Mg Tablet, 5 MG GTB AC BREAKFAST, TAB 08/10/14 Folic Acid* (Folic Acid*) 0.4 Mg Tablet, 0.4 MG GTB DAILY, TAB 08/10/14 Multivitamin (MULTI VITAMIN DAILY) 1 Each Tablet, 5 ML GTB DAILY 09/04/13 Current Medications IV Flush (NS 3 ml) 3 ml PER PROTOCOL IV ; Start 06/03/18 at 12:00 Ondansetron HCl (Zofran Inj) 4 mg Q6H PRN IV NAUSEA/VOMITING Last administered on 06/06/18at 09:36; Admin Dose 4 MG; Start 06/03/18 at 12:00 Acetaminophen (Tylenol Tab) 650 mg Q6H PRN PO .PAIN 1-3 OR TEMP; Start 06/03/18 at 12:00 Acetaminophen/ Hydrocodone Bitart ([place] (5/325)) 1 tab Q6H PRN PO .MOD PAIN 4- 6; Start 06/03/18 at 12:00 Morphine Sulfate (morphine) 2 mg Q4H PRN IV .SEVERE PAIN 7-10; Start 06/03/18 at 12:00 Docusate Sodium (Colace) 100 mg Q12H PRN PO .CONSTIPATION; Start 06/03/18 at 12:00 Magnesium Hydroxide (Milk Of Mag) 30 ml DAILY PRN PO .CONSTIPATION; Start 06/03/18 at 12:00 Pantoprazole (Protonix Iv) 40 mg BID@0600,1800 IV Last administered on 06/18/18 05:37; Admin Dose 40 MG; Start 06/03/18 at 18:00 Lorazepam (Ativan) 0.5 mg Q6H PRN IV ANXIETY; Start 06/03/18 at 12:00 Albuterol/ Ipratropium (Duoneb) 3 ml Q4H RESP THERAPY PRN HHN SHORTNESS OF BREATH; Start 06/03/18 at 12:00 Nitroglycerin (Nitroglycerin (Sl Tab) 0.4 Mg) 1 tab Q5M PRN SL ANGINA; Start 06/03/18 at 12:00 Folic Acid (Folic Acid) 0.4 mg DAILY GTB Last administered on 06/06/18 09:16; Admin Dose 0.4 MG; Start 06/04/18 at 09:00 Multivitamins Therapeutic (Theragran) 1 tab DAILY GTB Last administered on 06/06/18 09:16; Admin Dose 1 TAB; Start 06/04/18 at 09:00 Docusate Sodium (Colace Liquid Cup) 100 mg DAILY GTB Last administered on 06/06/18 09:16; Admin Dose 100 MG; Start 06/04/18 at 09:00 Nystatin (Nystatin Powder) 1 applic BID TOP Last administered on 06/18/18 09:24; Admin Dose 1 APPLIC; Start 06/04/18 at 15:30 Clotrimazole (Lotrimin Cr) 1 applic BID TOP Last administered on 06/17/18 20 :13; Admin Dose 1 APPLIC; Start 06/05/18 at 12:00 Diagnostic Test (Pha) (Accu-Chek) 1 ea Q4 XX Last administered on 3/12/19at 09:18; Admin Dose 1 EA; Start 06/07/18 at 11:00 Metoclopramide HCl (Reglan) 10 mg Q6 IV Last administered on 06/18/18at 05:38; Admin Dose 10 MG; Start 06/06/18 at 18:00 Diagnostic Test (Pha) (Accu-Chek) 1 ea 02 XX Last administered on 06/14/18at 02:15; Admin Dose 1 EA; Start 06/07/18 at 02:00 Insulin Aspart (Novolog Insulin Pen) NOVOLOG *MILD* ALGORI... Q4 SC Last administered on 06/18/18at 00:30; Admin Dose 1 UNIT; Start 06/06/18 at 13:30 Miscellaneous Information 1 ea NOTE XX ; Start 06/06/18 at 13:00 Glucose (Glutose) 15 gm Q15M PRN PO DECREASED GLUCOSE; Start 06/06/18 at 13:00 Glucose (Glutose) 22.5 gm Q15M PRN PO DECREASED GLUCOSE; Start 06/06/18 at 13:00 Dextrose (D50w Syringe) 25 ml Q15M PRN IV DECREASED GLUCOSE; Start 06/06/18 at 13:00 Dextrose (D50w Syringe) 50 ml Q15M PRN IV DECREASED GLUCOSE; Start 06/06/18 at 13:00 Glucagon (Glucagen) 1 mg Q15M PRN IM DECREASED GLUCOSE; Start 06/06/18 at 13:00 Glucose (Glutose) 15 gm Q15M PRN BUCCAL DECREASED GLUCOSE; Start 06/06/18 at 13:00 Miscellaneous Information (* Miscellaneous Pharmacy Order) TODAY PT IS GETTING PICC LI... ONCE XX ; Start 06/07/18 at 10:30 Bisacodyl (Dulcolax Supp) 10 mg DAILY PRN [place] CONSTIPATION; Start 06/07/18 at 11:30 IV Flush (NS 10 ml) 10 ml PRN PRN IV IV PROTOCOL; Start 06/07/18 at 14:00 Alteplase, Recombinant (Cathflo (Activase)) 4 mg MAY REPEAT X1 PRN CATHETER IF CATHETER REMAINS OCCULUDED Last administered on 06/12/18at 23:10; Admin Dose 4 MG; Start 06/09/18 at 10:30 Hydralazine HCl (Apresoline) 5 mg Q6H PRN IV sbp>160 Last administered on 06/11/18at 14:08; Admin Dose 5 MG; Start 06/10/18 at 09:30 Potassium Chloride/Dextrose/ Sod Cl 1,000 ml @ 60 mls/hr [id number] IV Last administered on 06/17/18at 18:44; Admin Dose 60 MLS/HR; Start 06/13/18 at 18:30 Meds reviewed: Yes Allergies Coded Allergies: Penicillins (Verified Allergy, Severe, 06/03/18) Allergies Reviewed: Yes Labs/Studies Labs Reviewed: Reviewed by anesthesiologist Result Diagram: 06/18/1843 06/18/1843 Laboratory Tests 06/18/18 05:43 test: N/A Studies: ECG Pre-procedure Exam Last vitals Vital Signs Date Temp Pulse Resp B/P (MAP) Pulse Ox O2 O2 Flow FiO2 Time Delivery Rate 06/18/18 98.1 56 16 130/51 100 Room Air 07:45 (77) Airway: Adequate mouth opening (ANNE DEMENTIA ), Adequate thyromental dist (ANNE DEMENTIA ) Mallampati: Mallampati I (ANNE DEMENTIA ) Teeth: Normal (ANEN DEMENTIA ) Lung: Normal Heart: Normal Anticipated Difficutly with IV: Anticipate Difficult IV Access ASA Physical Status ASA physical status: 3 Emergency: None Planned Anesthetic General/MAC: MAC, TIVA Planned Pain Management Parenteral pain med, Local by surgeon Pre-operative Attestations Prior to commencing anesthesia and surgery, the patient was re-evaluated, there was verification of: *The patient's identity *The results of appropriate recent lab work and preoperative vital signs *The above evaluation not changing prior to induction *Anesthetic plan, risk benefits, alternative and complications discussed with p atient/family; questions answered; patient/family understands, accepts and wishes to proceed. LENKA ACOSTA Jun 18, 2018 12:53
[2018-06-18] MEDS: D5W-0.45 NACL + KCL 20 MEQ 1,000 ML IV SCH (13:41)
[2018-06-18] MEDS ORDERED: ONDANSETRON 4 MG INJ IV PRN (14:00)
[2018-06-18] MEDS ORDERED: FENTAnyl 50 MCG/ML VIAL IV PRN ×3 (14:00)
[2018-06-18] MEDS ORDERED: PROPOFOL 20 ML ONE (14:18)
[2018-06-18] MEDS ORDERED: LIDOCAINE 2% (SDV) 5 ML INJ ONE (14:18)
[2018-06-18] MEDS ORDERED: CEFAZOLIN 1 GM/50 ML (PMX) 50 ML IVPB ONE (14:19)
--- NOTE | 2018-06-18 14:30 | PN ---
Date/Time of Note Date/Time of Note DATE: 06/18/18 TIME: 14:28 Assessment/Plan VTE Prophylaxis Risk score (from Ns)>0 risk: 5 SCD applied (from Ns): Yes Pharmacological prophylaxis: NA/contraindicated Pharm contraindication: bleeding Lines/Catheters [facility] Peripheral IV Urinary Cath still in place: No Assessment/Plan Hospital Course SUBJECTIVE:PEG cancelled yesterday 2/2 pt pulled out iv leaving no access.. Today she is getting a PEG. No acute distress OBJECTIVE: Vital signs-see below PHYSICAL EXAM: Constitutional: Frail looking, elderly female, lying in bed comfortably. Psych: nl mood/affect, no complaints Head: atraumatic, normocephalic Eyes: nl conjunctiva, nl sclera ENMT: mucosa pink and moist, nl external ears & nose Neck: non-tender, supple Respiratory: clear to auscultation, normal air movement Cardiovascular: nl pulses, regular rate and rhythm Gastrointestinal:G tube site red. not much output-site looks significantly improved.... soft, bowel sounds active in all 4 quadrants. Musculoskeletal/extremities: nl extremities to inspection, motor strength equal bilaterally, no focal deficit. Normal pulses,no cyanosis, no edema. Neurological: Forgetful/dementia. Alert to self and place. Nl speech, nl strength Skin: nl turgor ASSESSMENT/PLAN: 83-year-old female with a history of gastric cancer, status pos t PEG, gastritis, erosive esophagitis, dementia, was transferred from snf with rectal bleed, also found to have bacteremia with leaking/infected/malfxn G-tube requiring G-tube removal... 1. Acute GI bleed, hematochezia -Resolved -Status post EGD:1.5 cm proximal gastric polyp. Post polypectomy plus Endo Clip placement. -Deferred colonoscopy given therapeutic procedure and need for Endo Clip. -Continue iv Protonix -Avoid NSAIDs, antiplatelets, anticoagulation 2. Malfunctioned PEG w/site infection. G-tube site grew [place] albicans/Ecoli/Yeast. -GI on board=>s/p removal of Gtube 06/06.Site infection treated w/abx completion, -Plan is new PEG tube placement today. -cont.local Gt site care 3. Coagulase-negative staph bacteremia, x2 sets. -Likely source G-tube. -s/p abx -repeat cultures NGTD 4. E. coli UTI -Treated appropriately. 5. Acute on chronic anemia. Acute anemia secondary to GI bleed -Now stable. Monitor 6. History of gastric cancer 7. Osteoporosis -Supportive care, resume home medications -Continued PT evaluation 8. Dementia -Supportive care DVT prophylaxis: SCDs, anticoagulation contraindicated secondary to bleeding PUD prophylaxis: Protonix CODE STATUS: Full code Diet: TPN Disposition: Patient is getting a new PEG today. DC planning in a.m. if tolerates tube feeding back to snf. Patient was seen in collaboration with Result Diagram: 06/18/18 0543 06/18/18 0543 Results 24hrs Laboratory Tests Test 06/17/18 15:56 06/17/18 17:44 06/17/18 20:11 06/18/18 00:27 Bedside Glucose 103 80 111 150 Test 06/18/18 05:36 06/18/18 05:43 06/18/18 09:20 06/18/18 13:30 Bedside Glucose 121 130 137 White Blood Count 4.6 L Red Blood Count 3.05 L Hemoglobin 9.4 L Hematocrit 28.2 L Mean Corpuscular 92.5 Volume Mean Corpuscular 30.8 Hemoglobin Mean Corpuscular 33.3 Hemoglobin Concent Red Cell 12.8 Distribution Width Platelet Count 261 Mean Platelet Volume 10.3 Immature 0.200 Granulocytes % Neutrophils % 62.4 Lymphocytes % 18.9 Monocytes % 11.0 Eosinophils % 6.8 Basophils % 0.7 Nucleated Red Blood 0.0 Cells % Immature 0.010 Granulocytes # Neutrophils # 2.8 Lymphocytes # 0.9 Monocytes # 0.5 Eosinophils # 0.3 Basophils # 0.0 Nucleated Red Blood 0.0 Cells # Sodium Level 139 Potassium Level 3.6 Chloride Level 108 Carbon Dioxide Level 23 Anion Gap 8 Blood Urea Nitrogen 9 Creatinine 0.84 Est Glomerular Filtrat Rate mL/min Glucose Level 105 Calcium Level 8.7 Magnesium Level 2.2 Exam/Review of Systems Exam Vitals Vital Signs Date Temp Pulse Resp B/P (MAP) Pulse Ox O2 O2 Flow FiO2 Time Delivery Rate 06/18/18 Simple 10 14:14 Mask 06/18/18 98.1 56 16 130/51 100 07:45 (77) Intake and Output 06/17/18 06/17/18 06/18/18 1515:00 23:00 07:00 IntakeIntake Total 710 ml 600 ml OutputOutput Total 40 ml BalanceBalance -40 ml 710 ml 600 ml Results Results 24hrs Laboratory Tests Test 06/17/18 15:56 06/17/18 17:44 06/17/18 20:11 06/18/18 00:27 Bedside Glucose 103 80 111 150 Test 06/18/18 05:36 06/18/18 05:43 06/18/18 09:20 06/18/18 13:30 Bedside Glucose 121 130 137 White Blood Count 4.6 L Red Blood Count 3.05 L Hemoglobin 9.4 L Hematocrit 28.2 L Mean Corpuscular 92.5 Volume Mean Corpuscular 30.8 Hemoglobin Mean Corpuscular 33.3 Hemoglobin Concent Red Cell 12.8 Distribution Width Platelet Count 261 Mean Platelet Volume 10.3 Immature 0.200 Granulocytes % Neutrophils % 62.4 Lymphocytes % 18.9 Monocytes % 11.0 Eosinophils % 6.8 Basophils % 0.7 Nucleated Red Blood 0.0 Cells % Immature 0.010 Granulocytes # Neutrophils # 2.8 Lymphocytes # 0.9 Monocytes # 0.5 Eosinophils # 0.3 Basophils # 0.0 Nucleated Red Blood 0.0 Cells # Sodium Level 139 Potassium Level 3.6 Chloride Level 108 Carbon Dioxide Level 23 Anion Gap 8 Blood Urea Nitrogen 9 Creatinine 0.84 Est Glomerular Filtrat Rate mL/min Glucose Level 105 Calcium Level 8.7 Magnesium Level 2.2 Medications Medication Current Medications IV Flush (NS 3 ml) 3 ml PER PROTOCOL IV ; Start 06/03/18 at 12:00 Ondansetron HCl (Zofran Inj) 4 mg Q6H PRN IV NAUSEA/VOMITING Last administered on 06/06/18at 09:36; Admin Dose 4 MG; Start 06/03/18 at 12:00 Acetaminophen (Tylenol Tab) 650 mg Q6H PRN PO .PAIN 1-3 OR TEMP; Start 06/03/18 at 12:00 Acetaminophen/ Hydrocodone Bitart ([place] (5/325)) 1 tab Q6H PRN PO .MOD PAIN 4- 6; Start 06/03/18 at 12:00 Morphine Sulfate (morphine) 2 mg Q4H PRN IV .SEVERE PAIN 7-10; Start 06/03/18 at 12:00 Docusate Sodium (Colace) 100 mg Q12H PRN PO .CONSTIPATION; Start 06/03/18 at 12:00 Magnesium Hydroxide (Milk Of Mag) 30 ml DAILY PRN PO .CONSTIPATION; Start 06/03/18 at 12:00 Pantoprazole (Protonix Iv) 40 mg BID@0600,1800 IV Last administered on 06/18/18 05:37; Admin Dose 40 MG; Start 06/03/18 at 18:00 Lorazepam (Ativan) 0.5 mg Q6H PRN IV ANXIETY; Start 06/03/18 at 12:00 Albuterol/ Ipratropium (Duoneb) 3 ml Q4H RESP THERAPY PRN HHN SHORTNESS OF [place] TH; Start 06/03/18 at 12:00 Nitroglycerin (Nitroglycerin (Sl Tab) 0.4 Mg) 1 tab Q5M PRN SL ANGINA; Start 06/03/18 at 12:00 Folic Acid (Folic Acid) 0.4 mg DAILY GTB Last administered on 06/06/18 09:16; Admin Dose 0.4 MG; Start 06/04/18 at 09:00 Multivitamins Therapeutic (Theragran) 1 tab DAILY GTB Last administered on 06/06/18 09:16; Admin Dose 1 TAB; Start 06/04/18 at 09:00 Docusate Sodium (Colace Liquid Cup) 100 mg DAILY GTB Last administered on 06/06/18 09:16; Admin Dose 100 MG; Start 06/04/18 at 09:00 Nystatin (Nystatin Powder) 1 applic BID TOP Last administered on 06/18/18 09:24; Admin Dose 1 APPLIC; Start 06/04/18 at 15:30 Clotrimazole (Lotrimin Cr) 1 applic BID TOP Last administered on 06/17/18 20:13; Admin Dose 1 APPLIC; Start 06/05/18 at 12:00 Diagnostic Test (Pha) (Accu-Chek) 1 ea Q4 XX Last administered on 06/18/18 13:41; Admin Dose 1 EA; Start 06/07/18 at 11:00 Metoclopramide HCl (Reglan) 10 mg Q6 IV Last administered on 06/18/18 13:40; Admin Dose 10 MG; Start 06/06/18 at 18:00 Diagnostic Test (Pha) (Accu-Chek) 1 ea 02 XX Last administered on 06/14/18at 02:15; Admin Dose 1 EA; Start 06/07/18 at 02:00 Insulin Aspart (Novolog Insulin Pen) NOVOLOG *MILD* ALGORI... Q4 SC Last administered on 06/18/18at 00:30; Admin Dose 1 UNIT; Start 06/06/18 at 13:30 Miscellaneous Information 1 ea NOTE XX ; Start 06/06/18 at 13:00 Glucose (Glutose) 15 gm Q15M PRN PO DECREASED GLUCOSE; Start 06/06/18 at 13:00 Glucose (Glutose) 22.5 gm Q15M PRN PO DECREASED GLUCOSE; Start 06/06/18 at 13:00 Dextrose (D50w Syringe) 25 ml Q15M PRN IV DECREASED GLUCOSE; Start 06/06/18 at 13:00 Dextrose (D50w Syringe) 50 ml Q15M PRN IV DECREASED GLUCOSE; Start 06/06/18 at 13:00 Glucagon (Glucagen) 1 mg Q15M PRN IM DECREASED GLUCOSE; Start 06/06/18 at 13:00 Glucose (Glutose) 15 gm Q15M PRN BUCCAL DECREASED GLUCOSE; Start 06/06/18 at 13:00 Miscellaneous Information (* Miscellaneous Pharmacy Order) TODAY PT IS GETTING PICC LI... ONCE XX ; Start 06/07/18 at 10:30 Bisacodyl (Dulcolax Supp) 10 mg DAILY PRN [place] CONSTIPATION; Start 06/07/18 at 11:30 IV Flush (NS 10 ml) 10 ml PRN PRN IV IV PROTOCOL; Start 06/07/18 at 14:00 Alteplase, Recombinant (Cathflo (Activase)) 4 mg MAY REPEAT X1 PRN CATHETER IF CATHETER REMAINS OCCULUDED Last administered on 06/12/18at 23:10; Admin Dose 4 MG; Start 06/09/18 at 10:30 Hydralazine HCl (Apresoline) 5 mg Q6H PRN IV sbp>160 Last administered on 06/11/18at 14:08; Admin Dose 5 MG; Start 06/10/18 at 09:30 Potassium Chloride/Dextrose/ Sod Cl 1,000 ml @ 60 mls/hr [id number] IV Last administered on 06/18/18at 13:41; Admin Dose 60 MLS/HR; Start 06/13/18 at 18:30 Fentanyl (Sublimaze) 25 mcg PACU ORDER PRN IV MILD PAIN 1-3; Start 06/18/18 at 14:00; Stop 06/18/18 at 18:00 Fentanyl (Sublimaze) 50 mcg PACU ORDER PRN IV MOD PAIN 4-6; Start 06/18/18 at 14:00; Stop 06/18/18 at 18:00 Fentanyl (Sublimaze) 75 mcg PACU ORDER PRN IV SEVERE PAIN 7-10; Start 06/18/18 at 14:00; Stop 06/18/18 at 18:00 Ondansetron HCl (Zofran Inj) 4 mg PACU ORDER PRN IV NAUSEA/VOMITING; Start 06/18/18 at 14:00; Stop 06/18/18 at 18:00 ALFREDO MENSAH NP Jun 18, 2018 14:30
--- NOTE | 2018-06-18 15:08 | PAC ---
Date/Time of Note Date/Time of Note DATE: 06/18/18 TIME: 15:07 Post-Anesthesia Notes Post-Anesthesia Note Last documented vital signs bp 151/60 hr 58 spo2 99% temp97.8 rr 16 Vital Signs Date Temp Pulse Resp B/P (MAP) Pulse Ox O2 O2 Flow FiO2 Time Delivery Rate 06/18/18 Simple 10 14:14 Mask 06/18/18 98.1 56 16 130/51 100 07:45 (77) Activity: WNL Respiratory function: WNL Cardiovascular function: WNL Mental status: Baseline Pain reasonably controlled: Yes Hydration appropriate: Yes Nausea/Vomiting absent: Yes LENKA ACOSTA Jun 18, 2018 15:08
[2018-06-18] MEDS ORDERED: hydrALAzine 20 MG INJ IV PRN (15:30)
[2018-06-18] MEDS ORDERED: LABETALOL HCL 20MG INJ IV PRN (15:30)
[2018-06-19] MEDS: ACCU-CHEK XX SCH ×7 (00:59→21:50)
[2018-06-19] MEDS: INSULIN ASPART [NOVOLOG] 3 ML PEN SC SCH ×6 (00:59→21:00)
[2018-06-19] MEDS: METOCLOPRAMIDE 10 MG INJ IV SCH ×4 (01:01→18:00)
[2018-06-19 02:31] VITALS: BP 151/73; PULSE 73; RESP 18
[2018-06-19] MEDS: PANTOPRAZOLE 40 MG INJ IV SCH ×2 (05:09→18:00)
[2018-06-19] MEDS: MULTIVITAMINS THERAPEUTIC TAB GTB SCH (08:02)
[2018-06-19] MEDS: FOLIC ACID 0.4 MG TAB GTB SCH (08:02)
[2018-06-19] MEDS: DOCUSATE SODIUM 10 MG/ML (10ML CUP) GTB SCH (08:02)
[2018-06-19 08:15] VITALS: BP 145/64; PULSE 78; RESP 17
[2018-06-19] MEDS: D5W-0.45 NACL + KCL 20 MEQ 1,000 ML IV SCH (08:32)
[2018-06-19] MEDS: NYSTATIN 30 GM POWDER BTL TOP SCH ×2 (08:48→21:51)
[2018-06-19] MEDS: CLOTRIMAZOLE 1% 30 GM CR TOP SCH ×2 (09:00→21:51)
--- NOTE | 2018-06-19 11:38 | PN ---
Date/Time of Note Date/Time of Note DATE: 06/19/18 TIME: 11:26 Assessment/Plan VTE Prophylaxis Risk score (from Ns)>0 risk: 3 SCD applied (from Ns): Yes Pharmacological prophylaxis: NA/contraindicated Pharm contraindication: bleeding Lines/Catheters IV Catheter Type (from Nrs): Peripheral IV Urinary Cath still in place: No Assessment/Plan Hospital Course SUBJECTIVE:PEG cancelled again yesterday OBJECTIVE: Vital signs-see below PHYSICAL EXAM: Constitutional: Frail looking, elderly female, lying in bed comfortably. Psych: nl mood/affect, no complaints Head: atraumatic, normocephalic Eyes: nl conjunctiva, nl sclera ENMT: mucosa pink and moist, nl external ears & nose Neck: non-tender, supple Respiratory: clear to auscultation, normal air movement Cardiovascular: nl pulses, regular rate and rhythm Gastrointestinal:G tube site red. not much output-site looks significantly improved.... soft, bowel sounds active in all 4 quadrants. Musculoskeletal/extremities: nl extremities to inspection, motor strength equal bilaterally, no focal deficit. Normal pulses,no cyanosis, no edema. Neurological: Forgetful/dementia. Alert to self and place. Nl speech, nl strength Skin: nl turgor ASSESSMENT/PLAN: 83-year-old female with a history of gastric cancer, status post PEG, gastritis, erosive esophagitis, dementia, was transferred from assisted with rectal bleed, also found to have bacteremia with leaking/infected/malfxn G-tube requiring G-tube removal... 1. Acute GI bleed, hematochezia -Resolved -Status post EGD:1.5 cm proximal gastric polyp. Post polypectomy plus Endo Clip placement. -Deferred colonoscopy given therapeutic procedure and need for Endo Clip. -Continue iv Protonix -Avoid NSAIDs, antiplatelets, anticoagulation 2. Malfunctioned PEG w/site infection. G-tube site grew [place] albicans/Ecoli/Yeast. -GI on board=>s/p removal of Gtube 06/06.Site infection treated w/abx completion, -Patient eventually need a new PEG placed, however the old incision needs to be healed completely prior to eat and may take couple weeks more. At this time, after dw GI team, we decided NG tube insertion for feeding and discharge patient to assisted with GI follow-up and bring her back for PEG placement. We recommend putting a Dobbhoff tube. -cont.local Gt site care 3. Coagulase-negative staph bacteremia, x2 sets. -Likely source G-tube. -s/p abx -repeat cultures NGTD 4.s/p E. coli UTI -Treated appropriately. 5. Acute on chronic anemia. Acute anemia secondary to GI bleed -Now stable. Monitor 6. History of gastric cancer 7. Osteoporosis -Supportive care, resume home medications -Continued PT evaluation 8. Dementia -Supportive care DVT prophylaxis: SCDs, anticoagulation contraindicated secondary to bleeding PUD prophylaxis: Protonix CODE STATUS: Full code Diet: IVFs Disposition: Overall, hemodynamically stable. Patient needs eventual PED placed and the old incision needs to be completely healed prior to it. At this time, recommend tube feeding Via Dobbhoff NG tube and discharge planning to a nursing home facility where she can have gastroenterology follow-up to bring her back for PEG placement once old incision is completely healed. Patient was seen in collaboration with Result Diagram: 06/18/1843 06/18/1843 Results 24hrs Laboratory Tests Test 06/18/18 13:30 06/18/18 20:34 06/19/18 00:58 06/19/18 05:46 Bedside Glucose 137 127 107 114 Test 06/19/18 08:08 Bedside Glucose 75 Exam/Review of Systems Exam Vitals Vital Signs Date Temp Pulse Resp B/P (MAP) Pulse Ox O2 O2 Flow FiO2 Time Delivery Rate 06/19/18 98.0 78 17 145/64 99 Room Air 08:15 (91) 06/18/18 2.0 15:35 Intake and Output 06/18/18 06/18/18 06/19/18 1515:00 23:00 07:00 IntakeIntake Total 400 ml 100 ml 900 ml BalanceBalance 400 ml 100 ml 900 ml Results Results 24hrs Laboratory Tests Test 06/18/18 13:30 06/18/18 20:34 06/19/18 00:58 06/19/18 05:46 Bedside Glucose 137 127 107 114 Test 06/19/18 08:08 Bedside Glucose 75 Medications Medication Current Medications IV Flush (NS 3 ml) 3 ml PER PROTOCOL IV ; Start 06/03/18 at 12:00 Ondansetron HCl (Zofran Inj) 4 mg Q6H PRN IV NAUSEA/VOMITING Last administered on 06/06/18 09:36; Admin Dose 4 MG; Start 06/03/18 at 12:00 Acetaminophen (Tylenol Tab) 650 mg Q6H PRN PO .PAIN 1-3 OR TEMP; Start 06/03/18 at 12:00 Acetaminophen/ Hydrocodone Bitart ([place] (5/325)) 1 tab Q6H PRN PO .MOD PAIN 4- 6; Start 06/03/18 at 12:00 Morphine Sulfate (morphine) 2 mg Q4H PRN IV .SEVERE PAIN 7-10; Start 06/03/18 at 12:00 Docusate Sodium (Colace) 100 mg Q12H PRN PO .CONSTIPATION; Start 06/03/18 at 12:00 Magnesium Hydroxide (Milk Of Mag) 30 ml DAILY PRN PO .CONSTIPATION; Start 06/03/18 at 12:00 Pantoprazole (Protonix Iv) 40 mg BID@0600,1800 IV Last administered on 06/18/18 18:05; Admin Dose 40 MG; Start 06/03/18 at 18:00 Lorazepam (Ativan) 0.5 mg Q6H PRN IV ANXIETY; Start 06/03/18 at 12:00 Albuterol/ Ipratropium (Duoneb) 3 ml Q4H RESP THERAPY PRN HHN SHORTNESS OF BREATH; Start 06/03/18 at 12:00 Nitroglycerin (Nitroglycerin (Sl Tab) 0.4 Mg) 1 tab Q5M PRN SL ANGINA; Start 06/03/18 at 12:00 Folic Acid (Folic Acid) 0.4 mg DAILY GTB Last administered on 06/06/18 09:16; Admin Dose 0.4 MG; Start 06/04/18 at 09:00 Multivitamins Therapeutic (Theragran) 1 tab DAILY GTB Last administered on 06/06/18 09:16; Admin Dose 1 TAB; Start 06/04/18 at 09:00 Docusate Sodium (Colace Liquid Cup) 100 mg DAILY GTB Last administered on 06/06/18 09:16; Admin Dose 100 MG; Start 06/04/18 at 09:00 Nystatin (Nystatin Powder) 1 applic BID TOP Last administered on 06/19/18 08:48; Admin Dose 1 APPLIC; Start 06/04/18 at 15:30 Clotrimazole (Lotrimin Cr) 1 applic BID TOP Last administered on 06/18/18at 20:37; Admin Dose 1 APPLIC; Start 06/05/18 at 12:00 Diagnostic Test (Pha) (Accu-Chek) 1 ea Q4 XX Last administered on 06/19/18at 08:10; Admin Dose 1 EA; Start 06/07/18 at 11:00 Metoclopramide HCl (Reglan) 10 mg Q6 IV Last administered on 06/19/18at 01:01; Admin Dose 10 MG; Start 06/06/18 at 18:00 Diagnostic Test (Pha) (Accu-Chek) 1 ea 02 XX Last administered on 06/14/18at 02:15; Admin Dose 1 EA; Start 06/07/18 at 02:00 Insulin Aspart (Novolog Insulin Pen) NOVOLOG *MILD* ALGORI... Q4 SC Last administered on 06/18/18at 00:30; Admin Dose 1 UNIT; Start 06/06/18 at 13:30 Miscellaneous Information 1 ea NOTE XX ; Start 06/06/18 at 13:00 Glucose (Glutose) 15 gm Q15M PRN PO DECREASED GLUCOSE; Start 06/06/18 at 13:00 Glucose (Glutose) 22.5 gm Q15M PRN PO DECREASED GLUCOSE; Start 06/06/18 at 13:00 Dextrose (D50w Syringe) 25 ml Q15M PRN IV DECREASED GLUCOSE; Start 06/06/18 at 13:00 Dextrose (D50w Syringe) 50 ml Q15M PRN IV DECREASED GLUCOSE; Start 06/06/18 at 13:00 Glucagon (Glucagen) 1 mg Q15M PRN IM DECREASED GLUCOSE; Start 06/06/18 at 13:00 Glucose (Glutose) 15 gm Q15M PRN BUCCAL DECREASED GLUCOSE; Start 06/06/18 at 13:00 Miscellaneous Information (* Miscellaneous Pharmacy Order) TODAY PT IS GETTING PICC LI... ONCE XX ; Start 06/07/18 at 10:30 Bisacodyl (Dulcolax Supp) 10 mg DAILY PRN [place] CONSTIPATION; Start 06/07/18 at 11:30 IV Flush (NS 10 ml) 10 ml PRN PRN IV IV PROTOCOL; Start 06/07/18 at 14:00 Alteplase, Recombinant (Cathflo (Activase)) 4 mg MAY REPEAT X1 PRN CATHETER IF CATHETER REMAINS OCCULUDED Last administered on 06/12/18at 23:10; Admin Dose 4 MG; Start 06/09/18 at 10:30 Hydralazine HCl (Apresoline) 5 mg Q6H PRN IV sbp>160 Last administered on 06/11/18at 14:08; Admin Dose 5 MG; Start 06/10/18 at 09:30 Potassium Chloride/Dextrose/ Sod Cl 1,000 ml @ 60 mls/hr [id number] IV Last administered on 06/19/18at 08:32; Admin Dose 60 MLS/HR; Start 06/13/18 at 18:30 ALFREDO MENSAH NP Jun 19, 2018 11:38
--- NOTE | 2018-06-19 13:12 | PN ---
Date/Time of Note Date/Time of Note DATE: 06/19/18 TIME: 13:05 Assessment/Plan VTE Prophylaxis Risk score (from Ns)>0 risk: 3 SCD applied (from Ns): Yes Pharmacological prophylaxis: other (scds) Lines/Catheters IV Catheter Type (from Nrs): Peripheral IV Urinary Cath still in place: No Assessment/Plan Hospital Course Summary Assessment and Plan: Assessment: Normocytic anemia EGD/PEG 06/04/18 Impression: 1.5 cm proximal gastric polyp. Post polypectomy plus Endo Clip placement. Post placement of [place] 24-20 cc replacement gastrostomy tube. Otherwise normal EGD. -S/p removal of PEG 2/2 to leakage and infection Melena/hematochezia- resolved Malfunctioning gastrostomy tube/infected site 06/18/18 unsuccessful PEG placement Hx of Gastric cancer s/p PEG placement (30 fr) Dementia Bacteremia -Blood cultures x2 growing gram-positive cocci UTI- with E.coli - Plan: Unsuccessful PEG placement- recommend complete healing of ostomy site- consider -Hof placement and TF until site is completely healed then proceed with PEG in same area as previous PEG Consider IR PEG placement- however likely not optimal candidate Apply barrier cream to opening of ostomy- to protect skin from gastric drainage Continue current regimen D/c planning per hospitalist- consider d/c to previous facility if allows NGT- until site completely heals - pt can have PEG as an out-pt procedure Pt seen in collaboration with Dr. Lopez/Xiao Subjective: Course reviewed with nursing staff Patient interviewed and examined All labs, imaging and other results reviewed Slowly healing, no over night events Pt denies abd pain , nausea or vomiting Continue close observation PHYSICAL EXAMINATION: GENERAL: Alert & confused SKIN: No lesions, no stigmata chronic liver disease, no evidence of bleeding diathesis HEAD: Normocephalic, atraumatic, no tenderness. EYES: Pupils equal reactive to light and accommodation, full extraocular movements, sclera clear, non-icteric, no discharge. EARS/NOSE AND THROAT: Ears normal, nose normal, oropharynx normal, oral membranes well hydrated without lesions. NECK: Supple, no masses CARDIOVASCULAR: Heart: Regular rate and rhythm RESPIRATORY: Lungs clear to auscultation GASTROINTESTINAL AND LIVER: Abdomen: Soft, non tenderness, non-distended, ostomy site slowly healing, redness likely 2/2 to gastric drainage- improved, no rebound tenderness, normoactive bowel sounds. Rectal: Deferred. Result Diagram: 06/18/18 0543 06/18/18 0543 Results 24hrs Laboratory Tests Test 06/18/18 13:30 06/18/18 20:34 06/19/18 00:58 06/19/18 05:46 Bedside Glucose 137 127 107 114 Test 06/19/18 08:08 06/19/18 12:21 Bedside Glucose 75 94 Exam/Review of Systems Exam Vitals Vital Signs Date Temp Pulse Resp B/P (MAP) Pulse Ox O2 O2 Flow FiO2 Time Delivery Rate 06/19/18 98.0 78 17 145/64 99 Room Air 08:15 (91) 06/18/18 2.0 15:35 Intake and Output 06/18/18 06/18/18 06/19/18 1515:00 23:00 07:00 IntakeIntake Total 400 ml 100 ml 900 ml BalanceBalance 400 ml 100 ml 900 ml Results Results 24hrs Laboratory Tests Test 06/18/18 13:30 06/18/18 20:34 06/19/18 00:58 06/19/18 05:46 Bedside Glucose 137 127 107 114 Test 06/19/18 08:08 06/19/18 12:21 Bedside Glucose 75 94 Medications Medication Current Medications IV Flush (NS 3 ml) 3 ml PER PROTOCOL IV ; Start 06/03/18 at 12:00 Ondansetron HCl (Zofran Inj) 4 mg Q6H PRN IV NAUSEA/VOMITING Last administered on 06/06/18at 09:36; Admin Dose 4 MG; Start 06/03/18 at 12:00 Acetaminophen (Tylenol Tab) 650 mg Q6H PRN PO .PAIN 1-3 OR TEMP; Start 06/03/18 at 12:00 Acetaminophen/ Hydrocodone Bitart ([place] (5/325)) 1 tab Q6H PRN PO .MOD PAIN 4- 6; Start 06/03/18 at 12:00 Morphine Sulfate (morphine) 2 mg Q4H PRN IV .SEVERE PAIN 7-10; Start 06/03/18 at 12:00 Docusate Sodium (Colace) 100 mg Q12H PRN PO .CONSTIPATION; Start 06/03/18 at 12:00 Magnesium Hydroxide (Milk Of Mag) 30 ml DAILY PRN PO .CONSTIPATION; Start 06/03/18 at 12:00 Pantoprazole (Protonix Iv) 40 mg BID@0600,1800 IV Last administered on 06/18/18 18:05; Admin Dose 40 MG; Start 06/03/18 at 18:00 Lorazepam (Ativan) 0.5 mg Q6H PRN IV ANXIETY; Start 06/03/18 at 12:00 Albuterol/ Ipratropium (Duoneb) 3 ml Q4H RESP THERAPY PRN HHN SHORTNESS OF BREATH; Start 06/03/18 at 12:00 Nitroglycerin (Nitroglycerin (Sl Tab) 0.4 Mg) 1 tab Q5M PRN SL ANGINA; Start 06/03/18 at 12:00 Folic Acid (Folic Acid) 0.4 mg DAILY GTB Last administered on 06/06/18 09:16; Admin Dose 0.4 MG; Start 06/04/18 at 09:00 Multivitamins Therapeutic (Theragran) 1 tab DAILY GTB Last administered on 06/06/18 09:16; Admin Dose 1 TAB; Start 06/04/18 at 09:00 Docusate Sodium (Colace Liquid Cup) 100 mg DAILY GTB Last administered on 06/06/18 09:16; Admin Dose 100 MG; Start 06/04/18 at 09:00 Nystatin (Nystatin Powder) 1 applic BID TOP Last administered on 06/19/18 08:48; Admin Dose 1 APPLIC; Start 06/04/18 at 15:30 Clotrimazole (Lotrimin Cr) 1 applic BID TOP Last administered on 06/18/18 20:37; Admin Dose 1 APPLIC; Start 06/05/18 at 12:00 Diagnostic Test (Pha) (Accu-Chek) 1 ea Q4 XX Last administered on 06/19/18 12:23; Admin Dose 1 EA; Start 06/07/18 at 11:00 Metoclopramide HCl (Reglan) 10 mg Q6 IV Last administered on 06/19/18 12:20; Admin Dose 10 MG; Start 06/06/18 at 18:00 Diagnostic Test (Pha) (Accu-Chek) 1 ea 02 XX Last administered on 06/14/18 02:15; Admin Dose 1 EA; Start 06/07/18 at 02:00 Insulin Aspart (Novolog Insulin Pen) NOVOLOG *MILD* ALGORI... Q4 SC Last administered on 06/18/18at 00:30; Admin Dose 1 UNIT; Start 06/06/18 at 13:30 Miscellaneous Information 1 ea NOTE XX ; Start 06/06/18 at 13:00 Glucose (Glutose) 15 gm Q15M PRN PO DECREASED GLUCOSE; Start 06/06/18 at 13:00 Glucose (Glutose) 22.5 gm Q15M PRN PO DECREASED GLUCOSE; Start 06/06/18 at 13:00 Dextrose (D50w Syringe) 25 ml Q15M PRN IV DECREASED GLUCOSE; Start 06/06/18 at 13:00 Dextrose (D50w Syringe) 50 ml Q15M PRN IV DECREASED GLUCOSE; Start 06/06/18 at 13:00 Glucagon (Glucagen) 1 mg Q15M PRN IM DECREASED GLUCOSE; Start 06/06/18 at 13:00 Glucose (Glutose) 15 gm Q15M PRN BUCCAL DECREASED GLUCOSE; Start 06/06/18 at 13:00 Miscellaneous Information (* Miscellaneous Pharmacy Order) TODAY PT IS GETTING PICC LI... ONCE XX ; Start 06/07/18 at 10:30 Bisacodyl (Dulcolax Supp) 10 mg DAILY PRN [place] CONSTIPATION; Start 06/07/18 at 11:30 IV Flush (NS 10 ml) 10 ml PRN PRN IV IV PROTOCOL; Start 06/07/18 at 14:00 Alteplase, Recombinant (Cathflo (Activase)) 4 mg MAY REPEAT X1 PRN CATHETER IF CATHETER REMAINS OCCULUDED Last administered on 06/12/18at 23:10; Admin Dose 4 MG; Start 06/09/18 at 10:30 Hydralazine HCl (Apresoline) 5 mg Q6H PRN IV sbp>160 Last administered on 06/11/18at 14:08; Admin Dose 5 MG; Start 06/10/18 at 09:30 Potassium Chloride/Dextrose/ Sod Cl 1,000 ml @ 60 mls/hr [id number] IV Last administered on 06/19/18at 08:32; Admin Dose 60 MLS/HR; Start 06/13/18 at 18:30 DORIS BAUMANN Jun 19, 2018 13:12
[2018-06-19 16:21] VITALS: Ht 165.1 cm; Wt 45.9 kg
[2018-06-19 20:28] VITALS: BP 156/74; PULSE 59; RESP 18
[2018-06-20] MEDS: INSULIN ASPART [NOVOLOG] 3 ML PEN SC SCH ×6 (01:00→20:32)
[2018-06-20] MEDS: METOCLOPRAMIDE 10 MG INJ IV SCH ×4 (01:09→17:16)
[2018-06-20] MEDS: D5W-0.45 NACL + KCL 20 MEQ 1,000 ML IV SCH ×3 (01:18→17:17)
[2018-06-20] MEDS: ACCU-CHEK XX SCH ×7 (01:20→20:32)
[2018-06-20 01:30] VITALS: BP 158/66; PULSE 69; RESP 20
[2018-06-20] MEDS: FAMOTIDINE 20 MG INJ IV SCH (06:19)
[2018-06-20 08:01] VITALS: BP 158/52; PULSE 76; RESP 17
[2018-06-20] MEDS: DOCUSATE SODIUM 10 MG/ML (10ML CUP) GTB SCH (08:55)
[2018-06-20] MEDS: MULTIVITAMINS THERAPEUTIC TAB GTB SCH (08:55)
[2018-06-20] MEDS: FOLIC ACID 0.4 MG TAB GTB SCH (08:55)
[2018-06-20] MEDS: NYSTATIN 30 GM POWDER BTL TOP SCH ×2 (09:06→20:30)
[2018-06-20] MEDS: CLOTRIMAZOLE 1% 30 GM CR TOP SCH ×2 (09:06→20:31)
[2018-06-20 14:00] VITALS: BP 151/62; PULSE 69; RESP 18
--- NOTE | 2018-06-20 14:03 | PN ---
Date/Time of Note Date/Time of Note DATE: 06/20/18 TIME: 13:57 Assessment/Plan VTE Prophylaxis Risk score (from Ns)>0 risk: 7 SCD applied (from Ns): Yes Pharmacological prophylaxis: NA/contraindicated Pharm contraindication: bleeding Lines/Catheters IV Catheter Type (from [facility]): Saline Lock Urinary Cath still in place: No Assessment/Plan Hospital Course SUBJECTIVE: Patient again pulled out her IV. Unable to pass through NG tube or Dobbhoff tube. For feeding OBJECTIVE: Vital signs-see below PHYSICAL EXAM: Constitutional: Frail looking, elderly female, lying in bed comfortably. Psych: nl mood/affect, no complaints Head: atraumatic, normocephalic Eyes: nl conjunctiva, nl sclera ENMT: mucosa pink and moist, nl external ears & nose Neck: non-tender, supple Respiratory: clear to auscultation, normal air movement Cardiovascular: nl pulses, regular rate and rhythm Gastrointestinal: Old G-tube site, not much leaking noted. Stable site. Soft, bowel sounds active in all 4 quadrants. Musculoskeletal/extremities: nl extremities to inspection, motor strength equal bilaterally, no focal deficit. Normal pulses,no cyanosis, no edema. Neurological: Forgetful/dementia. Alert to self and place. Nl speech, nl strength Skin: nl turgor ASSESSMENT/PLAN: 83-year-old female with a history of gastric cancer, status post PEG, gastritis, erosive esophagitis, dementia, [facility], also found to have bacteremia with leaking/infected/malfxn G-tube requiring G-tube removal... 1. Acute GI bleed, hematochezia -Resolved -Status post EGD:1.5 cm proximal gastric polyp. Post polypectomy plus Endo Clip placement. -Deferred colonoscopy given therapeutic procedure and need for Endo Clip. -Continue iv Protonix -Avoid NSAIDs, antiplatelets, anticoagulation 2. Malfunctioned PEG w/site infection. G-tube site grew [place] albicans/Ecoli/Yeast. -GI on board=>s/p removal of Gtube 06/06.Site infection treated w/abx completion, -cont.local Gt site care -Attempt for new PEG placement unsuccessful, attempt for temporary nasogastric tube unsuccessful.. At this time, I feel like patient may be able to eat orally as she has a good swallowing reflex as such I will go ahead with a speech therapy evaluation to officially determine her swallowing function and to determine whether patient still needs a PEG placed or if she can have p.o. diet. 3. Coagulase-negative staph bacteremia, x2 sets. -Likely source G-tube. -s/p abx -repeat cultures NGTD 4.s/p E. coli UTI -Treated appropriately. 5. Acute on chronic anemia. Acute anemia secondary to GI bleed -Now stable. Monitor 6. History of gastric cancer 7. Osteoporosis -Supportive care, resume home medications -Continued PT evaluation 8. Dementia -Supportive care DVT prophylaxis: SCDs, anticoagulation contraindicated secondary to bleeding PUD prophylaxis: Protonix CODE STATUS: Full code Diet: IVFs Disposition: Patient remains hemodynamically stable. Her old G-tube site is healing nicely. At this time, I will order a speech therapy official evaluation to determine her swallowing function before making a decision whether she really needs a PEG at present as i feel like she may be able to eat. I If she fails swallow eval, we will try with interventional radiology placing a Dobbhoff nasogastric tube or will consider for TPN short-term prior to putting a new PEG placement. Patient was seen in collaboration with Result Diagram: 06/18/1843 06/20/18 0543 Results 24hrs Laboratory Tests Test 06/19/18 17:15 06/19/18 21:49 06/20/18 01:12 06/20/18 05:43 Bedside Glucose 71 83 87 Sodium Level 136 Potassium Level 3.5 Chloride Level 107 Carbon Dioxide Level 24 Anion Gap 5 Blood Urea Nitrogen 8 Creatinine 0.76 Est Glomerular Filtrat Rate mL/min Glucose Level 94 Calcium Level 8.9 Magnesium Level 1.8 Test 06/20/18 06:24 06/20/18 09:05 06/20/18 12:13 Bedside Glucose 101 91 100 Exam/Review of Systems Exam Vitals Vital Signs Date Temp Pulse Resp B/P (MAP) Pulse Ox O2 O2 Flow FiO2 Time Delivery Rate 06/20/18 97.5 76 17 158/52 98 Room Air 08:01 (87) 06/18/18 2.0 15:35 Intake and Output 06/19/18 06/19/18 06/20/18 1515:00 23:00 07:00 IntakeIntake Total 1300 ml BalanceBalance 1300 ml Results Results 24hrs Laboratory Tests Test 06/19/18 17:15 06/19/18 21:49 06/20/18 01:12 06/20/18 05:43 Bedside Glucose 71 83 87 Sodium Level 136 Potassium Level 3.5 Chloride Level 107 Carbon Dioxide Level 24 Anion Gap 5 Blood Urea Nitrogen 8 Creatinine 0.76 Est Glomerular Filtrat Rate mL/min Glucose Level 94 Calcium Level 8.9 Magnesium Level 1.8 Test 06/20/18 06:24 06/20/18 09:05 06/20/18 12:13 Bedside Glucose 101 91 100 Medications Medication Current Medications IV Flush (NS 3 ml) 3 ml PER PROTOCOL IV ; Start 06/03/18 at 12:00 Ondansetron HCl (Zofran Inj) 4 mg Q6H PRN IV NAUSEA/VOMITING Last administered on 06/06/18at 09:36; Admin Dose 4 MG; Start 06/03/18 at 12:00 Acetaminophen (Tylenol Tab) 650 mg Q6H PRN PO .PAIN 1-3 OR TEMP; Start 06/03/18 at 12:00 Acetaminophen/ Hydrocodone Bitart ([place] (5/325)) 1 tab Q6H PRN PO .MOD PAIN 4- 6; Start 06/03/18 at 12:00 Morphine Sulfate (morphine) 2 mg Q4H PRN IV .SEVERE PAIN 7-10; Start 06/03/18 at 12:00 Docusate Sodium (Colace) 100 mg Q12H PRN PO .CONSTIPATION; Start 06/03/18 at 12:00 Magnesium Hydroxide (Milk Of Mag) 30 ml DAILY PRN PO .CONSTIPATION; Start 06/03/18 at 12:00 Lorazepam (Ativan) 0.5 mg Q6H PRN IV ANXIETY; Start 06/03/18 at 12:00 Albuterol/ Ipratropium (Duoneb) 3 ml Q4H RESP THERAPY PRN HHN SHORTNESS OF BREATH; Start 06/03/18 at 12:00 Nitroglycerin (Nitroglycerin (Sl Tab) 0.4 Mg) 1 tab Q5M PRN SL ANGINA; Start 06/03/18 at 12:00 Folic Acid (Folic Acid) 0.4 mg DAILY GTB Last administered on 06/06/18at 09:16; Admin Dose 0.4 MG; Start 06/04/18 at 09:00 Multivitamins Therapeutic (Theragran) 1 tab DAILY GTB Last administered on 06/06/18 09:16; Admin Dose 1 TAB; Start 06/04/18 at 09:00 Docusate Sodium (Colace Liquid Cup) 100 mg DAILY GTB Last administered on 06/06/18 09:16; Admin Dose 100 MG; Start 06/04/18 at 09:00 Nystatin (Nystatin Powder) 1 applic BID TOP Last administered on 06/20/18at 09:06; Admin Dose 1 APPLIC; Start 06/04/18 at 15:30 Clotrimazole (Lotrimin Cr) 1 applic BID TOP Last administered on 06/20/18 09:06; Admin Dose 1 APPLIC; Start 06/05/18 at 12:00 Diagnostic Test (Pha) (Accu-Chek) 1 ea Q4 XX Last administered on 06/20/18at 05:00; Admin Dose 1 EA; Start 06/07/18 at 11:00 Metoclopramide HCl (Reglan) 10 mg Q6 IV Last administered on 06/20/18at 12:12; Admin Dose 10 MG; Start 06/06/18 at 18:00 Diagnostic Test (Pha) (Accu-Chek) 1 ea 02 XX Last administered on 06/14/18at 02:15; Admin Dose 1 EA; Start 06/07/18 at 02:00 Insulin Aspart (Novolog Insulin Pen) NOVOLOG *MILD* ALGORI... Q4 SC Last administered on 06/18/18at 00:30; Admin Dose 1 UNIT; Start 06/06/18 at 13:30 Miscellaneous Information 1 ea NOTE XX ; Start 06/06/18 at 13:00 Glucose (Glutose) 15 gm Q15M PRN PO DECREASED GLUCOSE; Start 06/06/18 at 13:00 Glucose (Glutose) 22.5 gm Q15M PRN PO DECREASED GLUCOSE; Start 06/06/18 at 13:00 Dextrose (D50w Syringe) 25 ml Q15M PRN IV DECREASED GLUCOSE; Start 06/06/18 at 13:00 Dextrose (D50w Syringe) 50 ml Q15M PRN IV DECREASED GLUCOSE; Start 06/06/18 at 13:00 Glucagon (Glucagen) 1 mg Q15M PRN IM DECREASED GLUCOSE; Start 06/06/18 at 13:00 Glucose (Glutose) 15 gm Q15M PRN BUCCAL DECREASED GLUCOSE; Start 06/06/18 at 13:00 Miscellaneous Information (* Miscellaneous Pharmacy Order) TODAY PT IS GETTING PICC LI... ONCE XX ; Start 06/07/18 at 10:30 Bisacodyl (Dulcolax Supp) 10 mg DAILY PRN [place] CONSTIPATION; Start 06/07/18 at 11:30 IV Flush (NS 10 ml) 10 ml PRN PRN IV IV PROTOCOL; Start 06/07/18 at 14:00 Alteplase, Recombinant (Cathflo (Activase)) 4 mg MAY REPEAT X1 PRN CATHETER IF CATHETER REMAINS OCCULUDED Last administered on 06/12/18at 23:10; Admin Dose 4 MG; Start 06/09/18 at 10:30 Hydralazine HCl (Apresoline) 5 mg Q6H PRN IV sbp>160 Last administered on 06/11/18at 14:08; Admin Dose 5 MG; Start 06/10/18 at 09:30 Potassium Chloride/Dextrose/ Sod Cl 1,000 ml @ 60 mls/hr [id number] IV Last administered on 06/20/18at 01:18; Admin Dose 60 MLS/HR; Start 06/13/18 at 18:30 Famotidine (Pepcid Iv) 20 mg DAILY@0600 IV Last administered on 06/20/18at 06:19; Admin Dose 20 MG; Start 06/20/18 at 06:00 ALFREDO MENSAH NP Jun 20, 2018 14:03
--- NOTE | 2018-06-20 14:26 | PN ---
Date/Time of Note Date/Time of Note DATE: 06/20/18 TIME: 14:22 Assessment/Plan VTE Prophylaxis Risk score (from Ns)>0 risk: 7 SCD applied (from Ns): Yes Pharmacological prophylaxis: other (scds) Lines/Catheters IV [facility] Saline Lock Urinary Cath still in place: No Assessment/Plan Hospital Course Summary Assessment and Plan: Assessment: Normocytic anemia EGD/PEG 06/04/18 Impression: 1.5 cm proximal gastric polyp. Post polypectomy plus Endo Clip placement. Post placement of [place] 24-20 cc replacement gastrostomy tube. Otherwise normal EGD. -S/p removal of PEG 05/11 to leakage and infection Melena/hematochezia- resolved Malfunctioning gastrostomy tube/infected site 06/18/18 unsuccessful PEG placement Hx of Gastric cancer s/p PEG placement (30 fr) Dementia Bacteremia -Blood cultures x2 growing gram-positive cocci UTI- with E.coli- treated with ABX Plan: Pt evaluated by ST therapy: cleared for pureed diet- for oral gratification, but unlikely will be able to meet daily caloric needs, pt may need PEG placement after ostomy site has healed if not able to meet daily caloric needs. Discussed with hospitalist- Will order dietary consult- to assess ability to meet caloric needs. Apply barrier cream to opening of ostomy- to protect skin from gastric drainage Continue current regimen Consider surgical consult to assess ability to close previous ostomy site and possibly place j-tube if patient is not able to meet PO caloric needs Pt seen in collaboration with Dr. Lopez/Xiao Subjective: Course reviewed with nursing staff Patient interviewed and examined All labs, imaging and other results reviewed Family at bedside, pt denies n/v or abdominal pain She is working with OT, and currently sitting up in a chair. PHYSICAL EXAMINATION: GENERAL: Alert & confused SKIN: No lesions, no stigmata chronic liver disease, no evidence of bleeding diathesis HEAD: Normocephalic, atraumatic, no tenderness. EYES: Pupils equal reactive to light and accommodation, full extraocular movements, sclera clear, non-icteric, no discharge. EARS/NOSE AND THROAT: Ears normal, nose normal. NECK: Supple, no masses CARDIOVASCULAR: Heart: Regular rate and rhythm RESPIRATORY: Lungs clear to auscultation GASTROINTESTINAL AND LIVER: Abdomen: Soft, non tenderness, non-distended, ostomy site slowly healing, redness likely 2/2 to gastric drainage- improved, no rebound tenderness, normoactive bowel sounds. Rectal: Deferred. Result Diagram: 06/18/18 0543 06/20/1843 Results 24hrs Laboratory Tests Test 06/19/18 17:15 06/19/18 21:49 06/20/18 01:12 06/20/18 05:43 Bedside Glucose 71 83 87 Sodium Level 136 Potassium Level 3.5 Chloride Level 107 Carbon Dioxide Level 24 Anion Gap 5 Blood Urea Nitrogen 8 Creatinine 0.76 Est Glomerular Filtrat Rate mL/min Glucose Level 94 Calcium Level 8.9 Magnesium Level 1.8 Test 06/20/18 06:24 06/20/18 09:05 06/20/18 12:13 Bedside Glucose 101 91 100 Exam/Review of Systems Exam Vitals Vital Signs Date Temp Pulse Resp B/P (MAP) Pulse Ox O2 O2 Flow FiO2 Time Delivery Rate 06/20/18 97.5 76 17 158/52 98 Room Air 08:01 (87) 06/18/18 2.0 15:35 Intake and Output 06/19/18 06/19/18 06/20/18 1515:00 23:00 07:00 IntakeIntake Total 1300 ml BalanceBalance 1300 ml Results Results 24hrs Laboratory Tests Test 06/19/18 17:15 06/19/18 21:49 06/20/18 01:12 06/20/18 05:43 Bedside Glucose 71 83 87 Sodium Level 136 Potassium Level 3.5 Chloride Level 107 Carbon Dioxide Level 24 Anion Gap 5 Blood Urea Nitrogen 8 Creatinine 0.76 Est Glomerular Filtrat Rate mL/min Glucose Level 94 Calcium Level 8.9 Magnesium Level 1.8 Test 06/20/18 06:24 06/20/18 09:05 06/20/18 12:13 Bedside Glucose 101 91 100 Medications Medication Current Medications IV Flush (NS 3 ml) 3 ml PER PROTOCOL IV ; Start 06/03/18 at 12:00 Ondansetron HCl (Zofran Inj) 4 mg Q6H PRN IV NAUSEA/VOMITING Last administered on 06/06/18at 09:36; Admin Dose 4 MG; Start 06/03/18 at 12:00 Acetaminophen (Tylenol Tab) 650 mg Q6H PRN PO .PAIN 1-3 OR TEMP; Start 06/03/18 at 12:00 Acetaminophen/ Hydrocodone Bitart ([place] (5/325)) 1 tab Q6H PRN PO .MOD PAIN 4- 6; Start 06/03/18 at 12:00 Morphine Sulfate (morphine) 2 mg Q4H PRN IV .SEVERE PAIN 7-10; Start 06/03/18 at 12:00 Docusate Sodium (Colace) 100 mg Q12H PRN PO .CONSTIPATION; Start 06/03/18 at 12:00 Magnesium Hydroxide (Milk Of Mag) 30 ml DAILY PRN PO .CONSTIPATION; Start 06/03/18 at 12:00 Lorazepam (Ativan) 0.5 mg Q6H PRN IV ANXIETY; Start 06/03/18 at 12:00 Albuterol/ Ipratropium (Duoneb) 3 ml Q4H RESP THERAPY PRN HHN SHORTNESS OF BREATH; Start 06/03/18 at 12:00 Nitroglycerin (Nitroglycerin (Sl Tab) 0.4 Mg) 1 tab Q5M PRN SL ANGINA; Start 06/03/18 at 12:00 Folic Acid (Folic Acid) 0.4 mg DAILY GTB Last administered on 06/06/18 09:16; Admin Dose 0.4 MG; Start 06/04/18 at 09:00 Multivitamins Therapeutic (Theragran) 1 tab DAILY GTB Last administered on 06/06/18 09:16; Admin Dose 1 TAB; Start 06/04/18 at 09:00 Docusate Sodium (Colace Liquid Cup) 100 mg DAILY GTB Last administered on 06/06/18 09:16; Admin Dose 100 MG; Start 06/04/18 at 09:00 Nystatin (Nystatin Powder) 1 applic BID TOP Last administered on 06/20/18 09:06; Admin Dose 1 APPLIC; Start 06/04/18 at 15:30 Clotrimazole (Lotrimin Cr) 1 applic BID TOP Last administered on 06/20/18 09:06; Admin Dose 1 APPLIC; Start 06/05/18 at 12:00 Diagnostic Test (Pha) (Accu-Chek) 1 ea Q4 XX Last administered on 06/20/18at 05:00; Admin Dose 1 EA; Start 06/07/18 at 11:00 Metoclopramide HCl (Reglan) 10 mg Q6 IV Last administered on 06/20/18at 12:12; Admin Dose 10 MG; Start 06/06/18 at 18:00 Diagnostic Test (Pha) (Accu-Chek) 1 ea 02 XX Last administered on 06/14/18at 02:15; Admin Dose 1 EA; Start 06/07/18 at 02:00 Insulin Aspart (Novolog Insulin Pen) NOVOLOG *MILD* ALGORI... Q4 SC Last administered on 06/18/18at 00:30; Admin Dose 1 UNIT; Start 06/06/18 at 13:30 Miscellaneous Information 1 ea NOTE XX ; Start 06/06/18 at 13:00 Glucose (Glutose) 15 gm Q15M PRN PO DECREASED GLUCOSE; Start 06/06/18 at 13:00 Glucose (Glutose) 22.5 gm Q15M PRN PO DECREASED GLUCOSE; Start 06/06/18 at 13:00 Dextrose (D50w Syringe) 25 ml Q15M PRN IV DECREASED GLUCOSE; Start 06/06/18 at 13:00 Dextrose (D50w Syringe) 50 ml Q15M PRN IV DECREASED GLUCOSE; Start 06/06/18 at 13:00 Glucagon (Glucagen) 1 mg Q15M PRN IM DECREASED GLUCOSE; Start 06/06/18 at 13:00 Glucose (Glutose) 15 gm Q15M PRN BUCCAL DECREASED GLUCOSE; Start 06/06/18 at 13:00 Miscellaneous Information (* Miscellaneous Pharmacy Order) TODAY PT IS GETTING PICC LI... ONCE XX ; Start 06/07/18 at 10:30 Bisacodyl (Dulcolax Supp) 10 mg DAILY PRN [place] CONSTIPATION; Start 06/07/18 at 11:30 IV Flush (NS 10 ml) 10 ml PRN PRN IV IV PROTOCOL; Start 06/07/18 at 14:00 Alteplase, Recombinant (Cathflo (Activase)) 4 mg MAY REPEAT X1 PRN CATHETER IF CATHETER REMAINS OCCULUDED Last administered on 06/12/18at 23:10; Admin Dose 4 MG; Start 06/09/18 at 10:30 Hydralazine HCl (Apresoline) 5 mg Q6H PRN IV sbp>160 Last administered on 06/11/18at 14:08; Admin Dose 5 MG; Start 06/10/18 at 09:30 Potassium Chloride/Dextrose/ Sod Cl 1,000 ml @ 60 mls/hr [id number] IV Last administered on 06/20/18at 01:18; Admin Dose 60 MLS/HR; Start 06/13/18 at 18:30 Famotidine (Pepcid Iv) 20 mg DAILY@0600 IV Last administered on 06/20/18at 06:19; Admin Dose 20 MG; Start 06/20/18 at 06:00 DORIS BAUMANN Jun 20, 2018 14:26
[2018-06-20 20:00] VITALS: BP 159/84; PULSE 65; RESP 17
[2018-06-21] MEDS: ACCU-CHEK XX SCH ×7 (01:00→20:42)
[2018-06-21] MEDS: INSULIN ASPART [NOVOLOG] 3 ML PEN SC SCH ×6 (01:00→20:39)
[2018-06-21 02:00] VITALS: BP 95/42; PULSE 55; RESP 19
[2018-06-21] MEDS: METOCLOPRAMIDE 10 MG INJ IV SCH ×4 (05:21→17:26)
[2018-06-21] MEDS: FAMOTIDINE 20 MG INJ IV SCH (05:21)
[2018-06-21 07:30] VITALS: BP 135/54; PULSE 75; RESP 17
--- NOTE | 2018-06-21 08:41 | PN ---
Date/Time of Note Date/Time of Note DATE: 06/21/18 TIME: 08:31 Assessment/Plan VTE Prophylaxis Risk score (from [facility] [place])>0 risk: 7 SCD applied (from [facility] [place]): Yes Pharmacological prophylaxis: NA/contraindicated Pharm contraindication: bleeding Lines/Catheters IV Catheter Type (from [facility]): Saline Lock Urinary Cath still in place: No Assessment/Plan Hospital Course SUBJECTIVE: No acute overnight episodes. Patient tolerated purred Diet. G-tube site with no output documented over 48 hours. OBJECTIVE: Vital signs-see below PHYSICAL EXAM: Constitutional: Frail looking, elderly female, lying in bed comfortably. Psych: nl mood/affect, no complaints Head: atraumatic, normocephalic Eyes: nl conjunctiva, nl sclera ENMT: mucosa pink and moist, nl external ears & nose Neck: non-tender, supple Respiratory: clear to auscultation, normal air movement Cardiovascular: nl pulses, regular rate and rhythm Gastrointestinal: Old G-tube site, not much leaking noted. Stable site. Soft, bowel sounds active in all 4 quadrants. Musculoskeletal/extremities: nl extremities to inspection, motor strength equal bilaterally, no focal deficit. Normal pulses,no cyanosis, no edema. Neurological: Forgetful/dementia. Alert to self and place. Nl speech, nl strength Skin: nl turgor ASSESSMENT/PLAN: 83-year-old female with a history of gastric cancer, status post PEG, gastritis, erosive esophagitis, dementia, was transferred from skilled nursing with rectal bleed, also found to have bacteremia with leaking/infected/malfxn G-tube requiring G-tube removal... 1. Acute GI bleed, hematochezia -Resolved -Status post EGD:1.5 cm proximal gastric polyp. Post polypectomy plus Endo Clip placement. -Deferred colonoscopy given therapeutic procedure and need for Endo Clip. -Continue iv Protonix -Avoid NSAIDs, antiplatelets, anticoagulation 2. Malfunctioned PEG w/site infection. G-tube site grew [place] albicans/Ecoli/Yeast. -GI on board=>s/p removal of Gtube 06/06.Site infection treated w/abx completion, -cont.local Gt site care -Attempt for new PEG placement unsuccessful=> patient now tolerating a pured diet =>GI recommended surgical consult for gastrostomy closure and J tube placement if pt still needs enteral feeding=>D/w , surgeon who will see pt. 3. Coagulase-negative staph bacteremia, x2 sets. -Likely source G-tube. -s/p abx -repeat cultures NGTD 4.s/p E. coli UTI -Treated appropriately. 5. Acute on chronic anemia. Acute anemia secondary to GI bleed -Now stable. Monitor 6. History of gastric cancer 7. Osteoporosis -Supportive care, resume home medications -Continued PT evaluation 8. Dementia -Supportive care 9. Dysphagia -Patient is tolerating pureed.she ate 50% of her breakfast tray. no GI leakage. DVT prophylaxis: SCDs, anticoagulation contraindicated secondary to bleeding PUD prophylaxis: Protonix CODE STATUS: Full code Diet: IVFs Disposition: Patient remains hemodynamically stable. Her old G-tube site is healing nicely, with no output documented in the last 48 hours, hoping this will heal soon. Patient passed for pured diet and she ate 50% of her breakfast today. At this time, we will however speech department and nutrition department monitor her calorie intake to determine whether patient still needs enteral tube feeding. I have also left a message to patient's DPOA Ms. Barboza to discuss goa ls of care and CODE STATUS. I will also consult palliative care team. Patient was seen in collaboration with Result Diagram: 06/18/18 0543 06/20/1843 Results 24hrs Laboratory Tests Test 06/20/18 09:05 06/20/18 12:13 06/20/18 17:15 06/20/18 20:28 Bedside Glucose 91 100 119 145 Test 06/21/18 01:07 06/21/18 05:20 06/21/18 08:20 Bedside Glucose 76 111 99 Exam/Review of Systems Exam Vitals Vital Signs Date Temp Pulse Resp B/P (MAP) Pulse Ox O2 O2 Flow FiO2 Time Delivery Rate 06/21/18 97.9 75 17 135/54 100 07:30 (81) 06/20/18 Room Air 14:00 06/18/18 2.0 15:35 Intake and Output 06/20/18 06/20/18 06/21/18 1515:00 23:00 07:00 IntakeIntake Total 700 ml BalanceBalance 700 ml Results Results 24hrs Laboratory Tests Test 06/20/18 09:05 06/20/18 12:13 06/20/18 17:15 06/20/18 20:28 Bedside Glucose 91 100 119 145 Test 06/21/18 01:07 06/21/18 05:20 06/21/18 08:20 Bedside Glucose 76 111 99 Medications Medication Current Medications IV Flush (NS 3 ml) 3 ml PER PROTOCOL IV ; Start 06/03/18 at 12:00 Ondansetron HCl (Zofran Inj) 4 mg Q6H PRN IV NAUSEA/VOMITING Last administered on 06/06/18at 09:36; Admin Dose 4 MG; Start 06/03/18 at 12:00 Acetaminophen (Tylenol Tab) 650 mg Q6H PRN PO .PAIN 1-3 OR TEMP; Start 06/03/18 at 12:00 Acetaminophen/ Hydrocodone Bitart ([place] (5/325)) 1 tab Q6H PRN PO .MOD PAIN 4- 6; Start 06/03/18 at 12:00 Morphine Sulfate (morphine) 2 mg Q4H PRN IV .SEVERE PAIN 7-10; Start 06/03/18 at 12:00 Docusate Sodium (Colace) 100 mg Q12H PRN PO .CONSTIPATION; Start 06/03/18 at 12:00 Magnesium Hydroxide (Milk Of Mag) 30 ml DAILY PRN PO .CONSTIPATION; Start 06/03/18 at 12:00 Lorazepam (Ativan) 0.5 mg Q6H PRN IV ANXIETY; Start 06/03/18 at 12:00 Albuterol/ Ipratropium (Duoneb) 3 ml Q4H RESP THERAPY PRN HHN SHORTNESS OF BREATH; Start 06/03/18 at 12:00 Nitroglycerin (Nitroglycerin (Sl Tab) 0.4 Mg) 1 tab Q5M PRN SL ANGINA; Start at 12:00 Folic Acid (Folic Acid) 0.4 mg DAILY GTB Last administered on 06/06/18at 09:16; Admin Dose 0.4 MG; Start 06/04/18 at 09:00 Multivitamins Therapeutic (Theragran) 1 tab DAILY GTB Last administered on 06/06/18at 09:16; Admin Dose 1 TAB; Start 06/04/18 at 09:00 Docusate Sodium (Colace Liquid Cup) 100 mg DAILY GTB Last administered on 06/06/18at 09:16; Admin Dose 100 MG; Start 06/04/18 at 09:00 Nystatin (Nystatin Powder) 1 applic BID TOP Last administered on 06/20/18at 20:30; Admin Dose 1 APPLIC; Start 06/04/18 at 15:30 Clotrimazole (Lotrimin Cr) 1 applic BID TOP Last administered on 06/20/18at 20:31; Admin Dose 1 APPLIC; Start 06/05/18 at 12:00 Diagnostic Test (Pha) (Accu-Chek) 1 ea Q4 XX Last administered on 06/20/18at 05:00; Admin Dose 1 EA; Start 06/07/18 at 11:00 Metoclopramide HCl (Reglan) 10 mg Q6 IV Last administered on 06/21/18 05:21; Admin Dose 10 MG; Start 06/06/18 at 18:00 Diagnostic Test (Pha) (Accu-Chek) 1 ea 02 XX Last administered on 06/14/18at 02:15; Admin Dose 1 EA; Start 06/07/18 at 02:00 Insulin Aspart (Novolog Insulin Pen) NOVOLOG *MILD* ALGORI... Q4 SC Last administered on 06/20/18at 20:32; Admin Dose 1 UNIT; Start 06/06/18 at 13:30 Miscellaneous Information 1 ea NOTE XX ; Start 06/06/18 at 13:00 Glucose (Glutose) 15 gm Q15M PRN PO DECREASED GLUCOSE; Start 06/06/18 at 13:00 Glucose (Glutose) 22.5 gm Q15M PRN PO DECREASED GLUCOSE; Start 06/06/18 at 13:00 Dextrose (D50w Syringe) 25 ml Q15M PRN IV DECREASED GLUCOSE; Start 06/06/18 at 13:00 Dextrose (D50w Syringe) 50 ml Q15M PRN IV DECREASED GLUCOSE; Start 06/06/18 at 13:00 Glucagon (Glucagen) 1 mg Q15M PRN IM DECREASED GLUCOSE; Start 06/06/18 at 13:00 Glucose (Glutose) 15 gm Q15M PRN BUCCAL DECREASED GLUCOSE; Start 06/06/18 at 13:00 Miscellaneous Information (* Miscellaneous Pharmacy Order) TODAY PT IS GETTING PICC LI... ONCE XX ; Start 06/07/18 at 10:30 Bisacodyl (Dulcolax Supp) 10 mg DAILY PRN [place] CONSTIPATION; Start 06/07/18 at 11:30 IV Flush (NS 10 ml) 10 ml PRN PRN IV IV PROTOCOL; Start 06/07/18 at 14:00 Alteplase, Recombinant (Cathflo (Activase)) 4 mg MAY REPEAT X1 PRN CATHETER IF CATHETER REMAINS OCCULUDED Last administered on 06/12/18at 23:10; Admin Dose 4 MG; Start 06/09/18 at 10:30 Hydralazine HCl (Apresoline) 5 mg Q6H PRN IV sbp>160 Last administered on 06/11/18at 14:08; Admin Dose 5 MG; Start 06/10/18 at 09:30 Potassium Chloride/Dextrose/ Sod Cl 1,000 ml @ 60 mls/hr [id number] IV Last administered on 06/20/18at 17:17; Admin Dose 60 MLS/HR; Start 06/13/18 at 18:30 Famotidine (Pepcid Iv) 20 mg DAILY@0600 IV Last administered on 06/21/18at 05:21; Admin Dose 20 MG; Start 06/20/18 at 06:00 ALFREDO MENSAH NP Jun 21, 2018 08:41
[2018-06-21] MEDS: CLOTRIMAZOLE 1% 30 GM CR TOP SCH ×2 (09:03→20:42)
[2018-06-21] MEDS: FOLIC ACID 0.4 MG TAB GTB SCH (09:04)
[2018-06-21] MEDS: NYSTATIN 30 GM POWDER BTL TOP SCH ×2 (09:04→20:42)
[2018-06-21] MEDS: DOCUSATE SODIUM 10 MG/ML (10ML CUP) GTB SCH (09:04)
[2018-06-21] MEDS: MULTIVITAMINS THERAPEUTIC TAB GTB SCH (09:04)
[2018-06-21] MEDS: D5W-0.45 NACL + KCL 20 MEQ 1,000 ML IV SCH (09:50)
[2018-06-21 13:53] VITALS: BP 138/60; PULSE 75; RESP 18
--- NOTE | 2018-06-21 18:03 | PN ---
Date/Time of Note Date/Time of Note DATE: 06/21/18 TIME: 17:58 Assessment/Plan VTE Prophylaxis Risk score (from [facility])>0 risk: 4 SCD applied (from [facility] [place]): Yes Pharmacological prophylaxis: NA/contraindicated Pharm contraindication: low risk/ambulating Lines/Catheters IV [facility] Type (from [facility] Saline Lock Urinary Cath still in place: No Assessment/Plan Hospital Course Assessment: Abdominal cellulitis/delayed healing of ostomy site Normocytic anemia EGD/PEG 06/04/18 Impression: 1.5 cm proximal gastric polyp. Post polypectomy plus Endo Clip placement. Post placement of [place] 24-20 cc replacement gastrostomy tube. Otherwise normal EGD. -S/p removal of PEG 05/11 to leakage and infection Melena/hematochezia- resolved Malfunctioning gastrostomy tube/infected site 06/18/18 unsuccessful PEG placement Hx of Gastric cancer s/p PEG placement (30 fr) Dementia Bacteremia -Blood cultures x2 growing gram-positive cocci UTI- with E.coli- treated with ABX Plan: Continue oral nutrition with aspiration precautions Continue to observe and reassess need for enteral feeding support await results of Palliative care conversation scheduled for tomorrow Apply barrier cream to opening of ostomy- to protect skin from gastric drainage Consider surgical consult to assess ability to close previous ostomy site and possibly place j-tube if patient is not able to meet PO caloric needs Result Diagram: 06/18/18 0543 06/20/18 0543 Results 24hrs Laboratory Tests Test 06/20/18 20:28 06/21/18 01:07 06/21/18 05:20 06/21/18 08:20 Bedside Glucose 145 76 111 99 Test 06/21/18 12:11 06/21/18 17:13 Bedside Glucose 185 116 Subjective 24 Hr Interval Summary Free Text/Dictation Subjective: Course reviewed with nursing staff Patient interviewed and examined All labs, imaging and other results reviewed Family at bedside, pt denies n/v or abdominal pain She is working with OT, and currently sitting up in a chair. Patient apparently is being able to read more than expected We will continue to observe Exam/Review of Systems Exam Vitals Vital Signs Date Temp Pulse Resp B/P (MAP) Pulse Ox O2 O2 Flow FiO2 Time Delivery Rate 06/21/18 97.8 75 18 138/60 99 13:53 (86) 06/20/18 Room Air 14:00 06/18/18 2.0 15:35 Intake and Output 06/20/18 06/20/18 06/21/18 1414:59 22:59 06:59 IntakeIntake Total 700 ml BalanceBalance 700 ml Exam GENERAL: Alert & confused SKIN: No lesions, no stigmata chronic liver disease, no evidence of bleeding diathesis HEAD: Normocephalic, atraumatic, no tenderness. EYES: Pupils equal reactive to light and accommodation, full extraocular movements, sclera clear, non-icteric, no discharge. EARS/NOSE AND THROAT: Ears normal, nose normal. NECK: Supple, no masses CARDIOVASCULAR: Heart: Regular rate and rhythm RESPIRATORY: Lungs clear to auscultation GASTROINTESTINAL AND LIVER: Abdomen: Soft, non tenderness, non-distended, ostomy site slowly healing, redness likely 2/2 to gastric drainage- improved, no rebound tenderness, normoactive bowel sounds. Rectal: Deferred. Results Results 24hrs Laboratory Tests Test 06/20/18 20:28 06/21/18 01:07 06/21/18 05:20 06/21/18 08:20 Bedside Glucose 145 76 111 99 Test 06/21/18 12:11 06/21/18 17:13 Bedside Glucose 185 116 Medications Medication Current Medications IV Flush (NS 3 ml) 3 ml PER PROTOCOL IV ; Start 06/03/18 at 12:00 Ondansetron HCl (Zofran Inj) 4 mg Q6H PRN IV NAUSEA/VOMITING Last administered on 06/06/18at 09:36; Admin Dose 4 MG; Start 06/03/18 at 12:00 Acetaminophen (Tylenol Tab) 650 mg Q6H PRN PO .PAIN 1-3 OR TEMP; Start 06/03/18 at 12:00 Acetaminophen/ Hydrocodone Bitart ([place] (5/325)) 1 tab Q6H PRN PO .MOD PAIN 4- 6; Start 06/03/18 at 12:00 Morphine Sulfate (morphine) 2 mg Q4H PRN IV .SEVERE PAIN 7-10; Start 06/03/18 at 12:00 Docusate Sodium (Colace) 100 mg Q12H PRN PO .CONSTIPATION; Start 06/03/18 at 12:00 Magnesium Hydroxide (Milk Of Mag) 30 ml DAILY PRN PO .CONSTIPATION; Start 06/03/18 at 12:00 Lorazepam (Ativan) 0.5 mg Q6H PRN IV ANXIETY; Start 06/03/18 at 12:00 Albuterol/ Ipratropium (Duoneb) 3 ml Q4H RESP THERAPY PRN HHN SHORTNESS OF BREATH; Start 06/03/18 at 12:00 Nitroglycerin (Nitroglycerin (Sl Tab) 0.4 Mg) 1 tab Q5M PRN SL ANGINA; Start 06/03/18 at 12:00 Folic Acid (Folic Acid) 0.4 mg DAILY GTB Last administered on 06/21/18 09:04; Admin Dose 0.4 MG; Start 06/04/18 at 09:00 Multivitamins Therapeutic (Theragran) 1 tab DAILY GTB Last administered on 06/21/18 09:04; Admin Dose 1 TAB; Start 06/04/18 at 09:00 Docusate Sodium (Colace Liquid Cup) 100 mg DAILY GTB Last administered on 06/21/18 09:04; Admin Dose 100 MG; Start 06/04/18 at 09:00 Nystatin (Nystatin Powder) 1 applic BID TOP Last administered on 06/21/18 09:04; Admin Dose 1 APPLIC; Start 06/04/18 at 15:30 Clotrimazole (Lotrimin Cr) 1 applic BID TOP Last administered on 06/21/18 09:03; Admin Dose 1 APPLIC; Start 06/05/18 at 12:00 Diagnostic Test (Pha) (Accu-Chek) 1 ea Q4 XX Last administered on 06/21/18 16:58; Admin Dose 1 EA; Start 06/07/18 at 11:00 Metoclopramide HCl (Reglan) 10 mg Q6 IV Last administered on 06/21/18 17:26; Admin Dose 10 MG; Start 06/06/18 at 18:00 Diagnostic Test (Pha) (Accu-Chek) 1 ea 02 XX Last administered on 06/14/18 02:15; Admin Dose 1 EA; Start 06/07/18 at 02:00 Insulin Aspart (Novolog Insulin Pen) NOVOLOG *MILD* ALGORI... Q4 SC Last administered on 06/21/18 12:22; Admin Dose 1 UNIT; Start 06/06/18 at 13:30 Miscellaneous Information 1 ea NOTE XX ; Start 06/06/18 at 13:00 Glucose (Glutose) 15 gm Q15M PRN PO DECREASED GLUCOSE; Start 06/06/18 at 13:00 Glucose (Glutose) 22.5 gm Q15M PRN PO DECREASED GLUCOSE; Start 06/06/18 at 13: 00 Dextrose (D50w Syringe) 25 ml Q15M PRN IV DECREASED GLUCOSE; Start 06/06/18 at 13:00 Dextrose (D50w Syringe) 50 ml Q15M PRN IV DECREASED GLUCOSE; Start 06/06/18 at 13:00 Glucagon (Glucagen) 1 mg Q15M PRN IM DECREASED GLUCOSE; Start 06/06/18 at 13:00 Glucose (Glutose) 15 gm Q15M PRN BUCCAL DECREASED GLUCOSE; Start 06/06/18 at 13:00 Miscellaneous Information (* Miscellaneous Pharmacy Order) TODAY PT IS GETTING PICC LI... ONCE XX ; Start 06/07/18 at 10:30 Bisacodyl (Dulcolax Supp) 10 mg DAILY PRN [place] CONSTIPATION; Start 06/07/18 at 11:30 IV Flush (NS 10 ml) 10 ml PRN PRN IV IV PROTOCOL; Start 06/07/18 at 14:00 Alteplase, Recombinant (Cathflo (Activase)) 4 mg MAY REPEAT X1 PRN CATHETER IF C ATHETER REMAINS OCCULUDED Last administered on 06/12/18at 23:10; Admin Dose 4 MG; Start 06/09/18 at 10:30 Hydralazine HCl (Apresoline) 5 mg Q6H PRN IV sbp>160 Last administered on 06/11/18at 14:08; Admin Dose 5 MG; Start 06/10/18 at 09:30 Potassium Chloride/Dextrose/ Sod Cl 1,000 ml @ 60 mls/hr [id number] IV Last administered on 06/20/18at 17:17; Admin Dose 60 MLS/HR; Start 06/13/18 at 18:30 Famotidine (Pepcid Iv) 20 mg DAILY@0600 IV Last administered on 06/21/18at 05:21; Admin Dose 20 MG; Start 06/20/18 at 06:00 ROBERT DAMIAN MD Jun 21, 2018 18:03
[2018-06-21 19:44] VITALS: BP 148/67; PULSE 77; RESP 20
[2018-06-22] MEDS: METOCLOPRAMIDE 10 MG INJ IV SCH ×4 (00:26→17:21)
[2018-06-22] MEDS: INSULIN ASPART [NOVOLOG] 3 ML PEN SC SCH ×3 (00:29→08:43)
[2018-06-22] MEDS: ACCU-CHEK XX SCH ×4 (00:32→08:45)
[2018-06-22 01:46] VITALS: BP 155/65; PULSE 64; RESP 20
[2018-06-22] MEDS: D5W-0.45 NACL + KCL 20 MEQ 1,000 ML IV SCH (05:12)
[2018-06-22] MEDS: FAMOTIDINE 20 MG INJ IV SCH (05:12)
[2018-06-22 08:13] VITALS: BP 142/61; PULSE 70; RESP 18
[2018-06-22] MEDS: FOLIC ACID 0.4 MG TAB GTB SCH (08:44)
[2018-06-22] MEDS: DOCUSATE SODIUM 10 MG/ML (10ML CUP) GTB SCH ×2 (08:44→08:46)
[2018-06-22] MEDS: MULTIVITAMINS THERAPEUTIC TAB GTB SCH (08:44)
[2018-06-22] MEDS: CLOTRIMAZOLE 1% 30 GM CR TOP SCH (08:45)
[2018-06-22] MEDS: NYSTATIN 30 GM POWDER BTL TOP SCH (08:45)
--- NOTE | 2018-06-22 10:11 | PN ---
Date/Time of Note Date/Time of Note DATE: 06/22/18 TIME: 10:08 Assessment/Plan VTE Prophylaxis Risk score (from [facility])>0 risk: 4 SCD applied (from [facility]): Yes Pharmacological prophylaxis: NA/contraindicated Pharm contraindication: low risk/ambulating Lines/Catheters IV Catheter Type (from [facility]): Saline Lock Urinary Cath still in place: No Assessment/Plan Hospital Course Assessment: Abdominal cellulitis/delayed healing of ostomy site Normocytic anemia EGD/PEG 06/04/18 Impression: 1.5 cm proximal gastric polyp. Post polypectomy plus Endo Clip placement. Post placement of [place] 24-20 cc replacement gastrostomy tube. Otherwise normal EGD. -S/p removal of PEG 05/11 to leakage and infection Melena/hematochezia- resolved Malfunctioning gastrostomy tube/infected site 06/18/18 unsuccessful PEG placement Hx of Gastric cancer s/p PEG placement (30 fr) Dementia Bacteremia -Blood cultures x2 growing gram-positive cocci UTI- with E.coli- treated with ABX Plan: Continue oral nutrition with aspiration precautions Obtain calorie count Continue to observe and reassess need for enteral feeding support await results of Palliative care evaluation Apply barrier cream to opening of ostomy- to protect skin from gastric drainage Awaiting surgical consult to assess ability to close previous ostomy site and possibly place j-tube if patient is not able to meet PO caloric needs Result Diagram: 06/18/18 0543 06/20/18 0543 Results 24hrs Laboratory Tests Test 06/21/18 12:11 06/21/18 17:13 06/21/18 20:36 06/22/18 00:27 Bedside Glucose 185 116 164 158 Test 06/22/18 05:11 06/22/18 08:31 Bedside Glucose 75 103 Subjective 24 Hr Interval Summary Free Text/Dictation Course reviewed with nursing staff Patient interviewed and examined All labs, imaging and other results reviewed Family at bedside, pt denies n/v or abdominal pain Apparently she is eating adequately Will request calorie count We will continue to observe Exam/Review of Systems Exam Vitals Vital Signs Date Temp Pulse Resp B/P (MAP) Pulse Ox O2 O2 Flow FiO2 Time Delivery Rate 06/22/18 97.5 70 18 142/61 97 08:13 (88) 06/20/18 Room Air 14:00 06/18/18 2.0 15:35 Intake and Output 06/21/18 06/21/18 06/22/18 1515:00 23:00 07:00 IntakeIntake Total 360 ml 800 ml 1555 ml BalanceBalance 360 ml 800 ml 1555 ml Exam Exam GENERAL: Alert & confused SKIN: No lesions, no stigmata chronic liver disease, no evidence of bleeding diathesis HEAD: Normocephalic, atraumatic, no tenderness. EYES: Pupils equal reactive to light and accommodation, full extraocular movements, sclera clear, non-icteric, no discharge. EARS/NOSE AND THROAT: Ears normal, nose normal. NECK: Supple, no masses CARDIOVASCULAR: Heart: Regular rate and rhythm RESPIRATORY: Lungs clear to auscultation GASTROINTESTINAL AND LIVER: Abdomen: Soft, non tenderness, non-distended, ostomy site slowly healing, redness likely 2/2 to gastric drainage- improved, no rebound tenderness, normoactive bowel sounds. Rectal: Deferred. Results Results 24hrs Laboratory Tests Test 06/21/18 12:11 06/21/18 17:13 06/21/18 20:36 06/22/18 00:27 Bedside Glucose 185 116 164 158 Test 06/22/18 05:11 06/22/18 08:31 Bedside Glucose 75 103 Medications Medication Current Medications IV Flush (NS 3 ml) 3 ml PER PROTOCOL IV ; Start 06/03/18 at 12:00 Ondansetron HCl (Zofran Inj) 4 mg Q6H PRN IV NAUSEA/VOMITING Last administered on 06/06/18at 09:36; Admin Dose 4 MG; Start 06/03/18 at 12:00 Acetaminophen (Tylenol Tab) 650 mg Q6H PRN PO .PAIN 1-3 OR TEMP; Start 06/03/18 at 12:00 Acetaminophen/ Hydrocodone Bitart ([place] (5/325)) 1 tab Q6H PRN PO .MOD PAIN 4- 6; Start 06/03/18 at 12:00 Morphine Sulfate (morphine) 2 mg Q4H PRN IV .SEVERE PAIN 7-10; Start 06/03/18 at 12:00 Docusate Sodium (Colace) 100 mg Q12H PRN PO .CONSTIPATION; Start 06/03/18 at 12:00 Magnesium Hydroxide (Milk Of Mag) 30 ml DAILY PRN PO .CONSTIPATION; Start 06/03/18 at 12:00 Lorazepam (Ativan) 0.5 mg Q6H PRN IV ANXIETY; Start 06/03/18 at 12:00 Albuterol/ Ipratropium (Duoneb) 3 ml Q4H RESP THERAPY PRN HHN SHORTNESS OF BREATH; Start 06/03/18 at 12:00 Nitroglycerin (Nitroglycerin (Sl Tab) 0.4 Mg) 1 tab Q5M PRN SL ANGINA; Start 06/03/18 at 12:00 Folic Acid (Folic Acid) 0.4 mg DAILY GTB Last administered on 06/22/18 08:44; Admin Dose 0.4 MG; Start 06/04/18 at 09:00 Multivitamins Therapeutic (Theragran) 1 tab DAILY GTB Last administered on 06/22/18 08:44; Admin Dose 1 TAB; Start 06/04/18 at 09:00 Docusate Sodium (Colace Liquid Cup) 100 mg DAILY GTB Last administered on 06/21/18 09:04; Admin Dose 100 MG; Start 06/04/18 at 09:00 Nystatin (Nystatin Powder) 1 applic BID TOP Last administered on 06/22/18 08:45; Admin Dose 1 APPLIC; Start 06/04/18 at 15:30 Clotrimazole (Lotrimin Cr) 1 applic BID TOP Last administered on 06/22/18 08:45; Admin Dose 1 APPLIC; Start 06/05/18 at 12:00 Diagnostic Test (Pha) (Accu-Chek) 1 ea Q4 XX Last administered on 06/22/18 08:45; Admin Dose 1 EA; Start 06/07/18 at 11:00 Metoclopramide HCl (Reglan) 10 mg Q6 IV Last administered on 06/22/18 05:12; Admin Dose 10 MG; Start 06/06/18 at 18:00 Diagnostic Test (Pha) (Accu-Chek) 1 ea 02 XX Last administered on 06/14/18 02:15; Admin Dose 1 EA; Start 06/07/18 at 02:00 Insulin Aspart (Novolog Insulin Pen) NOVOLOG *MILD* ALGORI... Q4 SC Last admi nistered on 06/22/18 00:29; Admin Dose 1 UNIT; Start 06/06/18 at 13:30 Miscellaneous Information 1 ea NOTE XX ; Start 06/06/18 at 13:00 Glucose (Glutose) 15 gm Q15M PRN PO DECREASED GLUCOSE; Start 06/06/18 at 13:00 Glucose (Glutose) 22.5 gm Q15M PRN PO DECREASED GLUCOSE; Start 06/06/18 at 13:00 Dextrose (D50w Syringe) 25 ml Q15M PRN IV DECREASED GLUCOSE; Start 06/06/18 at 13:00 Dextrose (D50w Syringe) 50 ml Q15M PRN IV DECREASED GLUCOSE; Start 06/06/18 at 13:00 Glucagon (Glucagen) 1 mg Q15M PRN IM DECREASED GLUCOSE; Start 06/06/18 at 13:00 Glucose (Glutose) 15 gm Q15M PRN BUCCAL DECREASED GLUCOSE; Start 06/06/18 at 13:00 Miscellaneous Information (* Miscellaneous Pharmacy Order) TODAY PT IS GETTING PICC LI... ONCE XX ; Start 06/07/18 at 10:30 Bisacodyl (Dulcolax Supp) 10 mg DAILY PRN [place] CONSTIPATION; Start 06/07/18 at 11:30 IV Flush (NS 10 ml) 10 ml PRN PRN IV IV PROTOCOL; Start 06/07/18 at 14:00 Alteplase, Recombinant (Cathflo (Activase)) 4 mg MAY REPEAT X1 PRN CATHETER IF CATHETER REMAINS OCCULUDED Last administered on 06/12/18at 23:10; Admin Dose 4 MG; Start 06/09/18 at 10:30 Hydralazine HCl (Apresoline) 5 mg Q6H PRN IV sbp>160 Last administered on 06/11/18at 14:08; Admin Dose 5 MG; Start 06/10/18 at 09:30 Potassium Chloride/Dextrose/ Sod Cl 1,000 ml @ 60 mls/hr [id number] IV Last administered on 06/22/18at 05:12; Admin Dose 60 MLS/HR; Start 06/13/18 at 18:30 Famotidine (Pepcid Iv) 20 mg DAILY@0600 IV Last administered on 06/22/18at 05:12; Admin Dose 20 MG; Start 06/20/18 at 06:00 ROBERT DAMIAN MD Jun 22, 2018 10:11
--- NOTE | 2018-06-22 12:12 | PDOCDIS ---
Discharge Instructions CONDITION [id number] Patient Condition: [id number] Stable HOME CARE INSTRUCTIONS: [id number] Diet Instructions: [id number] Regular ACTIVITY: [id number] Activity Restrictions: [id number] No Restrictions [id number] Bathing Restrictions: [id number] Shower FOLLOW UP/APPOINTMENTS Follow-up Plan Continue wound care: Cleanse G-tube with normal saline, apply clotrimazole cream and colostomy bag to collect drain. Change back PRN. Follow-up with in 2 weeks to reassess the status of gastrostomy site. If patient has a lot of leaking from the old gastrostomy area after she eats, please send her back to the emergency room. ALFREDO MENSAH NP Jun 22, 2018 12:12
[2018-06-22] MEDS ORDERED: ACET325T33 PO (12:14)
[2018-06-22] MEDS ORDERED: MULT-761 PO (12:14)
[2018-06-22] MEDS ORDERED: HYDR-3601 PO (12:14)
[2018-06-22] MEDS ORDERED: FOLI0.4T2 PO (12:14)
[2018-06-22] MEDS ORDERED: PANT40TA3 PO (12:14)
[2018-06-22] MEDS ORDERED: ASC500 PO (12:15)
[2018-06-22] MEDS ORDERED: METO5TAB58 PO (12:17)
--- NOTE | 2018-06-22 12:25 | DS ---
Date/Time of Note Date/Time of Note DATE: 06/22/18 TIME: 12:22 Discharge Summary Admission/Discharge Info Admit Date/Time Jun 03, 2018 at 09:39 Discharge Date/Time Discharge Diagnosis 1. Acute GI bleed, hematochezia.Status post EGD:1.5 cm proximal gastric polyp. Post polypectomy plus Endo Clip placement. 2. Malfunctioned PEG w/site infection. .s/p removal of Gtube 06/06.Site infection treated w/abx completion, 3. s/p Coagulase-negative staph bacteremia, x2 sets.-Likely source G-tube. 4.s/p E. coli UTI 5. Acute on chronic anemia. Acute anemia secondary to GI bleed 6. History of gastric cancer 7. Osteoporosis 8. Dementia 9. Dysphagia,on pureed diet Patient Condition: Stable Consults , gastroenterology Dr. Salazar, palliative care Dr. Oakley from surgery Procedures 06/04/2018. EGD Hx of Present Illness This is a 83-year-old female with a past medical history of gastric cancer, status post G-tube placed, osteoporosis, gastritis, erosive esophagitis, dementia, , who was [facility] from a [facility] secondary to rectal bleed. Patient denied chest pain, palpitation, shortness of breath, nausea, vomiting, abdominal pain, loss of conscious, dizziness, hematochezia, hematemesis, dysuria, hematuria. Patient's last EGD evaluation in August 2014. No colonoscopy reports fine. In the emergency room, patient was noted with hemoglobin 8.7, hematocrit 26.1, sodium 130, chloride 95, BUN 34 1,Mildly elevated alkaline phosphatase 149.. Otherwise unremarkable. Hospital Course 83-year-old female with a history of gastric cancer, status post PEG, gastritis, erosive esophagitis, dementia, was transferred from [facility] with rectal bleed, also found to have bacteremia with leaking/infected/malfxn G-tube requiring G-tube removal... Patient was being followed by gastroenterology. Patient underwent EGD , found to have 1.5 cm proximal gastric polyp, patient had polypectomy plus Endo Clip placement. There was no further hematochezia. Patient was continued on Protonix. Colonoscopy was deferred given therapeutic procedure and need for Endo Clip. Patient's hemoglobin remained stable. Hospitalization was noted for malfunctioned gastrostomy tube with site infection. Her site grew Federica albicans/E. coli/yeast. She was continued on appropriate G-tube site care. Patient also had infectious disease evaluation and was continued on appropriate antimicrobial with course completion. As the plan was to place a new PEG, patient continued to have leaking through the G-tube requiring temporary TPN and IV fluid hydration. During the course of hospitalization, patient was also noted with pulling out her central line multiple times. Gastroenterology attempted new PEG placement however, was unsuccessful secondary to continued leakage. At this time, recommended natural healing of old G-tube site prior to putting a new tube. Bacteremia resolved. She was off antibiotics. She was also treated for an E. coli UTI. She was continued on aggressive G-tube site care. Patient was also evaluated by surgeon Dr. Oakley for the need for possible surgical closure of G-tube and placement of a J-tube in the event that patient continue to require enteral feeding. Fortunately, patient passed swall ow eval and she was able to tolerate a pured diet with diet supplements. We continue to monitor her calorie requirement. There was not much leaking from the old G-tube site with oral intake. We also had palliative care team involved and we had a lengthy family discussion with patient's decision maker and decided to keep patient on oral diet as she seems tolerating it with continued speech therapy evaluation and aspiration precaution and to have G-tube site healed its own hoping in the next couple weeks and then have her reassessed by our gastroenterology and surgery team to decide whether patient need surgical closure of the gastrostomy with J-tube placement if she still require enteral feeding as primary source of nutrition. At this time, as patient is tolerating pured diet and not much leakage from G- tube with evidence of healing, we will discharge patient back to longterm facility in anticipation that this G-tube site will heal its own in the next couple weeks and will have gastroenterology follow-up. Meanwhile, patient to continue oral diet as instructed. Approximately 60 m spent on coordinating the discharge on this patient. Patient was seen in collaboration with [facility] Reported Medications Docusate Sodium* (Docusate Sodium* Liq) 50 Mg/5 Ml Liquid, 100 MG GTB DAILY, ML 06/03/18 Cran/Vitc/Mannose/Inulin/Brom (Uti-Stat Liquid) 3,875 Mg/30 Ml Liquid, 30 ML GTB BID 05/27/16 Acetaminophen* (Tylenol*) 500 Mg Tab, 1000 MG GTB Q4H PRN for PAIN LEVEL 4-6/10, TAB 05/27/16 Acetaminophen* (Tylenol*) 325 Mg Tablet, 650 MG GTB Q4H PRN for MILD PAIN LEVEL 1-3, TAB 05/27/16 Pantoprazole* (Protonix*) 40 Mg Tablet.dr, 40 MG GTB DAILY, TAB 05/27/16 Glipizide* (Glipizide*) 5 Mg Tablet, 5 MG GTB AC BREAKFAST, TAB 08/10/14 Folic Acid* (Folic Acid*) 0.4 Mg Tablet, 0.4 MG GTB DAILY, TAB 08/10/14 Multivitamin (MULTI VITAMIN DAILY) 1 Each Tablet, 5 ML GTB DAILY 09/04/13 Follow-up Plan Continue wound care: Cleanse G-tube with normal saline, apply clotrimazole cream and colostomy bag to collect drain. Change back PRN. Follow-up with in 2 weeks to reassess the status of gastrostomy site. If patient has a lot of leaking from the old gastrostomy area after she eats, please send her back to the emergency room. Primary Care Provider Care Physician No Primary Pending Labs Laboratory Tests Test 06/21/18 17:13 06/21/18 20:36 06/22/18 00:27 06/22/18 05:11 Bedside 116 164 158 75 Glucose mg/dL (70-220) mg/dL (70-220) mg/dL (70-220) mg/dL (70-220) Test 06/22/18 08:31 Bedside 103 Glucose mg/dL (70-220) ALFREDO MENSAH NP Jun 22, 2018 12:25
[2018-06-22 14:26] VITALS: BP 126/54; PULSE 89; RESP 18
== END 2018-06-22 18:07 | DRG 378 ==
LOC: E/R 08:10 → 5EC 09:39
PROVIDERS: ADMIT Hospitalist; ATTEND Internal Medicine
PROC: 0DB68ZZ Excision of Stomach, Via Natural or Artificial Opening Endoscopic (ICD-10-PCS; 2018-06-04)
PROC: 30233N1 Transfusion of Nonautologous Red Blood Cells into Peripheral Vein, Percutaneous Approach (ICD-10-PCS; 2018-06-04)
PROC: 0DH68UZ Insertion of Feeding Device into Stomach, Via Natural or Artificial Opening Endoscopic (ICD-10-PCS; principal; 2018-06-04 17:00)
PROC: 02H633Z Insertion of Infusion Device into Right Atrium, Percutaneous Approach (ICD-10-PCS; 2018-06-07)
PROC: 0DJ08ZZ Inspection of Upper Intestinal Tract, Via Natural or Artificial Opening Endoscopic (ICD-10-PCS; 2018-06-18)
DX: K92.2 Gastrointestinal hemorrhage, unspecified (principal); E87.1 Hypo-osmolality and hyponatremia; K94.22 Gastrostomy infection; L03.311 Cellulitis of abdominal wall; D62 Acute posthemorrhagic anemia; N39.0 Urinary tract infection, site not specified; B37.89 Other sites of candidiasis; T85.598A Other mechanical complication of other gastrointestinal prosthetic devices, implants and grafts, initial encounter; K92.1 Melena; B96.20 Unspecified Escherichia coli [E. coli] as the cause of diseases classified elsewhere; D50.0 Iron deficiency anemia secondary to blood loss (chronic); E86.0 Dehydration; E11.9 Type 2 diabetes mellitus without complications; F03.90 Unspecified dementia, unspecified severity, without behavioral disturbance, psychotic disturbance, mood disturbance, and anxiety; M81.0 Age-related osteoporosis without current pathological fracture; R13.10 Dysphagia, unspecified; Y83.8 Other surgical procedures as the cause of abnormal reaction of the patient, or of later complication, without mention of misadventure at the time of the procedure; Z85.028 Personal history of other malignant neoplasm of stomach; Z79.84 Long term (current) use of oral hypoglycemic drugs
CPT/HCPCS: 36415; 36430; 36569; 43762; 71045; 76937; 80048; 80053; 80061; 80150; 80202; 81001; 82270; 82962; 83036; 83735; 84100; 84134; 84439; 84443; 84478; 84484; 85014; 85018; 85025; 85610; 85730; 86850; 86900; 86901; 86920; 87040; 87070; 87086; 88305; 88312; 92610; 93005; 96374; 97116; 97161; 97167; 97530; 97535; 99211; A4310; C9113; J0278; J0360; J0690; J1450; J1580; J1815; J2405; J2765; J2997; J3370; J3475; J3480; J7030; J7040; J7042; J7050; P9016

== ENCOUNTER 2018-07-17 15:02 | Inpatient (IN) | payer MEDICARE, OTHER ==
[~2018-07-17] VITALS: Ht 157.5 cm; Wt 40.2 kg
[~2018-07-17 15:02] MED LIST changes: -ACET325T33 GTB; +ACET325T33 PO; +ASC500 PO; -BISA10SU75 PR; -CALC500T GTB; -CRAN3875 GTB; -DOCU-159 GTB; -FLEETPED PR; -FOLI0.4T2 GTB; +FOLI0.4T2 PO; -GLIP5TAB13 GTB; +HYDR-3601 PO; -LEVO5TAB28 GTB; -MAGN400O19 GTB; +METO5TAB58 PO; -MULT-761 GTB; +MULT-761 PO; -PANT40TA3 GTB; +PANT40TA3 PO; -SODI1TAB2 GTB; -TYL500 GTB; -UDREG GTB
[2018-07-17] MEDS ORDERED: SOD CHLORIDE 0.9% 1,000 ML IV STA (16:46)
--- NOTE | 2018-07-17 16:56 | ERD ---
ER Documentation Chief Complaint Chief Complaint SENT FROM SNF FOR EVAL OF POOR APPETITE HPI 83-year-old female with a history of GI hemorrhage DVT, diverticulosis, stomach cancer hypertension, failure to thrive sent [place] [facility] [place] [facility] in [facility] for poor p.o. intake. Patient's G tube was reportedly removed about 3 weeks ago as she had started eating by mouth. However she is only completing 30-40% of her breakfast and lunch. She has had 7 pound weight loss within the past 3 weeks. Patient currently has no complaints of pain or any other symptoms. Otherwise history is limited as patient is alert and oriented x1 at baseline. ROS All systems reviewed and are negative except as per history of present illness. Medications Home Meds Reported Medications Acetaminophen* (Acetaminophen*) 500 MG Extra Strength Tablet, 1000 MG PO DAILY PRN for BODY PAIN, TAB 07/17/18 Acetaminophen* (Acetaminophen*) 500 MG Extra Strength Tablet, 1000 MG PO Q4H PRN for PAIN -09/16, TAB 07/17/18 Acetaminophen* (Tylenol*) 325 Mg Tablet, 650 MG PO Q4H PRN for FEVER 100 AND ABOVE, TAB STOP DATE 07/24/18 07/17/18 Acetaminophen* (Tylenol*) 325 Mg Tablet, 650 MG PO Q4H PRN for MILD PAIN LEVEL 1-3, TAB 07/17/18 Zinc Sulfate* (Zinc Sulfate*) 220 Mg Tablet, 220 MG PO DAILY, TAB END DATE 08/22/18 07/17/18 Ascorbic Acid (Vitamin C) 500 Mg Tab, 500 MG PO DAILY, TAB 07/17/18 Cran/Vitc/Mannose/Inulin/Brom (Uti-Stat Liquid) 3,875 Mg/30 Ml Liquid, 30 ML PO DAILY 07/17/18 Amino Acids/Protein Hydrolys (PRO-STAT LIQUID) 30 Ml Liquid.pkt, 30 ML PO DAILY SUGAR FREE 07/17/18 Pantoprazole* (Pantoprazole*) 40 Mg Tablet.dr, 40 MG PO AC BREAKFAST, TAB 07/17/18 Multivitamin with Minerals (Multivitamins with Minerals) 1 Each Tablet, 1 EACH PO DAILY, TAB 07/17/18 Magnesium Hydroxide* (Milk Of Magnesia*) 400 Mg/5 Ml Oral.susp, 30 ML PO NEEDED, ML 07/17/18 Hydrocodone/Acetaminophen ([place] 5-325 Tablet) 1 Each Tablet, 1 EACH PO Q6H PRN for PAIN 7-12/17, TAB 07/17/18 Folic Acid* (Folic Acid*) 1 Mg Tablet, 1 MG PO DAILY, TAB 07/17/18 Na Phos,M-B/Na Phos,Di-Ba (Fleet Enema Extra) 230 Ml Enema, 1 APPLIC RC NEEDED, ENEMA 07/17/18 Ferrous Sulfate* (Ferrous Sulfate*) 325 Mg Tabec, 325 MG PO BID, TAB 07/17/18 Bisacodyl* (Bisacodyl*) 10 Mg Supp, 10 MG IA NEEDED, SUPP 07/17/18 Cranberry Extract (Cranberry) 425 Mg Capsule, 425 MG PO DAILY, CAP 07/17/18 Docusate Sodium* (Colace*) 100 Mg Capsule, 200 MG PO QHS, #30 CAP 07/17/18 Discontinued Scripts Metoclopramide* (Reglan*) 5 Mg Tablet, 5 MG PO AC MEALS, #30 TAB Prov:ALFREDO MENSAH [employer] 06/22/18 Ascorbic Acid (Vitamin C) 500 Mg Tab, 500 MG PO DAILY for 30 Days, TAB Prov:MENSAHALFREDO [employer]. [employer]PER[employer] 06/22/18 Hydrocodone Bit-Acetaminophen (Hydrocodone Bit-APAP) 5-325MG Tablet, 1 TAB PO Q6H PRN for .MOD PAIN 4-6 for 30 Days, TAB Prov:MENSAHMIGUELITOA [employer]. [employer]PER[employer]OR 06/22/18 Acetaminophen* (Tylenol*) 325 Mg Tablet, 650 MG PO Q4H PRN for MILD PAIN LEVEL 1-3 for 30 Days, TAB Prov:ALFREDO MENSAH [employer]PER[employer] 06/22/18 Pantoprazole* (Protonix*) 40 Mg Tablet.dr, 40 MG PO DAILY for 30 Days, TAB Prov:MENSAHMIGUELITOA [employer]. [employer] SUPERVISOR 06/22/18 Folic Acid* (Folic Acid*) 0.4 Mg Tablet, 0.4 MG PO DAILY for 30 Days, TAB Prov:MENSAHMIGUELITOA [employer]. [employer]PER[employer]OR 06/22/18 Multivitamin (MULTI VITAMIN DAILY) 1 Each Tablet, 5 ML PO DAILY for 30 Days, TAB Prov:MENSAHMIGUELITOA [employer]. [employer] SUPER[employer]OR 06/22/18 Allergies Allergies: Coded Allergies: Penicillins (Verified Allergy, Severe, 07/17/18) PMhx/Soc History of Surgery: No Anesthesia Reaction: No Hx Neurological Disorder: No Hx Respiratory Disorders: No Hx Cardiac Disorders: No Hx Psychiatric Problems: Yes (Depression ) Hx Miscellaneous Medical Probl: Yes (G-TUBE FOR FEEDING) Hx Alcohol Use: No Hx Substance Use: No Hx Tobacco Use: No FmHx Unable to obtain Physical Exam Vitals Vital Signs Date Temp Pulse Resp B/P (MAP) Pulse Ox O2 O2 Flow FiO2 Time Delivery Rate 07/17/18 97.8 53 20 141/51 100 Room Air 17:28 (81) 07/17/18 97.4 104 16 132/60 99 15:02 (84) Physical Exam Const: No acute distress Head: Atraumatic Eyes: Normal Conjunctiva ENT: Normal External Ears, Nose and Mouth. Neck: Full range of motion. No meningismus. Resp: Clear to auscultation bilaterally Cardio: Regular rate and rhythm, no murmurs Abd: G-tube site healing. Soft, non tender, non distended. Normal bowel sounds Skin: No petechiae or rashes Back: No midline or flank tenderness Ext: No cyanosis, or edema Neur: Awake and alert Psych: Normal Mood and Affect Result Diagram: 07/17/18 1714 07/17/18 1714 Results 24 hrs Laboratory Tests Test 07/17/18 17:14 07/17/18 17:35 White Blood Count 5.7 10^3/ul Red Blood Count 4.01 10^6/ul Hemoglobin 12.2 g/dl Hematocrit 38.1 % Mean Corpuscular Volume 95.0 fl Mean Corpuscular Hemoglobin 30.4 pg Mean Corpuscular Hemoglobin Concent 32.0 g/dl Red Cell Distribution Width 12.9 % Platelet Count 325 10^3/UL Mean Platelet Volume 9.8 fl Immature Granulocytes % 0.500 % Neutrophils % 74.0 % Lymphocytes % 15.9 % Monocytes % 6.8 % Eosinophils % 2.3 % Basophils % 0.5 % Nucleated Red Blood Cells % 0.0 /100WBC Immature Granulocytes # 0.030 10^3/ul Neutrophils # 4.3 10^3/ul Lymphocytes # 0.9 10^3/ul Monocytes # 0.4 10^3/ul Eosinophils # 0.1 10^3/ul Basophils # 0.0 10^3/ul Nucleated Red Blood Cells # 0.0 10^3/ul Sodium Level 140 mmol/L Potassium Level 3.9 mmol/L Chloride Level 102 mmol/L Carbon Dioxide Level 34 mmol/L Anion Gap 4 Blood Urea Nitrogen 23 mg/dl Creatinine 0.95 mg/dl Est Glomerular Filtrat Rate mL/min mL/min Glucose Level 132 mg/dl Calcium Level 10.1 mg/dl Total Bilirubin 0.4 mg/dl Direct Bilirubin 0.00 mg/dl Indirect Bilirubin 0.4 mg/dl Aspartate Amino Transf (AST/SGOT) 24 IU/L Alanine Aminotransferase (ALT/SGPT) 16 IU/L Alkaline Phosphatase 114 IU/L Total Protein 7.8 g/dl Albumin 4.2 g/dl Globulin 3.60 g/dl Albumin/Globulin Ratio 1.16 Bedside Glucose 105 mg/dL Current Medications Medications Dose Sig/Pushpa Start Time Status Last (Trade) Ordered Route PRN Stop Time Admin Dose Reason Admin Sodium 1,000 ml @ Q1H STAT 07/17/18 DC 07/17/18 Chloride 1,000 mls/hr IV 16:46 17:08 07/17/18 17:45 Sodium 1,000 ml @ Q24H IV 07/17/18 07/17/18 Chloride 40 mls/hr 18:32 21:08 07/18/18 19:31 Procedures/MDM EMERGENT LABS AND DIAGNOSTIC STUDIES: Lab Results above were reviewed and interpreted by me. CBC: no anemia or evidence of infection CMP: Mild elevation in BUN, possibly due to dehydration. No evidence of c linically significant electrolyte abnormality, acidosis, renal failure, hypoglycemia, liver disease, or biliary obstruction Initial Nursing notes reviewed. Previous Medical Records requested via the Electronic Health Record. EMERGENCY DEPARTMENT COURSE / MEDICAL DECISION MAKING: Patient is presenting for poor p.o. intake. Upon arrival, vitals were unremarkable. Labs do not show any significant abnormalities other than evidence of possibly mild dehydration. She was treated with IV fluids. I did speak with her power of corporate associate attorney and it seems that they want the patient to have a feeding tube if possible. They were very concerned about her weight loss. For this reason, patient will be admitted for G-tube placement given her poor p.o. intake and her family's wishes. Accepting Care Team: Current data and ongoing care discussed. Time: Time of admission Primary Provider: Dr. Marcum Departure Diagnosis: Primary Impression: Decrease in appetite Additional Impression: Failure to thrive in adult Condition: KARLEY Ojeda MD Jul 17, 2018 16:56
[2018-07-17] MEDS ORDERED: DOCU-144 PO (17:50)
[2018-07-17] MEDS ORDERED: FER325 PO (17:51)
[2018-07-17] MEDS ORDERED: BISA10SU75 PR (17:51)
[2018-07-17] MEDS ORDERED: CRAN425C6 PO (17:51)
[2018-07-17] MEDS ORDERED: FOLI-49 PO (17:52)
[2018-07-17] MEDS ORDERED: NA P230E RC (17:52)
[2018-07-17] MEDS ORDERED: HYDR-4011 PO (17:53)
[2018-07-17] MEDS ORDERED: MAGN400O19 PO (17:54)
[2018-07-17] MEDS ORDERED: MULT-105 PO (17:54)
[2018-07-17] MEDS ORDERED: PANT40TA4 PO (17:55)
[2018-07-17] MEDS ORDERED: CRAN3875 PO (17:56)
[2018-07-17] MEDS ORDERED: AMIN30LI PO (17:56)
[2018-07-17] MEDS ORDERED: ZINC220T PO (17:57)
[2018-07-17] MEDS ORDERED: ASC500 PO (17:57)
[2018-07-17] MEDS ORDERED: ACET325T33 PO (18:02)
[2018-07-17] MEDS ORDERED: ACET-141 PO ×2 (18:02)
[2018-07-17] MEDS ORDERED: SOD CHLORIDE 0.9% 1,000 ML IV SCH (18:32)
[2018-07-17] MEDS ORDERED: ACETAMINOPHEN 325 MG TAB PO PRN ×2 (19:00)
[2018-07-17] MEDS ORDERED: ONDANSETRON 4 MG INJ IV PRN ×2 (19:00)
[2018-07-17] MEDS ORDERED: NACL 0.9% 3 ML SYG IV SCH (19:00)
[2018-07-17 20:45] VITALS: BP 189/79; PULSE 55; RESP 18
[2018-07-17 21:31] VITALS: Ht 157.5 cm; Wt 40.2 kg
[2018-07-18] VITALS (15 sets, daily range): BP systolic 141–190; BP diastolic 69–96; PULSE 56–90; RESP 16–20
[2018-07-18] MEDS ORDERED: PROPOFOL 200 MG INJ ONE (07:00)
--- NOTE | 2018-07-18 08:52 | HP ---
Date/Time of Note Date/Time of Note DATE: 07/18/18 TIME: 08:47 Assessment/Plan VTE Prophylaxis Pharmacological prophylaxis: heparin Lines/Catheters IV Catheter Type (from Nrsg): Peripheral IV Assessment/Plan Assessment/Plan 83-year-old female with a history of gastric cancer, with a previous PEG tube (status post removal last month because of infection), gastritis, erosive esophagitis, dementia, and a GI bleed sent from the facility for failure to thrive PLAN -Patient has not been eating much at the facility. As mentioned in the HPI G- tube was removed to last month because of infection. -Speech/swallowing dietary consult -GI consult to see if the G-tube can be reinserted -PPI Result Diagram: 07/18/18 0455 07/18/18 0455 Results 24hrs Laboratory Tests Test 07/17/18 17:14 07/17/18 17:35 07/18/18 04:55 White Blood Count 5.7 # 5.9 Red Blood Count 4.01 #L 3.32 L Hemoglobin 12.2 # 10.3 L Hematocrit 38.1 # 31.3 L Mean Corpuscular Volume 95.0 94.3 Mean Corpuscular Hemoglobin 30.4 31.0 Mean Corpuscular Hemoglobin Concent 32.0 32.9 Red Cell Distribution Width 12.9 12.8 Platelet Count 325 # 282 Mean Platelet Volume 9.8 10.3 Immature Granulocytes % 0.500 H 0.300 Neutrophils % 74.0 70.6 Lymphocytes % 15.9 17.3 Monocytes % 6.8 6.6 Eosinophils % 2.3 4.4 Basophils % 0.5 0.8 Nucleated Red Blood Cells % 0.0 0.0 Immature Granulocytes # 0.030 0.020 Neutrophils # 4.3 4.2 Lymphocytes # 0.9 1.0 Monocytes # 0.4 0.4 Eosinophils # 0.1 0.3 Basophils # 0.0 0.1 Nucleated Red Blood Cells # 0.0 0.0 Sodium Level 140 140 Potassium Level 3.9 3.6 Chloride Level 102 107 Carbon Dioxide Level 34 H 26 Anion Gap 4 L 7 Blood Urea Nitrogen 23 H 18 Creatinine 0.95 0.70 Est Glomerular Filtrat Rate mL/min Glucose Level 132 90 # Calcium Level 10.1 8.8 Total Bilirubin 0.4 0.4 Direct Bilirubin 0.00 0.00 Indirect Bilirubin 0.4 0.4 Aspartate Amino Transf (AST/SGOT) 24 30 Alanine Aminotransferase (ALT/SGPT) 16 17 Alkaline Phosphatase 114 73 Total Protein 7.8 6.1 # Albumin 4.2 3.2 #L Globulin 3.60 H 2.90 Albumin/Globulin Ratio 1.16 1.10 Bedside Glucose 105 Hemoglobin A1c 5.4 Magnesium Level 1.9 Triglycerides Level 127 Cholesterol Level 139 LDL Cholesterol, Calculated 51 HDL Cholesterol 63 Cholesterol/HDL Ratio 2.2 Thyroid Stimulating Hormone (TSH) 1.670 HPI/ROS Admit Date/Time Admit Date/Time Jul 17, 2018 at 18:36 Hx of Present Illness This is an 83-year-old female with a history of gastric cancer, with a previous PEG (status post removal last month because of infection), gastritis, erosive esophagitis, dementia, and a GI bleed. Patient was sent from SNF for a failure to thrive. Patient was admitted here last month for GI bleed and G-tube site infection. EGD shows gastritis and erosive esophagitis. G-tube was removed. Reportedly, the facility patient has not been eating much and as such she was sent here for failure to thrive. Patient knows that she in the hospital otherwise not fully oriented. She denied pain and it does not have any complai nt. She appears somehow weak. PMH/Family/Social Past Medical History Medical History: other (See HPI) Medications Current Medications Sodium Chloride 1,000 ml @ 40 mls/hr Q24H IV Last administered on 07/17/18at 21:08; Admin Dose 40 MLS/HR; Start 07/17/18 at 18:32; Stop 07/18/18 at 19:31 IV Flush (NS 3 ml) 3 ml PER PROTOCOL IV ; Start 07/17/18 at 19:00 Ondansetron HCl (Zofran Inj) 4 mg Q6H PRN IV NAUSEA/VOMITING; Start 07/17/18 at 19:00 Acetaminophen (Tylenol Tab) 650 mg Q6H PRN PO .PAIN 1-3 OR TEMP; Start 07/17/18 at 19:00 Ondansetron HCl (Zofran Inj) 4 mg BRIDGE ORDER PRN IV NAUSEA/VOMITING; Start 07/17/18 at 19:00; Stop 07/18/18 at 18:59 Acetaminophen (Tylenol Tab) 650 mg ER BRIDGE PRN PO .MILD PAIN 1-3 OR TEMP; Start 07/17/18 at 19:00; Stop 07/18/18 at 18:59 Coded Allergies: Penicillins (Verified Allergy, Severe, 07/17/18) Past Surgical History Past Surgical Hx: other (See HPI) Family History Significant Family History: no pertinent family hx Social History Alcohol Use: none Smoking Status: Never smoker Drug Use: none Exam/Review of Systems Vital Signs Vitals Vital Signs Date Temp Pulse Resp B/P (MAP) Pulse Ox O2 O2 Flow FiO2 Time Delivery Rate 07/18/18 98.5 68 16 173/74 100 08:03 (107) 07/17/18 Room Air 20:17 Intake and Output 07/17/18 07/17/18 07/18/18 1515:00 23:00 07:00 IntakeIntake Total 360 ml OutputOutput Total 100 ml BalanceBalance 260 ml Exam Constitutional: other (Patient lying in bed in no acute distress. Oriented to location.) Head: normocephalic, atraumatic Eyes: EOMI, PERRL Respiratory: clear to auscultation Cardiovascular: regular rate and rhythm Gastrointestinal: soft, other (Previous G-tube site shows minimal leakage) Extremities: normal pulses LALITA RODNEY MD Jul 18, 2018 08:52
[2018-07-18] MEDS ORDERED: FAMOTIDINE 20 MG INJ IV SCH (09:00)
[2018-07-18] MEDS: DEXTROSE 5%-0.45% NACL 1,000 ML IV SCH ×2 (10:09→21:30)
--- NOTE | 2018-07-18 12:14 | PN ---
Date/Time of Note Date/Time of Note DATE: 07/18/18 TIME: 12:09 Assessment/Plan VTE Prophylaxis Risk score (from [facility] [place]0 risk: 7 SCD applied (from [facility] [place]): Yes Pharmacological prophylaxis: other Pharm contraindication: other Lines/Catheters IV Catheter Type (from [facility]): Peripheral IV Assessment/Plan Assessment/Plan 1. Dysphagia and poor intake, needs G-tube, follow up with GI 2. Gastric cancer 3. h/o gastritis and erosive esophagitis, on pepcid 4. Chronic dementia 5. Normocytic anemia, chronic 6. Malnutrition, severe Result Diagram: 07/18/18 0455 07/18/18 0455 Results 24hrs Laboratory Tests Test 07/17/18 17:14 07/17/18 17:35 07/18/18 04:55 07/18/18 05:15 White Blood Count 5.7 # 5.9 Red Blood Count 4.01 #L 3.32 L Hemoglobin 12.2 # 10.3 L Hematocrit 38.1 # 31.3 L Mean Corpuscular 95.0 94.3 Volume Mean Corpuscular 30.4 31.0 Hemoglobin Mean Corpuscular 32.0 32.9 Hemoglobin Concen t Red Cell 12.9 12.8 Distribution Width Platelet Count 325 # 282 Mean Platelet 9.8 10.3 Volume Immature 0.500 H 0.300 Granulocytes % Neutrophils % 74.0 70.6 Lymphocytes % 15.9 17.3 Monocytes % 6.8 6.6 Eosinophils % 2.3 4.4 Basophils % 0.5 0.8 Nucleated Red 0.0 0.0 Blood Cells % Immature 0.030 0.020 Granulocytes # Neutrophils # 4.3 4.2 Lymphocytes # 0.9 1.0 Monocytes # 0.4 0.4 Eosinophils # 0.1 0.3 Basophils # 0.0 0.1 Nucleated Red 0.0 0.0 Blood Cells # Sodium Level 140 140 Potassium Level 3.9 3.6 Chloride Level 102 107 Carbon Dioxide 34 H 26 Level Anion Gap 4 L 7 Blood Urea 23 H 18 Nitrogen Creatinine 0.95 0.70 Est Glomerular Filtrat Rate mL/min Glucose Level 132 90 # Calcium Level 10.1 8.8 Total Bilirubin 0.4 0.4 Direct Bilirubin 0.00 0.00 Indirect 0.4 0.4 Bilirubin Aspartate Amino 24 30 Transf (AST/SGOT) Alanine 16 17 Aminotransferase (ALT/SGPT) Alkaline 114 73 Phosphatase Total Protein 7.8 6.1 # Albumin 4.2 3.2 #L Globulin 3.60 H 2.90 Albumin/Globulin 1.16 1.10 Ratio Bedside Glucose 105 Hemoglobin A1c 5.4 Magnesium Level 1.9 Triglycerides 127 Level Cholesterol Level 139 LDL Cholesterol, 51 Calculated HDL Cholesterol 63 Cholesterol/HDL 2.2 Ratio Thyroid 1.670 Stimulating Hormone (TSH) Urine Color YELLOW Urine Clarity SLIGHTLY CLOUDY A Urine pH 7.0 Urine Specific 1.013 [place] Urine Ketones NEGATIVE Urine Nitrite NEGATIVE Urine Bilirubin NEGATIVE Urine NEGATIVE Urobilinogen Urine Leukocyte NEGATIVE Esterase Urine Microscopic 3 RBC Urine Microscopic 4 WBC Urine Squamous FEW Epithelial Cells Urine Mucus FEW A Urine Hemoglobin 1+ H Urine Glucose NEGATIVE Urine Total 1+ H Protein Subjective 24 Hr Interval Summary Free Text/Dictation no distress. weak, alert to person and place, not to date Exam/Review of Systems Exam Vitals Vital Signs Date Temp Pulse Resp B/P (MAP) Pulse Ox O2 O2 Flow FiO2 Time Delivery Rate 07/18/18 98.5 68 16 173/74 100 08:03 (107) 07/17/18 Room Air 20:17 Intake and Output 07/17/18 07/17/18 07/18/18 1515:00 23:00 07:00 IntakeIntake Total 360 ml OutputOutput Total 100 ml BalanceBalance 260 ml Constitutional: alert, frail Head: normocephalic, atraumatic Eyes: nl conjunctiva, EOMI, nl lids ENMT: nl external ears & nose, nl lips & teeth, nl nasal mucosa & septum Neck: supple, non-tender Respiratory: clear to auscultation, normal air movement; No congested cough, No crackles/rales, No diminished breath sounds, No intercostal retraction, No labored breathing, No respirations, No tactile fremitus, No wheezing, No other Cardiovascular: regular rate and rhythm, nl pulses; No bruits, No diastolic murmur, No edema, No gallop, No irregular rhythm, No jugular venous distention (JVD), No murmurs/extra sounds, No rub, No systolic murmur, No S3, No S4, No other Gastrointestinal: soft, nl liver, spleen, non-tender, other (wound from previous G-tube, no significant redness) Musculoskeletal: nl extremities to inspection Extremities: normal pulses; No calf tenderness, No cyanosis, No clubbing, No edema, No pitting pedal edema, No palpable cord, No tenderness, No other Neurological: FIELD SALES REPRESENTATIVE II-XII intact, nl mental status, nl speech Results Results 24hrs Laboratory Tests Test 07/17/18 17:14 07/17/18 17:35 07/18/18 04:55 07/18/18 05:15 White Blood Count 5.7 # 5.9 Red Blood Count 4.01 #L 3.32 L Hemoglobin 12.2 # 10.3 L Hematocrit 38.1 # 31.3 L Mean Corpuscular 95.0 94.3 Volume Mean Corpuscular 30.4 31.0 Hemoglobin Mean Corpuscular 32.0 32.9 Hemoglobin Concen t Red Cell 12.9 12.8 Distribution Width Platelet Count 325 # 282 Mean Platelet 9.8 10.3 Volume Immature 0.500 H 0.300 Granulocytes % Neutrophils % 74.0 70.6 Lymphocytes % 15.9 17.3 Monocytes % 6.8 6.6 Eosinophils % 2.3 4.4 Basophils % 0.5 0.8 Nucleated Red 0.0 0.0 Blood Cells % Immature 0.030 0.020 Granulocytes # Neutrophils # 4.3 4.2 Lymphocytes # 0.9 1.0 Monocytes # 0.4 0.4 Eosinophils # 0.1 0.3 Basophils # 0.0 0.1 Nucleated Red 0.0 0.0 Blood Cells # Sodium Level 140 140 Potassium Level 3.9 3.6 Chloride Level 102 107 Carbon Dioxide 34 H 26 Level Anion Gap 4 L 7 Blood Urea 23 H 18 Nitrogen Creatinine 0.95 0.70 Est Glomerular Filtrat Rate mL/min Glucose Level 132 90 # Calcium Level 10.1 8.8 Total Bilirubin 0.4 0.4 Direct Bilirubin 0.00 0.00 Indirect 0.4 0.4 Bilirubin Aspartate Amino 24 30 Transf (AST/SGOT) Alanine 16 17 Aminotransferase (ALT/SGPT) Alkaline 114 73 Phosphatase Total Protein 7.8 6.1 # Albumin 4.2 3.2 #L Globulin 3.60 H 2.90 Albumin/Globulin 1.16 1.10 Ratio Bedside Glucose 105 Hemoglobin A1c 5.4 Magnesium Level 1.9 Triglycerides 127 Level Cholesterol Level 139 LDL Cholesterol, 51 Calculated HDL Cholesterol 63 Cholesterol/HDL 2.2 Ratio Thyroid 1.670 Stimulating Hormone (TSH) Urine Color YELLOW Urine Clarity SLIGHTLY CLOUDY A Urine pH 7.0 Urine Specific 1.013 [place] Urine Ketones NEGATIVE Urine Nitrite NEGATIVE Urine Bilirubin NEGATIVE Urine NEGATIVE Urobilinogen Urine Leukocyte NEGATIVE Esterase Urine Microscopic 3 RBC Urine Microscopic 4 WBC Urine Squamous FEW Epithelial Cells Urine Mucus FEW A Urine Hemoglobin 1+ H Urine Glucose NEGATIVE Urine Total 1+ H Protein Medications Medication Current Medications IV Flush (NS 3 ml) 3 ml PER PROTOCOL IV ; Start 07/17/18 at 19:00 Ondansetron HCl (Zofran Inj) 4 mg Q6H PRN IV NAUSEA/VOMITING; Start 07/17/18 at 19:00 Acetaminophen (Tylenol Tab) 650 mg Q6H PRN PO .PAIN 1-3 OR TEMP; Start 07/17/18 at 19:00 Ondansetron HCl (Zofran Inj) 4 mg BRIDGE ORDER PRN IV NAUSEA/VOMITING; Start 07/17/18 at 19:00; Stop 07/18/18 at 18:59 Acetaminophen (Tylenol Tab) 650 mg ER BRIDGE PRN PO .MILD PAIN 1-3 OR TEMP; Start 07/17/18 at 19:00; Stop 07/18/18 at 18:59 Dextrose/Sodium Chloride 1,000 ml @ 80 mls/hr [id number] IV Last administered on 07/18/18at 10:09; Admin Dose 80 MLS/HR; Start 07/18/18 at 09:00 Famotidine (Pepcid Iv) 20 mg DAILY IV ; Start 07/19/18 at 09:00 VANESA SANTIZO MD Jul 18, 2018 12:14
--- NOTE | 2018-07-18 14:06 | CONS ---
Assessment/Plan Assessment/Plan Hospital Course (Demo Recall) Summary Assessment and Plan: Assessment: Dysphagia H/o of previous G-tube with infected site- infection resolved- ostomy almost closed History of gastric cancer Normocytic anemia Malnutrition Dementia Plan: Called Tamra BROOKS to discuss PEG placement- NPO Will check INR PEG placement today or tomorrow pending consent Endoscopy - risks/benefits/alternatives/indications of procedure and sedation/anesthesia discussed with patient's family member Tamra who states understanding and gives informed consent to proceed. Patient seen in collaboration with Dr. Hagen CC: ROBERT HAGEN MD ; Consultation Date/Type/Reason Admit Date/Time Jul 17, 2018 at 18:36 Date of Consultation: Jul 18, 2018 Date/Time of Note DATE: 07/18/18 TIME: 13:39 Hx of Present Illness This is an 83-year-old female with past medical history of dementia who was recently hospitalized for bacteremia and infected G-tube site status post treatment and removal of G-tube at that time patient passed swallow eval was deemed stable and discharged back to her facility. However she returns here for failure to thrive she has had extremely poor p.o. intake. GI has been consulted for PEG placement. Currently patient is resting in bed in no apparent distress previous ostomy site is almost completely healed no signs of infection noted. Patient is confused and therefore cannot consent for PEG placement. I spoke to patient's niece Tamra BROOKS reviewed risk/benefits of both sedation and procedure she verbalized understanding and is agreeable to move forward with PEG placement. Review of Systems: A 12 system, review was conducted and is negative except as noted in the HPI or here. Past Medical History Medical History: other (See HPI) Home Meds Reported Medications Acetaminophen* (Acetaminophen*) 500 MG Extra Strength Tablet, 1000 MG PO DAILY PRN for BODY PAIN, TAB 07/17/18 Acetaminophen* (Acetaminophen*) 500 MG Extra Strength Tablet, 1000 MG PO Q4H PRN for PAIN -09/16, TAB 07/17/18 Acetaminophen* (Tylenol*) 325 Mg Tablet, 650 MG PO Q4H PRN for FEVER 100 AND ABOVE, TAB STOP DATE 07/24/18 07/17/18 Acetaminophen* (Tylenol*) 325 Mg Tablet, 650 MG PO Q4H PRN for MILD PAIN LEVEL 1-3, TAB 07/17/18 Zinc Sulfate* (Zinc Sulfate*) 220 Mg Tablet, 220 MG PO DAILY, TAB END DATE 08/22/18 07/17/18 Ascorbic Acid (Vitamin C) 500 Mg Tab, 500 MG PO DAILY, TAB 07/17/18 Cran/Vitc/Mannose/Inulin/Brom (Uti-Stat Liquid) 3,875 Mg/30 Ml Liquid, 30 ML PO DAILY 07/17/18 Amino Acids/Protein Hydrolys (PRO-STAT LIQUID) 30 Ml Liquid.pkt, 30 ML PO DAILY SUGAR FREE 07/17/18 Pantoprazole* (Pantoprazole*) 40 Mg Tablet.dr, 40 MG PO AC BREAKFAST, TAB 07/17/18 Multivitamin with Minerals (Multivitamins with Minerals) 1 Each Tablet, 1 EACH PO DAILY, TAB 07/17/18 Magnesium Hydroxide* (Milk Of Magnesia*) 400 Mg/5 Ml Oral.susp, 30 ML PO NEEDED, ML 07/17/18 Hydrocodone/Acetaminophen ([place] 5-325 Tablet) 1 Each Tablet, 1 EACH PO Q6H PRN for PAIN -12/17, TAB 07/17/18 Folic Acid* (Folic Acid*) 1 Mg Tablet, 1 MG PO DAILY, TAB 07/17/18 Na Phos,M-B/Na Phos,Di-Ba (Fleet Enema Extra) 230 Ml Enema, 1 APPLIC RC NEEDED, ENEMA 07/17/18 Ferrous Sulfate* (Ferrous Sulfate*) 325 Mg Tabec, 325 MG PO BID, TAB 07/17/18 Bisacodyl* (Bisacodyl*) 10 Mg Supp, 10 MG [place] NEEDED, SUPP 07/17/18 Cranberry Extract (Cranberry) 425 Mg Capsule, 425 MG PO DAILY, CAP 07/17/18 Docusate Sodium* (Colace*) 100 Mg Capsule, 200 MG PO QHS, #30 CAP 07/17/18 Discontinued Scripts Metoclopramide* (Reglan*) 5 Mg Tablet, 5 MG PO AC MEALS, #30 TAB Prov:MENSAH,ALFREDO V. BILLING COLLECTIONS SPECIALIST 06/22/18 Ascorbic Acid (Vitamin C) 500 Mg Tab, 500 MG PO DAILY for 30 Days, TAB Prov:MENSAH,ALFREDO V. BILLING COLLECTIONS SPECIALIST 06/22/18 Hydrocodone Bit-Acetaminophen (Hydrocodone Bit-APAP) 5-325MG Tablet, 1 TAB PO Q6H PRN for .MOD PAIN 4-6 for 30 Days, TAB Prov:ALFREDO MENSAH V. BILLING COLLECTIONS SPECIALIST 06/22/18 Acetaminophen* (Tylenol*) 325 Mg Tablet, 650 MG PO Q4H PRN for MILD PAIN LEVEL 1-3 for 30 Days, TAB Prov:MENSAHMIGUELITOA V. BILLING COLLECTIONS SPECIALIST 06/22/18 Pantoprazole* (Protonix*) 40 Mg Tablet.dr, 40 MG PO DAILY for 30 Days, TAB Prov:MENSAHMIGUELITOA V. BILLING COLLECTIONS SPECIALIST 06/22/18 Folic Acid* (Folic Acid*) 0.4 Mg Tablet, 0.4 MG PO DAILY for 30 Days, TAB Prov:ALFREDO MENSAH V. BILLING COLLECTIONS SPECIALIST 06/22/18 Multivitamin (MULTI VITAMIN DAILY) 1 Each Tablet, 5 ML PO DAILY for 30 Days, TAB Prov:ALFREDO MENSAH V. BILLING COLLECTIONS SPECIALIST 06/22/18 Medications Current Medications IV Flush (NS 3 ml) 3 ml PER PROTOCOL IV ; Start 07/17/18 at 19:00 Ondansetron HCl (Zofran Inj) 4 mg Q6H PRN IV NAUSEA/VOMITING; Start 07/17/18 at 19:00 Acetaminophen (Tylenol Tab) 650 mg Q6H PRN PO .PAIN 1-3 OR TEMP; Start 07/17/18 at 19:00 Ondansetron HCl (Zofran Inj) 4 mg BRIDGE ORDER PRN IV NAUSEA/VOMITING; Start 07/17/18 at 19:00; Stop 07/18/18 at 18:59 Acetaminophen (Tylenol Tab) 650 mg ER BRIDGE PRN PO .MILD PAIN 1-3 OR TEMP; Start 07/17/18 at 19:00; Stop 07/18/18 at 18:59 Dextrose/Sodium Chloride 1,000 ml @ 80 mls/hr [id number] IV Last administered on 07/18/18at 10:09; Admin Dose 80 MLS/HR; Start 07/18/18 at 09:00 Famotidine (Pepcid Iv) 20 mg DAILY IV ; Start 07/19/18 at 09:00 Allergies: Coded Allergies: Penicillins (Verified Allergy, Severe, 07/17/18) Past Surgical History Past Surgical Hx: other (See HPI) Social History Alcohol Use: none Smoking Status: Never smoker Drug Use: none Exam/Review of Systems Exam Vitals Vital Signs Date Temp Pulse Resp B/P (MAP) Pulse Ox O2 O2 Flow FiO2 Time Delivery Rate 07/18/18 98.5 68 16 173/74 100 08:03 (107) 07/17/18 Room Air 20:17 Intake and Output 07/17/18 07/17/18 07/18/18 1515:00 23:00 07:00 IntakeIntake Total 360 ml OutputOutput Total 100 ml BalanceBalance 260 ml Exam PHYSICAL EXAMINATION: GENERAL:Malnourished, alert & oriented x 3, confused SKIN: healing ostomy site. HEAD: Normocephalic, atraumatic, no tenderness. EYES: Pupils equal reactive to light no discharge. EARS/NOSE AND THROAT: Ears normal, nose normal, oropharynx normal. NECK: Supple, no masses CHEST: Inspection within normal limits. CARDIOVASCULAR: Heart: Regular rate and rhythm RESPIRATORY: Lungs clear to auscultation GASTROINTESTINAL AND LIVER: Abdomen: Soft, non tenderness, non-distended, no hernias, no masses, no organomegaly, no ascites, no guarding, no rebound tenderness, normoactive bowel sounds. Rectal: Deferred. EXTREMITIES: No cyanosis, clubbing or edema. Results Result Diagram: 07/18/18 0455 07/18/18 0455 Results 24hrs Laboratory Tests Test 07/17/18 17:14 07/17/18 17:35 07/18/18 04:55 07/18/18 05:15 White Blood Count 5.7 # 5.9 Red Blood Count 4.01 #L 3.32 L Hemoglobin 12.2 # 10.3 L Hematocrit 38.1 # 31.3 L Mean Corpuscular 95.0 94.3 Volume Mean Corpuscular 30.4 31.0 Hemoglobin Mean Corpuscular 32.0 32.9 Hemoglobin Concen t Red Cell 12.9 12.8 Distribution Width Platelet Count 325 # 282 Mean Platelet 9.8 10.3 Volume Immature 0.500 H 0.300 Granulocytes % Neutrophils % 74.0 70.6 Lymphocytes % 15.9 17.3 Monocytes % 6.8 6.6 Eosinophils % 2.3 4.4 Basophils % 0.5 0.8 Nucleated Red 0.0 0.0 Blood Cells % Immature 0.030 0.020 Granulocytes # Neutrophils # 4.3 4.2 Lymphocytes # 0.9 1.0 Monocytes # 0.4 0.4 Eosinophils # 0.1 0.3 Basophils # 0.0 0.1 Nucleated Red 0.0 0.0 Blood Cells # Sodium Level 140 140 Potassium Level 3.9 3.6 Chloride Level 102 107 Carbon Dioxide 34 H 26 Level Anion Gap 4 L 7 Blood Urea 23 H 18 Nitrogen Creatinine 0.95 0.70 Est Glomerular Filtrat Rate mL/min Glucose Level 132 90 # Calcium Level 10.1 8.8 Total Bilirubin 0.4 0.4 Direct Bilirubin 0.00 0.00 Indirect 0.4 0.4 Bilirubin Aspartate Amino 24 30 Transf (AST/SGOT) Alanine 16 17 Aminotransferase (ALT/SGPT) Alkaline 114 73 Phosphatase Total Protein 7.8 6.1 # Albumin 4.2 3.2 #L Globulin 3.60 H 2.90 Albumin/Globulin 1.16 1.10 Ratio Bedside Glucose 105 Hemoglobin A1c 5.4 Magnesium Level 1.9 Triglycerides 127 Level Cholesterol Level 139 LDL Cholesterol, 51 Calculated HDL Cholesterol 63 Cholesterol/HDL 2.2 Ratio Thyroid 1.670 Stimulating Hormone (TSH) Urine Color YELLOW Urine Clarity SLIGHTLY CLOUDY A Urine pH 7.0 Urine Specific 1.013 [place] Urine Ketones NEGATIVE Urine Nitrite NEGATIVE Urine Bilirubin NEGATIVE Urine NEGATIVE Urobilinogen Urine Leukocyte NEGATIVE Esterase Urine Microscopic 3 RBC Urine Microscopic 4 WBC Urine Squamous FEW Epithelial Cells Urine Mucus FEW A Urine Hemoglobin 1+ H Urine Glucose NEGATIVE Urine Total 1+ H Protein Medications Medication Current Medications IV Flush (NS 3 ml) 3 ml PER PROTOCOL IV ; Start 07/17/18 at 19:00 Ondansetron HCl (Zofran Inj) 4 mg Q6H PRN IV NAUSEA/VOMITING; Start 07/17/18 at 19:00 Acetaminophen (Tylenol Tab) 650 mg Q6H PRN PO .PAIN 1-3 OR TEMP; Start 07/17/18 at 19:00 Ondansetron HCl (Zofran Inj) 4 mg BRIDGE ORDER PRN IV NAUSEA/VOMITING; Start 07/17/18 at 19:00; Stop 07/18/18 at 18:59 Acetaminophen (Tylenol Tab) 650 mg ER BRIDGE PRN PO .MILD PAIN 1-3 OR TEMP; Start 07/17/18 at 19:00; Stop 07/18/18 at 18:59 Dextrose/Sodium Chloride 1,000 ml @ 80 mls/hr [id number] IV Last administered on 07/18/18at 10:09; Admin Dose 80 MLS/HR; Start 07/18/18 at 09:00 Famotidine (Pepcid Iv) 20 mg DAILY IV ; Start 07/19/18 at 09:00 DORIS BAUMANN Jul 18, 2018 14:06
--- NOTE | 2018-07-18 16:11 | PREAC ---
Date/Time of Note Date/Time of Note DATE: 07/18/18 TIME: 16:09 Anesthesia Eval and Record Evaluation Time Pre-Procedure Interview DATE: 07/18/18 TIME: 16:09 Age 83 Sex female NPO: 8 hrs Preoperative diagnosis DYSPHAGIA Planned procedure EGD WITH PEG PLACEMENT Past Medical History Past Medical History: Includes (DEMENTIA, , GASTRIC CANCER, MALNUTRITION) Heme: Anemia Surgery & Anesthesia Issues No known issue Meds Anticoagulation: No Beta Josep within 24 hr: No Reason Beta Josep not given: Pt. not on B-Josep Reported Medications Acetaminophen* (Acetaminophen*) 500 MG Extra Strength Tablet, 1000 MG PO DAILY PRN for BODY PAIN, TAB 07/17/18 Acetaminophen* (Acetaminophen*) 500 MG Extra Strength Tablet, 1000 MG PO Q4H PRN for PAIN -09/16, TAB 07/17/18 Acetaminophen* (Tylenol*) 325 Mg Tablet, 650 MG PO Q4H PRN for FEVER 100 AND ABOVE, TAB STOP DATE 07/24/18 07/17/18 Acetaminophen* (Tylenol*) 325 Mg Tablet, 650 MG PO Q4H PRN for MILD PAIN LEVEL 1-3, TAB 07/17/18 Zinc Sulfate* (Zinc Sulfate*) 220 Mg Tablet, 220 MG PO DAILY, TAB END DATE 08/22/18 07/17/18 Ascorbic Acid (Vitamin C) 500 Mg Tab, 500 MG PO DAILY, TAB 07/17/18 Cran/Vitc/Mannose/Inulin/Brom (Uti-Stat Liquid) 3,875 Mg/30 Ml Liquid, 30 ML PO DAILY 07/17/18 Amino Acids/Protein Hydrolys (PRO-STAT LIQUID) 30 Ml Liquid.pkt, 30 ML PO DAILY SUGAR FREE 07/17/18 Pantoprazole* (Pantoprazole*) 40 Mg Tablet.dr, 40 MG PO AC BREAKFAST, TAB 07/17/18 Multivitamin with Minerals (Multivitamins with Minerals) 1 Each Tablet, 1 EACH PO DAILY, TAB 07/17/18 Magnesium Hydroxide* (Milk Of Magnesia*) 400 Mg/5 Ml Oral.susp, 30 ML PO NEEDED, ML 07/17/18 Hydrocodone/Acetaminophen ([place] 5-325 Tablet) 1 Each Tablet, 1 EACH PO Q6H PRN for PAIN -12/17, TAB 07/17/18 Folic Acid* (Folic Acid*) 1 Mg Tablet, 1 MG PO DAILY, TAB 07/17/18 Na Phos,M-B/Na Phos,Di-Ba (Fleet Enema Extra) 230 Ml Enema, 1 APPLIC RC NEEDED, ENEMA 07/17/18 Ferrous Sulfate* (Ferrous Sulfate*) 325 Mg Tabec, 325 MG PO BID, TAB 07/17/18 Bisacodyl* (Bisacodyl*) 10 Mg Supp, 10 MG [place] NEEDED, SUPP 07/17/18 Cranberry Extract (Cranberry) 425 Mg Capsule, 425 MG PO DAILY, CAP 07/17/18 Docusate Sodium* (Colace*) 100 Mg Capsule, 200 MG PO QHS, #30 CAP 07/17/18 Discontinued Scripts Metoclopramide* (Reglan*) 5 Mg Tablet, 5 MG PO AC MEALS, #30 TAB Prov:ALFREDO MENSAH V. CAR MANAGER 06/22/18 Ascorbic Acid (Vitamin C) 500 Mg Tab, 500 MG PO DAILY for 30 Days, TAB Prov:ALFREDO MENSAH V. CAR MANAGER 06/22/18 Hydrocodone Bit-Acetaminophen (Hydrocodone Bit-APAP) 5-325MG Tablet, 1 TAB PO Q6H PRN for .MOD PAIN 4-6 for 30 Days, TAB Prov:ALFREDO MENSAH V. CAR MANAGER 06/22/18 Acetaminophen* (Tylenol*) 325 Mg Tablet, 650 MG PO Q4H PRN for MILD PAIN LEVEL 1-3 for 30 Days, TAB Prov:ALFREDO MENSAH V. CAR MANAGER 06/22/18 Pantoprazole* (Protonix*) 40 Mg Tablet.dr, 40 MG PO DAILY for 30 Days, TAB Prov:ALFREDO MENSAH V. CAR MANAGER 06/22/18 Folic Acid* (Folic Acid*) 0.4 Mg Tablet, 0.4 MG PO DAILY for 30 Days, TAB Prov:ALFREDO MENSAH V. CAR MANAGER 06/22/18 Multivitamin (MULTI VITAMIN DAILY) 1 Each Tablet, 5 ML PO DAILY for 30 Days, TAB Prov:ALFREDO MENSAH V. CAR MANAGER 06/22/18 Current Medications IV Flush (NS 3 ml) 3 ml PER PROTOCOL IV ; Start 07/17/18 at 19:00 Ondansetron HCl (Zofran Inj) 4 mg Q6H PRN IV NAUSEA/VOMITING; Start 07/17/18 at 19:00 Acetaminophen (Tylenol Tab) 650 mg Q6H PRN PO .PAIN 1-3 OR TEMP; Start 07/17/18 at 19:00 Ondansetron HCl (Zofran Inj) 4 mg BRIDGE ORDER PRN IV NAUSEA/VOMITING; Start 07/17/18 at 19:00; Stop 07/18/18 at 18:59 Acetaminophen (Tylenol Tab) 650 mg ER BRIDGE PRN PO .MILD PAIN 1-3 OR TEMP; Start 07/17/18 at 19:00; Stop 07/18/18 at 18:59 Dextrose/Sodium Chloride 1,000 ml @ 80 mls/hr [id number] IV Last administered on 07/18/18at 10:09; Admin Dose 80 MLS/HR; Start 07/18/18 at 09:00 Famotidine (Pepcid Iv) 20 mg DAILY IV ; Start 07/19/18 at 09:00 Meds reviewed: Yes Allergies Coded Allergies: Penicillins (Verified Allergy, Severe, 07/17/18) Allergies Reviewed: Yes Labs/Studies Labs Reviewed: Reviewed by anesthesiologist Result Diagram: 07/18/18 0455 07/18/18 0455 Laboratory Tests 07/18/18 04:55 test: N/A Pre-procedure Exam Last vitals Vital Signs Date Temp Pulse Resp B/P (MAP) Pulse Ox O2 O2 Flow FiO2 Time Delivery Rate 07/18/18 98.1 73 18 141/70 97 Room Air 14:30 (93) Airway: Adequate mouth opening, Adequate thyromental dist Mallampati: Mallampati II Teeth: Normal Lung: Normal Heart: Normal ASA Physical Status ASA physical status: 3 Emergency: None Planned Anesthetic General/MAC: MAC Planned Pain Management Parenteral pain med Pre-operative Attestations Prior to commencing anesthesia and surgery, the patient was re-evaluated, there was verification of: *The patient's identity *The results of appropriate recent lab work and preoperative vital signs *The above evaluation not changing prior to induction *Anesthetic plan, risk benefits, alternative and complications discussed with patient/family; questions answered; patient/family understands, accepts and wishes to proceed. Raad Hoffman M.D. Jul 18, 2018 16:11
[2018-07-18] MEDS ORDERED: LIDOCAINE 2% (SDV) 5 ML INJ ONE (16:12)
[2018-07-18] MEDS ORDERED: PROPOFOL 40 ML ONE (16:12)
--- NOTE | 2018-07-18 16:13 | HPN ---
Date/Time of Note Date/Time of Note DATE: 07/18/18 TIME: 16:13 Interval H&P Admission Note Pt. seen H&P reviewed: No system changes CATERINA JOHNSTON Jul 18, 2018 16:13
--- NOTE | 2018-07-18 16:55 | PAC ---
Date/Time of Note Date/Time of Note DATE: 07/18/18 TIME: 16:55 Post-Anesthesia Notes Post-Anesthesia Note Last documented vital signs Vital Signs Date Temp Pulse Resp B/P (MAP) Pulse Ox O2 O2 Flow FiO2 Time Delivery Rate 07/18/18 98.1 73 18 141/70 97 Room Air 14:30 (93) Activity: WNL Respiratory function: WNL Cardiovascular function: WNL Mental status: Baseline Pain reasonably controlled: Yes Hydration appropriate: Yes Nausea/Vomiting absent: Yes Raad Hoffman M.D. Jul 18, 2018 16:55
[2018-07-18] MEDS ORDERED: hydrALAzine 20 MG INJ IV ONE (21:30)
[2018-07-19] MEDS: DEXTROSE 5%-0.45% NACL 1,000 ML IV SCH ×3 (00:05→15:33)
[2018-07-19 02:50] VITALS: BP 163/74; PULSE 65; RESP 18
[2018-07-19 07:40] VITALS: BP 150/68; PULSE 57; RESP 18
[2018-07-19] MEDS: FAMOTIDINE 20 MG INJ IV SCH (08:58)
[2018-07-19] MEDS: POTASSIUM CHLORIDE 20 MEQ POWDER FOR ORAL SOLN GTB SCH ×2 (12:00→14:03)
[2018-07-19 14:49] VITALS: BP 141/60; PULSE 58; RESP 18
--- NOTE | 2018-07-19 16:46 | PN ---
Date/Time of Note Date/Time of Note DATE: 07/19/18 TIME: 16:42 Assessment/Plan VTE Prophylaxis Risk score (from Ns)>0 risk: 7 SCD applied (from Ns): Yes Pharmacological prophylaxis: heparin Lines/Catheters IV Catheter Type (from Nrsg): Peripheral IV Assessment/Plan Assessment/Plan 1. Dysphagia, s/p G-tube on 07/18/2018, started feeding last night, discharge when reach to target feeding, case management for discharge plan 2. Gastric cancer 3. h/o gastritis and erosive esophagitis, on pepcid 4. Chronic dementia 5. Normocytic anemia, chronic 6. Malnutrition, severe 7. Hypokalemia, KCL, follow up with K 8. DVT prophylaxis: heparin Result Diagram: 07/18/18 0455 07/19/18 0447 Results 24hrs Laboratory Tests Test 07/19/18 04:47 07/19/18 05:43 Sodium Level 137 Potassium Level 3.0 L Chloride Level 103 Carbon Dioxide Level 28 Anion Gap 6 Blood Urea Nitrogen 8 # Creatinine 0.63 Est Glomerular Filtrat Rate mL/min Glucose Level 183 Calcium Level 8.6 Magnesium Level 1.7 Lab Scanned Report REFERENCE LAB Subjective 24 Hr Interval Summary Free Text/Dictation no distress, alert but demented Exam/Review of Systems Exam Vitals Vital Signs Date Temp Pulse Resp B/P (MAP) Pulse Ox O2 O2 Flow FiO2 Time Delivery Rate 07/19/18 97.3 58 18 141/60 100 14:49 (87) 07/18/18 Room Air 17:15 07/18/18 4.0 16:50 Intake and Output 07/18/18 07/18/18 07/19/18 1515:00 23:00 07:00 IntakeIntake Total 160 ml 400 ml 1080 ml BalanceBalance 160 ml 400 ml 1080 ml Constitutional: alert, frail Head: normocephalic, atraumatic Eyes: nl conjunctiva, EOMI, nl lids, PERRL ENMT: nl external ears & nose, nl lips & teeth, nl nasal mucosa & septum Neck: supple, non-tender Respiratory: clear to auscultation, normal air movement; No congested cough, No crackles/rales, No diminished breath sounds, No intercostal retraction, No labored breathing, No respirations, No tactile fremitus, No wheezing, No other Cardiovascular: regular rate and rhythm, nl pulses; No bruits, No diastolic murmur, No edema, No gallop, No irregular rhythm, No jugular venous distention (JVD), No murmurs/extra sounds, No rub, No systolic murmur, No S3, No S4, No other Gastrointestinal: soft, nl liver, spleen, non-tender Musculoskeletal: nl extremities to inspection Extremities: normal pulses; No calf tenderness, No cyanosis, No clubbing, No edema, No pitting pedal edema, No palpable cord, No tenderness, No other Neurological: [employer] II-XII intact, nl speech, confused Results Results 24hrs Laboratory Tests Test 07/19/18 04:47 07/19/18 05:43 Sodium Level 137 Potassium Level 3.0 L Chloride Level 103 Carbon Dioxide Level 28 Anion Gap 6 Blood Urea Nitrogen 8 # Creatinine 0.63 Est Glomerular Filtrat Rate mL/min Glucose Level 183 Calcium Level 8.6 Magnesium Level 1.7 Lab Scanned Report REFERENCE LAB Medications Medication Current Medications IV Flush (NS 3 ml) 3 ml PER PROTOCOL IV ; Start 07/17/18 at 19:00 Ondansetron HCl (Zofran Inj) 4 mg Q6H PRN IV NAUSEA/VOMITING; Start 07/17/18 at 19:00 Acetaminophen (Tylenol Tab) 650 mg Q6H PRN PO .PAIN 1-3 OR TEMP; Start 07/17/18 at 19:00 Dextrose/Sodium Chloride 1,000 ml @ 80 mls/hr [id number] IV Last administered on 07/19/18at 15:33; Admin Dose 80 MLS/HR; Start 07/18/18 at 09:00 Famotidine (Pepcid Iv) 20 mg DAILY IV Last administered on 07/19/18at 08:58; Admin Dose 20 MG; Start 07/19/18 at 09:00 VANESA SANTIZO MD Jul 19, 2018 16:46
--- NOTE | 2018-07-19 17:16 | PN ---
Date/Time of Note Date/Time of Note DATE: 07/19/18 TIME: 17:09 Assessment/Plan VTE Prophylaxis Risk score (from Ns)>0 risk: 7 SCD applied (from Ns): Yes Pharmacological prophylaxis: heparin Lines/Catheters IV [facility] ([facility] Peripheral IV Assessment/Plan Assessment/Plan Assessment: Dysphagia Status post PEG placement 07/18/2018 -Uneventful PEG placement 20 Polish -Esophagitis H/o of previous G-tube with infected site- infection resolved- ostomy almost closed History of gastric cancer Normocytic anemia Malnutrition Dementia Plan: Continue advancing feeding PEG site care per protocol With no further recommendations GI will sign off Patient seen in collaboration with Dr. Johnston Subjective: Patient is doing well after PEG placement. The site is clear of drainage. Continues feeding in progress at 20 cc/h with minimal residuals. With no further recommendations GI will sign off and will be available for consultation upon request. Exam PHYSICAL EXAMINATION: GENERAL:Malnourished, alert, confused SKIN: healing ostomy site. HEAD: Normocephalic, atraumatic, no tenderness. EYES: Pupils equal reactive to light no discharge. EARS/NOSE AND THROAT: Ears normal, nose normal, oropharynx normal. NECK: Supple, no masses CHEST: Inspection within normal limits. CARDIOVASCULAR: Heart: Regular rate and rhythm RESPIRATORY: Lungs clear to auscultation GASTROINTESTINAL AND LIVER: Abdomen: Soft, non tenderness, PEG tube in place with continuous feeding in progress, non-distended, no hernias, no masses, no organomegaly, no ascites, no guarding, no rebound tenderness, normoactive bowel sounds. Rectal: Deferred. EXTREMITIES: No cyanosis, clubbing or edema. Result Diagram: 07/18/18 0455 07/19/18 0447 Results 24hrs Laboratory Tests Test 07/19/18 04:47 07/19/18 05:43 Sodium Level 137 Potassium Level 3.0 L Chloride Level 103 Carbon Dioxide Level 28 Anion Gap 6 Blood Urea Nitrogen 8 # Creatinine 0.63 Est Glomerular Filtrat Rate mL/min Glucose Level 183 Calcium Level 8.6 Magnesium Level 1.7 Lab Scanned Report REFERENCE LAB CC: CATERINA JOHNSTON ; Exam/Review of Systems Exam Vitals Vital Signs Date Temp Pulse Resp B/P (MAP) Pulse Ox O2 O2 Flow FiO2 Time Delivery Rate 07/19/18 97.3 58 18 141/60 100 14:49 (87) 4/11/19 Room Air 17:15 07/18/18 4.0 16:50 Intake and Output 07/18/18 07/18/18 07/19/18 1515:00 23:00 07:00 IntakeIntake Total 160 ml 400 ml 1080 ml BalanceBalance 160 ml 400 ml 1080 ml Results Results 24hrs Laboratory Tests Test 07/19/18 04:47 07/19/18 05:43 Sodium Level 137 Potassium Level 3.0 L Chloride Level 103 Carbon Dioxide Level 28 Anion Gap 6 Blood Urea Nitrogen 8 # Creatinine 0.63 Est Glomerular Filtrat Rate mL/min Glucose Level 183 Calcium Level 8.6 Magnesium Level 1.7 Lab Scanned Report REFERENCE LAB Medications Medication Current Medications IV Flush (NS 3 ml) 3 ml PER PROTOCOL IV ; Start 07/17/18 at 19:00 Ondansetron HCl (Zofran Inj) 4 mg Q6H PRN IV NAUSEA/VOMITING; Start 07/17/18 at 19:00 Acetaminophen (Tylenol Tab) 650 mg Q6H PRN PO .PAIN 1-3 OR TEMP; Start 07/17/18 at 19:00 Dextrose/Sodium Chloride 1,000 ml @ 80 mls/hr [id number] IV Last administered on 07/19/18at 15:33; Admin Dose 80 MLS/HR; Start 07/18/18 at 09:00 Famotidine (Pepcid Iv) 20 mg DAILY IV Last administered on 07/19/18at 08:58; Adm in Dose 20 MG; Start 07/19/18 at 09:00 Heparin Sodium (Porcine) (Heparin (5000 Units/1ml)) 5,000 unit BID SC ; Start 07/19/18 at 21:00 NIYA RIZO NP Jul 19, 2018 17:16
[2018-07-19 20:06] VITALS: BP 152/65; PULSE 62; RESP 19
[2018-07-19 20:30] VITALS: BP 136/70; PULSE 61
[2018-07-19] MEDS: HEPARIN 5,000 UNIT/1 ML VIAL SC SCH (21:20)
[2018-07-20 02:04] VITALS: BP 154/70; PULSE 62; RESP 18
[2018-07-20 02:30] VITALS: BP 137/69; PULSE 63
[2018-07-20 07:34] VITALS: BP 151/70; PULSE 61; RESP 16
[2018-07-20] MEDS: FAMOTIDINE 20 MG INJ IV SCH (09:22)
[2018-07-20] MEDS: DEXTROSE 5%-0.45% NACL 1,000 ML IV SCH (09:23)
[2018-07-20] MEDS: HEPARIN 5,000 UNIT/1 ML VIAL SC SCH (09:27)
--- NOTE | 2018-07-20 11:18 | PDOCDIS ---
Discharge Instructions CONDITION [id number] Patient Condition: [id number] Fair HOME CARE INSTRUCTIONS: [id number] Diet Instructions: [id number] Special Diet: [id number] pureed/ dysphagia altered; or oral gratification feeds; cont G tube feeds ACTIVITY: [id number] Activity Restrictions: [id number] Slowly Increase Activity Do not Drive FOLLOW UP/APPOINTMENTS Follow-up Plan Dr Hagen 1wk Palliative Care Referral CATHLEEN CERVANTES MD Jul 20, 2018 11:18
--- NOTE | 2018-07-20 12:11 | DS ---
Date/Time of Note Date/Time of Note DATE: 07/20/18 TIME: 12:10 Discharge Summary Admission/Discharge Info Admit Date/Time Jul 19, 2018 at 17:17 Discharge Date/Time Patient Condition: Stable Consults Suchov Procedures PEG tube placement Hx of Present Illness Admitted from [facility] with malnutrition for PEG tube placement. Hospital Course Hospitalist coverage/hospital course Seen by GI. Underwent PEG placement. Presently tolerating feeds, stable and fit for discharge. Malnutrition, continue feeds Dementia, consider palliative care Ftt stable discharge to [facility] Anemia stable observe Home Meds Reported Medications Acetaminophen* (Tylenol*) 325 Mg Tablet, 650 MG PO Q4H PRN for FEVER 100 AND ABOVE, TAB STOP DATE 07/24/18 07/17/18 Acetaminophen* (Tylenol*) 325 Mg Tablet, 650 MG PO Q4H PRN for MILD PAIN LEVEL 1-3, TAB 07/17/18 Zinc Sulfate* (Zinc Sulfate*) 220 Mg Tablet, 220 MG PO DAILY, TAB END DATE 08/22/18 07/17/18 Ascorbic Acid (Vitamin C) 500 Mg Tab, 500 MG PO DAILY, TAB 07/17/18 Cran/Vitc/Mannose/Inulin/Brom (Uti-Stat Liquid) 3,875 Mg/30 Ml Liquid, 30 ML PO DAILY 07/17/18 Amino Acids/Protein Hydrolys (PRO-STAT LIQUID) 30 Ml Liquid.pkt, 30 ML PO DAILY SUGAR FREE 07/17/18 Pantoprazole* (Pantoprazole*) 40 Mg Tablet.dr, 40 MG PO AC BREAKFAST, TAB 07/17/18 Multivitamin with Minerals (Multivitamins with Minerals) 1 Each Tablet, 1 EACH PO DAILY, TAB 07/17/18 Magnesium Hydroxide* (Milk Of Magnesia*) 400 Mg/5 Ml Oral.susp, 30 ML PO NEEDED, ML 07/17/18 Folic Acid* (Folic Acid*) 1 Mg Tablet, 1 MG PO DAILY, TAB 07/17/18 Na Phos,M-B/Na Phos,Di-Ba (Fleet Enema Extra) 230 Ml Enema, 1 APPLIC RC NEEDED, ENEMA 07/17/18 Ferrous Sulfate* (Ferrous Sulfate*) 325 Mg Tabec, 325 MG PO BID, TAB 07/17/18 Bisacodyl* (Bisacodyl*) 10 Mg Supp, 10 MG MS NEEDED, SUPP 07/17/18 Cranberry Extract (Cranberry) 425 Mg Capsule, 425 MG PO DAILY, CAP 07/17/18 Docusate Sodium* (Colace*) 100 Mg Capsule, 200 MG PO QHS, #30 CAP 07/17/18 Discontinued Reported Medications Acetaminophen* (Acetaminophen*) 500 MG Extra Strength Tablet, 1000 MG PO DAILY PRN for BODY PAIN, TAB 07/17/18 Acetaminophen* (Acetaminophen*) 500 MG Extra Strength Tablet, 1000 MG PO Q4H PRN for PAIN 4-6, TAB 07/17/18 Hydrocodone/Acetaminophen ([place] 5-325 Tablet) 1 Each Tablet, 1 EACH PO Q6H PRN for PAIN 7-12/17, TAB 07/17/18 Discontinued Scripts Metoclopramide* (Reglan*) 5 Mg Tablet, 5 MG PO AC MEALS, #30 TAB Prov:ALFREDO MENSAH V. [facility] HAND 06/22/18 Ascorbic Acid (Vitamin C) 500 Mg Tab, 500 MG PO DAILY for 30 Days, TAB Prov:MENSAHALFREDO V. SE[facility] HAND 06/22/18 Hydrocodone Bit-Acetaminophen (Hydrocodone Bit-APAP) 5-325MG Tablet, 1 TAB PO Q6H PRN for .MOD PAIN 4-6 for 30 Days, TAB Prov:MENSAHALFREDO V. [facility] 06/22/18 Acetaminophen* (Tylenol*) 325 Mg Tablet, 650 MG PO Q4H PRN for MILD PAIN LEVEL 1-3 for 30 Days, TAB Prov:MENSAHMIGUELITOA V. [facility] HAND 06/22/18 Pantoprazole* (Protonix*) 40 Mg Tablet., 40 MG PO DAILY for 30 Days, TAB Prov:MENSAHMIGUELITOA V. [employer] 06/22/18 Folic Acid* (Folic Acid*) 0.4 Mg Tablet, 0.4 MG PO DAILY for 30 Days, TAB Prov:MENSAHMIGUELITOA V. [employer] 06/22/18 Multivitamin (MULTI VITAMIN DAILY) 1 Each Tablet, 5 ML PO DAILY for 30 Days, TAB Prov:MENSAHMIGUELITOA V. [employer] HAND 06/22/18 Follow-up Plan Dr Hagen 1wk Palliative Care Referral Primary Care Provider Anika Jennings MD Time spent on discharge: < 30 minutes Pending Labs Laboratory Tests Test 07/20/18 04:30 White Blood Count 5.2 10^3/ul (4.8-10.8) Red Blood Count 3.34 10^6/ul (4.20-5.40) Hemoglobin 10.2 g/dl (12.0-16.0) Hematocrit 30.5 % (37.0-47.0) Mean Corpuscular Volume 91.3 fl (82.0-101.0) Mean Corpuscular Hemoglobin 30.5 pg (29.0-33.0) Mean Corpuscular Hemoglobin Concent 33.4 g/dl (32.0-37.0) Red Cell Distribution Width 12.6 % (11.5-14.5) Platelet Count 251 10^3/UL (140-415) Mean Platelet Volume 10.5 fl (7.4-10.4) Immature Granulocytes % 0.400 % (0.001-0.429) Neutrophils % 64.0 % (39.0-77.0) Lymphocytes % 20.3 % (15.0-51.0) Monocytes % 8.8 % (0.0-11.0) Eosinophils % 5.9 % (0.0-7.0) Basophils % 0.6 % (0.0-2.0) Nucleated Red Blood Cells % 0.0 /100WBC (0.0-0.0) Immature Granulocytes # 0.020 10^3/ul (0.0-0.031) Neutrophils # 3.4 10^3/ul (1.6-7.5) Lymphocytes # 1.1 10^3/ul (0.8-2.9) Monocytes # 0.5 10^3/ul (0.3-0.9) Eosinophils # 0.3 10^3/ul (0.0-0.5) Basophils # 0.0 10^3/ul (0.0-0.1) Nucleated Red Blood Cells # 0.0 10^3/ul (0.0-0.0) Sodium Level 134 mmol/L (135-144) Potassium Level 4.2 mmol/L (3.5-5.1) Chloride Level 102 mmol/L (97-110) Carbon Dioxide Level 25 mmol/L (21-31) Anion Gap 7 (5-13) Blood Urea Nitrogen 9 mg/dl (7-20) Creatinine 0.72 mg/dl (0.44-1.00) Est Glomerular Filtrat Rate mL/min mL/min (>60) Glucose Level 249 mg/dl (70-220) Calcium Level 8.5 mg/dl (8.4-10.2) CATHLEEN CERVANTES MD Jul 20, 2018 12:11
[2018-07-20 14:16] VITALS: BP 160/68; PULSE 63; RESP 16
[2018-07-20 19:57] VITALS: BP 158/72; PULSE 67; RESP 16
== END 2018-07-20 21:00 | DRG 640 ==
LOC: E/R 15:02 → 2NE 18:36 → OBSVTOIN 07-19 17:17
PROVIDERS: ADMIT Internal Medicine; ATTEND Internal Medicine
PROC: 0DH63UZ Insertion of Feeding Device into Stomach, Percutaneous Approach (ICD-10-PCS; principal; 2018-07-18)
DX: R62.7 Adult failure to thrive (principal); E43 Unspecified severe protein-calorie malnutrition; K22.10 Ulcer of esophagus without bleeding; Z68.1 Body mass index [BMI] 19.9 or less, adult; Z85.028 Personal history of other malignant neoplasm of stomach; F03.90 Unspecified dementia, unspecified severity, without behavioral disturbance, psychotic disturbance, mood disturbance, and anxiety; R13.10 Dysphagia, unspecified; K29.70 Gastritis, unspecified, without bleeding; D64.9 Anemia, unspecified; E87.6 Hypokalemia
CPT/HCPCS: 36415; 80048; 80053; 80061; 81001; 82962; 83036; 83735; 84443; 85025; 85610; 87081; 92610; A4310; G0378; J0360; J1644; J7030; J7042